=== PATIENT | male | born 1950 | race Caucasian/White ===

== ENCOUNTER 2025-02-26 18:18 | Inpatient (IN) | payer MEDICARE, SELFPAY ==
[2025-02-26 18:24] VITALS: BP 155/102; PULSE 91; RESP 18; TEMP 37; O2SAT 98; BMI 22.3
[2025-02-26 18:26] VITALS: BP 147/97; PULSE 91; RESP 14; TEMP 37; O2SAT 95
--- NOTE | 2025-02-26 18:43 | EKG12_ITS ---
Test Reason : ALT LOC Blood Pressure : */* mmHG Vent. Rate : 87 BPM Atrial Rate : 87 BPM P-R Int : 152 ms QRS Dur : 72 ms QT Int : 364 ms P-R-T Axes : 65 2 49 degrees QTcB Int : 438 ms Normal sinus rhythm Normal ECG Confirmed by Mitchel Mendieta ([id number]), film and video editor DINORAH WHITE ([id number]) on 02/27/2025 9:25:01 AM Referred By: Fausto Davidson Confirmed By: Mitchel Mendieta
--- NOTE | 2025-02-26 18:43 | CT_ITS ---
PROCEDURE: BRAIN/HEAD WITHOUT CONTRAST 02/26/2025 REASON FOR EXAM: ALTERED MENTAL STATUS TECHNIQUE: Head CT without intravenous contrast. Coronal and Sagittal reconstruction series were provided. One or more dose reduction techniques were used (e.g., Automated exposure control, adjustment of the mA and/or kV according to patient size, use of iterative reconstruction technique. COMPARISON: None FINDINGS: Encephalomalacia right frontoparietal lobe, likely from prior right MCA distribution infarct. Calcification noted within the encephalomalacia lytic focus. Additional areas of cortical laminar necrosis. No acute intracranial hemorrhage, mass, mass effect, midline shift or pathologic extra-axial fluid collection. Mild parenchymal atrophy with commensurate increase in CSF containing spaces. Ex vacuo dilatation posterior horn right lateral ventricle, from adjacent encephalomalacia. Patchy white matter hypodensities, patient demographics favor chronic microvascular ischemic changes. Complete opacification left maxillary sinus with areas of mildly high attenuation, likely secondary to inspissated secretions or fungal colonization. The calvarium is grossly intact. CT/Brain/Head without Contrast IMPRESSION: No acute intracranial abnormality. 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 Reading Location: [facility]
--- NOTE | 2025-02-26 18:44 | EX.ED.DYSGE1 ---
HPI History of Present Illness Chief Complaint: Alt LOC Informant: patient, spouse/S.O. and EMS Narrative Narrative: 74-year-old male brought by EMS due to a fall without injury just prior to arrival, but the is more concerned that he has been confused for the past 6 days. Patient agrees he has been somewhat confused. He states he felt a little short of breath earlier and told the this, she states he has had no other complaints for the past 6 days except for being more tired and weak. 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 Other than that he has no other major medical issues. He is not usually confused. Because of his left hemiparesis he usually uses a wheelchair to get around and can usually transfer on his own but not this past week until today, but that resulted in a minor fall without injury. Patient denies having any pain right now, he denies being dyspneic right now either. The states that he has been seemingly hallucinating recently, talking to people that are not there. Patient states something about getting up on a tractor yesterday, the states he certainly did not do that. She states that today he knows who she is, but for the last couple days she has been Moises. [facility] Medical History (Updated 02/26/25 @ 21:[address] Damien Leung MD) Hemorrhagic stroke Home Medications ?Medication ?Instructions ?Recorded ?Last Taken ?Type amlodipine 5 mg tablet 5 mg PO BID 02/26/25 Unknown History atorvastatin 10 mg tablet 10 mg PO QHS 02/26/25 Unknown History baclofen 10 mg tablet 10 mg PO TID 02/26/25 Unknown History donepezil 5 mg tablet 10 mg PO QHS 02/26/25 Unknown History ergocalciferol (vitamin D2) 1,250 50,000 unit PO DAILY 02/26/25 Unknown History mcg (50,000 unit) capsule (Vitamin D2) lacosamide 100 mg tablet 100 mg PO BID 02/26/25 Unknown History metoprolol tartrate 25 mg tablet 25 mg PO BID 02/26/25 Unknown History mirtazapine 15 mg tablet (Remeron) 15 mg PO QHS 02/26/25 Unknown History Allergy/AdvReac Type Severity Reaction Status Date / Time azithromycin Allergy NEEDS Verified 02/26/25 18:24 FOLLOW-UP Surgical History History of hip replacement Social History Smoking Status: Former smoker ROS ROS ED Review of Systems ROS Unobtainable: other Details: Limited due to confusion Constitutional Constitutional ED: Denies chills or fever(s) Eyes Eyes: Denies change in vision or diplopia ENT ENT ED: Denies sore throat Cardiovascular Cardiovascular: Denies chest pain or palpitations Respiratory/Chest Respiratory/Chest: Reports as per HPI and dyspnea; Denies cough Gastrointestinal Gastrointestinal: Denies abdominal pain, diarrhea, nausea or vomiting Genitourinary Genitourinary ED: Denies hematuria Musculoskeletal Musculoskeletal: Denies back pain or neck pain Integumentary Denies abscess or rash Neurologic Neurologic: Reports as per HPI, confusion, paresthesias and weakness; Denies headache(s) Psychiatric Psychiatric: Denies suicidal thoughts EXAM Physical Exam Const Vital Signs: 02/26/25 18:24 02/26/25 18:26 02/26/25 19:26 Temperature 98.6 F 98.6 F 99.1 F Temperature Source Oral Oral Oral Pulse Rate 91 91 91 Respiratory Rate 18 14 14 Blood Pressure 155/102 H 147/97 H 165/104 H Blood Pressure Mean 119 113 124 Pulse Ox 98 95 97 Oxygen Delivery Method Room Air Room Air Room Air 02/26/25 21:04 Temperature 99.1 F Temperature Source Oral Pulse Rate 89 Respiratory Rate 16 Blood Pressure 149/103 H Blood Pressure Mean 118 Pulse Ox 94 Oxygen Delivery Method Room Air Positive well nourished and well developed General Appearance ED: well developed and NAD HEENT Reports moist mucous membranes normocephalic and atraumatic Eyes PERRL and EOMs intact bilaterally Neck full ROM and supple Chest Wall inspection of chest normal and palpation of chest normal Resp normal respiratory effort and clear to auscultation bilaterally Cardio regular rate, regular rhythm and no murmurs Rate: Negative for tachycardic GI non-tender and non-distended Auscultation: normoactive bowel sounds Palpation: soft Back/Spine no CVA tenderness General Back: other FROM Extremity normal to inspection General Extremety ED: Negative for edema, pulses abnormal or tenderness General Extremity: Negative for edema or pulses abnormal Neuro CN's II-XII intact bilaterally Neuro Narrative: Able to move the left arm and left leg, but with significant proximal weakness. He does have sensation in those limbs but it is less compared with the right which are normal. He is oriented to person only. When asked which day it is, it is Thursday, and he states I think it has been Thursday for several days now. When asked about the month and the year, he states I do not know because that does not apply to me and I do not care. Sensorium / Orientation: awake, alert and orientation impaired Skin no rashes or lesions noted and no wounds MDM MDM MDM Narrative Medical decision making narrative: Patient is confused/encephalopathic. His blood counts and liver enzymes, lactic acid all within normal limits, urinalysis negative, CT of the head interpretation is negative for any acute radiology was in agreement, and 2 view chest x-ray my interpretation shows no pneumonia and radiology in agreement on that as well. He does not have any acute metabolic disturbance. He has 2 sequential troponin measurements that are negative. His EKG is completely normal. His vital signs are normal he is not excessively hypertensive, unclear if this is medication related, he is not using substances or alcohol, I do not think he is withdrawing from anything. However family is concerned because they cannot be there 11/05 and he is very confused, unable to rule out acute ischemic TIA, so I think reasonable to admit. After dysphagia screening we will give him some aspirin. Lab Data Attestation: I reviewed the patient's lab results. Labs: Laboratory Results - last 24 hr 02/26/25 02/26/25 02/26/25 18:33 19:03 19:45 WBC 10.1 RBC 5.71 Hgb 17.0 H Hct 51.1 MCV 89.5 MCH 29.8 MCHC 33.3 RDW Std Deviation 41.7 RDW Coeff of Noris 12.7 Plt Count 334 MPV 10.1 Immature Gran % (Auto) 0.300 Neut % (Auto) 76.0 H Lymph % (Auto) 14.7 L [place] % (Auto) 6.9 Eos % (Auto) 0.9 Baso % (Auto) 1.2 H Absolute Neuts (auto) 7.7 Absolute Lymphs (auto) 1.49 Nucleated RBC % 0 Sodium 144 Potassium 3.7 Chloride 109 H Carbon Dioxide 21.8 Anion Gap 13 BUN 17 Creatinine 0.79 Estim Creat Clear Calc 79.80 Est GFR (MDRD) Non-Af 94 BUN/Creatinine Ratio 21.2 H Glucose 90 Lactic Acid 1.7 Calcium 9.8 Total Bilirubin 0.51 AST 12 ALT 8 Alkaline Phosphatase 77 Troponin T High Sens 9 Troponin T Hi Sens 2 Hr Total Protein 7.8 Albumin 4.3 Globulin 3.4 Albumin/Globulin Ratio 1.3 Urine Color Yellow Urine Clarity Clear Urine pH 5.0 Ur Specific [place] 1.025 Urine Protein 30 H Urine Glucose (UA) Normal Urine Ketones Negative Urine Occult Blood 10 H Urine Nitrite Negative Urine Bilirubin 1 H Urine Urobilinogen 1 H Ur Leukocyte Esterase 25 H Urine RBC 0-5 SEEN Urine WBC 0-5 SEEN Ur Squamous Epith Cells 0 SEEN Urine Bacteria 0 SEEN Urine Mucus 0 SEEN 02/26/25 20:20 WBC RBC Hgb Hct MCV MCH MCHC RDW Std Deviation RDW Coeff of Noris Plt Count MPV Immature Gran % (Auto) Neut % (Auto) Lymph % (Auto) [place] % (Auto) Eos % (Auto) Baso % (Auto) Absolute Neuts (auto) Absolute Lymphs (auto) Nucleated RBC % Sodium Potassium Chloride Carbon Dioxide Anion Gap BUN Creatinine Estim Creat Clear Calc Est GFR (MDRD) Non-Af BUN/Creatinine Ratio Glucose Lactic Acid Calcium Total Bilirubin AST ALT Alkaline Phosphatase Troponin T High Sens Troponin T Hi Sens 2 Hr 7 Total Protein Albumin Globulin Albumin/Globulin Ratio Urine Color Urine Clarity Urine pH Ur Specific [place] Urine Protein Urine Glucose (UA) Urine Ketones Urine Occult Blood Urine Nitrite Urine Bilirubin Urine Urobilinogen Ur Leukocyte Esterase Urine RBC Urine WBC Ur Squamous Epith Cells Urine Bacteria Urine Mucus Radiography Diagnostic Testing: Clinical Impression(s) from Imaging Studies Brain CT 02/26/25 18:43 IMPRESSION: No acute intracranial abnormality. 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 Reading Location: [facility] Chest X-Ray 02/26/25 19:20 IMPRESSION: NO ACUTE FINDINGS. Reading Location: [facility] No CT angiography indicated since symptoms have been present for greater than 24 hours, if MANAGER IMAGE mediated. Rhythm Strip Rhythm Strip: Sinus Rhythm Rate: 87 Ectopy: None EKG Initial EKG: Attestation: I personally reviewed and interpreted this EKG as follows: Interpretation: Sinus Rhythm and No Acute Injury Pattern Comments: Nml axis & intervals; nml EKG Management Discussion w/another healthcare provider: Hospitalist Discharge Plan Triage Chief Complaint: Alt LOC ED Provider: Damien Leung Dx/Rx/DC Orders Clinical Impression: Acute encephalopathy, Generalized weakness Prescriptions: No Action donepezil 5 mg tablet 10 mg PO QHS mirtazapine [Remeron] 15 mg tablet 15 mg PO QHS lacosamide 100 mg tablet 100 mg PO BID atorvastatin 10 mg tablet 10 mg PO QHS ergocalciferol (vitamin D2) [Vitamin D2] 1,250 mcg (50,000 unit) capsule 50,000 unit PO DAILY metoprolol tartrate 25 mg tablet 25 mg PO BID baclofen 10 mg tablet 10 mg PO TID amlodipine 5 mg tablet 5 mg PO BID Primary Care Provider: Care Physician,No Primary Referrals: Care Physician,No Primary [Primary Care Provider] - Print Language: Japanese Disposition Disposition: Acute Care Hospital [facility]
[2025-02-26 18:56] LABS: Absolute Lymphocyte Count 1.49 X10^3/uL (0.83-4.51); Absolute Neutrophil Count 7.7 X10^3/uL (2.0-7.7); Basophil# 0.12 X10^3/uL; Basophil% 1.2 % (0-1); Eosinophil# 0.09 X10^3/uL; Eosinophils% 0.9 % (0-5); Hematocrit 51.1 % (40-54); Lymphocyte # 1.49 X10^3/ul (0.83-4.51); Lymphocyte % 14.7 % (19-41); Mean Corp Hgb Conc 33.3 g/dL (32-36); Mean Corpuscular Hgb 29.8 pg (27.0-32.0); Mean Corpuscular Volume 89.5 fL (80-94); Mean Platelet Vol. 10.1 fl (6.2-12.0); Monocyte% 6.9 % (0-10); NRBC Flagged by Analyzer 0 % (0-5); Neutrophil # 7.68 X10^3/uL (2.7-7.7); Platelet Count 334 K/mm3 (150-450); RBC Distribution Width CV 12.7 % (11.6-14.6); RBC Distribution Width SD 41.7 fl (35.1-43.9); Red Blood Count 5.71 M/mm3 (4.6-6.2); White Blood Count 10.1 K/mm3 (4.4-11.0)
--- NOTE | 2025-02-26 19:01 | PCA ---
NO OLD EKG
[2025-02-26 19:08] LABS: ALB/GLOB Ratio 1.3 RATIO (0.9-2.4); AST(SGOT) 12 U/L (<=37); Alanine Aminotransfer ALT/SGPT 8 U/L (<=46); Albumin, Serum 4.3 g/dL (3.4-4.8); Alkaline Phosphatase 77 U/L (40-129); Anion Gap 13 (5-15); BUN 17 mg/dL (4-19); BUN/Creat Ratio 21.2 RATIO (10-20); Calcium,Total 9.8 mg/dL (7.6-11.0); Carbon Dioxide 21.8 mmol/L (21.0-32.0); Chloride 109 mmol/L (98-108); Creatinine, Serum 0.79 mg/dL (0.70-1.20); EST Glomerular Filtration Rate 94 (>60); Globulin 3.4 g/dL (2.2-4.2); Glucose 90 mg/dL (70-99); Potassium 3.7 mmol/L (3.3-5.1); Protein, Total 7.8 g/dL (5.9-8.4); Sodium Level 144 mmol/L (133-145); Total Bilirubin 0.51 mg/dL (0.00-1.30)
--- NOTE | 2025-02-26 19:20 | RAD_ITS ---
PROCEDURE: CHEST PA AND LATERAL 02/26/2025 REASON FOR EXAM: SOB TECHNIQUE: Frontal and lateral views of the chest. COMPARISON: None FINDINGS: Hardware: None Heart: The heart size is normal. Mediastinum: The mediastinal contour is stable. Lungs: No focal consolidation. No pneumothorax. No pleural effusion. Bones: Degenerative changes are identified within the thoracic spine. RAD/Chest PA and Lateral IMPRESSION: NO ACUTE FINDINGS. Reading Location: [facility]
[2025-02-26 19:26] VITALS: BP 165/104; PULSE 91; RESP 14; TEMP 37.3; O2SAT 97
[2025-02-26 19:28] LABS: Troponin T High Sensitivity 9 ng/L (<=22)
[2025-02-26 19:29] LABS: Lactic Acid 1.7 mmol/L (0.0-2.0)
[2025-02-26 19:56] LABS: Bacteria 0 SEEN /hpf (None Seen); Mucous, Urine 0 SEEN /hpf (<or=2+); Squamous Epithelial Cells - UA 0 SEEN /hpf (0-5)
[2025-02-26 19:59] LABS: Color, Urine Yellow (Yellow); Glucose, Dipstick Normal (Normal); Ketone-Dipstick Negative (Negative); Leukocyte Esterase-Dipstick 25 /ul (Negative); Nitrite-Dipstick Negative (Negative); Occult Blood-Urine 10 /ul (Negative); Protein-Dipstick 30 mg/dl (Negative); Specific Gravity, Urine 1.025 (1.002-1.030); Urine Clarity Clear (Clear); Urine Urobilinogen 1 mg/dl (Normal)
[2025-02-26 20:07] LABS: Red Blood Cells-Urine 0-5 SEEN /hpf (0-5); Urine Bilirubin Dipstick 1 mg/dL (Negative); White Blood Cells 0-5 SEEN /hpf (0-5)
[2025-02-26 20:48] LABS: Troponin T High Sens 2 HR 7 ng/L (<=22)
[2025-02-26 21:04] VITALS: BP 149/103; PULSE 89; RESP 16; TEMP 37.3; O2SAT 94
--- NOTE | 2025-02-26 21:27 | PCM.HP.STD ---
[facility] - General General Date of Admission: 02/26/25 Date of Service: 02/26/25 Chief Complaint: AMS and Fall. 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 Mr. Soto is not up as reliable-historian at this time so information was gathered from chart, medical staff and computer. According to the records he has been confused for the past 6 days with mild intermittent shortness of breath, feeling fatigued and generally weak. His states he is usually not confused. He typically uses a wheelchair to mobilize and can usually transfer on his own but he was able to this past week until today when he attempted to get up experienced a minor fall without associated injury, LOC or head trauma. He denies pain and shortness of breath at this time. His states he has been hallucinating recently and talking to people that are not there. She also states he said something about getting up on a tractor yesterday, with his stating he certainly did not do that. Also for the last few days the patient has been calling his Moises but the day he seems to know who she is. There was no reported fever, chills, blurry vision, discharge from eyes, runny nose, sore throat, ear pain, chest pain, palpitations, heart racing, abdominal pain, nausea, vomiting, diarrhea, hematuria, dysuria, back pain, headache or rash. 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 He was then admitted to the PCU under observation status for TIA/CVA workup for his confusion for a stay that is expected to be less than [address] [facility] Medical History Hemorrhagic stroke Home Medications ?Medication ?Instructions ?Recorded ?Last Taken ?Type amlodipine 5 mg tablet 5 mg PO BID 02/26/25 Unknown History atorvastatin 10 mg tablet 10 mg PO QHS 02/26/25 Unknown History baclofen 10 mg tablet 10 mg PO TID 02/26/25 Unknown History donepezil 5 mg tablet 10 mg PO QHS 02/26/25 Unknown History ergocalciferol (vitamin D2) 1,250 50,000 unit PO DAILY 02/26/25 Unknown History mcg (50,000 unit) capsule (Vitamin D2) lacosamide 100 mg tablet 100 mg PO BID 02/26/25 Unknown History metoprolol tartrate 25 mg tablet 25 mg PO BID 02/26/25 Unknown History mirtazapine 15 mg tablet (Remeron) 15 mg PO QHS 02/26/25 Unknown History Allergy/AdvReac Type Severity Reaction Status Date / Time azithromycin Allergy NEEDS Verified 02/26/25 18:24 FOLLOW-UP Surgical History History of hip replacement Social History Smoking Status: Former smoker ROS ROS Narrative Full review of systems was not possible due to patient's confusion. Vital Signs Vital Signs Vital Signs: 02/26/25 18:24 02/26/25 18:26 02/26/25 19:26 Temperature 98.6 F 98.6 F 99.1 F Temperature Source Oral Oral Oral Pulse Rate 91 91 91 Respiratory Rate 18 14 14 Blood Pressure 155/102 H 147/97 H 165/104 H Blood Pressure Mean 119 113 124 Pulse Ox 98 95 97 Oxygen Delivery Method Room Air Room Air Room Air 02/26/25 21:04 Temperature 99.1 F Temperature Source Oral Pulse Rate 89 Respiratory Rate 16 Blood Pressure 149/103 H Blood Pressure Mean 118 Pulse Ox 94 Oxygen Delivery Method Room Air Weight Weight: 151 lb 3.794 oz Body Mass Index (BMI) 22.3 Physical Exam Const alert, no apparent distress and average body habitus General Appearance: cooperative Orientation / Consciousness: confused HEENT normocephalic, head/scalp atraumatic, hearing grossly normal bilaterally and moist oral mucous membranes Eyes PERRL, EOMs intact bilaterally and conjunctivae normal Neck no lymphadenopathy, supple and no JVD Resp normal respiratory effort, no retractions, no use of accessory muscles and clear to auscultation bilaterally Cardio regular rate and regular rhythm GI normal to inspection, nondistended, normoactive bowel sounds, soft to palpation, non-tender and non-distended Extremity normal to inspection, full ROM and no clubbing, cyanosis or edema Skin Skin Narrative: Patient has evidence of rash, abscess, wounds or jaundice. Neuro CN's II-XII intact bilaterally and moves all extremities Neuro Narrative: Patient is confused and has chronic Left-sided weakness that is unchanged from previous. Sensorium / Orientation: awake, alert, oriented to person and oriented to place Speech: speech normal Psych affect normal Results Medical Records Data Attestation: I reviewed the patient's medical records Lab / Micro Data Attestation: I reviewed the patient's lab results. 02/26/25 18:33 02/26/25 18:33 Labs: Laboratory Results - last 24 hr 02/26/25 18:33: WBC 10.1, RBC 5.71, Hgb 17.0 H, Hct 51.1, MCV 89.5, MCH 29.8, MCHC 33.3, RDW Std Deviation 41.7, RDW Coeff of Noris 12.7, Plt Count 334, MPV 10.1, Immature Gran % (Auto) 0.300, Neut % (Auto) 76.0 H, Lymph % (Auto) 14.7 L, [place] % (Auto) 6.9, Eos % (Auto) 0.9, Baso % (Auto) 1.2 H, Absolute Neuts (auto) 7.7, Absolute Lymphs (auto) 1.49, Nucleated RBC % 0, Sodium 144, Potassium 3.7, Chloride 109 H, Carbon Dioxide 21.8, Anion Gap 13, BUN 17, Creatinine 0.79, Estim Creat Clear Calc 79.80, Est GFR (MDRD) Non-Af 94, BUN/Creatinine Ratio 21.2 H, Glucose 90, Calcium 9.8, Total Bilirubin 0.51, AST 12, ALT 8, Alkaline Phosphatase 77, Troponin T High Sens 9, Total Protein 7.8, Albumin 4.3, Globulin 3.4, Albumin/Globulin Ratio 1.3 02/26/25 19:03: Lactic Acid 1.7 02/26/25 19:45: Urine Color Yellow, Urine Clarity Clear, Urine pH 5.0, Ur Specific [place] 1.025, Urine Protein 30 H, Urine Glucose (UA) Normal, Urine Ketones Negative, Urine Occult Blood 10 H, Urine Nitrite Negative, Urine Bilirubin 1 H, Urine Urobilinogen 1 H, Ur Leukocyte Esterase 25 H, Urine RBC 0-5 SEEN, Urine WBC 0-5 SEEN, Ur Squamous Epith Cells 0 SEEN, Urine Bacteria 0 SEEN, Urine Mucus 0 SEEN 02/26/25 20:20: Troponin T Hi Sens 2 Hr 7 Rhythm Strip Rhythm Strip: Sinus Rhythm Rate: 87 Ectopy: None Imaging Radiology Impression Brain CT 02/26/25 18:43 IMPRESSION: No acute intracranial abnormality. 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 Reading Location: [facility] Chest X-Ray 02/26/25 19:20 IMPRESSION: NO ACUTE FINDINGS. Reading Location: [facility] Assessment & Plan Assessment/Plan (1) Confusion: (2) 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nset dementia: (3) Generalized weakness: (4) History of hemorrhagic cerebrovascular accident (CVA) with residual deficit: (5) Seizure disorder as sequela of cerebrovascular accident: (6) Chronic dementia: (7) Generalized weakness: PLAN: Plan 1. Persistent Confusion x ~6 days; with Hallucinations and Generalized Weakness; evaluate for TIA/CVA - Admit to PCU under observation status. Check MRI of brain without contrast to evaluate for CVA. Check echocardiogram to evaluate LVEF. Check carotid Doppler to evaluate for stenosis. Continue aspirin begun in ER as well as statin patient is chronically taking. Check TSH, B12, folate, hemoglobin A1c, lipid profile, UDS and FER to expand neurologic evaluation for other possible causes of confusion. Give acetaminophen as needed for pain or fever. We will minimize new WATER CONSERVATION SPECIALIST-active medications in an effort to allow sensorium to clear. Finally, we will consult [facility] to see this patient on rounds in a.m. for further recommendations without appreciated in advance. 2. History of hemorrhagic Right MCA CVA (~2018) followed by another CVA (2023); residual Left-sided weakness complicating #1 - Noted. 3. History of seizure after CVA; on lacosamide compounding #1 & #2 - Resume lacosamide and check EEG in a.m. to evaluate for possible underlying seizure activity. 4. Chronic dementia; on donepezil adding to the medical complexity of #1 - #3 - Maintain donepezil and consider adding a second agent if above workup is unremarkable and hallucinations and confusion persist in spite of conservative treatment and other underlying etiology failing to be identified in spite of workup outlined above. 5. Essential hypertension; on amlodipine and metoprolol twice daily - Hold scheduled antihypertensives to allow for 'permissive hypertension' until CVA definitively ruled out on MRI. 6. Hyperlipidemia; on atorvastatin - Resume statin and check lipid profile in light of #1. 7. Former tobacco abuse - Noted. 8. Depression; on mirtazapine - Current therapy to be continued as before. 9. History of TIA; with a possible recurrence outlined #1 - Noted. 10. History of muscle spasms; on baclofen 3 times daily - Maintain present regimen. 11. OA; s/p THR - Give acetaminophen as needed as outlined in #1. Who presents to [facility] ER with his family complaining of altered mental status and fall. 12. DVT prophylaxis - SCD's only. Total time: Approximately (but not less than) 70 minutes. Charges/Coding Visit Charges OBSV E&M: 39276 Observ/hosp same date L2
[2025-02-26 21:34] VITALS: BP 151/104; PULSE 81; RESP 13; TEMP 36.6; O2SAT 95
[2025-02-26] MEDS: Aspirin 325 MG Tablet PO (21:39)
--- NOTE | 2025-02-26 22:01 | ECHOCS_ITS ---
Reason For Study Reason For Study: TIA/CVA Procedure This was a 2D Doppler, Color Flow transthoracic echocardiogram. The study was technically difficult. Contrast injection was performed. Patient was unable to hold still for testing and was very confused. Limited views were obtained. Exam performed portable in patient room. Left Ventricle Normal LV size. Left ventricular systolic function is normal. The left ventricular ejection fraction is 65 %. Stage 1 diastolic dysfunction. No regional wall motion abnormalities noted. Right Ventricle Normal RV size. Normal systolic function. Pericardium/Pleural No pericardial effusion. Medication Diluted definity 4ml given slow IV push to enhance endocardial definition. Time Measurements MV dec time: 0.26 sec Doppler Measurements & Calculations MV E max zak: 54.2 cm/sec Lat Peak E' Zak: 6.8 cm/sec Med Peak E' Zak: 7.6 cm/sec MV A max zak: 104.0 cm/sec E/E' lat: 8.0 E/E' med: 7.1 MV E/A: 0.52 MV V2 max: 123.4 cm/sec MV P1/2t max zak: 63.4 cm/sec Ao V2 max: 110.4 cm/sec MV max P.1 mmHg MV P1/2t: 84.9 msec Ao max P.9 mmHg MV V2 mean: 60.5 cm/sec MV mean P.9 mmHg MV dec slope: 218.7 cm/sec2 MV V2 VTI: 21.4 cm MVA(P1/2t): 2.6 cm2 LV V1 max: 84.9 cm/sec LV V1 max P.9 mmHg ECHO/Echo Complete W/ Contrast Interpretation Summary Normal LV size. Left ventricular systolic function is normal. The left ventricular ejection fraction is 65 %. Stage 1 diastolic dysfunction. Contrast injection was performed. Ordering Physician: Fausto Davidson Referring Physician: Fausto Davidson Performed By: Wojciech Trujillo RCS
--- NOTE | 2025-02-26 22:01 | CDU_ITS ---
Reason For Study Reason For Study: Evaluate for stenosis, cofusion Rt. Velocities/BP Lt. Velocities/BP Prox CCA 77.8/13.5 cm/sec. Prox CCA 65.5/11.6 cm/sec. Mid CCA 65.5/11.6 cm/sec. Mid CCA 62.6/13.5 cm/sec. Dist CCA 50.4/8.8 cm/sec. Dist CCA 52.2/12.6 cm/sec. Prox ICA 40/9.7 cm/sec. Prox ICA 39/10.7 cm/sec. Mid ICA 46.6/13.5 cm/sec. Mid ICA 56/15.4 cm/sec. Dist ICA 71.1/19.2 cm/sec. Dist ICA 64.5/20.1 cm/sec. Rt. ICA/CCA = 1.09. Lt. ICA/CCA = 1.03. Prox ECA 83.9/10.2 cm/sec. Prox ECA 103.6/12.4 cm/sec. Rt. Vert. 48.5/11.6 cm/sec. Lt. Vert. 44.7/8.8 cm/sec. Right Extracranial There is heterogeneous, irregular atherosclerotic plaque noted in the right common carotid artery. There is heterogeneous, irregular atherosclerotic plaque noted in the right internal carotid artery. There is heterogeneous, irregular atherosclerotic plaque noted in the right external carotid artery. Antegrade flow is noted in the right vertebral artery. Left Extracranial There is heterogeneous, irregular atherosclerotic plaque noted in the left common carotid artery. There is heterogeneous, irregular atherosclerotic plaque noted in the left internal carotid artery. There is heterogeneous, irregular atherosclerotic plaque noted in the left external carotid artery. Antegrade flow is noted in the left vertebral artery. Procedure Carotid Duplex [id number]. This is a Carotid Duplex examination using B-mode, color flow and specral Doppler. Exam performed in department. VL/Carotid Duplex Ultrasound Interpretation Summary Mild (<50%) stenosis right extracranial internal carotid. Mild (<50%) stenosis left extracranial internal carotid. Patent and antegrade vertebrals bilaterally. Ordering Physician: Fausto Davidson Performed By: Roxanne Vazquez RVT
[2025-02-26 22:29] VITALS: BMI 21.2
[2025-02-26 22:59] VITALS: BP 166/102; PULSE 78; RESP 18; TEMP 36.7; O2SAT 100
[2025-02-26] MEDS: Atorvastatin Calcium 10 MG Tablet PO (23:06)
[2025-02-26] MEDS: 0.9% Normal Saline (1000mL) 1,000 ML 50 ML IV (23:06)
[2025-02-26] MEDS: Lacosamide 100 MG Tablet PO (23:06)
[2025-02-26] MEDS: Donepezil HCl 10 MG Tablet PO (23:06)
[2025-02-26] MEDS: Mirtazapine 15 MG Tablet PO (23:06)
[2025-02-26] MEDS: Baclofen 10 MG Tablet PO (23:06)
[2025-02-26 23:46] LABS: Hemoglobin A1c 5.5 % (<=5.6)
[2025-02-26 23:52] VITALS: BMI 21.2
[2025-02-26 23:57] LABS: Troponin T High Sens 4 HR 10 ng/L (<=22)
[2025-02-27] VITALS (9 sets, daily range): BP systolic 139–168; BP diastolic 98–103; PULSE 69–94; RESP 16–18; TEMP 36.3–37; O2SAT 96–99; BMI 21.2
[2025-02-27 00:05] LABS: Alcohol, Blood (Medical)-Serum < 10.1 mg/dL (<=10.0)
[2025-02-27 00:21] LABS: Vitamin B12 461 pg/mL (180-914)
[2025-02-27 00:37] LABS: Amphetamine Urine NEGATIVE (<1000 ng/mL); Barbiturate Urine NEGATIVE (< 200 ng/mL); Benzodiazepine Urine NEGATIVE (< 200 ng/mL); Buprenorphine Urine NEGATIVE (< 200 ng/mL); Cocaine Urine NEGATIVE (< 300 ng/mL); Fentanyl, Urine NEGATIVE; Methadone Urine NEGATIVE (< 300 ng/mL); Opiates Urine NEGATIVE (< 300 ng/mL); Oxycodone, Urine NEGATIVE (< 100 ng/mL); PCP Urine NEGATIVE (< 25 ng/mL); THC Urine NEGATIVE (< 50 ng/mL)
[2025-02-27] MEDS: Baclofen 10 MG Tablet PO ×3 (05:04→21:40)
[2025-02-27 07:39] LABS: Cholesterol 185 mg/dL (<=200); High Density Lipoprotein 49 mg/dL; Low Density Lipoprotein Calc. 119 mg/dL; Triglycerides 87 mg/dL; Very Low Density Lipoprotein 17 mg/dL (5-40)
--- NOTE | 2025-02-27 08:23 | CON.PCM.NE_ITS ---
Assessment and Plan: Neuro Assessment/Plan ALDO SOTO is a 74 M with a past medical history of prior hemorrhagic stroke, HTN, seizure, dementia, being evaluated by Teleneurology for sudden onset worsening confusion started 10 days ago with waxing waning effect. On exam, there are some profound visual agnosias that would localize to occipital or temporal-occipital regions which is not where pt's parietal RMCA stroke are located. 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 Ddx would have included new stroke or stroke recrudescence except not clear there is anything causing recrudescence and no new stroke on imaging. Based on history and exam, there may be concern that pt was hoarding some pills and potentially had a breakthrough seizure with prolonged post-ictal period or intermittent subclinical seizures. Cannot rule out a new lesion that is difficult to assess. Given acuity of onset and involvement of specific type of agnosia, an extension of baseline dementia would be a diagnosis of exclusion and should not be considered a primary cause at this time. Plan: - routine EEG with mild encephalopathy - will increase Vimpat to 150mg BID in case some symptoms are related to subclinical seizures vs a prolonged postictal phase - continue baclofen monitor constipation with q2 day bowel movements. - consider MRI Brain with contrast to further evaluate for temporal-occipital deficits. I personally attended this patient and spent a total time of 45minutes evaluating this patient including clinical assessment, review of chart, medical history imaging, and determining appropriate treatment and workup. 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 Mr. Soto is not up as reliable-historian at this time so information was gathered from chart, medical staff and computer. According to the records he has been confused for the past 6 days with mild intermittent shortness of breath, feeling fatigued and generally weak. His states he is usually not confused. He typically uses a wheelchair to mobilize and can usually transfer on his own but he was able to this past week until today when he attempted to get up experienced a minor fall without associated injury, LOC or head trauma. He denies pain and shortness of breath at this time. His states he has been hallucinating recently and talking to people that are not there. She also states he said something about getting up on a tractor yesterday, with his stating he certainly did not do that. Also for the last few days the patient has been calling his Moises but the day he seems to know who she is. There was no reported fever, chills, blurry vision, discharge from eyes, runny nose, sore throat, ear pain, chest pain, palpitations, heart racing, abdominal pain, nausea, vomiting, diarrhea, hematuria, dysuria, back pain, headache or rash. 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 He was then admitted to the PCU under observation status for TIA/CVA workup for his confusion for a stay that is expected to be less than 2 midnights. Neurologic History Patient not oriented to place (thinks he is in a garage). He is confused as to his 's name still and was confused who his was normally. Normally can state day of the week and month and holidays but cannot now. 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 He has small ischemic strokes since then that caused some memory problems The symptoms of confusion started 10 days ago, he woke up he was suddnely more confused. Not had a seizure in the last 3 years. No waxing and waning in the symptoms - persistent confusion but not worse. No changes in medication. been on baclofen for 6 years. No issues with constipation, has been hoarding pills but unclear which pills (had a variety of pills hid in his bed over the last week and a half and unclear if this is a symptom or the cause). No constipation. Been on lacosamide 100mg BID, been on it for 6 years now, no changes in medications. Physicial Exam -? General: Laying comfortably in bed; in no acute distress. -? HENT: Normal oropharynx and mucosa. Normal external appearance of ears and nose. Exophthalmos. -? Neck: Supple, no pain or tenderness -? CV:? No peripheral edema. -? Pulmonary:? Normal respiratory effort. -? Ext: No cyanosis, edema, or deformity -? Skin: No rash. Normal palpation of skin.? -? Musculoskeletal: full range of motion; no joint tenderness. Normal digits and nails by inspection. No clubbing. -? NEURO: -? Mental Status: The patient was alert, not oriented to time or place or situation, aware to person. Recognized . 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 Language: speech is clear.? Naming impaired as above - some associative agnosias, paraphasias noted, agnostic alexia (can spell, cannot read) -? Cranial Nerves: PERRL 3mm/brisk. EOMI but with difficulty in tracking, visual hinojosa difficult to test, no facial asymmetry, facial sensation intact, hearing intact, tongue midline, no evidence of atrophy or fibrillations. -? Motor: RUE and RLE strongly antigravity, the LUE without movements, LLE antigravity with drift to bed LUE with high tone and spasticity, LLE with better tone still with spasticity. -? Sensation- Intact to light touch bilaterally -? Coordination: No dysmetria on [id number] on the RUE. -? Gait- deferred [facility] Medical History Hemorrhagic stroke Home Medications ?Medication ?Instructions ?Recorded ?Last Taken ?Type amlodipine 5 mg tablet 5 mg PO BID 02/26/25 Unknown History atorvastatin 10 mg tablet 10 mg PO QHS 02/26/25 Unknow n History baclofen 10 mg tablet 10 mg PO TID 02/26/25 Unknow n History donepezil 5 mg tablet 10 mg PO QHS 02/26/25 Unknow n History ergocalciferol (vitamin D2) 1,250 50,000 unit PO DAILY 02/26/25 Unknown History mcg (50,000 unit) capsule (Vitamin D2) lacosamide 100 mg tablet 100 mg PO BID 02/26/25 Unkno wn History metoprolol tartrate 25 mg tablet 25 mg PO BID 02/26/25 Unknown History mirtazapine 15 mg tablet (Remeron) 15 mg PO QHS Unknown History Allergy/AdvReac Type Severity Reaction Status Date / Time azithromycin Allergy NEEDS Verified 02/26/25 18:24 FOLLOW-UP Surgical History History of hip replacement Social History Smoking Status: Former smoker Vital Signs Vital Signs Vital Signs: 02/26/25 18:24 02/26/25 18:26 02/26/25 19:26 Temperature 98.6 F 98.6 F 99.1 F Temperature Source Oral Oral Oral Pulse Rate 91 91 91 Respiratory Rate 18 14 14 Respiratory Effort Respiratory Depth Respiratory Pattern Blood Pressure 155/102 H 147/97 H 165/104 H Blood Pressure Mean 119 113 124 Pulse Ox 98 95 97 Oxygen Delivery Method Room Air Room Air Room Air 02/26/25 21:04 02/26/25 21:34 02/26/25 22:59 Temperature 99.1 F 98 F 98.1 F Temperature Source Oral Oral Pulse Rate 89 81 78 Respiratory Rate 16 13 18 Respiratory Effort Respiratory Depth Respiratory Pattern Blood Pressure 149/103 H 151/104 H 166/102 H Blood Pressure Mean 118 119 123 Pulse Ox 94 95 100 Oxygen Delivery Method Room Air Room Air 02/27/25 00:13 02/27/25 03:00 02/27/25 04:45 Temperature 97.8 F Temperature Source Temporal Pulse Rate 69 Respiratory Rate 18 Respiratory Effort Normal Non-Labored Respiratory Depth Normal Respiratory Pattern Normal Blood Pressure 139/103 H Blood Pressure Mean 115 Pulse Ox 97 96 Oxygen Delivery Method Room Air Room Air Room Air 02/27/25 05:00 Temperature 97.4 F L Temperature Source Temporal Pulse Rate 80 Respiratory Rate 18 Respiratory Effort Respiratory Depth Respiratory Pattern Blood Pressure 164/98 H Blood Pressure Mean 120 Pulse Ox 97 Oxygen Delivery Method Room Air Weight Weight: 65.1 kg Body Mass Index (BMI) 21.2 EEG Results Procedure Details EEG Procedure Details: ALDO SOTO is a 74 year old M with a past medical history of , who presents for evaluation of Electroencephalogram on DATE at TIME Lab / Micro Data 02/26/25 18:33 02/26/25 18:33 Labs: Laboratory Results - last 24 hr 02/26/25 18:33: WBC 10.1, RBC 5.71, Hgb 17.0 H, Hct 51.1, MCV 89.5, MCH 29.8, MCHC 33.3, RDW Std Deviation 41.7, RDW Coeff of Noris 12.7, Plt Count 334, MPV 10.1, Immature Gran % (Auto) 0.300, Neut % (Auto) 76.0 H, Lymph % (Auto) 14.7 L, [place]field % (Auto) 6.9, Eos % (Auto) 0.9, Baso % (Auto) 1.2 H, Absolute Neuts (auto) 7.7, Absolute Lymphs (auto) 1.49, Nucleated RBC % 0, Sodium 144, Potassium 3.7, Chloride 109 H, Carbon Dioxide 21.8, Anion Gap 13, BUN 17, Creatinine 0.79, Estim Creat Clear Calc 79.80, Est GFR (MDRD) Non-Af 94, BUN/Creatinine Ratio 21.2 H, Glucose 90, Calcium 9.8, Total Bilirubin 0.51, AST 12, ALT 8, Alkaline Phosphatase 77, Troponin T High Sens 9, Total Protein 7.8, Albumin 4.3, Globulin 3.4, Albumin/Globulin Ratio 1.3 02/26/25 19:03: Lactic Acid 1.7 02/26/25 19:45: Urine Color Yellow, Urine Clarity Clear, Urine pH 5.0, Ur Specific [place] 1.025, Urine Protein 30 H, Urine Glucose (UA) Normal, Urine Ketones Negative, Urine Occult Blood 10 H, Urine Nitrite Negative, Urine Bilirubin 1 H, Urine Urobilinogen 1 H, Ur Leukocyte Esterase 25 H, Urine RBC 0-5 SEEN, Urine WBC 0-5 SEEN, Ur Squamous Epith Cells 0 SEEN, Urine Bacteria 0 SEEN, Urine Mucus 0 SEEN, Urine Opiates Screen NEGATIVE, U Buprenorphine Qual NEGATIVE, Ur Oxycodone Screen NEGATIVE, Urine Methadone Screen NEGATIVE, Urine Fentanyl Screen NEGATIVE, Ur Barbiturates Screen NEGATIVE, Ur Phencyclidine Scrn NEGATIVE, Ur Amphetamines Screen NEGATIVE, U Benzodiazepines Scrn NEGATIVE, Urine Cocaine Screen NEGATIVE, U Cannabinoids Screen NEGATIVE 02/26/25 20:20: Troponin T Hi Sens 2 Hr 7 02/26/25 22:53: Hemoglobin A1c 5.5, Troponin T Hi Sens 4Hr 10, Vitamin B12 461, Serum Folate 10.50, TSH 1.070, Ethyl Alcohol < 10.1 02/27/25 05:30: Triglycerides 87, Cholesterol 185, LDL Cholesterol, Calc 119, VLDL Cholesterol 17, HDL Cholesterol 49, Cholesterol/HDL Ratio 3.80 Rhythm Strip Rhythm Strip: Sinus Rhythm Rate: 87 Ectopy: None Imaging Radiology Impression Brain CT 02/26/25 18:43 IMPRESSION: No acute intracranial abnormality. 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 Reading Location: [facility] Chest X-Ray 02/26/25 19:20 IMPRESSION: NO ACUTE FINDINGS. Reading Location: [facility] Active Medications Active Medications Active Medications: Current Medications Generic Name Dose Route Start Last Admin Trade Name Freq PRN Reason Stop Dose Admin Acetaminophen 650 mg 02/26/25 22:22 Acetaminophen 325 Mg Tablet PO Q6H PRN PRN Pain 1-10 or Fever Aspirin 81 mg 02/27/25 08:00 Aspirin 81 Mg Tab.Chew PO BREAKFAST SUMIT Atorvastatin Calcium 10 mg 02/26/25 22:22 02/26/25 23:06 Atorvastatin Calcium 10 Mg Tablet PO 10 mg QHS SUMIT Administration Baclofen 10 mg 02/26/25 22:22 02/27/25 05:04 Baclofen 10 Mg Tablet PO 10 mg TID SUMIT Administration Clarify Med Order 0 each 02/26/25 22:45 Clarify Order NOTE CLARIFY SUMIT Donepezil HCl 10 mg 02/26/25 22:22 02/26/25 23:06 Donepezil Hcl 10 Mg Tablet PO 10 mg QHS SUMIT Administration Ergocalciferol mg 02/27/25 10:00 Ergocalciferol 1.25 Mg (50, 000 Unit) Capsule PO DAILY SUMIT Sodium Chloride 1,000 mls @ 50 mls/hr 02/26/25 22:01 02/27/25 07:02 IV 02/27/25 18:00 50 mls/hr .Q20H SUMIT Infusion Lacosamide 100 mg 02/26/25 22:22 02/26/25 23:06 Lacosamide 100 Mg Tablet PO 100 mg BID SUMIT Administration Mirtazapine 15 mg 02/26/25 22:22 02/26/25 23:06 Mirtazapine 15 Mg Tablet PO 15 mg QHS SUMIT Administration Sodium Chloride 10 - 40 ml 02/26/25 22:32 0.9% Saline Lock 10 Ml Syringe IV UD PRN SALINE FLUSH NIHSS NIHSS Nursing Documentation NIHSS Nursing Documentation: NIHSS: Ischemic Stroke/TIA Start: 02/26/25 22:22 Text: For PCU Patients: NIH and Neuro Check every 4 Status: Active hours, PRN and with change in RN caregiver. Freq: [id number] Protocol: Activity Type Activity Date Activity User E-sign Co-sign Detail Recorded Client Recorded Date Recorded By Document 02/27/25 05:00 [facility] [id number] 02/27/25 05:09 [facility] 02/27/25 05:00 NIH Stroke Scale [NIHSS] A score of 0 is normal or asymptomatic . Total possible score is 42. Inpatient: RN or Physician to activate a stroke alert for onset of new stroke symptoms or with NIHSS increase >/= 3 points. Following change in neurological status, NIHSS will be performed per physician order or more frequently PRN. -1a. Level of Consciousness 0 - Alert; keenly responsive -1b. LOC Questions 2 - Answers NEITHER question correctly -1c. LOC Commands 1 - Performs ONE task correctly -2. Best Gaze 0 - Normal -3. Visual 0 - No visual loss -4. Facial Palsy 0 - Normal symmetrical movements -5a. Left Arm 1 - Drift; arm drifts downward but doesn?t hit the bed -5b. Right Arm 0 - No drift; arm holds 90 ( or 45) degrees for full 10 seconds -6a. Left Leg 0 - No drift; leg holds 30- degree position for full 5 seconds -6b. Right Leg 0 - No drift; leg holds 30- degree position for full 5 seconds -7. Limb Ataxia 1 - Present in 1 limb -8. Sensory 0 - Normal; no sensory loss -9. Best Language 1 - Mild-to- moderate aphasia; -10. Dysarthria 0 - Normal -11. Extinction and Inattention 0 - No abnormality -Total 6 Query Text:A score of 0 is normal or asymptomatic. Total possible score is 42 . ED: Notify Physician for NIHSS increase by > / = 3 points. Inpatient: RN or Physician to activate a stroke alert for NIHSS increase of > / = 3 points. Coma Scale [Assess] -Eye Opening Spontaneous -Motor Obeys Commands -Verbal Confused [Total] -Coma Scale Total 14
--- NOTE | 2025-02-27 09:00 | MRI_ITS ---
EXAM: BRAIN WITHOUT CONTRAST CLINICAL HISTORY: PERSISTENT CONFUSION X 6 DAYS WITH GENERALIZED WEA COMPARISON: February 26, [address] TECHNIQUE: Multiplanar, multisequence MR images of the brain were obtained without gadolinium contrast material. Motion is noted. FINDINGS: There is encephalomalacia in the right posterior parietal, posterior temporal, and occipital regions with chronic ischemic change, with abnormal GRE signal at the margins. There is restricted diffusion at the anterior and posterior aspect of the superior margin of the infarcted region on the right. There is restricted diffusion in the left parafalcine central and precentral cortex, axial image 24/26, with abnormal GRE signal in the periphery of the left occipital lobe, image 16-22. There is extensive abnormal T2 and FLAIR signal throughout the deep white matter, confluent in the periventricular regions. No cerebellar tonsillar ectopia. No sellar/suprasellar signal abnormalities. The ocular globes and intraorbital soft tissues are symmetrically unremarkable. Left maxillary sinus disease is present. There is fluid signal in a portion of the left mastoid air cells. MRI/Brain without Contrast IMPRESSION: There is encephalomalacia in the right posterior parietal, posterior temporal, and occipital regions with chronic ischemic change, with abnormal GRE signal at the margins. There is restricted diffusion at the anterior and posterior aspect of the superior margin of the infarcted region on the right. There is restricted diffu marielos in the left parafalcine central and precentral cortex, axial image 24/26, with abnormal GRE signal in the periphery of the left occipital lobe, image 16-22. A component of recent blood products is not excluded, however is not demonstrated on the recent CT. Continued follow-up is recommended. There is extensive abnormal T2 and FLAIR signal throughout the deep white matte r, confluent in the periventricular regions. Left maxillary sinus disease is present. There is fluid signal in a portion of the left mastoid air cells. Reading Location: [facility]
[2025-02-27] MEDS: Aspirin 81 MG TAB.CHEW PO (10:37)
[2025-02-27] MEDS: Lacosamide 100 MG Tablet PO ×2 (10:41→21:40)
--- NOTE | 2025-02-27 13:06 | CASEMGMT ---
Addendum entered by Kamryn Hayes 02/27/25 17:53: SW called [facility] to follow up; reported that they will review referral as soon as possible. SW remains available to follow. STERLING Mccormick Original Note: Social Work- SW received notice from hospitalist that pt is unable to continue to care for pt at home and is looking for referral to [facility] for skilled stay, potentially long-term. SW completed referral to [facility] via [facility]. will reportedly be in to visit pt later; SW to provide a list at that time if needed, as initially list was declined due to knowing FOC. SW remains available to follow. STERLING Mccormick
--- NOTE | 2025-02-27 16:14 | CASEMGMT ---
Met with pt to complete JANG form. Pt is currently confused but pt's is at bedside. JANG form explained to pt's at this time who voiced understanding and signed form. Original form placed in pt?s chart and copy provided to the pt. Evan Hernandez RN CM
[2025-02-27] MEDS: Lacosamide 100 MG Tablet 200 MG PO (16:28)
--- NOTE | 2025-02-27 18:24 | PN.HOSP_ITS ---
Reason for Visit Reason for Visit: Diagnoses Unspecified dementia, unspecified severity, without behavioral disturbance, psychotic disturbance, mood disturbance, and anxiety (02/26/25) Unspecified dementia, unspecified severity, with psychotic disturbance (02/26/25) Epilepsy, unspecified, not intractable, without status epilepticus (02/26/25) Unspecified sequelae of cerebral infarction (02/26/25) Other sequelae of cerebral infarction (02/26/25) Disorientation, unspecified (02/26/25) Weakness (02/26/25) Subjective Subjective Patient was seen and examined today, he remains confused but alert, he does not appear agitated. I communicated with teleneurology today via text, they wanted me to increase his seizure medication (Vimpat) to 150 mg twice a day starting tomorrow. MRI did not show evidence of an acute stroke. I talked to the by phone today, the last time patient had a seizure was approximately 5 years ago after his first stroke. Patient's states that she is unable to care for the patient due to his dementia. We are currently looking for an extended care facility for at least temporary placement of the patient. Objective Data Objective Data Vital Signs: Vital Signs Temp Pulse Resp BP Pulse Ox O2 Del Method 98.6 F 92 16 164/99 H 99 Room Air 02/27/25 12:45 02/27/25 12:45 02/27/25 12:45 02/27/25 12:45 02/27/25 12:45 02/27/25 14:25 Oxygen Delivery Method Room Air Weight: 65.1 kg Body Mass Index (BMI) 21.2 Intake & Output: Intake and Output for Last 24 Hours 02/25/25 02/26/25 02/27/25 23:59 23:59 23:59 Intake Total 391.67 / 391.67 Balance 391.67 / 391.67 Lab / Micro Data 02/26/25 18:33 02/26/25 18:33 Labs: Laboratory Results - last 24 hr 02/26/25 18:33: WBC 10.1, RBC 5.71, Hgb 17.0 H, Hct 51.1, MCV 89.5, MCH 29.8, MCHC 33.3, RDW Std Deviation 41.7, RDW Coeff of Noris 12.7, Plt Count 334, MPV 10.1, Immature Gran % (Auto) 0.300, Neut % (Auto) 76.0 H, Lymph % (Auto) 14.7 L, [place] % (Auto) 6.9, Eos % (Auto) 0.9, Baso % (Auto) 1.2 H, Absolute Neuts (auto) 7.7, Absolute Lymphs (auto) 1.49, Nucleated RBC % 0, Sodium 144, Potassium 3.7, Chloride 109 H, Carbon Dioxide 21.8, Anion Gap 13, BUN 17, Creatinine 0.79, Estim Creat Clear Calc 79.80, Est GFR (MDRD) Non-Af 94, BUN/Creatinine Ratio 21.2 H, Glucose 90, Calcium 9.8, Total Bilirubin 0.51, AST 12, ALT 8, Alkaline Phosphatase 77, Troponin T High Sens 9, Total Protein 7.8, Albumin 4.3, Globulin 3.4, Albumin/Globulin Ratio 1.3 02/26/25 19:03: Lactic Acid 1.7 02/26/25 19:45: Urine Color Yellow, Urine Clarity Clear, Urine pH 5.0, Ur Specific [place] 1.025, Urine Protein 30 H, Urine Glucose (UA) Normal, Urine Ketones Negative, Urine Occult Blood 10 H, Urine Nitrite Negative, Urine Bilirubin 1 H, Urine Urobilinogen 1 H, Ur Leukocyte Esterase 25 H, Urine RBC 0-5 SEEN, Urine WBC 0-5 SEEN, Ur Squamous Epith Cells 0 SEEN, Urine Bacteria 0 SEEN, Urine Mucus 0 SEEN, Urine Opiates Screen NEGATIVE, U Buprenorphine Qual NEGATIVE, Ur Oxycodone Screen NEGATIVE, Urine Methadone Screen NEGATIVE, Urine Fentanyl Screen NEGATIVE, Ur Barbiturates Screen NEGATIVE, Ur Phencyclidine Scrn NEGATIVE, Ur Amphetamines Screen NEGATIVE, U Benzodiazepines Scrn NEGATIVE, Urine Cocaine Screen NEGATIVE, U Cannabinoids Screen NEGATIVE 02/26/25 20:20: Troponin T Hi Sens 2 Hr 7 02/26/25 22:53: Hemoglobin A1c 5.5, Troponin T Hi Sens 4Hr 10, Vitamin B12 461, Serum Folate 10.50, TSH 1.070, Ethyl Alcohol < 10.1 02/27/25 05:30: Triglycerides 87, Cholesterol 185, LDL Cholesterol, Calc 119, VLDL Cholesterol 17, HDL Cholesterol 49, Cholesterol/HDL Ratio 3.80 Radiography Diagnostic Testing: Radiology Impression Brain CT 02/26/25 18:43 IMPRESSION: No acute intracranial abnormality. 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 [facility] Chest X-Ray 02/26/25 19:20 IMPRESSION: NO ACUTE FINDINGS. Reading [facility] Echocardiogram 02/26/25 22:01 Interpretation Summary Normal LV size. Left ventricular systolic function is normal. The left ventricular ejection fraction is 65 %. Stage 1 diastolic dysfunction. Contrast injection was performed. Ordering Physician: Fausto Davidson Referring Physician: Fausto Davidson Performed By: Wojciech Trujillo RCS Brain MRI 02/27/25 09:00 IMPRESSION: There is encephalomalacia in the right posterior parietal, posterior temporal, and occipital regions with chronic ischemic change, with abnormal GRE signal at the margins. There is restricted diffusion at the anterior and posterior aspect of the superior margin of the infarcted region on the right. There is restricted diffusion in the left parafalcine central and precentral cortex, axial image 24/26, with abnormal GRE signal in the periphery of the left occipital lobe, image 16-22. A component of recent blood products is not excluded, however is not demonstrated on the recent CT. Continued follow-up is recommended. There is extensive abnormal T2 and FLAIR signal throughout the deep white matter, confluent in the periventricular regions. Left maxillary sinus disease is present. There is fluid signal in a portion of the left mastoid air cells. [facility] Rhythm Strip Rhythm Strip: Sinus Rhythm Rate: 87 Ectopy: None Physical Exam Const alert and no apparent distress Constitutional Narrative: Patient is confused, he does not appear agitated or depressed, patient is oriented as to person only General Appearance: cooperative, well kempt and well developed Orientation / Consciousness: awake HEENT normocephalic, head/scalp atraumatic and moist oral mucous membranes Eyes PERRL, EOMs intact bilaterally and conjunctivae normal Neck supple, no JVD, thyroid normal and no carotid bruits General: trachea midline Resp normal respiratory effort, no retractions, no use of accessory muscles and clear to auscultation bilaterally Auscultation: Negative for rales, rhonchi or wheezes Cardio regular rate, regular rhythm, S1 normal heart sound, S2 normal heart sound, no murmurs, no rub and no gallops GI normal to inspection, nondistended, normoactive bowel sounds, soft to palpation, non-tender and non-distended Extremity Extremity Narrative: Patient has left hemiparesis Skin no rashes or lesions noted General Skin Exam: no breakdown Neuro CN's II-XII intact bilaterally Neuro Narrative: Patient has left hemiparesis Sensorium / Orientation: awake and alert Speech: speech normal Psych Psych Narrative: Patient is confused, he does not appear agitated or depressed Assessment & Plan Assessment/Plan (1) Generalized weakness: PLAN: Plan 1. Acute on chronic debility secondary to cerebrovascular disease with left hemiparesis on a backdrop of chronic dementia-PT and OT will continue work with the patient, he will placement in an extended care facility for inpatient rehab services #2 cerebrovascular disease with left hemiplegia-continue home medications, complicates care, management, recovery, and prognosis #3 dementia-probably secondary to cerebrovascular disease-it is likely this is worsened over the last several weeks, complicates care, management, recovery, and prognosis, teleneurology is participating in his care #4 seizure disorder-patient has had a seizure disorder for approximately 5 years, he will continue on Vimpat at an increased dose starting tomorrow #5 essential hypertension-patient will remain on his present medications, blood pressure will be monitored Total clinical time spent by myself addressing the patient's medical issues, reviewing all of his data, and collaborating with patient's care team: 35 minutes Charges/Coding Visit Charges Inpatient E&M: 98486 Subs Hosp L2 NIHSS NIHSS Nursing Documentation NIHSS Nursing Documentation: NIHSS: Ischemic Stroke/TIA Start: 02/26/25 22:22 Text: For PCU Patients: NIH and Neuro Check every 4 Status: Complete hours, PRN and with change in RN caregiver. Freq: [id number] Protocol: Activity Type Activity Date Activity User E-sign Co-sign Detail Recorded Client Recorded Date Recorded By Document 02/27/25 12:48 GABRIELA [id number] 02/27/25 12:54 GABRIELA 02/27/25 12:48 NIH Stroke Scale [NIHSS] A score of 0 is normal or asymptomatic . Total possible score is 42. Inpatient: RN or Physician to activate a stroke alert for onset of new stroke symptoms or with NIHSS increase >/= 3 points. Following change in neurological status, NIHSS will be performed per physician order or more frequently PRN. -1a. Level of Consciousness 0 - Alert; keenly responsive -1b. LOC Questions 2 - Answers NEITHER question correctly -1c. LOC Commands 1 - Performs ONE task correctly -2. Best Gaze 0 - Normal -3. Visual 0 - No visual loss -4. Facial Palsy 0 - Normal symmetrical movements -5a. Left Arm 1 - Drift; arm drifts downward but doesn?t hit the bed -5b. Right Arm 0 - No drift; arm holds 90 ( or 45) degrees for full 10 seconds -6a. Left Leg 0 - No drift; leg holds 30- degree position for full 5 seconds -6b. Right Leg 0 - No drift; leg holds 30- degree position for full 5 seconds -7. Limb Ataxia 1 - Present in 1 limb -8. Sensory 1 - Mild-to- moderate sensory loss; -9. Best Language 1 - Mild-to- moderate aphasia; -10. Dysarthria 0 - Normal -11. Extinction and Inattention 0 - No abnormality -Total 7 Query Text:A score of 0 is normal or asymptomatic. Total possible score is 42 . ED: Notify Physician for NIHSS increase by > / = 3 points. Inpatient: RN or Physician to activate a stroke alert for NIHSS increase of > / = 3 points. Coma Scale [Assess] -Eye Opening Spontaneous -Motor Obeys Commands -Verbal Confused [Total] -Coma Scale Total 14
[2025-02-27] MEDS: Donepezil HCl 10 MG Tablet PO (21:40)
[2025-02-27] MEDS: Mirtazapine 15 MG Tablet PO (21:40)
[2025-02-27] MEDS: Atorvastatin Calcium 10 MG Tablet PO (21:40)
[2025-02-27] MEDS: Metoprolol Tartrate 25 MG Tablet PO (21:52)
[2025-02-27] MEDS: amLODIPine 5 MG Tablet PO (21:52)
[2025-02-28] VITALS (7 sets, daily range): BP systolic 124–136; BP diastolic 78–90; PULSE 70–80; RESP 14–18; TEMP 36.4–36.9; O2SAT 94–100; BMI 21.2
[2025-02-28] MEDS: Ondansetron 4 MG/2 ML Vial IV (05:32)
[2025-02-28] MEDS: 0.9% Saline Lock 10 ML Syringe IV (05:33)
[2025-02-28] MEDS: Baclofen 10 MG Tablet PO ×3 (05:33→22:22)
--- NOTE | 2025-02-28 09:26 | CASEMGMT ---
Discharge Planning [facility] reports that they did not receive [employer] referral that was sent yesterday. Referral resent. SW updated. Harini Rosario DC Planning Asst.
[2025-02-28] MEDS: amLODIPine 5 MG Tablet PO ×2 (09:40→22:22)
[2025-02-28] MEDS: Metoprolol Tartrate 25 MG Tablet PO ×2 (09:40→22:22)
[2025-02-28] MEDS: Aspirin 81 MG TAB.CHEW PO (09:40)
[2025-02-28] MEDS: Lacosamide 100 MG Tablet PO (10:21)
--- NOTE | 2025-02-28 10:48 | CASEMGMT ---
[facility] has accepted and will submit for precert. SW updated. Harini Rosario DC Planning Asst.
--- NOTE | 2025-02-28 11:16 | NEURO.PNOTE ---
Assessment and Plan: Neuro Assessment/Plan ALDO THOMSON is a 74 M with a past medical history of prior hemorrhagic stroke, HTN, seizure, dementia, being evaluated by Teleneurology for sudden onset worsening confusion started 10 days ago with waxing waning effect. On exam, there are some profound visual agnosias that would localize to occipital or temporal-occipital regions which is not where pt's parietal RMCA stroke are located. 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 Ddx would have included new stroke or stroke recrudescence except not clear there is anything causing recrudescence and no new stroke on imaging. Based on history and exam, there may be concern that pt was hoarding some pills and potentially had a breakthrough seizure with prolonged post-ictal period or intermittent subclinical seizures. Cannot rule out a new lesion that is difficult to assess. Given acuity of onset and involvement of specific type of agnosia, an extension of baseline dementia would be a diagnosis of exclusion and should not be considered a primary cause at this time. Patient today appears a little worse, less talkative than prior Plan: - routine EEG with mild encephalopathy - will increase Vimpat to 150mg BID - continue baclofen monitor constipation with q2 day bowel movements. - repeat EEG and UA, if normal consider MRI Brain with contrast I personally attended this patient and spent a total time of 30minutes evaluating this patient including clinical assessment, review of chart, medical history imaging, and determining appropriate treatment and workup. Subject: Neurology Subjective Patient did not sleep well last night, off and on. Appears to be less talkative than yesterday. Believes this is a restaurant and answered fewer questions than yesterday about images - had increased aphasia it seemed. EEG Results Procedure Details EEG Procedure Details: ALDO THOMSON is a 74 year old M with a past medical history of , who presents for evaluation of Electroencephalogram on DATE at TIME Objective Data Objective Data Vital Signs: Vital Signs Temp Pulse Resp BP Pulse Ox O2 Del Method 98.3 F 80 14 129/78 H 96 Room Air 02/28/25 09:37 02/28/25 09:40 02/28/25 09:37 02/28/25 09:40 02/28/25 09:37 02/28/25 09:37 Oxygen Delivery Method Room Air Weight: 65.1 kg Body Mass Index (BMI) 21.2 Intake & Output: Intake and Output for Last 24 Hours 02/26/25 02/27/25 02/28/25 23:59 23:59 23:59 Intake Total 1060.00 / 1060.00 Balance 1060.00 / 1060.00 Lab / Micro Data 02/26/25 18:33 02/26/25 18:33 Radiography Diagnostic Testing: Radiology Impression Carotid Duplex 02/26/25 22:01 Interpretation Summary Mild (<50%) stenosis right extracranial internal carotid. Mild (<50%) stenosis left extracranial internal carotid. Patent and antegrade vertebrals bilaterally. Ordering Physician: Fausto Davidson Performed By: Roxanne Vazquez RVT Echocardiogram 02/26/25 22:01 Interpretation Summary Normal LV size. Left ventricular systolic function is normal. The left ventricular ejection fraction is 65 %. Stage 1 diastolic dysfunction. Contrast injection was performed. Ordering Physician: Fausto Davidson Referring Physician: Fausto Davidson Performed By: Wojciech Trujillo RCS Rhythm Strip Rhythm Strip: Sinus Rhythm Rate: 87 Ectopy: None NIHSS NIHSS Nursing Documentation NIHSS Nursing Documentation: NIHSS: Ischemic Stroke/TIA Start: 02/26/25 22:22 Text: For PCU Patients: NIH and Neuro Check every 4 Status: Complete hours, PRN and with change in RN caregiver. Freq: [id number] Protocol: Activity Type Activity Date Activity User E-sign Co-sign Detail Recorded Client Recorded Date Recorded By Document 02/27/25 12:48 GABRIELA [id number] 02/27/25 12:54 GABRIELA 02/27/25 12:48 NIH Stroke Scale [NIHSS] A score of 0 is normal or asymptomatic . Total possible score is 42. Inpatient: RN or Physician to activate a stroke alert for onset of new stroke symptoms or with NIHSS increase >/= 3 points. Following change in neurological status, NIHSS will be performed per physician order or more frequently PRN. -1a. Level of Consciousness 0 - Alert; keenly responsive -1b. LOC Questions 2 - Answers NEITHER question correctly -1c. LOC Commands 1 - Performs ONE task correctly -2. Best Gaze 0 - Normal -3. Visual 0 - No visual loss -4. Facial Palsy 0 - Normal symmetrical movements -5a. Left Arm 1 - Drift; arm drifts downward but doesn?t hit the bed -5b. Right Arm 0 - No drift; arm holds 90 ( or 45) degrees for full 10 seconds -6a. Left Leg 0 - No drift; leg holds 30- degree position for full 5 seconds -6b. Right Leg 0 - No drift; leg holds 30- degree position for full 5 seconds -7. Limb Ataxia 1 - Present in 1 limb -8. Sensory 1 - Mild-to- moderate sensory loss; -9. Best Language 1 - Mild-to- moderate aphasia; -10. Dysarthria 0 - Normal -11. Extinction and Inattention 0 - No abnormality -Total 7 Query Text:A score of 0 is normal or asymptomatic. Total possible score is 42 . ED: Notify Physician for NIHSS increase by > / = 3 points. Inpatient: RN or Physician to activate a stroke alert for NIHSS increase of > / = 3 points. Coma Scale [Assess] -Eye Opening Spontaneous -Motor Obeys Commands -Verbal Confused [Total] -Coma Scale Total 14
--- NOTE | 2025-02-28 11:53 | CASEMGMT ---
ROB called patient's Saeed and let her know [facility] has accepted patient. ROB explained patient will stay at [facility] until his insurance approves him. Someone will let her know when we do have an answer. Plan: [facility] pending insurance approval. Alida FREIRE
--- NOTE | 2025-02-28 17:32 | PN.HOSP_ITS ---
Reason for Visit Reason for Visit: Diagnoses Unspecified dementia, unspecified severity, without behavioral disturbance, psychotic disturbance, mood disturbance, and anxiety (02/26/25) Unspecified dementia, unspecified severity, with psychotic disturbance (02/26/25) Epilepsy, unspecified, not intractable, without status epilepticus (02/26/25) Unspecified sequelae of cerebral infarction (02/26/25) Other sequelae of cerebral infarction (02/26/25) Disorientation, unspecified (02/26/25) Weakness (02/26/25) Subjective Subjective Patient was seen and examined today, he remains confused. I communicated by text with teleneurology today and they requested a repeat EEG and a UA on the patient, unfortunately EEG was not able to be performed due to technical difficulties, this will be done when we are able to perform it. Objective Data Objective Data Vital Signs: Vital Signs Temp Pulse Resp BP Pulse Ox O2 Del Method 98.5 F 70 16 135/83 H 100 Room Air 02/28/25 15:23 02/28/25 15:23 02/28/25 15:23 02/28/25 15:23 02/28/25 15:23 02/28/25 15:23 Oxygen Delivery Method Room Air Weight: 65.1 kg Body Mass Index (BMI) 21.2 Intake & Output: Intake and Output for Last 24 Hours 02/26/25 02/27/25 02/28/25 23:59 23:59 23:59 Intake Total 1060.00 / 1060.00 Balance 1060.00 / 1060.00 Lab / Micro Data 02/26/25 18:33 02/26/25 18:33 Radiography Diagnostic Testing: Radiology Impression Carotid Duplex 02/26/25 22:01 Interpretation Summary Mild (<50%) stenosis right extracranial internal carotid. Mild (<50%) stenosis left extracranial internal carotid. Patent and antegrade vertebrals bilaterally. Ordering Physician: Fausto Davidson Performed By: Willinger, Roxanne, RVT Echocardiogram 02/26/25 22:01 Interpretation Summary Normal LV size. Left ventricular systolic function is normal. The left ventricular ejection fraction is 65 %. Stage 1 diastolic dysfunction. Contrast injection was performed. Ordering Physician: Fausto Davidson Referring Physician: Fausto Davidson Performed By: Wojciech Trujillo RCS Rhythm Strip Rhythm Strip: Sinus Rhythm Rate: 87 Ectopy: None Physical Exam Narrative alert and no apparent distress Constitutional Narrative: Patient is confused, he does not appear agitated or depressed, patient is oriented as to person only General Appearance: cooperative, well kempt and well developed Orientation / Consciousness: awake HEENT normocephalic, head/scalp atraumatic and moist oral mucous membranes Eyes PERRL, EOMs intact bilaterally and conjunctivae normal Neck supple, no JVD, thyroid normal and no carotid bruits General: trachea midline Resp normal respiratory effort, no retractions, no use of accessory muscles and clear to auscultation bilaterally Auscultation: Negative for rales, rhonchi or wheezes Cardio regular rate, regular rhythm, S1 normal heart sound, S2 normal heart sound, no murmurs, no rub and no gallops GI normal to inspection, nondistended, normoactive bowel sounds, soft to palpation, non-tender and non-distended Extremity Extremity Narrative: Patient has left hemiparesis Skin no rashes or lesions noted General Skin Exam: no breakdown Neuro CN's II-XII intact bilaterally Neuro Narrative: Patient has left hemiparesis Sensorium / Orientation: awake and alert Speech: speech normal Psych Psych Narrative: Patient is confused, he does not appear agitated or depressed Assessment & Plan Assessment/Plan (1) Chronic dementia: (2) Generalized weakness: PLAN: Plan 1. Acute on chronic debility secondary to cerebrovascular disease with left hemiparesis on a backdrop of chronic dementia-PT and OT will continue work with the patient, he will placement in an extended care facility for inpatient rehab services, patient will be transferred to [facility] 3-he does not require cardiac telemetry. #2 cerebrovascular disease with left hemiplegia-continue home medications, complicates care, management, recovery, and prognosis #3 dementia-probably secondary to cerebrovascular disease-it is likely this is worsened over the last several weeks, complicates care, management, recovery, and prognosis, teleneurology is participating in his care #4 seizure disorder-patient has had a seizure disorder for approximately 5 years, he will continue on Vimpat-his dose was increased to 150 mg twice daily per recommendation of teleneurology #5 essential hypertension-patient will remain on his present medications, blood pressure will be monitored Total clinical time spent by myself addressing the patient's medical issues, reviewing all of his data, and collaborating with patient's care team: 35 minutes Charges/Coding Visit Charges Inpatient E&M: 12618 Subs Hosp L2 NIHSS NIHSS Nursing Documentation NIHSS Nursing Documentation: NIHSS: Ischemic Stroke/TIA Start: 02/26/25 22:22 Text: For PCU Patients: NIH and Neuro Check every 4 Status: Complete hours, PRN and with change in RN caregiver. Freq: [id number] Protocol: Activity Type Activity Date Activity User E-sign Co-sign Detail Recorded Client Recorded Date Recorded By Document 02/27/25 12:48 GABRIELA [id number] 02/27/25 12:54 GABRIELA 02/27/25 12:48 NIH Stroke Scale [NIHSS] A score of 0 is normal or asymptomatic . Total possible score is 42. Inpatient: RN or Physician to activate a stroke alert for onset of new stroke symptoms or with NIHSS increase >/= 3 points. Following change in neurological status, NIHSS will be performed per physician order or more frequently PRN. -1a. Level of Consciousness 0 - Alert; keenly responsive -1b. LOC Questions 2 - Answers NEITHER question correctly -1c. LOC Commands 1 - Performs ONE task correctly -2. Best Gaze 0 - Normal -3. Visual 0 - No visual loss -4. Facial Palsy 0 - Normal symmetrical movements -5a. Left Arm 1 - Drift; arm drifts downward but doesn?t hit the bed -5b. Right Arm 0 - No drift; arm holds 90 ( or 45) degrees for full 10 seconds -6a. Left Leg 0 - No drift; leg holds 30- degree position for full 5 seconds -6b. Right Leg 0 - No drift; leg holds 30- degree position for full 5 seconds -7. Limb Ataxia 1 - Present in 1 limb -8. Sensory 1 - Mild-to- moderate sensory loss; -9. Best Language 1 - Mild-to- moderate aphasia; -10. Dysarthria 0 - Normal -11. Extinction and Inattention 0 - No abnormality -Total 7 Query Text:A score of 0 is normal or asymptomatic. Total possible score is 42 . ED: Notify Physician for NIHSS increase by > / = 3 points. Inpatient: RN or Physician to activate a stroke alert for NIHSS increase of > / = 3 points. Coma Scale [Assess] -Eye Opening Spontaneous -Motor Obeys Commands -Verbal Confused [Total] -Coma Scale Total 14
[2025-02-28] MEDS: Lacosamide 50 MG Tablet 150 MG PO (22:22)
[2025-02-28] MEDS: Mirtazapine 15 MG Tablet PO (22:22)
[2025-02-28] MEDS: Atorvastatin Calcium 10 MG Tablet PO (22:22)
[2025-02-28] MEDS: Donepezil HCl 10 MG Tablet PO (22:22)
[2025-03-01] VITALS (7 sets, daily range): BP systolic 96–163; BP diastolic 47–94; PULSE 61–72; RESP 16–18; TEMP 36.3–37.2; O2SAT 92–97; BMI 21.2
[2025-03-01] MEDS: Acetaminophen 325 MG Tablet 650 MG PO (03:04)
[2025-03-01] MEDS: Baclofen 10 MG Tablet PO ×3 (06:43→22:51)
--- NOTE | 2025-03-01 08:23 | CASEMGMT ---
Discharge Planning Updates sent to [facility]. Harini Rosario DC Planning Asst.
[2025-03-01] MEDS: Aspirin 81 MG TAB.CHEW PO (09:26)
[2025-03-01] MEDS: Lacosamide 50 MG Tablet 150 MG PO ×2 (09:27→22:58)
--- NOTE | 2025-03-01 13:11 | NEURO.PNOTE ---
Assessment and Plan: Neuro Assessment/Plan 74 M with a history of hemorrhagic Right MCA stroke (~2018) followed by another stroke (2023); residual Left-sided weakness, history of seizure; on Vimpat, chronic dementia; on donepezil, depression; on mirtazapine, history of TIA, history of muscle spasms; on baclofen 3 times daily who presented with a fall and altered mental status. Per family the change in mental status is acute - His states he is usually not this confused. He typically uses a wheelchair to mobilize and can usually transfer on his own. However, patient also has chronic dementia and his MRI showed significant atrophy and white matter changes with old RMCA stroke. Infectious workup negative. Initial EEG showed mild diffuse encephalopathy His mentation has been worsening throughout his stay in the hospital and he has been agitated and combative He was up all night last night, and this morning he is sleeping during the day when I saw him Repeat EEG showed continuous slowing with severe diffuse encephalopathy - We will continue to monitor for now. - Recommend Delirium/Dementia Precautions: - Minimize use of benzos, opiates, anticholinergics, as these may worsen mental status - Would use caution with narcotic pain medications - Would still recommend adequately controlling pain, as uncontrolled pain is also a risk factor for delirium - Reinforce sleep hygiene; encourage patient to stay awake during the day to encourage normal sleep cycle. - Keep curtains/blinds open during the day to allow natural light and closed at night. - Would recommend reorienting/redirecting patient as much as possible, - Aim for consistent staffing, familiar objects, avoiding bright lights and loud noises, etc - PT/OT - Will discuss with family the acuity of these changes, and depending on that, will consider LP to evaluate if that aligns with goals of care. I personally attended this patient and spent a total time of 30 minutes evaluating this patient including clinical assessment, review of chart, medical history imaging, and determining appropriate treatment and workup. Subject: Neurology Subjective ALDO THOMSON is a 74 year old M, who we are seeing in consultation today for advice on the management of and related patient care. EEG Results Procedure Details EEG Procedure Details: Inpatient routine EEG report performed at [facility] Study start time: 1053 am on 03/01/25 End Time: 1114 am on 03/01/25 History: Rule out seizures Indication: Rule out seizures Technical Description: This is a 18-channel digital EEG recording with time-locked video and single-channel electrocardiogram. Electrodes are placed according to the 10 to 20 International System. The patient was monitored continuously by EEG technicians and EEG recording was reviewed intermittently with annotations to the EEG record. Portions of this record are reviewed using bandpass filters of 1 to 70 Hz and sensitivity of 7mV/mm. EEG DESCRIPTION Background: This recording was obtained during sleep like state. There was generalized continuous slowing of delta activity intermixed with some theta frequencies. Activation Procedures: Photic stimulation was performed. No abnormal or epileptic activity was triggered by this procedure. Sporadic Epileptiform Discharges: none Focal slow activity: none Rhythmic or Periodic activity: none Seizures: none Patient Events: none EEG DIAGNOSIS: Encephalopathy CLINICAL INTERPRETATION This is awake and drowsy EEG is consistent with severe diffuse encephalopathy. No epileptiform discharges or lateralizing signs were seen. Objective Data Objective Data Vital Signs: Vital Signs Temp Pulse Resp BP Pulse Ox O2 Del Method 97.3 F L 68 16 145/86 H 95 Room Air 03/01/25 11:55 03/01/25 11:55 03/01/25 11:55 03/01/25 11:55 03/01/25 11:55 03/01/25 11:55 Oxygen Delivery Method Room Air Weight: 65.1 kg Body Mass Index (BMI) 21.2 Intake & Output: Intake and Output for Last 24 Hours 02/27/25 02/28/25 03/01/25 23:59 23:59 23:59 Intake Total 1060.00 / 1060.00 200 / 200 Balance 1060.00 / 1060.00 200 / 200 Lab / Micro Data 02/26/25 18:33 02/26/25 18:33 Rhythm Strip Rhythm Strip: Sinus Rhythm Rate: 87 Ectopy: None Physical Exam Narrative Patient sleeping in bed NIHSS NIHSS Nursing Documentation NIHSS Nursing Documentation: NIHSS: Ischemic Stroke/TIA Start: 02/26/25 22:22 Text: For PCU Patients: NIH and Neuro Check every 4 Status: Complete hours, PRN and with change in RN caregiver. Freq: [id number] Protocol: Activity Type Activity Date Activity User E-sign Co-sign Detail Recorded Client Recorded Date Recorded By Document 02/27/25 12:48 GABRIELA [id number] 02/27/25 12:54 GABRIELA 02/27/25 12:48 NIH Stroke Scale [NIHSS] A score of 0 is normal or asymptomatic . Total possible score is 42. Inpatient: RN or Physician to activate a stroke alert for onset of new stroke symptoms or with NIHSS increase >/= 3 points. Following change in neurological status, NIHSS will be performed per physician order or more frequently PRN. -1a. Level of Consciousness 0 - Alert; keenly responsive -1b. LOC Questions 2 - Answers NEITHER question correctly -1c. LOC Commands 1 - Performs ONE task correctly -2. Best Gaze 0 - Normal -3. Visual 0 - No visual loss -4. Facial Palsy 0 - Normal symmetrical movements -5a. Left Arm 1 - Drift; arm drifts downward but doesn?t hit the bed -5b. Right Arm 0 - No drift; arm holds 90 ( or 45) degrees for full 10 seconds -6a. Left Leg 0 - No drift; leg holds 30- degree position for full 5 seconds -6b. Right Leg 0 - No drift; leg holds 30- degree position for full 5 seconds -7. Limb Ataxia 1 - Present in 1 limb -8. Sensory 1 - Mild-to- moderate sensory loss; -9. Best Language 1 - Mild-to- moderate aphasia; -10. Dysarthria 0 - Normal -11. Extinction and Inattention 0 - No abnormality -Total 7 Query Text:A score of 0 is normal or asymptomatic. Total possible score is 42 . ED: Notify Physician for NIHSS increase by > / = 3 points. Inpatient: RN or Physician to activate a stroke alert for NIHSS increase of > / = 3 points. Coma Scale [Assess] -Eye Opening Spontaneous -Motor Obeys Commands -Verbal Confused [Total] -Coma Scale Total 14
[2025-03-01] MEDS: Metoprolol Tartrate 25 MG Tablet PO ×2 (13:59→22:51)
--- NOTE | 2025-03-01 19:01 | PCM.PN.HOSP ---
Reason for Visit Reason for Visit: Diagnoses Unspecified dementia, unspecified severity, without behavioral disturbance, psychotic disturbance, mood disturbance, and anxiety (02/26/25) Unspecified dementia, unspecified severity, with psychotic disturbance (02/26/25) Epilepsy, unspecified, not intractable, without status epilepticus (02/26/25) Unspecified sequelae of cerebral infarction (02/26/25) Other sequelae of cerebral infarction (02/26/25) Disorientation, unspecified (02/26/25) Weakness (02/26/25) Subjective Subjective Patient was seen and examined, he is a little lethargic, he did eat dinner according to nursing. This morning he was not cooperative with his breakfast and did not eat. EEG was repeated today and it showed worsening encephalopathy. Patient does not appear to be toxic/infected. Neurology has elected to continue to observe the patient at this time. I did not obtain a repeat urinalysis I did not feel this was necessary. Objective Data Objective Data Vital Signs: Vital Signs Temp Pulse Resp BP Pulse Ox O2 Del Method 97.6 F L 65 16 147/73 H 97 Room Air 03/01/25 14:08 03/01/25 14:08 03/01/25 14:08 03/01/25 14:08 03/01/25 14:08 03/01/25 14:08 Oxygen Delivery Method Room Air Weight: 65.1 kg Body Mass Index (BMI) 21.2 Intake & Output: Intake and Output for Last 24 Hours 02/27/25 02/28/25 03/01/25 23:59 23:59 23:59 Intake Total 1060.00 / 1060.00 550 / 550 Balance 1060.00 / 1060.00 550 / 550 Lab / Micro Data 02/26/25 18:33 02/26/25 18:33 Rhythm Strip Rhythm Strip: Sinus Rhythm Rate: 87 Ectopy: None Physical Exam Narrative alert and no apparent distress Constitutional Narrative: Patient is confused, he does not appear agitated or depressed, patient is oriented as to person only General Appearance: cooperative, well kempt and well developed Orientation / Consciousness: awake HEENT normocephalic, head/scalp atraumatic and moist oral mucous membranes Eyes PERRL, EOMs intact bilaterally and conjunctivae normal Neck supple, no JVD, thyroid normal and no carotid bruits General: trachea midline Resp normal respiratory effort, no retractions, no use of accessory muscles and clear to auscultation bilaterally Auscultation: Negative for rales, rhonchi or wheezes Cardio regular rate, regular rhythm, S1 normal heart sound, S2 normal heart sound, no murmurs, no rub and no gallops GI normal to inspection, nondistended, normoactive bowel sounds, soft to palpation, non-tender and non-distended Extremity Extremity Narrative: Patient has left hemiparesis Skin no rashes or lesions noted General Skin Exam: no breakdown Neuro CN's II-XII intact bilaterally Neuro Narrative: Patient has left hemiparesis Sensorium / Orientation: awake and alert Speech: speech normal Psych Psych Narrative: Patient is confused, he does not appear agitated or depressed Assessment & Plan Assessment/Plan (1) Generalized weakness: (2) Chronic dementia: PLAN: Plan 1. Acute on chronic debility secondary to cerebrovascular disease with left hemiparesis on a backdrop of chronic dementia-PT and OT will continue work with the patient, he will placement in an extended care facility for inpatient rehab services #2 cerebrovascular disease with left hemiplegia-continue home medications, complicates care, management, recovery, and prognosis #3 dementia-probably secondary to cerebrovascular disease-it is likely this is worsened over the last several weeks, complicates care, management, recovery, and prognosis, teleneurology is participating in his care #4 seizure disorder-patient has had a seizure disorder for approximately 5 years, he will continue on Vimpat #5 essential hypertension-patient will remain on his present medications, blood pressure will be monitored Total clinical time spent by myself addressing the patient's medical issues, reviewing all of his data, and collaborating with patient's care team: 35 minutes Charges/Coding Visit Charges Inpatient E&M: 41163 Subs Hosp L2 NIHSS NIHSS Nursing Documentation NIHSS Nursing Documentation: NIHSS: Ischemic Stroke/TIA Start: 02/26/25 22:22 Text: For PCU Patients: NIH and Neuro Check every 4 Status: Complete hours, PRN and with change in RN caregiver. Freq: [id number] Protocol: Activity Type Activity Date Activity User E-sign Co-sign Detail Recorded Client Recorded Date Recorded By Document 02/27/25 12:48 GABRIELA [id number] 02/27/25 12:54 GABRIELA 02/27/25 12:48 NIH Stroke Scale [NIHSS] A score of 0 is normal or asymptomatic . Total possible score is 42. Inpatient: RN or Physician to activate a stroke alert for onset of new stroke symptoms or with NIHSS increase >/= 3 points. Following change in neurological status, NIHSS will be performed per physician order or more frequently PRN. -1a. Level of Consciousness 0 - Alert; keenly responsive -1b. LOC Questions 2 - Answers NEITHER question correctly -1c. LOC Commands 1 - Performs ONE task correctly -2. Best Gaze 0 - Normal -3. Visual 0 - No visual loss -4. Facial Palsy 0 - Normal symmetrical movements -5a. Left Arm 1 - Drift; arm drifts downward but doesn?t hit the bed -5b. Right Arm 0 - No drift; arm holds 90 ( or 45) degrees for full 10 seconds -6a. Left Leg 0 - No drift; leg holds 30- degree position for full 5 seconds -6b. Right Leg 0 - No drift; leg holds 30- degree position for full 5 seconds -7. Limb Ataxia 1 - Present in 1 limb -8. Sensory 1 - Mild-to- moderate sensory loss; -9. Best Language 1 - Mild-to- moderate aphasia; -10. Dysarthria 0 - Normal -11. Extinction and Inattention 0 - No abnormality -Total 7 Query Text:A score of 0 is normal or asymptomatic. Total possible score is 42 . ED: Notify Physician for NIHSS increase by > / = 3 points. Inpatient: RN or Physician to activate a stroke alert for NIHSS increase of > / = 3 points. Coma Scale [Assess] -Eye Opening Spontaneous -Motor Obeys Commands -Verbal Confused [Total] -Coma Scale Total 14
[2025-03-01] MEDS: Atorvastatin Calcium 10 MG Tablet PO (22:51)
[2025-03-01] MEDS: Donepezil HCl 10 MG Tablet PO (22:51)
[2025-03-01] MEDS: Mirtazapine 15 MG Tablet PO (22:52)
[2025-03-01] MEDS: amLODIPine 5 MG Tablet PO (22:52)
[2025-03-02] VITALS (7 sets, daily range): BP systolic 123–154; BP diastolic 76–96; PULSE 60–94; RESP 14–18; TEMP 36.2–36.9; O2SAT 94–99
[2025-03-02] MEDS: Baclofen 10 MG Tablet PO ×3 (06:08→23:00)
[2025-03-02] MEDS: Aspirin 81 MG TAB.CHEW PO (08:18)
[2025-03-02] MEDS: amLODIPine 5 MG Tablet PO ×2 (08:18→23:01)
[2025-03-02] MEDS: Metoprolol Tartrate 25 MG Tablet PO ×2 (08:18→23:01)
[2025-03-02] MEDS: Lacosamide 50 MG Tablet 150 MG PO ×2 (08:22→23:34)
--- NOTE | 2025-03-02 15:46 | CASEMGMT ---
Discharge Planning Per Bettie @ [facility], precert remains pending. She states that we can send pt over tomorrow 03/03 even if precert has not been obtained. SW updated. Harini Rosario DC Planning Asst.
--- NOTE | 2025-03-02 18:25 | PCM.PN.HOSP ---
Reason for Visit Reason for Visit: Diagnoses Unspecified dementia, unspecified severity, without behavioral disturbance, psychotic disturbance, mood disturbance, and anxiety (03/02/25) Unspecified dementia, unspecified severity, with psychotic disturbance (03/02/25) Epilepsy, unspecified, not intractable, without status epilepticus (03/02/25) Unspecified sequelae of cerebral infarction (03/02/25) Other sequelae of cerebral infarction (03/02/25) Disorientation, unspecified (03/02/25) Weakness (03/02/25) Subjective Subjective Patient was seen and examined today, he is sporadically eating, sometimes he refuses breakfast but then eats later on. We are currently awaiting approval for the patient to go to an extended care facility Objective Data Objective Data Vital Signs: Vital Signs Temp Pulse Resp BP Pulse Ox O2 Del Method 97.6 F L 65 16 123/94 H 94 Room Air 03/02/25 15:20 03/02/25 15:20 03/02/25 15:20 03/02/25 15:20 03/02/25 15:20 03/02/25 15:20 Oxygen Delivery Method Room Air Weight: 65.1 kg Body Mass Index (BMI) 21.2 Intake & Output: Intake and Output for Last 24 Hours 02/28/25 03/01/25 03/02/25 23:59 23:59 23:59 Intake Total 550 / 550 200 / 200 Balance 550 / 550 200 / 200 Lab / Micro Data 02/26/25 18:33 02/26/25 18:33 Rhythm Strip Rhythm Strip: Sinus Rhythm Rate: 87 Ectopy: None Physical Exam Narrative alert and no apparent distress Constitutional Narrative: Patient is confused, he does not appear agitated or depressed, patient is oriented as to person only General Appearance: cooperative, well kempt and well developed Orientation / Consciousness: awake HEENT normocephalic, head/scalp atraumatic and moist oral mucous membranes Eyes PERRL, EOMs intact bilaterally and conjunctivae normal Neck supple, no JVD, thyroid normal and no carotid bruits General: trachea midline Resp normal respiratory effort, no retractions, no use of accessory muscles and clear to auscultation bilaterally Auscultation: Negative for rales, rhonchi or wheezes Cardio regular rate, regular rhythm, S1 normal heart sound, S2 normal heart sound, no murmurs, no rub and no gallops GI normal to inspection, nondistended, normoactive bowel sounds, soft to palpation, non-tender and non-distended Extremity Extremity Narrative: Patient has left hemiparesis Skin no rashes or lesions noted General Skin Exam: no breakdown Neuro CN's II-XII intact bilaterally Neuro Narrative: Patient has left hemiparesis Sensorium / Orientation: awake and alert Speech: speech normal Psych Psych Narrative: Patient is confused, he does not appear agitated or depressed Assessment & Plan Assessment/Plan (1) Generalized weakness: (2) Chronic dementia: PLAN: Plan 1. Acute on chronic debility secondary to cerebrovascular disease with left hemiparesis on a backdrop of chronic dementia-PT and OT will continue work with the patient, he will placement in an extended care facility for inpatient rehab services #2 cerebrovascular disease with left hemiplegia-continue home medications, complicates care, management, recovery, and prognosis #3 dementia-probably secondary to cerebrovascular disease-it is likely this is worsened over the last several weeks, complicates care, management, recovery, and prognosis, teleneurology is participating in his care #4 seizure disorder-patient has had a seizure disorder for approximately 5 years, he will continue on Vimpat #5 essential hypertension-patient will remain on his present medications, blood pressure will be monitored Total clinical time spent by myself addressing the patient's medical issues, reviewing all of his data, and collaborating with patient's care team: 25 minutes Charges/Coding Visit Charges Inpatient E&M: 49312 Subs Hosp L1 NIHSS NIHSS Nursing Documentation NIHSS Nursing Documentation: NIHSS: Ischemic Stroke/TIA Start: 02/26/25 22:22 Text: For PCU Patients: NIH and Neuro Check every 4 Status: Complete hours, PRN and with change in RN caregiver. Freq: [id number] Protocol: Activity Type Activity Date Activity User E-sign Co-sign Detail Recorded Client Recorded Date Recorded By Document 02/27/25 12:48 GABRIELA [id number] 02/27/25 12:54 GABRIELA 02/27/25 12:48 NIH Stroke Scale [NIHSS] A score of 0 is normal or asymptomatic . Total possible score is 42. Inpatient: RN or Physician to activate a stroke alert for onset of new stroke symptoms or with NIHSS increase >/= 3 points. Following change in neurological status, NIHSS will be performed per physician order or more frequently PRN. -1a. Level of Consciousness 0 - Alert; keenly responsive -1b. LOC Questions 2 - Answers NEITHER question correctly -1c. LOC Commands 1 - Performs ONE task correctly -2. Best Gaze 0 - Normal -3. Visual 0 - No visual loss -4. Facial Palsy 0 - Normal symmetrical movements -5a. Left Arm 1 - Drift; arm drifts downward but doesn?t hit the bed -5b. Right Arm 0 - No drift; arm holds 90 ( or 45) degrees for full 10 seconds -6a. Left Leg 0 - No drift; leg holds 30- degree position for full 5 seconds -6b. Right Leg 0 - No drift; leg holds 30- degree position for full 5 seconds -7. Limb Ataxia 1 - Present in 1 limb -8. Sensory 1 - Mild-to- moderate sensory loss; -9. Best Language 1 - Mild-to- moderate aphasia; -10. Dysarthria 0 - Normal -11. Extinction and Inattention 0 - No abnormality -Total 7 Query Text:A score of 0 is normal or asymptomatic. Total possible score is 42 . ED: Notify Physician for NIHSS increase by > / = 3 points. Inpatient: RN or Physician to activate a stroke alert for NIHSS increase of > / = 3 points. Coma Scale [Assess] -Eye Opening Spontaneous -Motor Obeys Commands -Verbal Confused [Total] -Coma Scale Total 14
[2025-03-02] MEDS: Donepezil HCl 10 MG Tablet PO (23:00)
[2025-03-02] MEDS: Atorvastatin Calcium 10 MG Tablet PO (23:00)
[2025-03-02] MEDS: Mirtazapine 15 MG Tablet PO (23:01)
[2025-03-03 04:46] VITALS: BMI 21.2
[2025-03-03 05:27] VITALS: BP 149/73; PULSE 73; RESP 16; TEMP 36.6; O2SAT 99
[2025-03-03] MEDS: Baclofen 10 MG Tablet PO ×2 (05:37→15:01)
[2025-03-03 09:50] VITALS: BP 158/98; PULSE 63; RESP 16; TEMP 36.6; O2SAT 98
[2025-03-03 09:54] VITALS: PULSE 63
[2025-03-03] MEDS: Aspirin 81 MG TAB.CHEW PO (09:54)
[2025-03-03] MEDS: Metoprolol Tartrate 25 MG Tablet PO (09:54)
[2025-03-03] MEDS: amLODIPine 5 MG Tablet PO (09:54)
[2025-03-03] MEDS: Lacosamide 50 MG Tablet 150 MG PO (09:57)
--- NOTE | 2025-03-03 12:10 | CASEMGMT ---
Social Work Precert denied by insurance to cover SNF stay. ROB spoke with physician and peer to peer will not be completed due to pt cognition and lack of ability to follow direction of therapist. ROB placed call to pt Saeed and explained that insurance will not cover cost of SNF. Saeed does not feel she can care for pt at home. SW discussed private pay and Medicaid options for SNF coverage. Pt does not qualify for Medicaid at this time. ROB spoke with Bettie, contestant coordinator at [facility] and explained above. Bettie called pt and discussed private pay and called this SW back stating that payment has been worked out and pt can admit today. Physician notified. Plan: [facility], intermediate level of care [place]
[2025-03-03 14:30] VITALS: BP 135/88; PULSE 68; RESP 16; TEMP 36.1; O2SAT 97
--- NOTE | 2025-03-03 14:34 | TREXTCAR_ITS ---
Diet Diet Order/Speech Therapy: 02/27/25 05:18 Diet: Cardiac - Heart Healthy Type of Dietary Supplement:: Ensure Plus High Protein Diet Comments: 240mL Ensure w/breakfast and lunch Routine Orders/Code Status Code Status: DNRCC-A (No intubation) DC O2, CPAP, BIPAP needs Home O2 Discharge instructions: No Wound(s) forehead: Wound Type: Abrasion scalp: Wound Type: Abrasion right lower leg: Wound Type: Abrasion Therapies Weight Bearing: Full weight bearing (With assistance only) Physical Therapy: Eval and Treat Occupational Therapy: Eval and Treat Problem/Diagnosis (1) Generalized weakness: Status: Acute Code(s): R53.1 - Weakness (2) Chronic dementia: Status: Chronic Code(s): F03.90 - Unspecified dementia, unspecified severity, without behavioral distu rbance, psychotic disturbance, mood disturbance, and anxiety Plan 1. Acute on chronic debility secondary to cerebrovascular disease with left hemiparesis on a backdrop of chronic dementia-PT and OT will continue work with the patient, he will placement in an extended care facility for inpatient rehab services #2 cerebrovascular disease with left hemiplegia-continue home medications, complicates care, management, recovery, and prognosis #3 dementia-probably secondary to cerebrovascular disease-it is likely this is worsened over the last several weeks, complicates care, management, recovery, and prognosis, teleneurology is participating in his care #4 seizure disorder-patient has had a seizure disorder for approximately 5 years, he will continue on Vimpat #5 essential hypertension-patient will remain on his present medications, blood pressure will be monitored Total clinical time spent by myself addressing the patient's medical issues, reviewing all of his data, and collaborating with patient's care team: 25 minutes Allergies/Procedures Done in Hospital Allergies azithromycin Allergy (Verified 02/26/25 18:24) NEEDS FOLLOW-UP Procedures: None Type of Care/Length of Stay Estimated LOS: Convalescent Care Less Than 30 days Type of Care Needed: Intermediate Rehab Potential: Fair Prognosis: Fair Additional Orders/Day of Discharge H&P will serve as current which was dated: 02/26/25 Day of Discharge: 03/03/25 Dietary and Speech Recommendations Dietitian Recommendations/Changes: Adjust to liberal regular diet due to variable PO intake. Will order 240ml EPHP with breakfast and lunch. Will monitor weight trends. Discharge Plan Admission Admit Date/Time: 03/02/25 15:02 Primary Reason for Your Visit: Generalized debility Attending Provider: Donny Taylor Primary Care Provider: Care Physician,No Primary Consulting Providers: Rosaura Cooper; Kendra Motley; Gunjan Espinosa; Mike Benavidez; Adria Urena; Niko Reyna; JEANNETTE FRANCIS; Bianca Duenas; Katrin Vogel; Apolinar Reynolds; Mary Poe; Fausto Davidson; Lee Alcantara; Barbie Rea; Shahana Schulte; Martin Dior; Sandra Pond; Lisandro Byrnes; Sebastian De Souza; Brayden Luna; Fina Dumont; Lisa Haley; Luis A Banuelos; Candido Pierce; Mitchell Culp; Skylar Capellan; Brandie Small Discharge Orders/Prescriptions Prescriptions: New acetaminophen 325 mg Tablet 650 mg PO Q6H PRN PRN (Reason: Pain 1-10 Or Fever) Qty: 0 0RF atorvastatin 10 mg Tablet 20 mg PO QHS Qty: 0 0RF aspirin 81 mg Tablet,Chewable 81 mg PO BREAKFAST Qty: 0 0RF memantine [Namenda] 5 mg tablet 5 mg PO BID Qty: 1 0RF Rx Instructions: 5 mg twice daily x 2 weeks, then increase to 10 mg twice daily thereafter Continued donepezil 5 mg tablet 10 mg PO QHS mirtazapine [Remeron] 15 mg tablet 15 mg PO QHS lacosamide 100 mg tablet 100 mg PO BID ergocalciferol (vitamin D2) [Vitamin D2] 1,250 mcg (50,000 unit) capsule 50,000 unit PO DAILY metoprolol tartrate 25 mg tablet 25 mg PO BID baclofen 10 mg tablet 10 mg PO TID amlodipine 5 mg tablet 5 mg PO BID Discontinued atorvastatin 10 mg tablet 10 mg PO QHS Referrals / Follow Up: Care Physician,No Primary [Primary Care Provider] - Disposition Disposition (needs filled in before D/C Order can be placed): NonSkilled NH/Intermed Care
--- NOTE | 2025-03-03 15:02 | DS.PCM_ITS ---
Providers Date of Admission: 03/02/25 Date of Discharge: 03/03/25 Primary Care Physician: Deepali Primary Care Phys Consultations 02/26/25 22:22 Consult: Tele-Neurology Routine Consulting Provider: [facility] Reason for Consult: Acute Ischemic Stroke/TIA EMERGENT Consult: No MD Notified: Yes Date Notified: 02/26/25 Time Notified: 22:47 Method of Notification: Answering Service Method of Consult:: Telemedicine Nursing Unit Staff Notify [facility] of Tele-Neurology Consult: Yes Reason For Visit: PERSISTENT CONFUSION X 6 DAYS; EVAL FOR TIA VS CVA Diagnosis Discharge Diagnosis (1) Generalized weakness: Status: Acute Code(s): R53.1 - Weakness (2) Chronic dementia: Status: Chronic Code(s): F03.90 - Unspecified dementia, unspecified severity, without behavioral disturbance, psychotic disturbance, mood disturbance, and anxiety Plan 1. Acute on chronic debility secondary to cerebrovascular disease with left hemiparesis on a backdrop of chronic dementia-PT and OT will continue work with the patient, he will placement in an extended care facility for inpatient rehab services #2 cerebrovascular disease with left hemiplegia-continue home medications, complicates care, management, recovery, and prognosis #3 dementia-probably secondary to cerebrovascular disease-it is likely this is worsened over the last several weeks, complicates care, management, recovery, and prognosis, teleneurology is participating in his care #4 seizure disorder-patient has had a seizure disorder for approximately 5 years, he will continue on Vimpat #5 essential hypertension-patient will remain on his present medications, blood pressure will be monitored #6 diffuse encephalopathy Total clinical time spent by myself addressing the patient's medical issues, reviewing all of his data, and collaborating with patient's care team: 25 minutes Medications at Discharge Home Medications amlodipine 5 mg tablet 5 mg PO BID 02/26/25 baclofen 10 mg tablet 10 mg PO TID 02/26/25 donepezil 5 mg tablet 10 mg PO QHS 02/26/25 ergocalciferol (vitamin D2) 1,250 mcg (50,000 unit) capsule (Vitamin D2) 50,000 unit PO DAILY 02/26/25 lacosamide 100 mg tablet 100 mg PO BID 02/26/25 metoprolol tartrate 25 mg tablet 25 mg PO BID 02/26/25 mirtazapine 15 mg tablet (Remeron) 15 mg PO QHS 02/26/25 acetaminophen 325 mg tablet 650 mg (2 x 325 mg) PO Q6H PRN PRN Pain 1-10 Or Fever #0 tabs 03/03/25 aspirin 81 mg chewable tablet 81 mg PO BREAKFAST #0 tabs 03/03/25 atorvastatin 10 mg tablet 20 mg (2 x 10 mg) PO QHS #0 tabs 03/03/25 memantine 5 mg tablet (Namenda) 5 mg PO BID #1 TAB 03/03/25 Hospital Course Operations None Procedures None Summary of Care Provided Minutes Spent on Discharge: 32 Hospital Course: This 74-year-old white male was seen in the emergency room at [facility] due to a change in mental status over the last several days at his home. Patient was not able to participate in his ADLs, he has a history of dementia and lives with his . His felt that she could not take care of him any longer and brought him to the ER for evaluation and possible nursing and placement. CBC was unremarkable, chemistry profile was unremarkable, UA showed a 25 urine leukocyte esterase but no organisms were seen and there were 0-5 RBCs and WBCs seen. Brain CT showed chronic microvascular ischemia due to a prior right MCA distribution infarct with involutional changes. Chest x-ray showed no acute findings, patient appeared confused. Patient was admitted to [place] [address] and seen in consultation by teleneurology, his seizure medication was increased and he underwent an EEG which showed diffuse encephalopathy but no seizure activity. Patient did not appear septic or infected during this hospital stay, he underwent an MRI of the brain which showed encephalomalacia in the right posterior parietal, posterior temporal, and occipital region with chronic ischemic change. Teleneurology ordered a repeat EEG which showed again encephalopathy. Patient was seen by PT and OT, a request was made to his insurance company for placement in an extended care facility-this was denied-the exact reason was unclear but could have been that the patient was not on rehab level. Patient's family agreed to placement with private payment. On 03/03/2025 patient was seen and examined: Constitutional Narrative: Patient is confused, he does not appear agitated or depressed, patient is oriented as to person only General Appearance: cooperative, well kempt and well developed Orientation / Consciousness: awake HEENT normocephalic, head/scalp atraumatic and moist oral mucous membranes Eyes PERRL, EOMs intact bilaterally and conjunctivae normal Neck supple, no JVD, thyroid normal and no carotid bruits General: trachea midline Resp normal respiratory effort, no retractions, no use of accessory muscles and clear to auscultation bilaterally Auscultation: Negative for rales, rhonchi or wheezes Cardio regular rate, regular rhythm, S1 normal heart sound, S2 normal heart sound, no murmurs, no rub and no gallops GI normal to inspection, nondistended, normoactive bowel sounds, soft to palpation, non-tender and non-distended Extremity Extremity Narrative: Patient has left hemiparesis Skin no rashes or lesions noted General Skin Exam: no breakdown Neuro CN's II-XII intact bilaterally Neuro Narrative: Patient has left hemiparesis Sensorium / Orientation: awake and alert Speech: speech normal Psych Psych Narrative: Patient is confused, he does not appear agitated or depressed Patient was transferred to the extended care facility for intermediate care on 03/03/2025 Weight / BMI Weight Weight: 65.1 kg Body Mass Index (BMI) 21.2 ABG / Lab / Microbiology Data 02/26/25 18:33 02/26/25 18:33 D/C Instructions DC O2, CPAP, BIPAP Needs Home O2 Discharge instructions: No Meaningful Use Info Meaningful Use Meaningful Use Diagnoses (Choose all that apply): None applicable Ischemic Stroke Statin Dosing Therapy Reference: STATIN DOSE THERAPY REFERENCE: * Patients > 75 years receive moderate or high dose statin therapy. * Patients 75 years or YOUNGER should receive HIGH intensity statin dose unless contraindicated. You will be required to document reason for non-treatment if statin daily dose does not meet guidelines. HIGH DOSE STATIN THERAPY DAILY Atorvastatin > than or = to 40 mg Rosuvastatin > than or = to 20 mg Amlodipine + Atorvastatin > than or = to 2.5/40 mg Ezetimibe + Simvastatin 10/80 mg Simvastatin 80mg Discharge Plan Admission Admit Date/Time: 03/02/25 15:02 Primary Reason for Your Visit: Generalized debility Attending Provider: Donny Taylor Primary Care Provider: Care Physician,No Primary Consulting Providers: Rosaura Cooper; Kendra Motley; Gunjan Espinosa; Mike Benavidez; Adria Urena; Niko Reyna; JEANNETTE FRANCIS; Bianca Duenas; Katrin Vogel; Apolinar Reynolds; Mary Poe; Fausto Davidson; Lee Alcantara; Barbie Rea; Shahana Schulte; Martin Dior; Sandra Pond; Lisandro Byrnes; Sebastian De Souza; Brayden Luna; Fina Dumont; Sudhaelen Maher; Luis A Banuelos; Candido Pierce; Mitchell Culp; Skylar Capellan; Brandie Small Discharge Orders/Prescriptions Prescriptions: New acetaminophen 325 mg Tablet 650 mg PO Q6H PRN PRN (Reason: Pain 1-10 Or Fever) Qty: 0 0RF atorvastatin 10 mg Tablet 20 mg PO QHS Qty: 0 0RF aspirin 81 mg Tablet,Chewable 81 mg PO BREAKFAST Qty: 0 0RF memantine [Namenda] 5 mg tablet 5 mg PO BID Qty: 1 0RF Rx Instructions: 5 mg twice daily x 2 weeks, then increase to 10 mg twice daily thereafter Continued donepezil 5 mg tablet 10 mg PO QHS mirtazapine [Remeron] 15 mg tablet 15 mg PO QHS lacosamide 100 mg tablet 100 mg PO BID ergocalciferol (vitamin D2) [Vitamin D2] 1,250 mcg (50,000 unit) capsule 50,000 unit PO DAILY metoprolol tartrate 25 mg tablet 25 mg PO BID baclofen 10 mg tablet 10 mg PO TID rajeevodipine 5 mg tablet 5 mg PO BID Discontinued atorvastatin 10 mg tablet 10 mg PO QHS Referrals / Follow Up: Care Physician,No Primary [Primary Care Provider] - Disposition Disposition (needs filled in before D/C Order can be placed): NonSkilled NH/Intermed Care Charges/Coding Visit Charges Inpatient E&M: 36489 Disch Hosp >30min
--- NOTE | 2025-03-03 15:35 | CASEMGMT ---
Social Work Pt is ready for discharge today to the [facility]. 7000 exemption form completed in [employer]. Discharge orders sent to [facility] via [facility]. Transportation arranged with [facility] for 4:30 strip picker via [facility]. Phone call to pt and informed of dc time. Pt agreeable. [facility] and bedside RN notified of dc time. Disposition: CC, intermediate level of care. STERLING Mojica
--- NOTE | 2025-03-03 15:49 | PHA.DC.MR.R ---
Pharmacy [place] Med Reconciliation Pharmacy Service has performed discharge medication reconciliation for this patient. The patient's discharge medication list was reviewed for discrepancies and discrepancies were resolved. Medications at Discharge Home Medications amlodipine 5 mg tablet 5 mg PO BID 02/26/25 baclofen 10 mg tablet 10 mg PO TID 02/26/25 donepezil 5 mg tablet 10 mg PO QHS 02/26/25 ergocalciferol (vitamin D2) 1,250 mcg (50,000 unit) capsule (Vitamin D2) 50,000 unit PO DAILY 02/26/25 lacosamide 100 mg tablet 100 mg PO BID 02/26/25 metoprolol tartrate 25 mg tablet 25 mg PO BID 02/26/25 mirtazapine 15 mg tablet (Remeron) 15 mg PO QHS 02/26/25 acetaminophen 325 mg tablet 650 mg (2 x 325 mg) PO Q6H PRN PRN Pain 1-10 Or Fever #0 tabs 03/03/25 aspirin 81 mg chewable tablet 81 mg PO BREAKFAST #0 tabs 03/03/25 atorvastatin 10 mg tablet 20 mg (2 x 10 mg) PO QHS #0 tabs 03/03/25 memantine 5 mg tablet (Namenda) 5 mg PO BID #1 TAB 03/03/25
== END 2025-03-03 17:18 | disposition intermediate care facility (04) | DRG 948 ==
LOC: ED 21:45 → PCU 22:18 → MS3 03-01 15:17 → PCU 03-09 10:31
PROVIDERS: Admitting Provider Internal Medicine; Emergency Provider Emergency Medicine; Referring Provider Internal Medicine; Visit Provider Internal Medicine
DX: R53.81 Other malaise (principal); F02.82 Dementia in other diseases classified elsewhere, unspecified severity, with psychotic disturbance; I69.354 Hemiplegia and hemiparesis following cerebral infarction affecting left non-dominant side; R44.2 Other hallucinations; G40.909 Epilepsy, unspecified, not intractable, without status epilepticus; I10 Essential (primary) hypertension; G93.89 Other specified disorders of brain; G31.9 Degenerative disease of nervous system, unspecified; E78.5 Hyperlipidemia, unspecified; I69.398 Other sequelae of cerebral infarction; M16.9 Osteoarthritis of hip, unspecified; S00.81XA Abrasion of other part of head, initial encounter; S00.01XA Abrasion of scalp, initial encounter; S80.811A Abrasion, right lower leg, initial encounter; W19.XXXA Unspecified fall, initial encounter; F42.3 Hoarding disorder; Z87.891 Personal history of nicotine dependence; R29.707 NIHSS score 7; Z75.1 Person awaiting admission to adequate facility elsewhere; R29.714 NIHSS score 14; Z96.649 Presence of unspecified artificial hip joint; Z99.3 Dependence on wheelchair
CPT/HCPCS: 36415; 70450; 70551; 71046; 80053; 80061; 80307; 81001; 82077; 82607; 82746; 83036; 83605; 84443; 84484; 85025; 92610; 93005; 93306; 93880; 94762; 95819; 97110; 97162; 97166; 97530; 97535; 99285; Q9957; A4216; C8929; J2405

== ENCOUNTER 2025-03-19 08:18 | Emergency (ER) | payer MEDICARE, SELFPAY ==
[2025-03-19 08:20] VITALS: BP 111/48; PULSE 51; RESP 14; TEMP 36.5; O2SAT 98; BMI 21.7
--- NOTE | 2025-03-19 08:21 | CT_ITS ---
PROCEDURE: BRAIN/HEAD WITHOUT CONTRAST 03/19/2025 REASON FOR EXAM: MENTAL STATUS CHANGE TECHNIQUE: Head CT without intravenous contrast. Coronal and Sagittal reconstruction series were provided. One or more dose reduction techniques were used (e.g., Automated exposure control, adjustment of the mA and/or kV according to patient size, use of iterative reconstruction technique. RADIATION DOSE SUMMARY: CTDlvol: 44.99 mGy DLP: 812.98 mGycm COMPARISON: 02/26/2025 CT. 02/27/2025 MRI. FINDINGS: Right frontoparietal encephalomalacia with some internal macro calcifications which are similar to the prior CT. Resultant ex vacuo dilatation of the posterior horn of the right lateral ventricle and minimal 2 mm of rightward midline shift at the level of the septum pellucidum due to volume loss, unchanged. No evidence of acute hemorrhage or new infarction. No extra-axial blood or fluid collections. Periventricular white matter hypodensity likely representing chronic microvascular ischemia. Moderate global parenchymal atrophy. Total opacification of the left maxillary sinus. The mastoid air cells are clear. The calvarial vault and skull base are intact. CT/Brain/Head without Contrast IMPRESSION: No acute intracranial abnormality. Right frontoparietal encephalomalacia. Parenchymal atrophy and chronic microvascular ischemia. Reading Location: [id number]
--- NOTE | 2025-03-19 08:21 | EKG12_ITS ---
Test Reason : ALT LOC Blood Pressure : */* mmHG Vent. Rate : 55 BPM Atrial Rate : 55 BPM P-R Int : 190 ms QRS Dur : 68 ms QT Int : 448 ms P-R-T Axes : 55 65 73 degrees QTcB Int : 428 ms Sinus bradycardia Nonspecific T wave changes Borderline Confirmed by Mitchel Mendieta ([id number]), film and video editor DINORAH WHITE ([id number]) on 03/20/2025 10:59:35 AM Referred By: Confirmed By: Mitchel Mendieta
--- NOTE | 2025-03-19 08:22 | EDS_ITS ---
HPI History of Present Illness Chief Complaint: Alt LOC Detail of Chief Complaint: Mental status change Informant: EMS Narrative Narrative: Patient brought to the emergency department via EMS from [facility]. Patient with history of dementia. Apparently had a new nurse this morning who is seeing him for the first time. He had an episode of unresponsiveness for about 5 minutes while sitting in his wheelchair. No seizure activity noted. Patient has not had any falls or head injuries. Patient himself has history of dementia but denies any chest pain or headache. He denies abdominal pain. He describes a mild nausea. Patient with history of prior stroke. Patient with prior seizure history. Patient is comfort care. [facility] Medical History Hemorrhagic stroke Home Medications ?Medication ?Instructions ?Recorded ?Last Taken ?Type amlodipine 5 mg tablet 5 mg PO BID 02/26/25 Unknown History baclofen 10 mg tablet 10 mg PO BID 02/26/25 Unknow n History ergocalciferol (vitamin D2) 1,250 50,000 unit PO DAILY 02/26/25 Unknown History mcg (50,000 unit) capsule (Vitamin D2) lacosamide 100 mg tablet 100 mg PO BID 02/26/25 Unkno wn History metoprolol tartrate 25 mg tablet 25 mg PO BID 02/26/25 Unknown History mirtazapine 15 mg tablet (Remeron) 15 mg PO QHS Unknown History aspirin 81 mg chewable tablet 81 mg PO BREAKFAST #0 ta bs 03/03/25 Unknown Rx acetaminophen 325 mg tablet 650 mg PO Q6H PRN Pain 1-1 0 Or 03/19/25 Unknown History Fever atorvastatin 20 mg tablet 20 mg PO QHS 03/19/25 Unknow n History cephalexin 500 mg capsule 500 mg PO 3XD #21 CAPSULES 0 03/19/25 Unknown Rx cimetidine 300 mg tablet 300 mg PO BID 03/19/25 Unkno wn History donepezil 10 mg tablet 10 mg PO QHS 03/19/25 Unknow n History memantine 10 mg tablet (Namenda) 10 mg PO BID 03/19/25 Unknown History paroxetine HCl 20 mg tablet 20 mg PO DAILY 03/19/25 Un known History Allergy/AdvReac Type Severity Reaction Status Date / Time azithromycin Allergy NEEDS Verified 03/19/25 08:20 FOLLOW-UP Surgical History History of hip replacement ROS ROS ED Review of Systems ROS Unobtainable: other Constitutional Constitutional ED: Reports lethargy; Denies chills, fever(s), sweats or weight loss Eyes Eyes: Denies blurry vision, change in vision or diplopia ENT ENT ED: Denies rhinorrhea or sore throat Cardiovascular Cardiovascular: Denies chest pain, orthopnea or racing heartbeat Respiratory/Chest Respiratory/Chest: Denies cough, dyspnea, dyspnea on exertion, orthopnea or sputum Gastrointestinal Gastrointestinal: Reports nausea; Denies abdominal pain, diarrhea or vomiting Genitourinary Genitourinary ED: Denies dysuria, hematuria or urinary frequency Musculoskeletal Musculoskeletal: Denies arthralgias, back pain, myalgias or neck pain Integumentary Denies abscess, Abrasions or rash Neurologic Neurologic: Reports other Details: Mental status change ; Denies headache(s) or weakness Psychiatric Psychiatric: Denies anxiety, depression or suicidal thoughts Endocrine Endocrinology: Denies polydipsia, polyphagia or polyuria Hematologic/Lymphatic Hematologic/Lymphatic: Denies easy bleeding, easy bruising or lymphadenopathy Allergic/Immunologic Allergic/Immunologic ED: Denies mouth swelling, tongue swelling or urticaria EXAM Physical Exam Const Vital Signs: 03/19/25 08:20 03/19/25 10:19 Temperature 97.7 F L Temperature Source Oral Pulse Rate 51 L 54 L Respiratory Rate 14 18 Blood Pressure 111/48 L 134/78 H Blood Pressure Mean 69 96 Pulse Ox 98 98 Oxygen Delivery Method Room Air Room Air Positive well nourished and well developed General Appearance ED: well developed and NAD HEENT Reports TM's clear and moist mucous membranes normocephalic and atraumatic; Negative for trauma or tenderness Tympanic Membrane ED: Yes TM's clear Eyes PERRL and EOMs intact bilaterally General Eye ED: Negative for pale conjunctiva or scleral icterus Neck no lymphadenopathy, supple and no JVD General: Negative for tenderness Chest Wall inspection of chest normal and palpation of chest normal Chest: Negative for tenderness Resp normal respiratory effort and clear to auscultation bilaterally Effort and Inspection: Negative for respiratory distress or pain with movement Auscultation: Negative for rhonchi, wheezes or diminished lung sounds Cardio regular rate, regular rhythm, S1 normal heart sound, S2 normal heart sound and no murmurs Peripheral Pulses: pulses 2+ throughout GI normal to inspection, nondistended, normoactive bowel sounds, soft to palpation, non-tender, non-distended and no masses Back/Spine no CVA tenderness and no thoracic nor lumbar tenderness Extremity normal to inspection General Extremety ED: Negative for edema General Extremity: Negative for edema Neuro CN's II-XII intact bilaterally, no sensory deficits noted and gait normal Neuro Narrative: Alert the person only. 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 Following commands appropriately. Answering questions. Sensorium / Orientation: awake, alert, oriented to person, oriented to place and oriented to time Motor Exam: strength 5/5 throughout and strength abnormal Psych mental status grossly normal Skin no rashes or lesions noted and no wounds MDM MDM MDM Narrative Medical decision making narrative: Patient with an episode of unresponsiveness at [facility] x 5 minutes. Patient does not recall the event. He has history of dementia. In the differential would be seizure although nursing staff did not note any seizure- like activity. After about 5 minutes he was his normal self. No recent illness. came in and does give history that patient has done this type of activity for at least a year. He used to see a neurologist and has seizure history. He said prior stroke. Currently on lacosamide for his seizures. IV line established. EKG obtained on arrival showed sinus rhythm with rate of 55 bpm with no acute ST segment changes. Patient had a CT scan of the brain without contrast that showed chronic involutional changes and right frontal parietal encephalomalacia. This would be consistent with prior stroke. Urinalysis obtained was positive for UTI with positive nitrites as well as 500 cassette esterase and 25-50 WBCs and +1 bacteria. Urine culture sent. Patient started on Rocephin 1 g IV. Discussed results with patient and his . While in the room patient had a spell where he just stared off in the space but when I touched his foot he was once again very appropriate and answering questions. It is unclear if he is having Slight Activity. Suspect This Seizure Threshold Could Be Lowered Due To UTI. Will Start on Rocephin 1 G IV and Will Treat with Antibiotics for Home. Will Refer to Neurology for Follow-Up. Lab Data Attestation: I reviewed the patient's lab results. Labs: Laboratory Results - last 24 hr 03/19/25 03/19/25 08:57 09:37 WBC 10.1 RBC 5.27 Hgb 15.9 Hct 48.5 MCV 92.0 MCH 30.2 MCHC 32.8 RDW Std Deviation 43.3 RDW Coeff of Noris 12.9 Plt Count 334 MPV 10.3 Immature Gran % (Auto) 0.500 Neut % (Auto) 73.2 H Lymph % (Auto) 17.1 L Schley % (Auto) 6.1 Eos % (Auto) 1.6 Baso % (Auto) 1.5 H Absolute Neuts (auto) 7.4 Absolute Lymphs (auto) 1.72 Nucleated RBC % 0 Sodium 139 Potassium 4.6 Chloride 107 Carbon Dioxide 19.7 L Anion Gap 13 BUN 15 Creatinine 1.08 Estim Creat Clear Calc 57.44 Est GFR (MDRD) Non-Af 72 BUN/Creatinine Ratio 13.5 Glucose 109 H Calcium 9.6 Troponin T High Sens 9 Urine Color Yellow Urine Clarity Cloudy Urine pH 6.5 Ur Specific [place] 1.015 Urine Protein TNP Urine Glucose (UA) Normal Urine Ketones Negative Urine Occult Blood 25 H Urine Nitrite Positive H Urine Bilirubin Negative Urine Urobilinogen Normal Ur Leukocyte Esterase 500 H Urine RBC 0 SEEN Urine WBC 25-50 SEEN Ur Squamous Epith Cells 0 SEEN Urine Bacteria 1+ Urine Mucus 0 SEEN U Random Total Protein 23.7 H Radiography Diagnostic Testing: Clinical Impression(s) from Imaging Studies Brain CT 03/19/25 08:21 IMPRESSION: No acute intracranial abnormality. Right frontoparietal encephalomalacia. Parenchymal atrophy and chronic microvascular ischemia. Reading Location: [place] [id number] EKG Initial EKG: Attestation: I personally reviewed and interpreted this EKG as follows: Comments: Sinus rhythm with rate of 55 bpm with no acute ST segment changes Discharge Plan Triage Chief Complaint: Alt LOC ED Provider: Javan Phan Dx/Rx/DC Orders Clinical Impression: Acute UTI, Absence seizure Instructions: ED Seizure, Recurrent (Adult), ED Bladder Infection, Male (Adult) Prescriptions: New cephalexin 500 mg capsule 500 mg PO 3XD Qty: 21 0RF No Action mirtazapine [Remeron] 15 mg tablet 15 mg PO QHS lacosamide 100 mg tablet 100 mg PO BID ergocalciferol (vitamin D2) [Vitamin D2] 1,250 mcg (50,000 unit) capsule 50,000 unit PO DAILY metoprolol tartrate 25 mg tablet 25 mg PO BID baclofen 10 mg tablet 10 mg PO BID amlodipine 5 mg tablet 5 mg PO BID aspirin 81 mg Tablet,Chewable 81 mg PO BREAKFAST Qty: 0 0RF atorvastatin 20 mg tablet 20 mg PO QHS donepezil 10 mg tablet 10 mg PO QHS cimetidine 300 mg tablet 300 mg PO BID paroxetine HCl 20 mg tablet 20 mg PO DAILY acetaminophen 325 mg Tablet 650 mg PO Q6H PRN (Reason: Pain 1-10 Or Fever) memantine [Namenda] 10 mg tablet 10 mg PO BID Primary Care Provider: Care Physician,No Primary Referrals: Magdaleno Askew MD [Non-Staff -Ordering Privileges] - 3-5 Days Care Physician,No Primary [Primary Care Provider] - Activity Restrictions/Additional Instructions: Follow-up with primary care physician in 3 to 5 days. Print Language: Nauruan Disposition Disposition: Home, Self Care
[2025-03-19 09:10] LABS: Absolute Lymphocyte Count 1.72 X10^3/uL (0.83-4.51); Absolute Neutrophil Count 7.4 X10^3/uL (2.0-7.7); Basophil# 0.15 X10^3/uL; Basophil% 1.5 % (0-1); Eosinophil# 0.16 X10^3/uL; Eosinophils% 1.6 % (0-5); Hematocrit 48.5 % (40-54); Hemoglobin 15.9 g/dL (13.0-16.5); Lymphocyte # 1.72 X10^3/ul (0.83-4.51); Lymphocyte % 17.1 % (19-41); Mean Corp Hgb Conc 32.8 g/dL (32-36); Mean Corpuscular Hgb 30.2 pg (27.0-32.0); Mean Platelet Vol. 10.3 fl (6.2-12.0); Monocyte# 0.61 X10^3/uL; Monocyte% 6.1 % (0-10); NRBC Flagged by Analyzer 0 % (0-5); Neutrophil # 7.37 X10^3/uL (2.7-7.7); Neutrophil % 73.2 % (47-70); Platelet Count 334 K/mm3 (150-450); RBC Distribution Width CV 12.9 % (11.6-14.6); RBC Distribution Width SD 43.3 fl (35.1-43.9); Red Blood Count 5.27 M/mm3 (4.6-6.2); White Blood Count 10.1 K/mm3 (4.4-11.0)
[2025-03-19] MEDS: 0.9% Normal Saline (1000mL) 1,000 ML 150 ML IV (09:15)
[2025-03-19 09:44] LABS: Mucous, Urine 0 SEEN /hpf (<or=2+); Red Blood Cells-Urine 0 SEEN /hpf (0-5); Squamous Epithelial Cells - UA 0 SEEN /hpf (0-5)
[2025-03-19 09:47] LABS: Color, Urine Yellow (Yellow); Glucose, Dipstick Normal (Normal); Ketone-Dipstick Negative (Negative); Leukocyte Esterase-Dipstick 500 /ul (Negative); Nitrite-Dipstick Positive (Negative); Occult Blood-Urine 25 /ul (Negative); Specific Gravity, Urine 1.015 (1.002-1.030); Urine Bilirubin Dipstick Negative (Negative); Urine Clarity Cloudy (Clear); Urine Urobilinogen Normal (Normal); Urine pH 6.5 (5.0 - 8.0)
[2025-03-19 09:58] LABS: Troponin T High Sensitivity 9 ng/L (<=22)
[2025-03-19 10:08] LABS: Bacteria 1+ /hpf (None Seen); White Blood Cells 25-50 SEEN /hpf (0-5)
[2025-03-19 10:19] VITALS: BP 134/78; PULSE 54; RESP 18; O2SAT 98
[2025-03-19 10:21] LABS: Anion Gap 13 (5-15); BUN 15 mg/dL (4-19); BUN/Creat Ratio 13.5 RATIO (10-20); Calcium,Total 9.6 mg/dL (7.6-11.0); Carbon Dioxide 19.7 mmol/L (21.0-32.0); Chloride 107 mmol/L (98-108); Creatinine, Serum 1.08 mg/dL (0.70-1.20); EST Glomerular Filtration Rate 72 (>60); Estimated Creatinine Clearance 57.44 ml/min (50-250); Glucose 109 mg/dL (70-99); Potassium 4.6 mmol/L (3.3-5.1); Sodium Level 139 mmol/L (133-145)
[2025-03-19 10:33] LABS: Protein, Urine (Random) 23.7 mg/dL (0.0-12.0)
[2025-03-19] MEDS: Ceftriaxone 1 GM/50 ML BAG IV (10:55)
[2025-03-19 12:00] VITALS: BP 115/73; PULSE 61; RESP 14; O2SAT 97
[2025-03-19 12:05] VITALS: BP 100/73; PULSE 62; RESP 16; TEMP 36.4; O2SAT 97
--- NOTE | 2025-03-19 13:26 | ED.RN ---
report called to [facility] made aware of dx
[2025-03-19 15:31] VITALS: BP 112/70; PULSE 55; RESP 18; O2SAT 99
== END 2025-03-19 15:58 | disposition skilled nursing facility (03) ==
PROVIDERS: Emergency Provider Emergency Medicine; Visit Provider Emergency Medicine
DX: N39.0 Urinary tract infection, site not specified (principal); F03.90 Unspecified dementia, unspecified severity, without behavioral disturbance, psychotic disturbance, mood disturbance, and anxiety; G40.A09 Absence epileptic syndrome, not intractable, without status epilepticus; Z79.82 Long term (current) use of aspirin; Z79.899 Other long term (current) drug therapy
CPT/HCPCS: 70450; 80048; 81001; 84156; 84484; 85025; 87086; 87088; 87186; 93005; 99285; A4216

== ENCOUNTER → 2025-04-10 | Outpatient (REF) | payer MEDICARE, SELFPAY ==
--- OUTSIDE RECORDS SUMMARY | 2025-04-10 03:36 | XMS RPT_ITS | CCD ---
Author Organization [facility] Care Team Providers Care Timber Faller Name Role Phone Madhu SHELL, Dr. Quezada Emergency Provider Care Physician, No Primary Primary Care Provider Unavailable de Pan DO, Dr. Lambert Admit Provider Unavail able de Pan DO, Dr. Lambert Attending Provider Unav ailable de Pan DO, Dr. Lambert Referring Provider Unav ailable Dr. Damien Leung MD Emergency Provider Care Physician, No Primary Primary Care Provider Unavailable de Pan DO, Dr. Lambert Admit Provider Unavail able de Pan DO, Dr. Lambert Attending Provider Unav ailable de Pan DO, Dr. Lambert Referring Provider Unav ailable de Pan DO, Dr. Lambert Other Provider Unavail able Allison SHELL, Dr. Kaplan Other Provider Dr. Kendra Motley MD Other Provider Gunjan Espinosa MD Other Provider Pramod MS, Mike Other Provider Romel SHELL, Dr. Covington Other Provider [phone] Niko Reyna MD Other Provider JEANNETTE HARP MD Other Provider Bianca Duenas MD Other Provider [phone] Katrin Vogel MD Other Provider Apolinar Reynolds MD Other Provider Deepika SHELL, Mary Other Provider Lee Alcantara MD Other Provider Unavailable Barbie Rea MD Other Provider Unavailable Dr. Shahana Schulte DO Other Provider Barby SHELL, Dr. Salazar Other Provider Dejah SHELL, Dr. Flores Other Provider Fitz SHELL, Dr. Mcmahon Other Provider Ap SHELL, Dr. Cortes Other Provider Cheryl SHELL, Dr. Owen Other Provider Tim SHELL, Dr. Harden Other Provider Sudha SHELL, Dr. Lisa Maher Other Provider Vin SHELL, Dr. Gunn Other Provider Stan SHELL, Dr. Rey Other Provider Suni SHELL, Dr. Medrano Other Provider Timi SHELL, Dr. Cheng Other Provider Unavailable Staci SHELL, Yousecornelio Other Provider Unavailable Idris SHELL, Dr. Ruiz Attending Provider Dr. French Peters MD Attending Provider Dr. Donny Taylor DO Attending Provider Brandon SCHAEFFER, Dr. Hines Other Provider Dr. Fausto Davidson DO Referring Provider Unav ailable Dr. Javan Phan DO Emergency Provider [phone] Fausto Davidson Admitting Unavailable Fausto Davidson Referring Unavailable Donny Taylor Attending Unavailable Allyli, Amimesfin Consulting Unavailable Care Physician, No Primary Primary Care Unava ilable Zha, Kendra Consulting Unavailable Gunjan Espinosa Consulting Unavailable Mike Benavidez Consulting Unavailable Adria Urena Consulting Unavailable Niko Reyna Consulting Unavailable JEANNETTE HARP Consulting Unavailable Bianca Duenas Consulting Unavailable Katrin Vogel Consulting Unavailable Apolinar Reynolds Consulting Unavailable Mary Poe Consulting Unavailable Fausto Davidson Consulting Unavailable Lee Alcantara Consulting Unavailable Floriuanuja, Barbie Consulting Unavailable Shahana Schulte Consulting Unavailable Martin Dior Consulting Unavailable Dejah, Sandra Consulting Unavailable Fitz, Lisandro Consulting Unavailable Sebastian De Souza Consulting Unavailable Brayden Luna Consulting Unavailable Tim, Fina Consulting Unavailable Sudha, Rigobertod Gunnar Consulting UnavailLuis A Crane Consulting Unavailable Pierce, Rami Consulting Unavailable Mitchell Culp Consulting Unavailable Skylar Capellan Consulting Unavailable Brandie Small Consulting Unavailable Donny Taylor Consulting Unavailable Fausto Davidson Admitting Unavailable Fausto Davidson Referring Unavailable Care Physician, No Primary Primary Care Unava ilable Donny Taylor Attending Unavailable Adeli, Amir Consulting Unavailable Tolu, Kendra Consulting Unavailable Gunjan Espinosa Consulting Unavailable Mike Benavidez Consulting Unavailable Adria Urena Consulting Unavailable Niko Reyna Consulting Unavailable JEANNETTE HARP Consulting Unavailable Bianca Duenas Consulting Unavailable Katrin Vogel Consulting Unavailable Apolinar Reynolds Consulting Unavailable Mary Poe Consulting Unavailable Lee Alcantara Consulting Unavailable Barbie Rea Consulting Unavailable Shahana Schulte Consulting Unavailable Martin Dior Consulting Unavailable Dejah, Sandra Consulting Unavailable Fitz Lisandro Consulting Unavailable Sebastian De Souza Consulting Unavailable Brayden Luna Consulting Unavailable Fina Dumont Consulting Unavailable Sudha, Lisa Maher Consulting UnavailLuis A Crane Consulting Unavailable Stan, Inderjiti Consulting Unavailable Mitchell Culp Consulting Unavailable Skylar Capellan Consulting Unavailable Brandie Small Consulting Unavailable Fausto Davidson Consulting Unavailable Donny Taylor Consulting Unavailable Care Physician, No Primary Primary Care Unava ilable Joseph Steinberg Attending Unavailable Fausto Davidson Referring Unavailable Care Physician, No Primary Primary Care Unava ilable French Peters Attending Unavailable Fausto Davidson Attending Unavailable Care Physician, No Primary Primary Care Unava ilable Javan Phan Attending Unavailable Fausto Davidson Referring Unavailable Care Physician, No Primary Primary Care Unava ilable Donny Taylor Attending Unavailable Fausto Davidson Admitting Unavailable Adeli, Amir Consulting Unavailable Zha, Kendra Consulting Unavailable Espinosa, Gunjan Consulting Unavailable Mike Benavidez Consulting Unavailable Adria Urena Consulting Unavailable Niko Reyna Consulting Unavailable JEANNETTE HARP Consulting Unavailable Bianca Duenas Consulting Unavailable Katrin Vogel Consulting Unavailable Apolinar Reynolds Consulting Unavailable Mary Poe Consulting Unavailable Fausto Davidson Consulting Unavailable Lee Alcantara Consulting Unavailable Barbie Rea Consulting Unavailable Shahana Schulte Consulting Unavailable Martin Dior Consulting Unavailable Sandra Pond Consulting Unavailable Lisandro Byrnes Consulting Unavailable Sebastian De Souza Consulting Unavailable Brayden Luna Consulting Unavailable Fina Dumont Consulting Unavailable Lisa Haley Consulting UnavailLuis A Crane Consulting Unavailable Candido Pierce Consulting Unavailable Mitchell Culp Consulting Unavailable Skylar Capellan Consulting Unavailable Brandie Small Consulting Unavailable Allergies Allergy Classification Reported Allergen(s) Allergy Type Date of Onset Reaction(s) Facility (3 sources) Azithromycin Drug Allergy 5 NEEDS FOLLOW-UP [facility] (1 source) Azithromycin Drug Allergy 5 [facility] Repository Medications Current Medications Medication Drug Class(es) Dates Sig (Normalized) Sig (Original) acetaminophen 325 mg oral tablet (3 sources) Start: 03-03-2025 End: 03-19-2025 take 1-10 tablets by mouth every six hours as needed for pain Acetaminophen 325 mg Tablet Active 650 mg PO EVERY 6 HOURS as needed for Pain 1-10 Or Fever March 19, 2025 12:00am amLODIPine 5 mg oral tablet (3 sources) Dihydropyridine Calcium Channel Thomas Start: 02-26-2025 take 1 tablet by mouth twice daily Amlodipine 5 mg tablet Active 5 mg PO TWICE A DAY February 26, 2025 12:00am aspirin 81 mg chewable tablet (2 sources) Platelet Aggregation Inhibitor, Nonsteroidal Anti-inflammatory Drug Start: 03-03-2025 take 1 tablet by mouth at breakfast Aspirin 81 mg Tablet,Chewable Active 81 mg PO WITH BREAKFAST 0 March 03, 2025 12:00am atorvastatin 20 mg oral tablet (6 sources) HMG-CoA Reductase Inhibitor Start: 03-19-2025 take 1 tablet by mouth at bedtime Atorvastatin 20 mg tablet Active 20 mg PO AT BEDTIME March 19, 2025 12:00am Start: 03-03-2025 End: 03-19-2025 take 2 tablets by mouth at bedtime Atorvastatin 10 mg Tablet Discontinued 20 mg PO AT BEDTIME 0 March 03, 2025 12:00am March 19, 2025 8:28am Start: 02-26-2025 End: 03-03-2025 take 1 tablet by mouth at bedtime Atorvastatin 10 mg tablet Discontinued 10 mg PO AT BEDTIME February 26, 2025 12:00am March 03, 2025 2:37pm baclofen 10 mg oral tablet (3 sources) gamma-Aminobutyric Acid-ergic Agonist Start: 02-26-2025 take 1 tablet by mouth twice daily Baclofen 10 mg tablet Active 10 mg PO TWICE A DAY February 26, 2025 12:00am Start: 02-26-2025 take 1 tablet by dilshad th three times daily Baclofen 10 mg tablet Active 10 mg PO THREE TIMES A DAY February 26, 2025 12:00am cephalexin 500 mg oral capsule (1 source) Cephalosporin Antibacterial Start: 03-19-2025 take 1 capsule by mouth three times daily Cephalexin 500 mg capsule Active 500 mg PO 3 times daily March 19, 2025 12:00am cimetidine 300 mg oral tablet (1 source) Histamine-2 Receptor Antagonist Start: 03-19-2025 take 1 tablet by mouth twice daily Cimetidine 300 mg tablet Active 300 mg PO TWICE A DAY March 19, 2025 12:00am donepezil hydrochloride 10 mg oral tablet (4 sources) Start: 03-19-2025 take 1 tablet by mouth at bedtime Donepezil 10 mg tablet Active 10 mg PO AT BEDTIME March 19, 2025 12:00am Start: 02-26-2025 End: 03-19-2025 take 2 tablets by mouth at bedtime Donepezil 5 mg tablet Discontinued 10 mg PO AT BEDTIME February 26, 2025 12:00am March 19, 2025 8:29am ergocalciferol 1.25 mg oral capsule (3 sources) Provitamin D2 Compound Start: 02-26-2025 Ergocalciferol (Vitamin D2) (Vitamin D2) 1,250 mcg (50,000 unit) capsule Active 87221 U PO DAILY February 26, 2025 12:00am lacosamide 100 mg oral tablet (3 sources) Anti-epileptic Agent Start: 02-26-2025 take 1 tablet by mouth twice daily Lacosamide 100 mg tablet Active 100 mg PO TWICE A DAY February 26, 2025 12:00am memantine hydrochloride 10 mg oral tablet (4 sources) W-nahzsm-D-aspar bassett Receptor Antagonist Start: 03-19-2025 End: 03-19-2025 take 1 tablet by mouth twice daily Memantine (Namenda) 10 mg tablet Active 10 mg PO TWICE A DAY March 19, 2025 12:00am Start: 03-03-2025 End: 03-19-2025 take 1 tablet by mouth twice daily, then take 2 tablets by mouth twice daily Memantine (Namenda) 5 mg tablet Discontinued 5 mg PO TWICE A DAY March 03, 2025 12:00am March 19, 2025 8:29am 5 mg twice daily x 2 weeks, then increase to 10 mg twice daily thereafter metoprolol tartrate 25 mg oral tablet (3 sources) beta-Adrenergic Thomas Start: 02-26-2025 take 1 tablet by mouth twice daily Metoprolol Tartrate 25 mg tablet Active 25 mg PO TWICE A DAY February 26, 2025 12:00am mirtazapine 15 mg oral tablet (3 sources) Start: 02-26-2025 take 1 tablet by mouth at bedtime Mirtazapine (Remeron) 15 mg tablet Active 15 mg PO AT BEDTIME February 26, 2025 12:00am PARoxetine hydrochloride 20 mg oral tablet (1 source) Serotonin Reuptake Inhibitor Start: 03-19-2025 take 1 tablet by mouth once daily Paroxetine Hcl 20 mg tablet Active 20 mg PO DAILY March 19, 2025 12:00am Problems Problem Classification Problem Date Documented Date Episodic/Chronic Delirium, dementia, and amnestic and other cognitive disorders (11 sources) Dementia; Translations: [Unspecified dementia without behavioral disturbance] Onset: 03-04-2025 02-26-2025 Chronic Epilepsy; convulsions (2 sources) Absence seizure; 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, not intractable, without status epilepticus] Onset: 03-04-2025 03-19-2025 Chronic Late effects of cerebrovascular disease (14 sources) History of hemorrhagic cerebrovascular accident with residual deficit; Translations: [Unspecified sequelae of cerebral infarction] Onset: 03-04-2025 02-26-2025 Chronic Malaise and fatigue (9 sources) Asthenia; Translations: [Weakness] Onset: 03-04-2025 02-26-2025 Episodic Other nervous system disorders (3 sources) Disorder of brain; Translations: [Encephalopathy, unspecified] 02-26-2025 Chronic Residual codes; unclassified (6 sources) Confusional state; Translations: [Disorientation, unspecified] 02-26-2025 Episodic Residual codes; unclassified (1 source) Altered mental status, unspecified; Translations: [Altered mental status, unspecified] Onset: 03-23-2025 Episodic Residual codes; unclassified (2 sources) Disorientation, unspecified; Translations: [Disorientation, unspecified] Onset: 03-04-2025 Episodic Unclassified (1 source) Unspecified dementia, unspecified severity, with psychotic disturbance; Translations: [Unspecified dementia, unspecified severity, with psychotic disturbance] Onset: 03-04-2025 Urinary tract infections (1 source) Acute urinary tract infection; Translations: [Urinary tract infection, site not specified] 03-19-2025 Episodic Results Test Name Value Interpretation Reference Range Facility Urine Cultureon 03-21-2025 [facility] Presumptive E. coli [place] Count >100,000 Presumptive E. coli: REACTION Ampicillin Islt CARLA <=2 Ampicillin+Sulbac Islt CARLA <=2 S Cefepime Islt CARLA <=0.12 S cefTRIAXone Islt CARLA <=0.25 S Ciprofloxacin Islt CARLA <=0.06 S B-Lactamase Extended Susc Islt NEG Gentamicin Islt CARLA <=1 S levoFLOXacin Islt CARLA <=0.12 S Meropenem Islt CARLA <=0.25 S Nitrofurantoin Islt CARLA <=16 S Pip+Tazo Islt CARLA <=4 S TMP SMX Islt CARLA <=20 S Normal [facility] Comment on above: Performed By: #### L [id number] #### [facility] Laboratory [address] [place], [address] 12 Lead EKGon 03-19-2025 12 Lead EKG [facility] Cardiovascular Services [address] [place] [address] 12 Lead EKG 03/19/25 0834 MR#: [id number] Acct: [id number] Name: BERTOALDO Cornelio Rep #: [id number] : 1950 74 From: Mitchel Mendieta MD Attending Dr: Status: DEP ER Ordering Dr: Javan Phan DO Date: 03/19/25 Location: ED Sex: M C Admitted: Test Reason : ALT LOC Blood Pressure : */* mmHG Vent. Rate : 55 BPM Atrial Rate : 55 BPM P-R Int : 190 ms QRS Dur : 68 ms QT Int : 448 ms P-R-T Axes : 55 65 73 degrees QTcB Int : 428 ms Sinus bradycardia Nonspecific T wave changes Borderline Confirmed by Mitchel Mendieta ([id number]), dictionary editor DINORAH WHITE ([id number]) on 03/20/2025 10:59:35 AM Referred By: Confirmed By: Mitchel Mendieta 03/20/25 1059 Date Mitchel Mendieta MD CC: Dr. Javan Phan DO; No Primary Care Physician Signed Normal [facility] Absolute lymphocyte countOrd ered By: Javan Phan on 03-19-2025 Lymphocytes Auto (Unsp spec) [#/Vol] 1.72 10*3/uL 0.83-4.51 [facility] Absolute neutrophil countOrd ered By: Javan Phan on 03-19-2025 Neutrophils (Bld) [#/Vol] 7.4 10*3/uL 2.0-7.7 [facility] Anion gap in Serum or Plasma Ordered By: Javan Phan on 03-19-2025 Anion gap [Moles/Vol] 13 mmol/L 5-15 [facility] Automated lymphocyte count a s percentage of total leukocytesOrdered By: Javan Phan on 03-19-2025 Lymphocytes/100 WBC Auto (Unsp spec) 17.1 % Low 19-41 [facility] BUN/creatinine ratioOrdered By: Javan Phan on 03-19-2025 Urea nitrogen/Creatinine [Mass ratio] 13.5 mg/mg - [facility] Basic Metabolic Profile (BMP )on 03-19-2025 BUN/CRE 13.5 RATIO Normal - [facility] Comment on above: Performed By: #### L [id number] #### [facility] Laboratory [facility] [place], [address] Calcium [Mass/Vol] 9.6 mg/dL Normal 7.6-11.0 [facility] Comment on above: Performed By: #### L [id number] #### [facility] [address] [place], [address] Chloride [Moles/Vol] 107 mmol/L Normal 98-108 [facility] Comment on above: Performed By: #### L [id number] #### [facility] [address] [place], [address] CO2 [Moles/Vol] 19.7 mmol/L Low 21.0-32.0 [facility] Comment on above: Performed By: #### L [id number] #### [facility] [address] [place], [address] Creatinine [Mass/Vol] 1.08 mg/dL Normal 0.70-1.20 [facility] Comment on above: Performed By: #### L [id number] #### [facility] [address] [place], [address] ECRCL 57.44 ml/min Normal 50-250 [facility] Comment on above: Performed By: #### L [id number] #### [facility] [address] [place], [address] GAP 13 Normal 5-15 [facility] Comment on above: Performed By: #### L [id number] #### [facility] [address] [place], [address] GFR/1.73 sq M.predicted among non-blacks MDRD (S/P/Bld) [Vol rate/Area] 72 mL/min/{1.73_m2} Normal >60 [facility] Comment on above: Result Comment: mL/m in/1.73m2 CKD-EPI Creatinine Equation (2020) Performed By: #### L [id number] #### [facility] [address] [place], [address] Glucose [Mass/Vol] 109 mg/dL High 70-99 [facility] Comment on above: Performed By: #### L [id number] #### [facility] [address] [place], [address] Potassium [Moles/Vol] 4.6 mmol/L Normal 3.3-5.1 [facility] Comment on above: Result Comment: Hemo lysis present, Results??could be affected. ?? Performed By: #### L [id number] #### [facility] [address] [place], [address] Sodium [Moles/Vol] 139 mmol/L Normal 133-145 [facility] Comment on above: Performed By: #### L [id number] #### [facility] [address] [place], [address] Urea nitrogen [Mass/Vol] 15 mg/dL Normal 4-19 [facility] Comment on above: Performed By: #### L [id number] #### [facility] [address] [place], [address] Basophil percentageOrdered B y: Remus Ungcésar on 03-19-2025 Basophils/100 WBC (Bld) 1.5 % High 0-1 [facility] Bilirubin Test strip Ql (U)O rdered By: Remus Ungur on 03-19-2025 Bilirubin Ql (U) Negative Negative [facility] Brain/Head without Contrasto n 03-19-2025 Brain/Head without Contrast [facility] Imaging Services [address] [place] [address] Brain/Head without Contrast MR#: [id number] Acct: [id number] Name: ALDO SOTO Rep #: [id number] : 1950 M 74 From: Brayden Reyes MD PCP: Care Physician,No Primary Status: REG ER Study: Brain/Head without Contrast Date of Exam: 11/12 Exam# [id number] Ordering Dr: Javan Phan DO PROCEDURE: BRAIN/HEAD WITHOUT CONTRAST 03/19/2025 REASON FOR EXAM: MENTAL STATUS CHANGE TECHNIQUE: Head CT without intravenous contrast. Coronal and Sagittal reconstruction series were provided. One or more dose reduction techniques were used (e.g., Automated exposure control, adjustment of the mA and/or kV according to patient size, use of iterative reconstruction technique. RADIATION DOSE SUMMARY: CTDlvol: 44.99 mGy DLP: 812.98 mGycm COMPARISON: 02/26/2025 CT. 02/27/2025 MRI. FINDINGS: Right frontoparietal encephalomalacia with some internal macro calcifications which are similar to the prior CT. Resultant ex vacuo dilatation of the posterior horn of the right lateral ventricle and minimal 2 mm of rightward midline shift at the level of the septum pellucidum due to volume loss, unchanged. No evidence of acute hemorrhage or new infarction. No extra-axial blood or fluid collections. Periventricular white matter hypodensity likely representing chronic microvascular ischemia. Moderate global parenchymal atrophy. Total opacification of the left maxillary sinus. The mastoid air cells are clear. The calvarial vault and skull base are intact. CT/Brain/Head without Contrast IMPRESSION: No acute intracranial abnormality. Right frontoparietal encephalomalacia. Parenchymal atrophy and chronic microvascular ischemia. Reading Location: [place] [address] CC: Dr. Javan Phan DO; No Primary Care Physician [facility] [employer] [facility] Manager: Signed Normal [facility] CBC W/Diff, Automatedon Absolute Lymph 1.72 X10 3/uL Normal 0.83-4.51 [facility] Comment on above: Performed By: #### L [id number] #### [facility] Laboratory [address] [place], [place], [address] Absolute Neut 7.4 X10 3/uL Normal 2.0-7.7 [facility] Comment on above: Performed By: #### L [id number] #### [facility] [address] [place], [address] Basophils/100 WBC (Bld) 1.5 % High 0-1 [facility] Comment on above: Performed By: #### L [id number] #### [facility] [address] [place], [address] Eosinophils/100 WBC (Bld) 1.6 % Normal 0-5 [facility] Comment on above: Performed By: #### L [id number] #### [facility] [address] [place], [address] Erythrocyte distribution width (RBC) [Ratio] 12.9 % Normal 11.6-14.6 [facility] Comment on above: Performed By: #### L [id number] #### [facility] Laboratory [address] [place], [address] Hematocrit (Bld) [Volume fraction] 48.5 % Normal 40-54 [facility] Comment on above: Performed By: #### L [id number] #### [facility] [address] [place], [address] Hemoglobin (Bld) [Mass/Vol] 15.9 g/dL Normal 13.0-16.5 [facility] Comment on above: Performed By: #### L [id number] #### [facility] [address] [place], [address] IG% 0.500 Normal 0.0-0.9 [facility] Comment on above: Result Comment: IG% - Immature Granulocytes (promyelocytes, myelocytes and metamyelocytes) > 1% indicates that a LEFT SHIFT is Present. Performed By: #### L [id number] #### [facility] [address] [place], [address] Lymphocytes/100 WBC (Bld) 17.1 % Low 19-41 [facility] Comment on above: Performed By: #### L [id number] #### [facility] Laboratory [address] [place], [address] MCH (RBC) [Entitic mass] 30.2 pg Normal 27.0-32.0 [facility] Comment on above: Performed By: #### L [id number] #### [facility] [address] [place], [address] MCHC (RBC) [Mass/Vol] 32.8 g/dL Normal 32-36 [facility] Comment on above: Performed By: #### L [id number] #### [facility] [address] [place], [address] MCV (RBC) [Entitic vol] 92.0 fL Normal 80-94 [facility] Comment on above: Performed By: #### L [id number] #### [facility] [address] [place], [address] Monocytes/100 WBC (Bld) 6.1 % Normal 0-10 [facility] Comment on above: Performed By: #### L [id number] #### [facility] Laboratory [address] [place], [address] Neutrophils/100 WBC (Bld) 73.2 % High 47-70 [facility] Comment on above: Performed By: #### L [id number] #### [facility] [address] [place], [address] Nucleated RBC (Bld) [#/Vol] 0 10*3/uL Normal 0-5 [facility] Comment on above: Performed By: #### L [id number] #### [facility] [address] [place], [address] Platelet mean volume (Bld) [Entitic vol] 10.3 fL Normal 6.2-12.0 [facility] Comment on above: Performed By: #### L [id number] #### [facility] [address] [place], [address] Platelets (Bld) [#/Vol] 334 10*3/uL Normal 150-450 [facility] Comment on above: Performed By: #### L [id number] #### [facility] [address] [place], [address] RBC (Bld) [#/Vol] 5.27 10*6/uL Normal 4.6-6.2 [facility] Comment on above: Performed By: #### L [id number] #### [facility] [address] [place], [address] RDW SD 43.3 fl Normal 35.1-43.9 [facility] Comment on above: Performed By: #### L [id number] #### [facility] Laboratory [address] [place], [address] WBC (Bld) [#/Vol] 10.1 10*3/uL Normal 4.4-11.0 [facility] Comment on above: Performed By: #### L [id number] #### [facility] Laboratory [address] [place], [address] Carbon dioxide, total [Moles /volume] in Central venous bloodOrdered By: Javan Phan on 03-19-2025 CO2 [Moles/Vol] 19.7 mmol/L Low 21.0-32.0 [facility] Chloride assayOrdered By: Marguerite Phan on 03-19-2025 Chloride [Moles/Vol] 107 mmol/L 98-108 [facility] Emergency Department Summary on 03-19-2025 Emergency Department Summary [facility] Medical Records Department [address] [place] [address] Emergency Department Summary 03/19/25 MR#: [id number] Acct: [id number] Name: ALDO SOTO Rep #: [id number] : 1950 74 From: Javan Phan DO PCP: Care Physician,No Primary Status:DEP ER Location: ED HPI History of Present Illness Chief Complaint: Alt LOC Detail of Chief Complaint: Mental status change Informant: EMS Narrative Narrative: [facility] Patient with history of dementia. Apparently had a new nurse this morning who is seeing him for the first time. He had an episode of unresponsiveness for about 5 minutes while sitting in his wheelchair. No seizure activity noted. Patient has not had any falls or head injuries. Patient himself has history of dementia but denies any chest pain or headache. He denies abdominal pain. He describes a mild nausea. Patient with history of prior stroke. Patient with prior seizure history. Patient is comfort care. [facility] Medical History Hemorrhagic stroke Home Medications ???Medication ???Instructions ???Recorded ???Last Taken ???Type amlodipine 5 mg tablet 5 mg PO BID 02/26/25 Unknown Histo ry baclofen 10 mg tablet 10 mg PO BID 02/26/25 Unknown Hist ory ergocalciferol (vitamin D2) 1,250 50,000 unit PO DAILY 02/26/25 Unk nown History mcg (50,000 unit) capsule (Vitamin D2) lacosamide 100 mg tablet 100 mg PO BID 02/26/25 Unknown His tory metoprolol tartrate 25 mg tablet 25 mg PO BID 02/26/25 Unknown Hist ory mirtazapine 15 mg tablet (Remeron) 15 mg PO QHS 02/26/25 Unknown Hi story aspirin 81 mg chewable tablet 81 mg PO BREAKFAST #0 tabs 5 Unknown Rx acetaminophen 325 mg tablet 650 mg PO Q6H PRN Pain 1-10 Or 11/12 Unknown History Fever atorvastatin 20 mg tablet 20 mg PO QHS 03/19/25 Unknown Hist ory cephalexin 500 mg capsule 500 mg PO 3XD #21 CAPSULES 5 Unknown Rx cimetidine 300 mg tablet 300 mg PO BID 03/19/25 Unknown His tory donepezil 10 mg tablet 10 mg PO QHS 03/19/25 Unknown Hist ory memantine 10 mg tablet (Namenda) 10 mg PO BID 03/19/25 Unknown Hist ory paroxetine HCl 20 mg tablet 20 mg PO DAILY 03/19/25 Unknown Hi story Allergy/AdvReac Type Severity Reaction Status Date / Time azithromycin Allergy NEEDS Verified 03/19/25 08:20 FOLLOW-UP Surgical History History of hip replacement ROS ROS ED Review of Systems ROS Unobtainable: other Constitutional Constitutional ED: Reports lethargy; Denies chills, fever(s), sweats or weight loss Eyes Eyes: Denies blurry vision, change in vision or diplopia ENT ENT ED: Denies rhinorrhea or sore throat Cardiovascular Cardiovascular: Denies chest pain, orthopnea or racing heartbeat Respiratory/Chest Respiratory/Chest: Denies cough, dyspnea, dyspnea on exertion, orthopnea or sputum Gastrointestinal Gastrointestinal: Reports nausea; Denies abdominal pain, diarrhea or vomiting Genitourinary Genitourinary ED: Denies dysuria, hematuria or urinary frequency Musculoskeletal Musculoskeletal: Denies arthralgias, back pain, myalgias or neck pain Integumentary Denies abscess, Abrasions or rash Neurologic Neurologic: Reports other Details: Mental status change ; Denies headache(s) or weakness Psychiatric Psychiatric: Denies anxiety, depression or suicidal thoughts Endocrine Endocrinology: Denies polydipsia, polyphagia or polyuria Hematologic/Lymphati c Hematologic/Lymphati c: Denies easy bleeding, easy bruising or lymphadenopathy Allergic/Immunologic Allergic/Immunologic ED: Denies mouth swelling, tongue swelling or urticaria EXAM Physical Exam Const Vital Signs: 03/19/25 08:20 03/19/25 10:19 Temperature 97.7 F L Temperature Source Oral Pulse Rate 51 L 54 L Respiratory Rate 14 18 Blood Pressure 111/48 L 134/78 H Blood Pressure Mean 69 96 Pulse Ox 98 98 Oxygen Delivery Method Room Air Room Air Positive well nourished and well developed General Appearance ED: well developed and NAD HEENT Reports TM's clear and moist mucous membranes normocephalic and atraumatic; Negative for trauma or tenderness Tympanic Membrane ED: Yes TM's clear Eyes PERRL and EOMs intact bilaterally General Eye ED: Negative for pale conjunctiva or scleral icterus Neck no lymphadenopathy, supple and no JVD General: Negative for tenderness Chest Wall inspection of chest normal and palpation of chest normal Chest: Negative for tenderness Resp normal respiratory effort and clear to auscultation bilaterally Effort and Inspection: Negative for respiratory distress or pain with movement Auscultation: (more content not included)... Normal [facility] Eosinophil percentageOrdered By: Javan Phan on 03-19-2025 Eosinophils/100 WBC (Bld) 1.6 % 0-5 [facility] Erythrocyte distribution wid th ratioOrdered By: Javan Phan on 03-19-2025 Erythrocyte distribution width (RBC) [Ratio] 12.9 % 11.6-14.6 [facility] Erythrocyte distribution wid th standard deviationOrdered By: Javan Phan on 03-19-2025 Erythrocyte distribution width (RBC) [Ratio] 43.3 fl 35.1-43.9 [facility] Glomerular filtration rate ( GFR) estimation/1.73 sq m using serum, plasma, or whole bOrdered By: [facility] Phan on 03-19-2025 GFR/1.73 sq M.predicted among non-blacks MDRD (S/P/Bld) [Vol rate/Area] 72 mL/min/{1.73_m2} >60 [facility] Comment on above: mL/min/1.73m2 CKD-EP I Creatinine Equation (2020) Hematocrit Auto (Bld) [Volum e fraction]Ordered By: Javan Phan on 03-19-2025 Hematocrit (Bld) [Volume fraction] 48.5 % 40-54 [facility] Hemoglobin measurementOrdere d By: Javan Phan on 03-19-2025 Hemoglobin (Bld) [Mass/Vol] 15.9 g/dL 13.0-16.5 [facility] Immature granulocytes/100 WB C Auto (Bld)Ordered By: Jvaan Phan on 03-19-2025 Immature granulocytes/100 WBC (Bld) 0.500 % 0.0-0.9 [facility] Comment on above: IG% - Immature Granu locytes (promyelocytes, myelocytes and metamyelocytes) > 1% indicates that a LEFT SHIFT is Present. Ketones Test strip Ql (U)Ord ered By: Javan Phan on 03-19-2025 Ketones Ql (U) Negative Negative [facility] L499.0042on 03-19-2025 Trop T High Sen Normal <=22 [facility] Comment on above: Result Comment: PER ER NURSE TO CANCEL Performed By: #### L 499.0042 #### [facility] Laboratory [address] [place], [address] L499.0043on 03-19-2025 Trop T High Sen Normal <=22 [facility] Comment on above: Result Comment: PER ER NURSE TO CANCEL TESTS Performed By: #### L 499.0043 #### [facility] [address] [place], [address] L501.4021on 03-19-2025 Trop T High Sen 9 ng/L Normal <=22 [facility] Comment on above: Performed By: #### L 501.4021 #### [facility] [address] [place], [address] MCV (mean corpuscular volume ) determinationOrdered By: Javan Phan on 03-19-2025 MCV (RBC) [Entitic vol] 92.0 fL 80-94 [facility] Mean corpuscular hemoglobin (MCH) determinationOrdered By: Javan Phan on 03-19-2025 MCH (RBC) [Entitic mass] 30.2 pg 27.0-32.0 [facility] Mean corpuscular hemoglobin concentration (MCHC) determinationOrdered By: Javan Phan on 03-19-2025 MCHC (RBC) [Mass/Vol] 32.8 g/dL 32-36 [facility] Mean platelet volume determi nationOrdered By: Javan Phan on 03-19-2025 Platelet mean volume (Bld) [Entitic vol] 10.3 fL 6.2-12.0 [facility] Microscopic analysis of urin e for red blood cells (RBC)Ordered By: Javan Phan on 03-19-2025 Microscopic analysis of urine for red blood cells (RBC) 0 SEEN /hpf 0-5 [facility] Monocyte percentageOrdered B y: Javan Phan on 03-19-2025 Monocytes/100 WBC (Bld) 6.1 % 0-10 [facility] Mucus LM Ql (Urine sed)Order ed By: Javan Phan on 03-19-2025 Mucus Ql (Urine sed) 0 SEEN /hpf [facility] Neutrophil percentageOrdered By: Javan Phan on 03-19-2025 Neutrophils/100 WBC (Bld) 73.2 % High 47-70 [facility] Nitrite Test strip Ql (U)Ord ered By: Javan Phan on 03-19-2025 Nitrite Ql (U) Positive High Negative [facility] Nucleated red blood cell per centageOrdered By: Javan Phan on 03-19-2025 Nucleated RBC/100 WBC (Bld) [Ratio] 0 % 0-5 [facility] Platelet countOrdered By: Marguerite Phan on 03-19-2025 Platelets (Bld) [#/Vol] 334 10*3/uL 150-450 [facility] Potassium measurement (mass/ volume)Ordered By: Javan Phan on 03-19-2025 Potassium (Unsp spec) [Mass/Vol] 4.6 mmol/L 3.3-5.1 [facility] Comment on above: Hemolysis present, R esults could be affected. Protein Test strip Ql (U)Ord ered By: Javan Phan on 03-19-2025 Protein Ql (U) TNP [facility] Comment on above: Test not performed Protein, Urine (Random)on Protein (U) [Mass/Vol] 23.7 mg/dL High 0.0-12.0 [facility] Comment on above: Performed By: #### L 501.4021 #### [facility] [address] [place], [place] [address], [address] RBC Auto (Bld) [#/Vol]Ordere d By: Javan Phan on 03-19-2025 RBC (Bld) [#/Vol] 5.27 10*6/uL 4.6-6.2 [facility] Serum creatinine measurement (mass/volume)Ordered By: Javan Phan on 03-19-2025 Creatinine [Mass/Vol] 1.08 mg/dL 0.70-1.20 [facility] Serum glucose measurement (m ass/volume)Ordered By: Javan Phan on 03-19-2025 Glucose [Mass/Vol] 109 mg/dL High 70-99 [facility] Serum or plasma calcium dinesh urement (mass/volume)Ordered By: Javan Phan on 03-19-2025 Calcium [Mass/Vol] 9.6 mg/dL 7.6-11.0 [facility] Serum or plasma urea nitroge n measurement (mass/volume)Ordered By: Javan Phan on 03-19-2025 Urea nitrogen [Mass/Vol] 15 mg/dL 4-19 [facility] Sodium levelOrdered By: Kareen Phan on 03-19-2025 Sodium [Moles/Vol] 139 mmol/L 133-145 [facility] Squamous epithelial cells de tection in urine sediment by light microscopyOrdered By: Javan Phan on 03-19-2025 Epithelial cells.squamous LM Ql (Urine sed) 0 SEEN /hpf 0-5 [facility] Troponin T.cardiac [Mass/vol ume] in Serum or Plasma by High sensitivity methodOrdered By: Javan Phan on 03-19-2025 Troponin T.cardiac High sensitivity method [Mass/Vol] 9 ng/L <22 [facility] Urinalysis, Completeon 03-19 BACTERIA 1+ /hpf Normal None Seen [facility] Comment on above: Order Comment: ALAN CTOR TO SPECIFY Performed By: #### L 500.4050, L100.0100, L503.6005 #### [facility] [address] [place], [address] WBC 25-50 SEEN Normal 0-5 [facility] Comment on above: Order Comment: ALAN CTOR TO SPECIFY Performed By: #### L 500.4050, L100.0100, L503.6005 #### [facility] [address] [place], [address] EPI,SQUAMOUS 0 SEEN Normal 0-5 [facility] Comment on above: Order Comment: ALAN CTOR TO SPECIFY Performed By: #### L 500.4050, L100.0100, L503.6005 #### [facility] [address] [place], [address] Mucus Ql (Urine sed) 0 SEEN Normal [facility] Comment on above: Order Comment: ALAN CTOR TO SPECIFY Performed By: #### L 500.4050, L100.0100, L503.6005 #### [facility] [address] [place], [address] RBC 0 SEEN Normal 0-5 [facility] Comment on above: Order Comment: COLLE CTOR TO SPECIFY Performed By: #### L 500.4050, L100.0100, L503.6005 #### [facility] [address] [place], [address] Urine clarityOrdered By: Jessica Phan on 03-19-2025 Clarity (U) Cloudy Clear [facility] Urine color determinationOrd ered By: Javan Phan on 03-19-2025 Color (U) Yellow Yellow [facility] Urine glucose detectionOrder ed By: Javan Phan on 03-19-2025 Glucose Ql (U) Normal mg/dl Normal [facility] Urine leukocyte esterase det ection by dipstickOrdered By: Javan Phan on 03-19-2025 Leukocyte esterase Test strip Ql (U) 500 /ul High Negative [facility] Urine pHOrdered By: Javan coles on 03-19-2025 pH (U) 6.5 [pH] 5.0 - 8.0 [facility] Urine protein measurement (m ass/volume)Ordered By: Javan Phan on 03-19-2025 Protein (U) [Mass/Vol] 23.7 mg/dL High 0.0-12.0 [facility] Urine sediment bacteria coun t by microscopy (number/high power field)Ordered By: Javan Phan on 03-19-2025 Bacteria LM.HPF (Urine sed) [#/Area] 1 /[HPF] None Seen [facility] Urine specific gravity measu rementOrdered By: Javan Phan on 03-19-2025 Specific gravity (U) [Rel density] 1.015 1.002-1.030 [facility] Urine urobilinogen measureme ntOrdered By: Javan Phan on 03-19-2025 Urobilinogen Ql (U) Normal mg/dl Normal [facility] White blood cell (WBC) count Ordered By: Javan Phan on 03-19-2025 WBC (Bld) [#/Vol] 10.1 10*3/uL 4.4-11.0 [facility] White blood cell countOrdere d By: Javan Phan on 03-19-2025 White blood cell count 25-50 SEEN /hpf 0-5 [facility] Duplex ultrasound of carotid artery reportOrdered By: French Peters on 02-28-2025 Study report [facility] Cardi[facility] Services [address] [place] [address] Carotid Duplex Ultrasound 02/27/25 1431 MR#: [id number] Acct: [id number] Name: ALDO SOTO Rep #:[id number] : 1950 74 From: French Ernandez Attending Dr: Dr. Donny Taylor, Status: ADM RAQUEL Ordering Dr: Fausto Davidson DO Date: 02/26/25 Location: [facility] Sex: M C Admitted: 02/26/25 Reason For Study Reason For Study: Evaluate for stenosis, cofusion Rt. Velocities/BP Lt. Velocities/BP Prox CCA 77.8/13.5 cm/sec. Prox CCA 65.5/11.6 cm/sec. Mid CCA 65.5/11.6 cm/sec. Mid CCA 62.6/13.5 cm/sec. Dist CCA 50.4/8.8 cm/sec. Dist CCA 52.2/12.6 cm/sec. Prox ICA 40/9.7 cm/sec. Prox ICA 39/10.7 cm/sec. Mid ICA 46.6/13.5 cm/sec. Mid ICA 56/15.4 cm/sec. Dist ICA 71.1/19.2 cm/sec. Dist ICA 64.5/20.1 cm/sec. Rt. ICA/CCA = 1.09. Lt. ICA/CCA = 1.03. Prox ECA 83.9/10.2 cm/sec. Prox ECA 103.6/12.4 cm/sec. Rt. Vert. 48.5/11.6 cm/sec. Lt. Vert. 44.7/8.8 cm/sec. Right Extracranial There is heterogeneous, irregular atherosclerotic plaque noted in the right common carotid artery. There is heterogeneous, irregular atherosclerotic plaque noted in the right internal carotid artery. There is heterogeneous, irregular atherosclerotic plaque noted in the right external carotid artery. Antegrade flow is noted in the right vertebral artery. Left Extracranial There is heterogeneous, irregular atherosclerotic plaque noted in the left common carotid artery. There is heterogeneous, irregular atherosclerotic plaque noted in the left internal carotid artery. There is heterogeneous, irregular atherosclerotic plaque noted in the left external carotid artery. Antegrade flow is noted in the left vertebral artery. Procedure Carotid Duplex 56807. This is a Carotid Duplex examination using B-mode, color flow and specral Doppler. Exam performed in department. VL/Carotid Duplex Ultrasound Interpretation Summary Mild (<50%) stenosis right extracranial internal carotid. Mild (<50%) stenosis left extracranial internal carotid. Patent and antegrade vertebrals bilaterally. Ordering Physician: Fausto Davidson Performed By: Roxanne Vazquez RVT 02/28/25726 Date _ French Peters MD CC: Dr. Fausto Davidson, DO; Dr. Donny Taylor, DO; No Primary Care Physician ~ Date Dictated: 02/27/25 1431 Date Transcribed: 02/28/25726 [employer] Manager: Signed [facility] Work Phone: Alcohol, Blood (Medical)-Ser umon 02-27-2025 SERUM ETOH < 10.1 Normal <=10.0 [facility] Comment on above: Result Comment: This test is for medical purposes only. The legal definition of intoxication varies according to local law. Performed By: #### L 500.4050, L100.0100, L503.6005 #### [facility] Laboratory [address] [place], [place], [address] Brain without Contraston Brain without Contrast [facility] Imaging Services [address] [place] [address] Brain without Contrast MR#: [id number] Acct: [id number] Name: ALDO SOTO Rep #: [id number] : 1950 M 74 From: Lalo Sánchez MD PCP: Care Physician,No Primary Status: ADM RAQUEL Study: Brain without Contrast Date of Exam: 02/27/25 Exam# [id number] Ordering Dr: Fausto Davidson DO EXAM: BRAIN WITHOUT CONTRAST CLINICAL HISTORY: PERSISTENT CONFUSION X 6 DAYS WITH GENERALIZED WEA COMPARISON: February 26, [address] TECHNIQUE: Multiplanar, multisequence MR images of the brain were obtained without gadolinium contrast material. Motion is noted. FINDINGS: There is encephalomalacia in the right posterior parietal, posterior temporal, and occipital regions with chronic ischemic change, with abnormal GRE signal at the margins. There is restricted diffusion at the anterior and posterior aspect of the superior margin of the infarcted region on the right. There is restricted diffusion in the left parafalcine central and precentral cortex, axial image 24/26, with abnormal GRE signal in the periphery of the left occipital lobe, image 16-22. There is extensive abnormal T2 and FLAIR signal throughout the deep white matter, confluent in the periventricular regions. No cerebellar tonsillar ectopia. No sellar/suprasellar signal abnormalities. The ocular globes and intraorbital soft tissues are symmetrically unremarkable. Left maxillary sinus disease is present. There is fluid signal in a portion of the left mastoid air cells. MRI/Brain without Contrast IMPRESSION: There is encephalomalacia in the right posterior parietal, posterior temporal, and occipital regions with chronic ischemic change, with abnormal GRE signal at the margins. There is restricted diffusion at the anterior and posterior aspect of the superior margin of the infarcted region on the right. There is restricted diffusion in the left parafalcine central and precentral cortex, axial image 24/26, with abnormal GRE signal in the periphery of the left occipital lobe, image 16-22. A component of recent blood products is not excluded, however is not demonstrated on the recent CT. Continued follow-up is recommended. There is extensive abnormal T2 and FLAIR signal throughout the deep white matter, confluent in the periventricular regions. Left maxillary sinus disease is present. There is fluid signal in a portion of the left mastoid air cells. Reading Location: [facility] CC: Dr. Fausto Davidson, DO; No Primary Care Physician [employer] Manager: Signed Normal [facility] Calculated very low density lipoprotein (VLDL) cholesterol measurementOrdered By: Fausto Perla on 02-27-2025 Calculated very low density lipoprotein (VLDL) cholesterol measurement 17 mg/dL 5-40 [facility] Echocardiogram study reportO rdered By: Joseph Steinberg on 02-27-2025 Study report [facility] [address] [place] [address] Echo Complete W/ Contrast 02/27/25 1057 MR#: [id number] Acct: [id number] Name: ALDO SOTO Rep #:[id number] : 1950 74 From: Joseph Ernandez Attending Dr: Dr. Donny Taylor DO Status: ADM RAQUEL Ordering Dr: Fausto Davidson DO Date: 02/26/25 Location: U Sex: M C Admitted: 02/26/25 Reason For Study Reason For Study: TIA/CVA Procedure This was a 2D Doppler, Color Flow transthoracic echocardiogram. The study was technically difficult. Contrast injection was performed. Patient was unable to hold still for testing and was very confused. Limited views were obtained. Exam performed portable in patient room. Left Ventricle Normal LV size. Left ventricular systolic function is normal. The left ventricular ejection fraction is 65 %. Stage 1 diastolic dysfunction. No regional wall motion abnormalities noted. Right Ventricle Normal RV size. Normal systolic function. Pericardium/Pleural No pericardial effusion. Medication Diluted definity 4ml given slow IV push to enhance endocardial definition. Time Measurements MV dec time: 0.26 sec Doppler Measurements & Calculations MV E max dewayne: 54.2 cm/sec Lat Peak E' Dewayne: 6.8 cm/sec Med Peak E' Dewayne: 7.6 cm/sec MV A max dewayne: 104.0 cm/sec E/E' lat: 8.0 E/E' med: 7.1 MV E/A: 0.52 MV V2 max: 123.4 cm/sec MV P1/2t max dewayne: 63.4 cm/sec Ao V2 max: 110.4 cm/sec MV max P.1 mmHg MV P1/2t: 84.9 msec Ao max P.9 mmHg MV V2 mean: 60.5 cm/sec MV mean P.9 mmHg MV dec slope: 218.7 cm/sec2 MV V2 VTI: 21.4 cm MVA(P1/2t): 2.6 cm2 LV V1 max: 84.9 cm/sec LV V1 max P.9 mmHg ECHO/Echo Complete W/ Contrast Interpretation Summary Normal LV size. Left ventricular systolic function is normal. The left ventricular ejection fraction is 65 %. Stage 1 diastolic dysfunction. Contrast injection was performed. Ordering Physician: Fausto Davidson Referring Physician: Fausto Davidson Performed By: Wojciech Trujillo RCS 02/27/251746 Date _ Joseph Steinberg MD CC: Dr. Fausto Davidson, DO; Dr. Donny Taylor, DO; No Primary Care Physician ~ Date Dictated: 02/27/251056 Date Transcribed: 02/27/251746 [employer] Manager: Signed [facility] Work Phone: Electrocardiogram reportOrde red By: Mitchel Mendieta on 02-27-2025 EKG study [facility] Cardiovascular Services [address] [place] [address] 12 Lead EKG 02/26/25 190 MR#: [id number] Acct: [id number] Name: ALDO SOTO Rep #:[id number] : 1950 74 From: Mitchel mancuso MD Attending Dr: Dr. Donny Taylor DO Status: ADM RAQUEL Ordering Dr: Damien Leung MD Date: 02/26/25 Location: [facility] Sex: M C Admitted: 02/26/25 Test Reason : ALT LOC Blood Pressure : */* mmHG Vent. Rate : 87 BPM Atrial Rate : 87 BPM P-R Int : 152 ms QRS Dur : 72 ms QT Int : 364 ms P-R-T Axes : 65 2 49 degrees QTcB Int : 438 ms Normal sinus rhythm Normal ECG Confirmed by Mitchel Mendieta ([id number]), dictionary editor DINORAH WHITE ([id number]) on 59:25:01 AM Referred By: Fausto Davidson Confirmed By: Mitchel Mendieta 02/27/25 0925 Date _ Mitchel Mendieta MD CC: Dr. Damien Leung MD; Dr. Fausto Davidson, DO; Dr. Donny Taylor, DO; No Primary Care Physician ~ Signed [facility] Other Folates,Serum (Folic Acid)on 02-27-2025 FOLATES,SERUM 10.50 ng/mL Normal 4.60-34.80 [facility] Comment on above: Performed By: #### L 506.0200 #### [facility] Laboratory [address] [place], [place], [address] LDL calc ser/plasOrdered By: Fausto Perla on 02-27-2025 Cholesterol in LDL [Mass/Vol] 119 mg/dL [facility] Comment on above: Ydsqtdoqbk=193-980 m g/dL & Higher Vyyy=714 mg/dL or greater Lipid Profileon 02-27-2025 CHOL:HDL 3.80 Normal [facility] Comment on above: Performed By: #### L 500.4100 #### [facility] [address] [place], [place], [address] Cholesterol [Mass/Vol] 185 mg/dL Normal <=200 [facility] Comment on above: Result Comment: Chol esterol level, Desirable <200 mg/dL Borderline high cholesterol 200-239 mg/dL High cholesterol >=240 mg/dL Recommendations of the NCEP Adult Treatment Panel for the following risk-cutoff thresholds for the [place] population. Performed By: #### L 500.4100 #### [facility] [address] [place], [place], [address] Cholesterol in HDL [Mass/Vol] 49 mg/dL Normal [facility] Comment on above: Result Comment: Deanna onal Cholesterol Education Program (NCEP) guidelines: <40 mg/dL: Low HDL-cholesterol (major risk factor for CHD) >= 60 mg/dL: High HDL-cholesterol (negative risk factor for CHD) HDL-cholesterol is affected by a number of factors, e.g. smoking, exercise, hormones, sex and age. Performed By: #### L 500.4100 #### [facility] [address] [place], [address] Cholesterol in LDL [Mass/Vol] 119 mg/dL Normal [facility] Comment on above: Result Comment: Bord pxkezq=363-884 mg/dL Higher Ambg=221 mg/dL or greater Performed By: #### L 500.4100 #### [facility] [address] [place], [address] Cholesterol in VLDL [Mass/Vol] 17 mg/dL Normal 5-40 [facility] Comment on above: Performed By: #### L 500.4100 #### [facility] [address] [place], [address] Triglyceride [Mass/Vol] 87 mg/dL Normal [facility] Comment on above: Result Comment: The drugs N-Acetylcysteine and Metamizole may falsely depress this assay. Normal range: <150 mg/dL Borderline High: 150-199 mg/dL High: 200-499 mg/dL Very High: >500 mg/dL Performed By: #### L 500.4100 #### [facility] [address] [place], [address] MR/CON.PCM.NEon 02-27-2025 MR/CON.PCM.NE [facility] Medical Records Department [address] [place] [address] Consultation - Neurology 02/27/25 0823 MR#: [id number] Acct: [id number] Name: ALDO SOTO Rep #: [id number] : 1950 74 From: Kendra Motley MD PCP: Care Physician,No Primary Status:ADM RAQUEL Location: [place] [address] Assessment and Plan: Neuro Assessment/Plan ALDO SOTO is a 74 M with a past medical history of prior hemorrhagic stroke, HTN, seizure, dementia, being evaluated by Teleneurology for sudden onset worsening confusion started 10 days ago with waxing waning effect. On exam, there are some profound visual agnosias that would localize to occipital or temporal-occipital regions which is not where pt's parietal RMCA stroke are located. 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 Ddx would have included new stroke or stroke recrudescence except not clear there is anything causing recrudescence and no new stroke on imaging. Based on history and exam, there may be concern that pt was hoarding some pills and potentially had a breakthrough seizure with prolonged post-ictal period or intermittent subclinical seizures. Cannot rule out a new lesion that is difficult to assess. Given acuity of onset and involvement of specific type of agnosia, an extension of baseline dementia would be a diagnosis of exclusion and should not be considered a primary cause at this time. Plan: - routine EEG with mild encephalopathy - will increase Vimpat to 150mg BID in case some symptoms are related to subclinical seizures vs a prolonged postictal phase - continue baclofen monitor constipation with q2 day bowel movements. - consider MRI Brain with contrast to further evaluate for temporal-occipital deficits. I personally attended this patient and spent a total time of 45minutes evaluating this patient including clinical assessment, review of chart, medical history imaging, and determining appropriate treatment and workup. 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 Mr. Soto is not up as reliable-historian at this time so information was gathered from chart, medical staff and computer. According to the records he has been confused for the past 6 days with mild intermittent shortness of breath, feeling fatigued and generally weak. His states he is usually not confused. He typically uses a wheelchair to mobilize and can usually transfer on his own but he was able to this past week until today when he attempted to get up experienced a minor fall without associated injury, LOC or head trauma. He denies pain and shortness of breath at this time. His states he has been hallucinating recently and talking to people that are not there. She also states he said something about getting up on a tractor yesterday, with his stating he certainly did not do that. Also for the last few days the patient has been calling his Moises but the day he seems to know who she is. There was no reported fever, chills, blurry vision, discharge from eyes, runny nose, sore throat, ear pain, chest pain, palpitations, heart racing, abdominal pain, nausea, vomiting, diarrhea, hematuria, dysuria, back pain, headache or rash. 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 He was then admitted to the PCU under observation status for TIA/CVA workup for his confusion for a stay that is expected to be less than 2 midnights. Neurologic History Patient not oriented to place (thinks he is in a garage). He is confused as to his 's name still and was confused who his was normally. Normally can state day of the week and month and holidays but cannot now. 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 He has small ischemic strokes since then that caused some memory problems The symptoms of confusion started 10 days ago, he woke up he was suddnely more confused. Not had a (more content not included)... Normal [facility] Magnetic resonance imaging r eportOrdered By: Lalo Sánchez on 02-27-2025 Study report [facility] Imaging Services [address] [place] [address] Brain without Contrast MR#: [id number] Acct: [id number] Name: ALDO SOTO Rep #: [id number] : 1950 M 74 From: Yeny Sánchez MD PCP: Care Physician,No Primary Status: ADM RAQUEL Study:Brain without Contrast Date of Exam: 02/27/25 Exam# [id number] Ordering Dr: Fausto Salinas DO EXAM: BRAIN WITHOUT CONTRAST CLINICAL HISTORY: PERSISTENT CONFUSION X 6 DAYS WITH GENERALIZED WEA COMPARISON: February 26, [address] TECHNIQUE: Multiplanar, multisequence MR images of the brain were obtained without gadolinium contrast material. Motion is noted. FINDINGS: There is encephalomalacia in the right posterior parietal, posterior temporal, and occipital regions with chronic ischemic change, with abnormal GRE signal at the margins. There is restricted diffusion at the anterior and posterior aspect of the superior margin of the infarcted region on the right. There is restricted diffusion in the left parafalcine central and precentral cortex, axial image 24/26, with abnormal GRE signal in the periphery of the left occipital lobe, image 16-22. There is extensive abnormal T2 and FLAIR signal throughout the deep white matter, confluent in the periventricular regions. No cerebellar tonsillar ectopia. No sellar/suprasellar signal abnormalities. The ocular globes and intraorbital soft tissues are symmetrically unremarkable. Left maxillary sinus disease is present. There is fluid signal in a portion of the left mastoid air cells. MRI/Brain without Contrast IMPRESSION: There is encephalomalacia in the right posterior parietal, posterior temporal, and occipital regions with chronic ischemic change, with abnormal GRE signal at the margins. There is restricted diffusion at the anterior and posterior aspect of the superior margin of the infarcted region on the right. There is restricted diffusion in the left parafalcine central and precentral cortex, axial image 24/26, with abnormal GRE signal in the periphery of the left occipital lobe, image 16-22. A component of recent blood products is not excluded, however is not demonstrated on the recent CT. Continued follow-up is recommended. There is extensive abnormal T2 and FLAIR signal throughout the deep white matter, confluent in the periventricular regions. Left maxillary sinus disease is present. There is fluid signal in a portion of the left mastoid air cells. Reading Location: [facility] CC: Dr. Fausto Davidson DO; No Primary Care Physician ~ [facility] [employer] [facility] Manager: Signed [facility] Screening total cholesterol/ high density lipoprotein (HDL) cholesterol ratioOrdered By: Fausto Perla on 02-27-2025 Cholesterol.total/Choles terol in HDL [Mass ratio] 3.80 {ratio} [facility] Serum or plasma cholesterol in HDL measurement (mass/volume)Ordered By: Fausto Perla on 02-27-2025 Cholesterol in HDL [Mass/Vol] 49 mg/dL >40 [facility] Comment on above: National Cholesterol Education Program (NCEP) guidelines:<40 mg/dL: Low HDL-cholesterol (major risk factor for CHD)>= 60 mg/dL: High HDL-cholesterol (negative risk factor for CHD)HDL-cholesterol is affected by a number of factors, e.g. smoking, exercise, hormones, sex and age. Serum or plasma cholesterol measurement (mass/volume)Ordered By: Fausto Perla on 02-27-2025 Cholesterol [Mass/Vol] 185 mg/dL <201 [facility] Comment on above: Cholesterol level, D esirable <200 mg/dLBorderline high cholesterol 200-239 mg/dLHigh cholesterol >=240 mg/dLRecommendations of the NCEP Adult Treatment Panel for the following risk-cutoff thresholds for the [place] population. Thyroid Stim Hormone (TSH)on 02-27-2025 TSH 1.070 uIU/mL Normal 0.300-4.200 [facility] Comment on above: Performed By: #### L 500.4050, L100.0100, L503.6005 #### [facility] [address] [place], [address] Triglycerides measurementOrd ered By: Fausto Perla on 02-27-2025 Triglyceride [Mass/Vol] 87 mg/dL <199 [facility] Comment on above: The drugs N-Acetylcy steine and Metamizole may falsely depress this assay. Normal range: <150 mg/dLBorderline High: 150-199 mg/dLHigh: 200-499 mg/dLVery High: >500 mg/dL Urine Drug Screen (VISTA)on 02-27-2025 AMPHETAMINES Negative Normal <1000 ng/mL [facility] Comment on above: Order Comment: UNK Performed By: #### L 500.4050, L100.0100, L503.6005 #### [facility] [address] [place], [address] BARBITIURATES Negative Normal < 200 ng/mL [facility] Comment on above: Order Comment: UNK Performed By: #### L 500.4050, L100.0100, L503.6005 #### [facility] [address] [place], [address] BENZODIAZIPINE Negative Normal < 200 ng/mL [facility] Comment on above: Order Comment: UNK Performed By: #### L 500.4050, L100.0100, L503.6005 #### [facility] [address] [place], [address] BUP Ur Drug Scr Negative Normal < 200 ng/mL [facility] Comment on above: Order Comment: UNK Performed By: #### L 500.4050, L100.0100, L503.6005 #### [facility] [address] [place], [address] COCAINE Negative Normal < 300 ng/mL [facility] Comment on above: Order Comment: UNK Performed By: #### L 500.4050, L100.0100, L503.6005 #### [facility] [address] [place], [address] Fentanyl Negative Normal [facility] Comment on above: Order Comment: UNK Performed By: #### L 500.4050, L100.0100, L503.6005 #### [facility] [address] [place], [address] METHADONE Negative Normal < 300 ng/mL [facility] Comment on above: Order Comment: UNK Performed By: #### L 500.4050, L100.0100, L503.6005 #### [facility] [address] [place], [address] OPIATES Negative Normal < 300 ng/mL [facility] Comment on above: Order Comment: UNK Performed By: #### L 500.4050, L100.0100, L503.6005 #### [facility] [address] [place], [address] OXYCODONE Negative Normal < 100 ng/mL [facility] Comment on above: Order Comment: UNK Performed By: #### L 500.4050, L100.0100, L503.6005 #### [facility] [address] [place], [address] PCP Negative Normal < 25 ng/mL [facility] Comment on above: Order Comment: UNK Performed By: #### L 500.4050, L100.0100, L503.6005 #### [facility] [address] [place], [address] THC Negative Normal < 50 ng/mL [facility] Comment on above: Order Comment: UNK Performed By: #### L 500.4050, L100.0100, L503.6005 #### [facility] [address] [place], [address] Vitamin B12on 02-27-2025 Cobalamin (Vitamin B12) [Mass/Vol] 461 pg/mL Normal 180-914 [facility] Comment on above: Performed By: #### L 500.4050, L100.0100, L503.6005 #### [facility] [address] [place], [address] 12 Lead EKGon 02-26-2025 12 Lead EKG [facility] Cardiovascular Services [address] [place] [address] 12 Lead EKG 02/26/25 1905 MR#: [id number] Acct: [id number] Name: ALDO SOTO Rep #: [id number] : 1950 74 From: Mitchel Mendieta MD Attending Dr: Dr. Donny Taylor, DO Status: A DM RAQUEL Ordering Dr: Damien Leung MD Date: 02/26/25 Location: [facility] Sex: M C Admitted: 02/26/25 Test Reason : ALT LOC Blood Pressure : */* mmHG Vent. Rate : 87 BPM Atrial Rate : 87 BPM P-R Int : 152 ms QRS Dur : 72 ms QT Int : 364 ms P-R-T Axes : 65 2 49 degrees QTcB Int : 438 ms Normal sinus rhythm Normal ECG Confirmed by Mitchel Mendieta ([id number]), dictionary editor DINORAH WHITE ([id number]) on 02/27/2025 9:25:01 AM Referred By: Fausto Davidson Confirmed By: Mitchel Mendieta 02/27/25924 Date Mitchel Mendieta MD CC: Dr. Damien Leung MD; Dr. Fausto Davidson DO; Dr. Donny Taylor DO; No Primary Care Physician Signed Normal [facility] Absolute lymphocyte countOrd ered By: Damien Leung on 02-26-2025 Lymphocytes Auto (Unsp spec) [#/Vol] 1.49 10*3/uL 0.83-4.51 [facility] Absolute neutrophil countOrd ered By: Damien Leung on 02-26-2025 Neutrophils (Bld) [#/Vol] 7.7 10*3/uL 2.0-7.7 [facility] Amphetamine detection with 1 000 ng/mL as cutoffOrdered By: Fausto Perla on 02-26-2025 Amphetamines Screen method >1000 ng/mL Ql (U) Negative < 200 ng/mL [facility] Anion gap in Serum or Plasma Ordered By: Damien Leung on 02-26-2025 Anion gap [Moles/Vol] 13 mmol/L 03-02 [facility] Automated lymphocyte count a s percentage of total leukocytesOrdered By: Damien Leung on 02-26-2025 Lymphocytes/100 WBC Auto (Unsp spec) 14.7 % Low [facility] BUN/creatinine ratioOrdered By: Damien Leung on 02-26-2025 Urea nitrogen/Creatinine [Mass ratio] 21.2 mg/mg High - [facility] Basophil percentageOrdered B y: Damien Leung on 02-26-2025 Basophils/100 WBC (Bld) 1.2 % High 0-1 [facility] Bilirubin Test strip Ql (U)O rdered By: Damien Leung on 02-26-2025 Bilirubin Ql (U) 1 mg/dL High Negative [facility] Comment on above: COLOR OF URINE MAY A FFECT DIPSTICK RESULTS. Bilirubin, totalOrdered By: Damien Leung on 02-26-2025 Bilirubin [Mass/Vol] 0.51 mg/dL 0.00-1.30 [facility] Brain/Head without Contrasto n 02-26-2025 Brain/Head without Contrast [facility] Imaging Services [address] [place] [address] Brain/Head without Contrast MR#: [id number] Acct: [id number] Name: ALDO SOTO Rep #: [id number] : 1950 M 74 From: Lonnie bloom MD PCP: Care Physician,No Primary Status: REG ER Study: Brain/Head without Contrast Date of Exam: 02/16 11/12 Exam# [id number] Ordering Dr: Damien Leung MD PROCEDURE: BRAIN/HEAD WITHOUT CONTRAST 02/26/2025 REASON FOR EXAM: ALTERED MENTAL STATUS TECHNIQUE: Head CT without intravenous contrast. Coronal and Sagittal reconstruction series were provided. One or more dose reduction techniques were used (e.g., Automated exposure control, adjustment of the mA and/or kV according to patient size, use of iterative reconstruction technique. COMPARISON: None FINDINGS: Encephalomalacia right frontoparietal lobe, likely from prior right MCA distribution infarct. Calcification noted within the encephalomalacia lytic focus. Additional areas of cortical laminar necrosis. No acute intracranial hemorrhage, mass, mass effect, midline shift or pathologic extra-axial fluid collection. Mild parenchymal atrophy with commensurate increase in CSF containing spaces. Ex vacuo dilatation posterior horn right lateral ventricle, from adjacent encephalomalacia. Patchy white matter hypodensities, patient demographics favor chronic microvascular ischemic changes. Complete opacification left maxillary sinus with areas of mildly high attenuation, likely secondary to inspissated secretions or fungal colonization. The calvarium is grossly intact. CT/Brain/Head without Contrast IMPRESSION: No acute intracranial abnormality. 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 Reading Location: [facility] CC: Dr. Damien Leung MD; No Primary Care Physician [employer] Manager: Signed Normal [facility] CBC W/Diff, Automatedon 02-16 Absolute Lymph 1.49 X10 3/uL Normal 0.83-4.51 [facility] Comment on above: Performed By: #### L 500.4050, L100.0100, L503.6005 #### [facility] [address] [place], [address] Absolute Neut 7.7 X10 3/uL Normal 2.0-7.7 [facility] Comment on above: Performed By: #### L 500.4050, L100.0100, L503.6005 #### [facility] [address] [place], [address] Basophils/100 WBC (Bld) 1.2 % High 0-1 [facility] Comment on above: Performed By: #### L 500.4050, L100.0100, L503.6005 #### [facility] [address] [place], [address] Eosinophils/100 WBC (Bld) 0.9 % Normal 0-5 [facility] Comment on above: Performed By: #### L 500.4050, L100.0100, L503.6005 #### [facility] [address] [place], [address] Erythrocyte distribution width (RBC) [Ratio] 12.7 % Normal 11.6-14.6 [facility] Comment on above: Performed By: #### L 500.4050, L100.0100, L503.6005 #### [facility] [address] [place], [address] Hematocrit (Bld) [Volume fraction] 51.1 % Normal 40-54 [facility] Comment on above: Performed By: #### L 500.4050, L100.0100, L503.6005 #### [facility] [address] [place], [address] Hemoglobin (Bld) [Mass/Vol] 17.0 g/dL High 13.0-16.5 [facility] Comment on above: Performed By: #### L 500.4050, L100.0100, L503.6005 #### [facility] [address] [place], [address] IG% 0.300 Normal 0.0-0.9 [facility] Comment on above: Result Comment: IG% - Immature Granulocytes (promyelocytes, myelocytes and metamyelocytes) > 1% indicates that a LEFT SHIFT is Present. Performed By: #### L 500.4050, L100.0100, L503.6005 #### [facility] [address] [place], [address] Lymphocytes/100 WBC (Bld) 14.7 % Low 19-41 [facility] Comment on above: Performed By: #### L 500.4050, L100.0100, L503.6005 #### [facility] [address] [place], [address] MCH (RBC) [Entitic mass] 29.8 pg Normal 27.0-32.0 [facility] Comment on above: Performed By: #### L 500.4050, L100.0100, L503.6005 #### [facility] [address] [place], [address] MCHC (RBC) [Mass/Vol] 33.3 g/dL Normal 32-36 [facility] Comment on above: Performed By: #### L 500.4050, L100.0100, L503.6005 #### [facility] [address] [place], [address] MCV (RBC) [Entitic vol] 89.5 fL Normal 80-94 [facility] Comment on above: Performed By: #### L 500.4050, L100.0100, L503.6005 #### [facility] [address] [place], [address] Monocytes/100 WBC (Bld) 6.9 % Normal 0-10 [facility] Comment on above: Performed By: #### L 500.4050, L100.0100, L503.6005 #### [facility] [address] [place], [address] Neutrophils/100 WBC (Bld) 76.0 % High 47-70 [facility] Comment on above: Performed By: #### L 500.4050, L100.0100, L503.6005 #### [facility] [address] [place], [address] Nucleated RBC (Bld) [#/Vol] 0 10*3/uL Normal 0-5 [facility] Comment on above: Performed By: #### L 500.4050, L100.0100, L503.6005 #### [facility] [address] [place], [address] Platelet mean volume (Bld) [Entitic vol] 10.1 fL Normal 6.2-12.0 [facility] Comment on above: Performed By: #### L 500.4050, L100.0100, L503.6005 #### [facility] [address] [place], [address] Platelets (Bld) [#/Vol] 334 10*3/uL Normal 150-450 [facility] Comment on above: Performed By: #### L 500.4050, L100.0100, L503.6005 #### [facility] [address] [place], [address] RBC (Bld) [#/Vol] 5.71 10*6/uL Normal 4.6-6.2 [facility] Comment on above: Performed By: #### L 500.4050, L100.0100, L503.6005 #### [facility] [address] [place], [address] RDW SD 41.7 fl Normal 35.1-43.9 [facility] Comment on above: Performed By: #### L 500.4050, L100.0100, L503.6005 #### [facility] [address] [place], [address] WBC (Bld) [#/Vol] 10.1 10*3/uL Normal 4.4-11.0 [facility] Comment on above: Performed By: #### L 500.4050, L100.0100, L503.6005 #### [facility] [address] [place], [address] Carbon dioxide, total [Moles /volume] in Central venous bloodOrdered By: Damien Leung on 02-26-2025 CO2 [Moles/Vol] 21.8 mmol/L 21.0-32.0 [facility] Carotid Duplex Ultrasoundon 02-26-2025 Carotid Duplex Ultrasound [facility] Cardiovascular Services [address] [place] [address] Carotid Duplex Ultrasound 02/27/25 1431 MR#: [id number] Acct: [id number] Name: ALDO SOTO Rep #: [id number] : 1950 74 From: French Peters MD Attending Dr: Dr. Donny Taylor, Status: A DM RAQUEL Ordering Dr: Fausto Davidson DO Date: 02/26/25 Location: [facility] Sex: M C Admitted: 02/26/25 Reason For Study Reason For Study: Evaluate for stenosis, cofusion Rt. Velocities/BP Lt. Velocities/BP Prox CCA 77.8/13.5 cm/sec. Prox CCA 65.5/11.6 cm/sec. Mid CCA 65.5/11.6 cm/sec. Mid CCA 62.6/13.5 cm/sec. Dist CCA 50.4/8.8 cm/sec. Dist CCA 52.2/12.6 cm/sec. Prox ICA 40/9.7 cm/sec. Prox ICA 39/10.7 cm/sec. Mid ICA 46.6/13.5 cm/sec. Mid ICA 56/15.4 cm/sec. Dist ICA 71.1/19.2 cm/sec. Dist ICA 64.5/20.1 cm/sec. Rt. ICA/CCA = 1.09. Lt. ICA/CCA = 1.03. Prox ECA 83.9/10.2 cm/sec. Prox ECA 103.6/12.4 cm/sec. Rt. Vert. 48.5/11.6 cm/sec. Lt. Vert. 44.7/8.8 cm/sec. Right Extracranial There is heterogeneous, irregular atherosclerotic plaque noted in the right common carotid artery. There is heterogeneous, irregular atherosclerotic plaque noted in the right internal carotid artery. There is heterogeneous, irregular atherosclerotic plaque noted in the right external carotid artery. Antegrade flow is noted in the right vertebral artery. Left Extracranial There is heterogeneous, irregular atherosclerotic plaque noted in the left common carotid artery. There is heterogeneous, irregular atherosclerotic plaque noted in the left internal carotid artery. There is heterogeneous, irregular atherosclerotic plaque noted in the left external carotid artery. Antegrade flow is noted in the left vertebral artery. Procedure Carotid Duplex 12854. This is a Carotid Duplex examination using B-mode, color flow and specral Doppler. Exam performed in department. VL/Carotid Duplex Ultrasound Interpretation Summary Mild (<50%) stenosis right extracranial internal carotid. Mild (<50%) stenosis left extracranial internal carotid. Patent and antegrade vertebrals bilaterally. Ordering Physician: Fautso Davidson Performed By: Roxanne Vazquez RVT 02/28/25726 Date French Peters MD CC: Dr. Fausto Davidson, DO; Dr. Donny Taylor, DO; No Primary Care Physician Date Dictated: 02/27/25 1431 Date Transcribed: 02/28/25726 [employer] Manager: Signed Normal [facility] Chest PA and Lateralon 02-26 Chest PA and Lateral [facility] Imaging Services [address] [place] [address] Chest PA and Lateral MR#: [id number] Acct: [id number] Name: ALDO STOO Rep #: [id number] : 1950 M 74 From: Lonnie bloom MD PCP: Care Physician,No Primary Status: [facility] ER Study: Chest PA and Lateral Date of Exam: 02/26/25 Exam# [id number] Ordering Dr: Damien Leung MD PROCEDURE: CHEST PA AND LATERAL 02/26/2025 REASON FOR EXAM: SOB TECHNIQUE: Frontal and lateral views of the chest. COMPARISON: None FINDINGS: Hardware: None Heart: The heart size is normal. Mediastinum: The mediastinal contour is stable. Lungs: No focal consolidation. No pneumothorax. No pleural effusion. Bones: Degenerative changes are identified within the thoracic spine. RAD/Chest PA and Lateral IMPRESSION: NO ACUTE FINDINGS. [facility] CC: Dr. Damien Leung MD; No Primary Care Physician [employer] Manager: Signed Normal [facility] Chloride assayOrdered By: Sally Leung on 02-26-2025 Chloride [Moles/Vol] 109 mmol/L High 98-108 [facility] Comprehensive Metabolic Prof ilon 02-26-2025 Albumin [Mass/Vol] 4.3 g/dL Normal 3.4-4.8 [facility] Comment on above: Performed By: #### L 500.4050, L100.0100, L503.6005 #### [facility] Laboratory [address] [place], [address] Albumin/Globulin [Mass ratio] 1.3 {ratio} Normal 0.9-2.4 [facility] Comment on above: Performed By: #### L 500.4050, L100.0100, L503.6005 #### [facility] [address] [place], [address] ALK PHOS 77 U/L Normal 40-129 [facility] Comment on above: Performed By: #### L 500.4050, L100.0100, L503.6005 #### [facility] [address] [place], [address] ALT [Catalytic activity/Vol] 8 U/L Normal <=46 [facility] Comment on above: Performed By: #### L 500.4050, L100.0100, L503.6005 #### [facility] [address] [place], [address] AST [Catalytic activity/Vol] 12 U/L Normal <=37 [facility] Comment on above: Performed By: #### L 500.4050, L100.0100, L503.6005 #### [facility] [address] [place], [address] Bilirubin [Mass/Vol] 0.51 mg/dL Normal 0.00-1.30 [facility] Comment on above: Performed By: #### L 500.4050, L100.0100, L503.6005 #### [facility] [address] [place], [address] BUN/CRE 21.2 RATIO High 10-20 [facility] Comment on above: Performed By: #### L 500.4050, L100.0100, L503.6005 #### [facility] [address] [place], [address] Calcium [Mass/Vol] 9.8 mg/dL Normal 7.6-11.0 [facility] Comment on above: Performed By: #### L 500.4050, L100.0100, L503.6005 #### [facility] [address] [place], [address] Chloride [Moles/Vol] 109 mmol/L High 98-108 [facility] Comment on above: Performed By: #### L 500.4050, L100.0100, L503.6005 #### [facility] [address] [place], [address] CO2 [Moles/Vol] 21.8 mmol/L Normal 21.0-32.0 [facility] Comment on above: Performed By: #### L 500.4050, L100.0100, L503.6005 #### [facility] [address] [place], [address] Creatinine [Mass/Vol] 0.79 mg/dL Normal 0.70-1.20 [facility] Comment on above: Performed By: #### L 500.4050, L100.0100, L503.6005 #### [facility] [address] [place], [address] ECRCL 79.80 ml/min Normal 50-250 [facility] Comment on above: Performed By: #### L 500.4050, L100.0100, L503.6005 #### [facility] [address] [place], [address] GAP 13 Normal 5-15 [facility] Comment on above: Performed By: #### L 500.4050, L100.0100, L503.6005 #### [facility] [address] [place], [address] GFR/1.73 sq M.predicted among non-blacks MDRD (S/P/Bld) [Vol rate/Area] 94 mL/min/{1.73_m2} Normal >60 [facility] Comment on above: Result Comment: mL/m in/1.73m2 CKD-EPI Creatinine Equation (2020) Performed By: #### L 500.4050, L100.0100, L503.6005 #### [facility] [address] [place], [address] Globulin (S) [Mass/Vol] 3.4 g/dL Normal 2.2-4.2 [facility] Comment on above: Performed By: #### L 500.4050, L100.0100, L503.6005 #### [facility] [address] [place], [address] Glucose [Mass/Vol] 90 mg/dL Normal 70-99 [facility] Comment on above: Performed By: #### L 500.4050, L100.0100, L503.6005 #### [facility] [address] [place], [address] Potassium [Moles/Vol] 3.7 mmol/L Normal 3.3-5.1 [facility] Comment on above: Performed By: #### L 500.4050, L100.0100, L503.6005 #### [facility] [address] [place], [address] Sodium [Moles/Vol] 144 mmol/L Normal 133-145 [facility] Comment on above: Performed By: #### L 500.4050, L100.0100, L503.6005 #### [facility] [address] [place], [address] T PROT 7.8 g/dL Normal 5.9-8.4 [facility] Comment on above: Performed By: #### L 500.4050, L100.0100, L503.6005 #### [facility] [address] [place], [address] Urea nitrogen [Mass/Vol] 17 mg/dL Normal 4-19 [facility] Comment on above: Performed By: #### L 500.4050, L100.0100, L503.6005 #### [facility] [address] [place], [address] Echo Complete W/ Contraston 02-26-2025 Echo Complete W/ Contrast [facility] Cardi[facility] Services [address] [place] [address] Echo Complete W/ Contrast 02/27/25 1057 MR#: [id number] Acct: [id number] Name: ALDO SOTO Rep #: [id number] : 1950 74 From: Joseph Steinberg MD Attending Dr: Dr. Donny Taylor, Status: A DM RAQUEL Ordering Dr: Fausto Davidson DO Date: 02/26/25 Location: [facility] Sex: M C Admitted: 02/26/25 Reason For Study Reason For Study: TIA/CVA Procedure This was a 2D Doppler, Color Flow transthoracic echocardiogram. The study was technically difficult. Contrast injection was performed. Patient was unable to hold still for testing and was very confused. Limited views were obtained. Exam performed portable in patient room. Left Ventricle Normal LV size. Left ventricular systolic function is normal. The left ventricular ejection fraction is 65 %. Stage 1 diastolic dysfunction. No regional wall motion abnormalities noted. Right Ventricle Normal RV size. Normal systolic function. Pericardium/Pleural No pericardial effusion. Medication Diluted definity 4ml given slow IV push to enhance endocardial definition. Time Measurements MV dec time: 0.26 sec Doppler Measurements Calculations MV E max deawyne: 54.2 cm/sec Lat Peak E' Dewayne: 6.8 cm/sec Med Peak E' Dewayne: 7.6 cm/sec MV A max dewayne: 104.0 cm/sec E/E' lat: 8.0 E/E' med: 7.1 MV E/A: 0.52 MV V2 max: 123.4 cm/sec MV P1/2t max dewayne: 63.4 cm/sec Ao V2 max: 110.4 cm/sec MV max P.1 mmHg MV P1/2t: 84.9 msec Ao max P.9 mmHg MV V2 mean: 60.5 cm/sec MV mean P.9 mmHg MV dec slope: 218.7 cm/sec2 MV V2 VTI: 21.4 cm MVA(P1/2t): 2.6 cm2 LV V1 max: 84.9 cm/sec LV V1 max P.9 mmHg ECHO/Echo Complete W/ Contrast Interpretation Summary Normal LV size. Left ventricular systolic function is normal. The left ventricular ejection fraction is 65 %. Stage 1 diastolic dysfunction. Contrast injection was performed. Ordering Physician: Fausto Davidson Referring Physician: Fausto Davidson Performed By: Wojciech Trujillo RCS 02/27/25 1747 Date Joseph Steinberg MD CC: Dr. Fausto Davidson, DO; Dr. Donny Taylor, DO; No Primary Care Physician Date Dictated: 02/27/25 105 Date Transcribed: 02/27/251746 [employer] Manager: Signed Normal [facility] Emergency Department Summary on 02-26-2025 Emergency Department Summary [facility] Medical Records Department [address] [place] [address] Emergency Department Summary 02/26/25 MR#: [id number] Acct: [id number] Name: ALDO SOTO Rep #: [id number] : 1950 74 From: Damien Leung MD PCP: Care Physician,No Primary Status:REG ER Location: ED HPI History of Present Illness Chief Complaint: Alt LOC Informant: patient, spouse/S.O. and EMS Narrative Narrative: 74-year-old male brought by EMS due to a fall without injury just prior to arrival, but the is more concerned that he has been confused for the past 6 days. Patient agrees he has been somewhat confused. He states he felt a little short of breath earlier and told the this, she states he has had no other complaints for the past 6 days except for being more tired and weak. 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 Other than that he has no other major medical issues. He is not usually confused. Because of his left hemiparesis he usually uses a wheelchair to get around and can usually transfer on his own but not this past week until today, but that resulted in a minor fall without injury. Patient denies having any pain right now, he denies being dyspneic right now either. The states that he has been seemingly hallucinating recently, talking to people that are not there. Patient states something about getting up on a tractor yesterday, the states he certainly did not do that. She states that today he knows who she is, but for the last couple days she has been Moises. [facility] Medical History (Updated 02/26/25 @ 21:[address] Damien Leung MD) Hemorrhagic stroke Home Medications ???Medication ???Instructions ???Recorded ???Last Taken ???Type amlodipine 5 mg tablet 5 mg PO BID 02/26/25 Unknown Histo ry atorvastatin 10 mg tablet 10 mg PO QHS 02/26/25 Unknown Hist ory baclofen 10 mg tablet 10 mg PO TID 02/26/25 Unknown Hist ory donepezil 5 mg tablet 10 mg PO QHS 02/26/25 Unknown Hist ory ergocalciferol (vitamin D2) 1,250 50,000 unit PO DAILY 02/26/25 Unk nown History mcg (50,000 unit) capsule (Vitamin D2) lacosamide 100 mg tablet 100 mg PO BID 02/26/25 Unknown His tory metoprolol tartrate 25 mg tablet 25 mg PO BID 02/26/25 Unknown Hist ory mirtazapine 15 mg tablet (Remeron) 15 mg PO QHS 02/26/25 Unknown Hi story Allergy/AdvReac Type Severity Reaction Status Date / Time azithromycin Allergy NEEDS Verified 02/26/25 18:24 FOLLOW-UP Surgical History History of hip replacement Social History Smoking Status: Former smoker ROS ROS ED Review of Systems ROS Unobtainable: other Details: Limited due to confusion Constitutional Constitutional ED: Denies chills or fever(s) Eyes Eyes: Denies change in vision or diplopia ENT ENT ED: Denies sore throat Cardiovascular Cardiovascular: Denies chest pain or palpitations Respiratory/Chest Respiratory/Chest: Reports as per HPI and dyspnea; Denies cough Gastrointestinal Gastrointestinal: Denies abdominal pain, diarrhea, nausea or vomiting Genitourinary Genitourinary ED: Denies hematuria Musculoskeletal Musculoskeletal: Denies back pain or neck pain Integumentary Denies abscess or rash Neurologic Neurologic: Reports as per HPI, confusion, paresthesias and weakness; Denies headache(s) Psychiatric Psychiatric: Denies suicidal thoughts EXAM Physical Exam Const Vital Signs: 02/26/25 18:24 02/26/25 18:26 02/26/25 19:26 Temperature 98.6 F 98.6 F 99.1 F Temperature Source Oral Oral Oral Pulse Rate 91 91 91 Respiratory Rate 18 14 14 Blood Pressure 155/102 H 147/97 H 165/104 H Blood Pressure Mean 119 113 124 Pulse Ox 98 95 97 Oxygen Delivery Method Room Air Room Air Room Air 02/26/25 21:04 Temperature 99.1 F Temperature Source Oral Pulse Rate 89 Respiratory Rate 16 Blood Pressure 149/103 H Blood Pressure Mean 118 Pulse Ox 94 Oxygen Delivery Method Room Air Positive well nourished and well developed General Appearance ED: well developed and NAD HEENT Reports moist mucous membranes normocephalic and atraumatic Eyes PERRL and EOMs intact bilaterally Neck full ROM and supple Chest Wall inspection of chest normal and palpation of chest normal Resp normal respiratory effort and clear to auscultation bilaterally Cardio regular rate, regular rhythm and no murmurs Rate: Negative for tachycardic GI non-tender and non-distended Auscultation: normoactive bowel sounds Palpation: soft Back/Spine no CVA tenderness General Back: other FROM Extremity normal to inspection General Extremety ED: Negative for edema, pu (more content not included)... Normal [facility] Eosinophil percentageOrdered By: Damien Leung on 02-26-2025 Eosinophils/100 WBC (Bld) 0.9 % 0-5 [facility] Erythrocyte distribution wid th ratioOrdered By: Damien Leung on 02-26-2025 Erythrocyte distribution width (RBC) [Ratio] 12.7 % 11.6-14.6 [facility] Erythrocyte distribution wid th standard deviationOrdered By: Damien Leung on 02-26-2025 Erythrocyte distribution width (RBC) [Ratio] 41.7 fl 35.1-43.9 [facility] Folate [Moles/volume] in Ser um or PlasmaOrdered By: Fausto Perla on 02-26-2025 Folate [Moles/Vol] 10.50 ng/mL 4.60-34.80 [facility] Glomerular filtration rate ( GFR) estimation/1.73 sq m using serum, plasma, or whole bOrdered By: Damien Leung on 02-26-2025 GFR/1.73 sq M.predicted among non-blacks MDRD (S/P/Bld) [Vol rate/Area] 94 mL/min/{1.73_m2} >60 [facility] Comment on above: mL/min/1.73m2 CKD-EP I Creatinine Equation (2020) H AND P [facility] 02-26-2025 H&P Exam - Hospitalist [facility] Medical Records Department [address] [place] [address] H P Exam - Hospitalist 02/26/252126 MR#: [id number] Acct: [id number] Name: ALDO SOTO Rep #: [id number] : 1950 74 From: Fausto Davidson DO PCP: Care Physician,No Primary Status:ADM RAQUEL Location: [place] [address] HPI - General General Date of Admission: 02/26/25 Date of Service: 02/26/25 Chief Complaint: AMS and Fall. 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 Mr. Soto is not up as reliable-historian at this time so information was gathered from chart, medical staff and computer. According to the records he has been confused for the past 6 days with mild intermittent shortness of breath, feeling fatigued and generally weak. His states he is usually not confused. He typically uses a wheelchair to mobilize and can usually transfer on his own but he was able to this past week until today when he attempted to get up experienced a minor fall without associated injury, LOC or head trauma. He denies pain and shortness of breath at this time. His states he has been hallucinating recently and talking to people that are not there. She also states he said something about getting up on a tractor yesterday, with his stating he certainly did not do that. Also for the last few days the patient has been calling his Moises but the day he seems to know who she is. There was no reported fever, chills, blurry vision, discharge from eyes, runny nose, sore throat, ear pain, chest pain, palpitations, heart racing, abdominal pain, nausea, vomiting, diarrhea, hematuria, dysuria, back pain, headache or rash. 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 He was then admitted to the PCU under observation status for TIA/CVA workup for his confusion for a stay that is expected to be less than 2 midnights. [facility] Medical History Hemorrhagic stroke Home Medications ???Medication ???Instructions ???Recorded ???Last Taken ???Type amlodipine 5 mg tablet 5 mg PO BID 02/26/25 Unknown Histo ry atorvastatin 10 mg tablet 10 mg PO QHS 02/26/25 Unknown Hist ory baclofen 10 mg tablet 10 mg PO TID 02/26/25 Unknown Hist ory donepezil 5 mg tablet 10 mg PO QHS 02/26/25 Unknown Hist ory ergocalciferol (vitamin D2) 1,250 50,000 unit PO DAILY 02/26/25 Unk nown History mcg (50,000 unit) capsule (Vitamin D2) lacosamide 100 mg tablet 100 mg PO BID 02/26/25 Unknown His tory metoprolol tartrate 25 mg tablet 25 mg PO BID 02/26/25 Unknown Hist ory mirtazapine 15 mg tablet (Remeron) 15 mg PO QHS 02/26/25 Unknown Hi story Allergy/AdvReac Type Severity Reaction Status Date / Time azithromycin Allergy NEEDS Verified 02/26/25 18:24 FOLLOW-UP Surgical History History of hip replacement Social History Smoking Status: Former smoker ROS ROS Narrative Full review of systems was not possible due to patient's confusion. Vital Signs Vital Signs Vital Signs: 02/26/25 18:24 02/26/25 18:26 02/26/25 19:26 Temperature 98.6 F 98.6 F 99.1 F Temperature Source Oral Oral Oral Pulse Rate 91 91 91 Respiratory Rate 18 14 14 Blood Pressure 155/102 H 147/97 H 165/104 H Blood Pressure Mean 119 113 124 Pulse Ox 98 95 97 Oxygen Delivery Method Room Air Room Air Room Air 02/26/25 21:04 Temperature 99.1 F Temperature Source Oral Pulse Rate 89 Respiratory Rate 16 Blood Pressure 149/103 H Blood Pressure Mean 118 Pulse Ox 94 Oxygen Delivery Method Room Air Weight Weight: 151 lb 3.794 oz Body Mass Index (BMI) 22.3 Physical Exam Const alert, no apparent distress and average body habitus General Appearance: cooperative Orientation / Consciousness: confused HEENT normocephalic, head/scalp atraumatic, hearing grossly normal bilaterally and danis (more content not included)... Normal [facility] Hematocrit Auto (Bld) [Volum e fraction]Ordered By: Damien Leung on 02-26-2025 Hematocrit (Bld) [Volume fraction] 51.1 % 40-54 [facility] Hemoglobin A1con 02-26-2025 HbA1c (Bld) [Mass fraction] 5.5 % Normal <=5.6 [facility] Comment on above: Result Comment: Norm al < 5.7 % Prediabetic 5.7 - 6.4 % Diabetic >or= 6.5 % Please note range changes. Performed By: #### L 500.4050, L100.0100, L503.6005 #### [facility] [address] [place], [address] Hemoglobin A1c percentageOrd ered By: Fausto Perla on 02-26-2025 HbA1c (Bld) [Mass fraction] 5.5 % <5.7 [facility] Comment on above: Normal < 5.7 % Predi abetic 5.7 - 6.4 % Diabetic >or= 6.5 % Please note range changes. Hemoglobin measurementOrdere d By: Damien Leung on 02-26-2025 Hemoglobin (Bld) [Mass/Vol] 17.0 g/dL High 13.0-16.5 [facility] Immature granulocytes/100 WB C Auto (Bld)Ordered By: Damien Leung on 02-26-2025 Immature granulocytes/100 WBC (Bld) 0.300 % 0.0-0.9 [facility] Comment on above: IG% - Immature Granu locytes (promyelocytes, myelocytes and metamyelocytes) > 1% indicates that a LEFT SHIFT is Present. Ketones Test strip Ql (U)Ord ered By: Damien Leung on 02-26-2025 Ketones Ql (U) Negative Negative [facility] L499.0042on 02-26-2025 Trop T High Sen 7 ng/L Normal <=22 [facility] Comment on above: Performed By: #### L 501.4021 #### [facility] [address] [place], [address] L499.0043on 02-26-2025 Trop T High Sen 10 ng/L Normal <=22 [facility] Comment on above: Performed By: #### L 499.0043 #### [facility] [address] [place], [address] L501.4021on 02-26-2025 Trop T High Sen 9 ng/L Normal <=22 [facility] Comment on above: Performed By: #### L 501.4021 #### [facility] [address] [place], [place], [id number] Laboratory - Chemistry and C hemistry - challengeOrdered By: Damien Leung on 02-26-2025 AST [Catalytic activity/Vol] 12 U/L <38 [facility] Lactic Acidon 02-26-2025 Lactate [Moles/Vol] 1.7 mmol/L Normal 0.0-2.0 [facility] Comment on above: Order Comment: Y Performed By: #### L 500.4050, L100.0100, L503.6005 #### [facility] [address] [place], [place], [id number] Lactic acid measurementOrder ed By: Damien Leung on 02-26-2025 Lactate [Moles/Vol] 1.7 mmol/L 0.0-2.0 [facility] MCV (mean corpuscular volume ) determinationOrdered By: Damien Leung on 02-26-2025 MCV (RBC) [Entitic vol] 89.5 fL 80-94 [facility] Mean corpuscular hemoglobin (MCH) determinationOrdered By: Damien Leung on 02-26-2025 MCH (RBC) [Entitic mass] 29.8 pg 27.0-32.0 [facility] Mean corpuscular hemoglobin concentration (MCHC) determinationOrdered By: Damien Leung on 02-26-2025 MCHC (RBC) [Mass/Vol] 33.3 g/dL 32-36 [facility] Mean platelet volume determi nationOrdered By: Damien Leung on 02-26-2025 Platelet mean volume (Bld) [Entitic vol] 10.1 fL 6.2-12.0 [facility] Microscopic analysis of urin e for red blood cells (RBC)Ordered By: Damien Leung on 02-26-2025 Microscopic analysis of urine for red blood cells (RBC) 0-5 SEEN /hpf 0-5 [facility] Monocyte percentageOrdered B y: Damien Leung on 02-26-2025 Monocytes/100 WBC (Bld) 6.9 % 0-10 [facility] Mucus LM Ql (Urine sed)Order ed By: Damien Leung on 02-26-2025 Mucus Ql (Urine sed) 0 SEEN /hpf [facility] Neutrophil percentageOrdered By: Damien Leung on 02-26-2025 Neutrophils/100 WBC (Bld) 76.0 % High 47-70 [facility] Nitrite Test strip Ql (U)Ord ered By: Damien Leung on 02-26-2025 Nitrite Ql (U) Negative Negative [facility] No Panel InformationOrdered By: Fausto Perla on 02-26-2025 Urine Buprenorphine Qualitative Negative < 200 ng/mL [facility] Urine Oxycodone Screen Negative < 100 ng/mL [facility] Nucleated red blood cell per centageOrdered By: Damien Leung on 02-26-2025 Nucleated RBC/100 WBC (Bld) [Ratio] 0 % 0-5 [facility] Platelet countOrdered By: Sally Leung on 02-26-2025 Platelets (Bld) [#/Vol] 334 10*3/uL 150-450 [facility] Potassium measurement (mass/ volume)Ordered By: Damien Leung on 02-26-2025 Potassium (Unsp spec) [Mass/Vol] 3.7 mmol/L 3.3-5.1 [facility] Protein Test strip Ql (U)Ord ered By: Damien Leung on 02-26-2025 Protein Ql (U) 30 mg/dl High Negative [facility] Quantitative urine opiates m easurementOrdered By: Fausto Perla on 02-26-2025 Opiates Ql (U) Negative < 300 ng/mL [facility] RBC Auto (Bld) [#/Vol]Ordere d By: Damien Leung on 02-26-2025 RBC (Bld) [#/Vol] 5.71 10*6/uL 4.6-6.2 [facility] Screening urine fentanyl milan surementOrdered By: Fausto Perla on 02-26-2025 fentaNYL Screen Ql (U) Negative [facility] Serum creatinine measurement (mass/volume)Ordered By: Damien Leung on 02-26-2025 Creatinine [Mass/Vol] 0.79 mg/dL 0.70-1.20 [facility] Serum globulin measurementOr dered By: Damien Leung on 02-26-2025 Globulin (S) [Mass/Vol] 3.4 g/dL 2.2-4.2 [facility] Serum glucose measurement (m ass/volume)Ordered By: Damien Leung on 02-26-2025 Glucose [Mass/Vol] 90 mg/dL 70-99 [facility] Serum or plasma alanine jones otransferase (ALT) measurementOrdered By: Damien Leung on 02-26-2025 ALT [Catalytic activity/Vol] 8 U/L <47 [facility] Serum or plasma albumin dinesh urement (mass/volume)Ordered By: Damien Leung on 02-26-2025 Albumin [Mass/Vol] 4.3 g/dL 3.4-4.8 [facility] Serum or plasma albumin/glob ulin mass ratioOrdered By: Damien Leung on 02-26-2025 Albumin/Globulin [Mass ratio] 1.3 {ratio} 0.9-2.4 [facility] Serum or plasma alkaline ludwig sphatase measurementOrdered By: Damien Leung on 02-26-2025 ALP [Catalytic activity/Vol] 77 U/L 40-129 [facility] Serum or plasma calcium dinesh urement (mass/volume)Ordered By: Damien Leung on 02-26-2025 Calcium [Mass/Vol] 9.8 mg/dL 7.6-11.0 [facility] Serum or plasma ethanol dinesh urement (mass/volume)Ordered By: Fausto Perla on 02-26-2025 Ethanol [Mass/Vol] mg/dL <10.1 [facility] Comment on above: This test is for med ical purposes only. The legal definition of intoxication varies according to local law. Serum or plasma urea nitroge n measurement (mass/volume)Ordered By: Damien Leung on 02-26-2025 Urea nitrogen [Mass/Vol] 17 mg/dL 4-19 [facility] Sodium levelOrdered By: Koffi Leung on 02-26-2025 Sodium [Moles/Vol] 144 mmol/L 133-145 [facility] Squamous epithelial cells de tection in urine sediment by light microscopyOrdered By: Damien Leung on 02-26-2025 Epithelial cells.squamous LM Ql (Urine sed) 0 SEEN /hpf 0-5 [facility] TSH DL <= 0.005 mIU/L QnOrde red By: Fausto Perla on 02-26-2025 TSH Qn 1.070 uIU/mL 0.300-4.200 [facility] Total proteinOrdered By: Mayda Leung on 02-26-2025 Protein [Mass/Vol] 7.8 g/dL 5.9-8.4 [facility] Troponin T.cardiac [Mass/vol ume] in Serum or Plasma by High sensitivity methodOrdered By: Damien Leung on 02-26-2025 Troponin T.cardiac High sensitivity method [Mass/Vol] 10 ng/L <22 [facility] Troponin T.cardiac High sensitivity method [Mass/Vol] 7 ng/L <22 [facility] Troponin T.cardiac High sensitivity method [Mass/Vol] 9 ng/L <22 [facility] Urinalysis, Completeon 02-26 RBC 0-5 SEEN Normal 0-5 [facility] Comment on above: Order Comment: JESSICA TER SPECIMEN Performed By: #### L [id number] #### [facility] [address] [place], [address] WBC 0-5 SEEN Normal 0-5 [facility] Comment on above: Order Comment: JESSICA TER SPECIMEN Performed By: #### L [id number] #### [facility] [address] [place], [address] BACTERIA 0 SEEN Normal None Seen [facility] Comment on above: Order Comment: JESSICA TER SPECIMEN Performed By: #### L [id number] #### [facility] [address] [place], [address] EPI,SQUAMOUS 0 SEEN Normal 0-5 [facility] Comment on above: Order Comment: JESSICA TER SPECIMEN Performed By: #### L [id number] #### [facility] [address] [place], [address] Mucus Ql (Urine sed) 0 SEEN Normal [facility] Comment on above: Order Comment: JESSICA TER SPECIMEN Performed By: #### L [id number] #### [facility] [address] [place], [address] Urine benzodiazepine levelOr dered By: Fausto Perla on 02-26-2025 Benzodiazepines Ql (U) Negative < 200 ng/mL [facility] Urine clarityOrdered By: Mayda Leung on 02-26-2025 Clarity (U) Clear Clear [facility] Urine cocaine levelOrdered B y: Fausto Perla on 02-26-2025 Cocaine Ql (U) Negative < 300 ng/mL [facility] Urine color determinationOrd ered By: Damien Leung on 02-26-2025 Color (U) Yellow Yellow [facility] Urine tswtp-1-sjuyiwdwztovam abinol (THC) measurementOrdered By: Fausto Perla on 02-26-2025 Cannabinoids Screen Ql (U) Negative < 50 ng/mL [facility] Urine glucose detectionOrder ed By: Damien Leung on 02-26-2025 Glucose Ql (U) Normal mg/dl Normal [facility] Urine leukocyte esterase det ection by dipstickOrdered By: Damien Leung on 02-26-2025 Leukocyte esterase Test strip Ql (U) 25 /ul High Negative [facility] Urine pHOrdered By: Damien Leung on 02-26-2025 pH (U) 5.0 [pH] 5.0 - 8.0 [facility] Urine phencyclidine (PCP) de tectionOrdered By: Fausto Perla on 02-26-2025 Phencyclidine Ql (U) Negative < 25 ng/mL [facility] Urine sediment bacteria coun t by microscopy (number/high power field)Ordered By: Damien Leung on 02-26-2025 Bacteria LM.HPF (Urine sed) [#/Area] 0 /[HPF] None Seen [facility] Urine specific gravity measu rementOrdered By: Damien Leung on 02-26-2025 Specific gravity (U) [Rel density] 1.025 1.002-1.030 [facility] Urine urobilinogen measureme ntOrdered By: Damien Leung on 02-26-2025 Urobilinogen Ql (U) 1 mg/dl High Normal [facility] Vitamin B12 ser/plasOrdered By: Fausto Perla on 02-26-2025 Cobalamin (Vitamin B12) [Mass/Vol] 461 pg/mL 180-914 [facility] White blood cell (WBC) count Ordered By: Damien Leung on 02-26-2025 WBC (Bld) [#/Vol] 10.1 10*3/uL 4.4-11.0 [facility] White blood cell countOrdere d By: Damien Leung on 02-26-2025 White blood cell count 0-5 SEEN /hpf 0-5 [facility] Vital Signs Date Time Vital Sign Value Performing Clinician Osito mccarthy 03-19-2025 15:31-0400 Diastolic blood pressure 70 mm[Hg] Dr. Damien Leung MD Work Phone: [facility] 03-19-2025 15:31-0400 Heart rate 55 /min Dr. Damien Leung MD Work Phone: 4(311)968-623651 [place] [address] 03-19-2025 15:31-0400 Respiratory rate 18 /min Dr. Damien Leung MD Work Phone: 0(817)498-651751 [place] [address] 03-19-2025 15:31-0400 SaO2% (BldA) [Mass fraction] 99 % Dr. Damien Leung MD Work Phone: 9(987)970-192851 [place] [address] 03-19-2025 15:31-0400 Systolic blood pressure 112 mm[Hg] Dr. Damien Leung MD Work Phone: 7(534)652-195151 [place] [address] 03-19-2025 12:05-0400 Body temperature 97.5 [degF] Dr. Damien Leung MD Work Phone: 4(222)437-586551 [place] [address] 03-19-2025 08:20-0400 Body height 175.[address] Damien Leung MD Work Phone: 9(603)544-558751 [place] [address] 03-19-2025 08:20-0400 Body mass index (BMI) [Ratio] 21.7 kg/m2 Dr. Damien Leung MD Work Phone: 6(248)028-806651 [place] [address] 03-19-2025 08:20-0400 Body weight 66.[address] Damien Leung MD Work Phone: 1(601)714-202651 [place] [address] 03-03-2025 14:30-0400 Body temperature 97 [degF] Dr. Damien Leung MD Work Phone: 2(535)199-461351 [place] [address] 03-03-2025 14:30-0400 Diastolic blood pressure 88 mm[Hg] Dr. Damien Leung MD Work Phone: 9(202)043-220451 [place] [address] 03-03-2025 14:30-0400 Heart rate 68 /min Dr. Damien Leung MD Work Phone: 7(687)369-692551 [place] [address] 03-03-2025 14:30-0400 Respiratory rate 16 /min Dr. Damien Leung MD Work Phone: 4(901)794-908751 [place] [address] 03-03-2025 14:30-0400 SaO2% (BldA) [Mass fraction] 97 % Dr. Damien Leung MD Work Phone: 2(505)067-237051 [place] [address] 03-03-2025 14:30-0400 Systolic blood pressure 135 mm[Hg] Dr. Damien Leung MD Work Phone: 7(454)271-230551 [place] [address] 03-03-2025 04:46-0400 Body mass index (BMI) [Ratio] 21.2 kg/m2 Dr. Damien Leung MD Work Phone: 6(411)122-586551 [place] [address] 03-02-2025 14:12-0400 Body height 175.[address] Damien Leung MD Work Phone: 8(325)534-339064 [place] [address] 03-02-2025 14:12-0400 Body weight 65.[address] Damien Leung MD Work Phone: 3(727)447-892164 [place] [address] 02-26-2025 21:34-0400 Body temperature 98 [degF] Dr. Damien Leung MD Work Phone: 8(406)921-784364 [place] [address] 02-26-2025 21:34-0400 Diastolic blood pressure 104 mm[Hg] Dr. Damien Leung MD Work Phone: 6(843)172-603564 [place] [address] 02-26-2025 21:34-0400 Heart rate 81 /min Dr. Damien Leung MD Work Phone: 3(825)547-197051 [place] [address] 02-26-2025 21:34-0400 Respiratory rate 13 /min Dr. Damien Leung MD Work Phone: 9(479)256-578464 [place] [address] 02-26-2025 21:34-0400 SaO2% (BldA) [Mass fraction] 95 % Dr. Damien Leung MD Work Phone: 1(830)417-979551 [place] [address] 02-26-2025 21:34-0400 Systolic blood pressure 151 mm[Hg] Dr. Damien Leung MD Work Phone: 7(981)165-617551 [place] [address] 02-26-2025 18:24-0400 Body height 175.[address] Damien Leung MD Work Phone: 0(276)743-821651 [place] [address] 02-26-2025 18:24-0400 Body mass index (BMI) [Ratio] 22.3 kg/m2 Dr. Damien Leung MD Work Phone: [facility] 02-26-2025 18:24-0400 Body weight 68.[address] Damien Leung MD Work Phone: [facility] Encounters Encounter Date Encounter Type Care Provider Facility Start: 03-19-2025 End: 03-19-2025 Emergency department patient visit Dr. Damien Leung MD Work Phone: -Emergency Department Work Phone: Start: 03-03-2025 Non-patient / Non-visit Dr. Donny Ponce [facility] Work Phone: Start: 03-02-2025 Non-patient / Non-visit Dr. Donny Ponce [facility] Work Phone: Start: 03-02-2025 ambulatory Fausto Asencio ty:[facility] Start: 03-02-2025 End: 03-03-2025 Evaluation and management of inpatient Dr. Donny Taylor [facility] 3 Work Phone: Start: 02-28-2025 Non-patient / Non-visit Dr. Donny Ponce [facility] Work Phone: Start: 02-27-2025 Non-patient / Non-visit Dr. Donny Ponce [facility] Work Phone: Start: 02-27-2025 ambulatory Fausto Asencio [facility] Start: 02-27-2025 Non-patient / Non-visit Dr. French calero MD -[facility] Start: 02-27-2025 ambulatory No Primary Car e Physician Facility:[facility] Start: 02-27-2025 Non-patient / Non-visit Dr. Tyson SHELL -[facility] Start: 02-26-2025 ambulatory Fausto Asencio [facility] Start: 02-26-2025 Non-patient / Non-visit Dr. Kashif Davidson [facility] Work Phone: Start: 02-26-2025 Evaluation and management of inpatient Dr. Fausto Davidson DO -Progressive Care Unit Work Phone: Start: 02-26-[address] Koffi Leung MD Work Phone: [facility] Work Phone: Procedures Date Procedure Procedure Detail Performing Clinician Start: 03-19-2025 Urnls dip stick/tabl et reagent auto microscopy Dr. Damien Leung MD Work Phone: Start: 03-19-[address] Damien Leung MD Work Phone: Start: 03-19-2025 CT of head without contrast Dr. Damien Leung MD Work Phone: Start: 02-27-2025 MRI of brain without contrast Dr. Damien Leung MD Work Phone: Start: 02-26-2025 Methadone measuremen t, urine Dr. Damien Leung MD Work Phone: Start: 02-26-2025 Urnls dip stick/tabl et reagent auto microscopy Dr. Damien Leung MD Work Phone: Start: 02-26-2025 X-ray of chest, PA a nd lateral views Dr. Damien Leung MD Work Phone: Start: 02-26-2025 CT of head without contrast Dr. Damien Leung MD Work Phone: Start: 02-26-[address] Damien Leung MD Work Phone: Plan of Treatment Date Care Activity Detail Author Start: 03-19-2025 [facility] Start: 03-19-2025 Bacteria identified in Urine by Culture Urine Culture [facility] Start: 03-19-2025 [facility] Start: 03-19-2025 [facility] Start: 03-03-2025 Patient discharge [facility] Start: 03-02-2025 Admission procedure [facility] Start: 02-28-2025 Care planning and problem solving actions [facility] Start: 02-28-2025 [facility] Start: 02-26-2025 Application of intermittent pneumatic compression device [facility] Start: 02-26-2025 Following clinical pathway protocol [facility] Start: 02-26-2025 Aspiration precautions [facility] Start: 02-26-2025 Cardiac monitoring [facility] Start: 02-26-2025 Catheterization of vein [facility] Start: 02-26-2025 Consultation [facility] Start: 02-26-2025 Elevation of head of bed [facility] Start: 02-26-2025 Exercises [facility] Start: 02-26-2025 Notification of physician [facility] Start: 02-26-2025 Patient referral to dietitian [facility] Start: 02-26-2025 Referral to occupational therapist [facility] Start: 02-26-2025 Referral to service [facility] Start: 02-26-2025 Speech therapy assessment [facility] Start: 02-26-2025 Telemedicine consultation with patient [facility] Start: 02-26-2025 End: 02-26-2025 [facility] Start: 02-26-2025 Vital signs measurements [facility] Start: 02-26-2025 MRI of brain without contrast Brain without Contrast [facility] Start: 02-26-2025 Admission procedure [facility] Start: 02-26-2025 Hospital admission, emergency, from emergency room, medical nature [facility] Start: 02-26-2025 [facility] Folate [Moles/volume ] in Serum or Plasma [facility] Patient Education ED Seizure, Re current (Adult) ED Bladder Infection, Male (Adult) [facility] Work Phone: Patient referral [facility] Work Phone: Troponin T.cardiac [Mass/volume] in Serum or Plasma by High sensitivity method [facility] Urine culture [facility] Payers Date Payer Category Payer Private Health Insurance [id number] 2025 Self-pay Unknown [id number] 2.16.8 [id number] Unknown [id number] 2.16.8 [id number] Unknown [id number] 2.16.8 [id number] Unknown [id number] 2.16.8 [id number] Unknown [id number] 2.16.8 [id number] Unknown [id number] 2.16.8 [id number] Unknown [id number] 2.16.8 [id number] Unknown [id number] 2.16.8 [id number] Unknown [id number] 2.16.8 [id number] Unknown [id number] 2.16.8 [id number] Social History Date Type Detail Facility Start: 02-26-2025 End: 03-19-2025 Tobacco smoking status NHIS Ex-smoker (finding) [facility] Start: 1950 Sex Assigned At Male [facility] Start: 03-01-2025 Tobacco smoking stat us [facility] Unknown if ever smoked [facility] Goals Date Patient Goal Desired Activity /State Functional Status Date Assessment Result Facility 03-03-2025 Functional status Patient Activity Bedres t [facility] Work Phone: 03-03-2025 Functional status Activity Ability Bedres t [facility] Work Phone: Mental Status Date Assessment Result Facility 03-19-2025 Cognitive function Appropriate [facility] Work Phone: 03-03-2025 Cognitive function Touch/Shaking [facility] Work Phone: 02-26-2025 Cognitive function Voice/Name [facility] Work Phone: Clinical Notes 02-26-2025 to 03-19-2025 Note Date & Type Note Facility 03-19-2025 Radiology Diagnostic study note [facility] Imaging Services [address] [place], [place] [address] Brain/Head without Contrast MR#: [id number] Acct: [id number] Name: ALDO SOTO Rep #: [id number] : 1950 M 74 From: Benjamin Reyes MD PCP: Care Physician,No Primary Status: REG ER Study:Brain/Head without Contrast Date of Exa m: 03/19/25 Exam# [id number] Ordering Dr: Marguerite Phan DO PROCEDURE: BRAIN/HEAD WITHOUT CONTRAST 03/19/2025 REASON FOR EXAM: MENTAL STATUS CHANGE TECHNIQUE: Head CT without intravenous contrast. Coronal and Sagittal reconstruction serieswere provided. One or more dose reduction techniques were used (e.g., Automated exposure control, adjustment of the mA and/or kV according to patient size, use of iterative reconstruction technique. RADIATION DOSE SUMMARY: CTDlvol: 44.99 mGy DLP: 812.98 mGycm COMPARISON: 02/26/2025 CT. 02/27/2025 MRI. FINDINGS: Right frontoparietal encephalomalacia with some internal macro calcifications which are similar to the prior CT. Resultant ex vacuo dilatation of the posterior horn of the right lateral ventricle and minimal 2 mm of rightward midline shift at the level of the septum pellucidum due to volume loss, unchanged. No evidence of acute hemorrhage or new infarction. No extra-axial blood or fluid collections. Periventricular white matter hypodensity likely representing chronic microvascular ischemia. Moderate global parenchymal atrophy. Total opacification of the left maxillary sinus. The mastoid air cells are clear. The calvarial vault and skull base are intact. CT/Brain/Head without Contrast IMPRESSION: No acute intracranial abnormality. Right frontoparietal encephalomalacia. Parenchymal atrophy and chronic microvascular ischemia. Reading Location: [id number] CC: Dr. Javan Phan DO; No Primary Care Physician ~ [facility] [employer] [facility] Manager: Signed [facility] 03-19-2025 Hospital Discharge instructions Additional Instructions Follow-up with primary care physician in 3 to 5 days. [facility] Work Phone: 03-03-2025 Consult note [facility] 03-03-2025 Discharge summary Note Date/Time March 03, 2025 3:01pm [facility] Medical Records Department [address] [place] [address] Transfer to [facility] Care MR#: [id number] Acct: [id number] Name: ADLO SOTO Rep #:[id number] : 1950 74 From: Donny Taylor DO PCP: Care Physician,No Primary Status :ADM IN Certification of patient admission REQUIRED AT TIME OF ADMISSION. I CERTIFY THAT POST-HOSPITAL ECF SERVICES ARE REQUIRED TO BE GIVEN ON AN IN-PATIENT BASIS BECAUSE OF THE ABOVE NAMED PATIENT'S NEED FOR CARE HOME CARE ON A CONTINUING BASIS FOR THE CONDITION(S) FOR WHICH HE/SHE WAS RECEIVING IN-PATIENT HOSPITAL SERVICES PRIOR TO HIS/HER TRANSFER TO THE F. 03/03/25 1501<Electronically signed by Donny Taylor DO> Diet Diet Order/Speech Therapy: 02/27/25 05:18 Diet: Cardiac - Heart Healthy Type of Dietary Supplement:: Ensure Plus High Protein Diet Comments: 240mL Ensure w/breakfast and lunch Routine Orders/Code Status Code Status: DNRCC-A (No intubation) DC O2, CPAP, BIPAP needs Home O2 Discharge instructions: No Wound(s) forehead: Wound Type: Abrasion scalp: Wound Type: Abrasion right lower leg: Wound Type: Abrasion Therapies Weight Bearing: Full weight bearing (With assistance only) Physical Therapy: Eval and Treat Occupational Therapy: Eval and Treat Problem/Diagnosis (1) Generalized weakness: Status: Acute Code(s): R53.1 - Weakness (2) Chronic dementia: Status: Chronic Code(s): F03.90 - Unspecified dementia, unspecified severity, without behavioral disturbance, psychotic disturbance, mood disturbance, and anxiety Plan 1. Acute on chronic debility secondary to cerebrovascular disease with left hemiparesis on a backdrop of chronic dementia-PT and OT will continue work with the patient, he will placement in an extended care facility for inpatient rehab services #2 cerebrovascular disease with left hemiplegia-continue home medications, complicates care, management, recovery, and prognosis #3 dementia-probably secondary to cerebrovascular disease-it is likely this is worsened over the last several weeks, complicates care, management, recovery, and prognosis, teleneurology is participating in his care #4 seizure disorder-patient has had a seizure disorder for approximately 5 years, he will continue on Vimpat #5 essential hypertension-patient will remain on his present medications, blood pressure will be monitored Total clinical time spent by myself addressing the patient's medical issues, reviewing all of his data, and collaborating with patient's care team: 25 minutes Allergies/Procedures Done in Hospital Allergies azithromycin Allergy (Verified 02/26/25 18:24) NEEDS FOLLOW-UP Procedures: None Type of Care/Length of Stay Estimated LOS: Convalescent Care Less Than 30 days Type of Care Needed: Intermediate Rehab Potential: Fair Prognosis: Fair Additional Orders/Day of Discharge H&P will serve as current which was dated: 02/26/25 Day of Discharge: 03/03/25 Dietary and Speech Recommendations Dietitian Recommendations/Changes: Adjust to liberal regular diet due to variable PO intake. Will order 240ml EPHP with breakfast and lunch. Will monitor weight trends. Discharge Plan Admission Admit Date/Time: 03/02/25 15:02 Primary Reason for Your Visit: Generalized debility Attending Provider: Donny Taylor Primary Care Provider: Care Physician,No Primary Consulting Providers: Rosaura Cooper; Kendra Motley; Gunjan Espinosa; Mike Benavidez; Adria rUena; Niko Reyna; JEANNETTE HARP; Bianca Duenas; Katrin Vogel; Apolinar Reynolds; Mary Poe; Fausto Davidson; Lee Alcantara; Barbie Rea; Shahana Schulte; Martin Dior; Sandra Pond; Lisandro Byrnes; Sebastian De Souza; Brayden Luna; Fina Dumont; Lisa Haley; Luis A Banuelos; Candido Pierce; Mitchell Culp; Skylar Capellan; Brandie Small Discharge Orders/Prescriptions Prescriptions: New acetaminophen 325 mg Tablet 650 mg PO Q6H PRN PRN (Reason: Pain 1-10 Or Fever) Qty: 0 0RF atorvastatin 10 mg Tablet 20 mg PO QHS Qty: 0 0RF aspirin 81 mg Tablet,Chewable 81 mg PO BREAKFAST Qty: 0 0RF memantine [Namenda] 5 mg tablet 5 mg PO BID Qty: 1 0RF Rx Instructions: 5 mg twice daily x 2 weeks, then increase to 10 mg twice daily thereafter Continued donepezil 5 mg tablet 10 mg PO QHS mirtazapine [Remeron] 15 mg tablet 15 mg PO QHS lacosamide 100 mg tablet 100 mg PO BID ergocalciferol (vitamin D2) [Vitamin D2] 1,250 mcg (50,000 unit) capsule 50,000 unit PO DAILY metoprolol tartrate 25 mg tablet 25 mg PO BID baclofen 10 mg tablet 10 mg PO TID amlodipine 5 mg tablet 5 mg PO BID Discontinued atorvastatin 10 mg tablet 10 mg PO QHS Referrals / Follow Up: Care Physician,No Primary [Primary Care Provider] - Disposition Disposition (needs filled in before D/C Order can be placed): NonSkilled MA/Intermed Care 03/03/25 1501 <Electronically signed by Donny Taylor DO> Cosigner Signature (if applicable): CC: Shahana Schulte; Katrin Vogel; Luis A Banuelos; Kendra Motley MD; Barbie Rea MD; Lee Alcantara MD; Gunjan Espinosa MD; Dr. Amandeep Harp MD; Dr. Rosaura Cooper MD; Dr. Fausto Davidson DO; Dr. Martin Dior MD; Dr. Sandra Pond MD; Dr. Sebastian De Souza MD; Dr. Lisandro Byrnes MD; Dr. Adria Urena MD; Dr. Brayden Luna DO; Dr. Lisa Haley MD; Dr. Fina Dumont MD; Dr. Candido Pierce MD; Dr. Mitchell Culp MD; Dr. Skylar Capellan MD; Niko Reyna MD; Mike Benavidez MD; Bianca Duenas DO; Apolinar Reynolds MD; No Primary Care Physician; Mary Poe DO; Brandie Small MD ~ [facility] Work Phone: [phone]) 188-571905-16-[address] [facility] Medical Records Department [address] [place] [address] Discharge Summary 03/03/25 1502 MR#: [id number] Acct: [id number] Name: ALDO SOTO Rep #: [id number] : 1950 74 From: Donny Taylor DO PCP: Care Physician,No Primary Status:DIS IN Location: [place] [id number] Providers Date of Admission: 03/02/25 Date of Discharge: 03/03/25 Primary Care Physician: No Primary Care Phys Consultations 02/26/25 22:22 Consult: Tele-Neurology Routine Consulting Provider: [facility] Reason for Consult: Acute Ischemic Stroke/TIA EMERGENT Consult: No MD Notified: Yes Date Notified: 02/26/25 Time Notified: 22:47 Method of Notification: Answering Service Method of Consult:: Telemedicine Nursing Unit Staff Notify [facility] of Tele-Neurology Consult: Yes Reason For Visit: PERSISTENT CONFUSION X 6 DAYS; EVAL FOR TIA VS CVA Diagnosis Discharge Diagnosis (1) Generalized weakness: Status: Acute Code(s): R53.1 - Weakness (2) Chronic dementia: Status: Chronic Code(s): F03.90 - Unspecified dementia, unspecified severity, without behavioral disturbance, psychotic disturbance, mood disturbance, and anxiety Plan 1. Acute on chronic debility secondary to cerebrovascular disease with left hemiparesis on a backdrop of chronic dementia-PT and OT will continue work with the patient, he will placement in an extended care facility for inpatient rehab services #2 cerebrovascular disease with left hemiplegia-continue home medications, complicates care, management, recovery, and prognosis #3 dementia-probably secondary to cerebrovascular disease-it is likely this is worsened over the last several weeks, complicates care, management, recovery, and prognosis, teleneurology is participating in his care #4 seizure disorder-patient has had a seizure disorder for approximately 5 years, he will continue on Vimpat #5 essential hypertension-patient will remain on his present medications, blood pressure will be monitored #6 diffuse encephalopathy Total clinical time spent by myself addressing the patient's medical issues, reviewing all of his data, and collaborating with patient's care team: 25 minutes Medications at Discharge Home Medications amlodipine 5 mg tablet 5 mg PO BID 02/26/25 baclofen 10 mg tablet 10 mg PO TID 02/26/25 donepezil 5 mg tablet 10 mg PO QHS 02/26/25 ergocalciferol (vitamin D2) 1,250 mcg (50,000 unit) capsule (Vitamin D2) 50,000 unit PO DAILY 02/26/25 lacosamide 100 mg tablet 100 mg PO BID 02/26/25 metoprolol tartrate 25 mg tablet 25 mg PO BID 02/26/25 mirtazapine 15 mg tablet (Remeron) 15 mg PO QHS 02/26/25 acetaminophen 325 mg tablet 650 mg (2 x 325 mg) PO Q6H PRN PRN Pain 1-10 Or Fever #0 tabs 03/03/25 aspirin 81 mg chewable tablet 81 mg PO BREAKFAST #0 tabs 03/03/25 atorvastatin 10 mg tablet 20 mg (2 x 10 mg) PO QHS #0 tabs 03/03/25 memantine 5 mg tablet (Namenda) 5 mg PO BID #1 TAB 03/03/25 Hospital Course Operations None Procedures None Summary of Care Provided Minutes Spent on Discharge: 32 Hospital Course: This 74-year-old white male was seen in the emergency room at [facility] due to a change in mental status over the last several days at his home. Patient was not able to participate in his ADLs, he has a history of dementia and lives with his . His felt that she could not take care of him any longer and brought him to the ER for evaluation and possible nursing and placement. CBC was unremarkable, chemistry profile was unremarkable, UA showed a 25 urine leukocyte esterase but no organisms were seen and there were 0-5 RBCs and WBCs seen. Brain CT showed chronic microvascular ischemia due to a prior right MCA distribution infarct with involutional changes. Chest x-ray showed no acute findings, patient appeared confused. Patient was admitted to [place] [address] and seen in consultation by teleneurology, his seizure medication was increased and he underwent an EEG which showed diffuse encephalopathy but no seizure activity. Patient did not appear septic or infected during this hospital stay, he underwent an MRI of the brain which showed encephalomalacia in the right posterior parietal, posterior temporal, and occipital region with chronic ischemic change. Teleneurology ordered a repeat EEG which showed again encephalopathy. Patient was seen by PT and OT, a request was made to his insurance company for placement in an extended care facility- this was denied-the exact reason was unclear but could have been that the patient was not on rehab level. Patient's family agreed to placement with private payment. On 03/03/2025 patient was seen and examined: Constitutional Narrative: Patient is confused, he does not appear agitated or depressed, patient is oriented as to person only General Appearance: cooperative, well kempt and w (more content not included)... [facility]05-16-2025 Discharge summary [facility] Medical Records Department [address] [place] [address] Transfer to [facility] MR#: [id number] Acct: [id number] Name: ALDO SOTO Rep #:[id number] : 1950 74 From: Donny Taylor DO PCP: Care Physician,No Primary Status :ADM IN Certification of patient admission REQUIRED AT TIME OF ADMISSION. I CERTIFY THAT POST-HOSPITAL ECF SERVICES ARE REQUIRED TO BE GIVEN ON AN IN-PATIENT BASIS BECAUSE OF THE ABOVE NAMED PATIENT'S NEED FOR CARE HOME CARE ON A CONTINUING BASIS FOR THE CONDITION(S) FOR WHICH HE/SHE WAS RECEIVING IN-PATIENT HOSPITAL SERVICES PRIOR TO HIS/HER TRANSFER TO THE [facility]. 03/03/25 1501 Diet Diet Order/Speech Therapy: 02/27/25 05:18 Diet: Cardiac - Heart Healthy Type of Dietary Supplement:: Ensure Plus High Protein Diet Comments: 240mL Ensure w/breakfast and lunch Routine Orders/Code Status Code Status: DNRCC-A (No intubation) DC O2, CPAP, BIPAP needs Home O2 Discharge instructions: No Wound(s) forehead: Wound Type: Abrasion scalp: Wound Type: Abrasion right lower leg: Wound Type: Abrasion Therapies Weight Bearing: Full weight bearing (With assistance only) Physical Therapy: Eval and Treat Occupational Therapy: Eval and Treat Problem/Diagnosis (1) Generalized weakness: Status: Acute Code(s): R53.1 - Weakness (2) Chronic dementia: Status: Chronic Code(s): F03.90 - Unspecified dementia, unspecified severity, without behavioral disturbance, psychotic disturbance, mood disturbance, and anxiety Plan 1. Acute on chronic debility secondary to cerebrovascular disease with left hemiparesis on a backdrop of chronic dementia-PT and OT will continue work with the patient, he will placement in an extended care facility for inpatient rehab services #2 cerebrovascular disease with left hemiplegia-continue home medications, complicates care, management, recovery, and prognosis #3 dementia-probably secondary to cerebrovascular disease-it is likely this is worsened over the last several weeks, complicates care, management, recovery, and prognosis, teleneurology is participating in his care #4 seizure disorder-patient has had a seizure disorder for approximately 5 years, he will continue on Vimpat #5 essential hypertension-patient will remain on his present medications, blood pressure will be monitored Total clinical time spent by myself addressing the patient's medical issues, reviewing all of his data, and collaborating with patient's care team: 25 minutes Allergies/Procedures Done in Hospital Allergies azithromycin Allergy (Verified 02/26/25 18:24) NEEDS FOLLOW-UP Procedures: None Type of Care/Length of Stay Estimated LOS: Convalescent Care Less Than 30 days Type of Care Needed: Intermediate Rehab Potential: Fair Prognosis: Fair Additional Orders/Day of Discharge H&P will serve as current which was dated: 02/26/25 Day of Discharge: 03/03/25 Dietary and Speech Recommendations Dietitian Recommendations/Changes: Adjust to liberal regular diet due to variable PO intake. Will order 240ml EPHP with breakfast and lunch. Will monitor weight trends. Discharge Plan Admission Admit Date/Time: 03/02/25 15:02 Primary Reason for Your Visit: Generalized debility Attending Provider: Donny Taylor Primary Care Provider: Care Physician,No Primary Consulting Providers: Rosaura Cooper; Kendra Motley; Gunjan Espinosa; Mike Benavidez; Adria Urena; Niko Reyna; JEANNETTE HARP; Bianca Duenas; Katrin Vogel; Apolinar Reynolds; Mary Poe; Fausto Davidson; Lee Alcantara; Barbie Rea; Shahana Schulte; Martin Dior; Sandra Pond; Lisandro Byrnes; Sebastian De Souza; Brayden Luna; Fina Dumont; Lisa Haley; Luis A Banuelos; Candido Pierce; Mitchell Culp; Skylar Capellan; Brandie Small Discharge Orders/Prescriptions Prescriptions: New acetaminophen 325 mg Tablet 650 mg PO Q6H PRN PRN (Reason: Pain 1-10 Or Fever) Qty: 0 0RF atorvastatin 10 mg Tablet 20 mg PO QHS Qty: 0 0RF aspirin 81 mg Tablet,Chewable 81 mg PO BREAKFAST Qty: 0 0RF memantine [Namenda] 5 mg tablet 5 mg PO BID Qty: 1 0RF Rx Instructions: 5 mg twice daily x 2 weeks, then increase to 10 mg twice daily thereafter Continued donepezil 5 mg tablet 10 mg PO QHS mirtazapine [Remeron] 15 mg tablet 15 mg PO QHS lacosamide 100 mg tablet 100 mg PO BID ergocalciferol (vitamin D2) [Vitamin D2] 1,250 mcg (50,000 unit) capsule 50,000 unit PO DAILY metoprolol tartrate 25 mg tablet 25 mg PO BID baclofen 10 mg tablet 10 mg PO TID amlodipine 5 mg tablet 5 mg PO BID Discontinued atorvastatin 10 mg tablet 10 mg PO QHS Referrals / Follow Up: Care Physician,No Primary [Primary Care Provider] - Disposition Disposition (needs filled in before D/C Order can be placed): NonSkilled MA/Intermed Care 03/03/25 1501 Cosigner Signature (if applicable): CC: Shahana Schulte; Katrin Vogel; Luis A Banuelos; Kendra Motley MD; Barbie Rea MD; Lee Alcantara MD; Gunjan Espinosa MD; Dr. Amandeep Harp MD; Dr. Rosaura Cooper MD; Dr. Fausto Davidson DO; Dr. Martin Dior MD; Dr. Sandra Pond MD; Dr. Sebastian De Souza MD; Dr. Lisandro Byrnes MD; Dr. Adria Urena MD; Dr. Brayden Luna DO; Dr. Lisa Haley MD; Dr. Fina Dumont MD; Dr. Candido Pierce MD;Dr. Mitchell Culp MD; Dr. Skylar Capellan MD; Niko Reyna MD; Mkie Benavidez MD; Bianca Duenas DO; Apolinar Reynolds MD; No Primary Care Physician; Mary Poe DO; Brandie Small MD ~ [facility]05-15-2025 Progress note Author Donny Taylor [facility] Note Date/Time March 02, 2025 6:27p m [facility] Medical Records Department [address] [place] [address] Progress Note - Hospitalist 03/02/25 1825 MR#: [id number] Acct: [id number] Name: ALDO SOTO Rep #:[id number] : 1950 74 From: Donny Taylor DO PCP: Care Physician,No Primary Status :ADM IN Location: [place] [address]1 Reason for Visit Reason for Visit: Diagnoses Unspecified dementia, unspecified severity, without behavioral disturbance, psychotic disturbance, mood disturbance, and anxiety (03/02/25) Unspecified dementia, unspecified severity, with psychotic disturbance (03/02/25) Epilepsy, unspecified, not intractable, without status epilepticus (03/02/25) Unspecified sequelae of cerebral infarction (03/02/25) Other sequelae of cerebral infarction (03/02/25) Disorientation, unspecified (03/02/25) Weakness (03/02/25) Subjective Subjective Patient was seen and examined today, he is sporadically eating, sometimes he refuses breakfast but then eats later on. We are currently awaiting approval for the patient to go to an extended care facility Objective Data Objective Data Vital Signs: Vital Signs Temp Pulse Resp BP Pulse Ox O2 Del Method 97.6 F L 65 16 123/94 H 94 Room Air 03/02/25 15:20 03/02/25 15:20 03/02/25 15:20 03/02/25 15:20 03/02/25 15:20 03/02/25 15:20 Oxygen Delivery Method Room Air Weight: 65.1 kg Body Mass Index (BMI) 21.2 Intake & Output: Intake and Output for Last 24 Hours 02/28/25 03/01/25 03/02/25 23:59 23:59 23:59 Intake Total 550 / 550 200 / 200 Balance 550 / 550 200 / 200 Lab / Micro Data 02/26/25 18:33 02/26/25 18:33 Rhythm Strip Rhythm Strip: Sinus Rhythm Rate: 87 Ectopy: None Physical Exam Narrative alert and no apparent distress Constitutional Narrative: Patient is confused, he does not appear agitated or depressed, patient is oriented as to person only General Appearance: cooperative, well kempt and well developed Orientation / Consciousness: awake HEENT normocephalic, head/scalp atraumatic and moist oral mucous membranes Eyes PERRL, EOMs intact bilaterally and conjunctivae normal Neck supple, no JVD, thyroid normal and no carotid bruits General: trachea midline Resp normal respiratory effort, no retractions, no use of accessory muscles and clearto auscultation bilaterally Auscultation: Negative for rales, rhonchi or wheezes Cardio regular rate, regular rhythm, S1 normal heart sound, S2 normal heart sound, no murmurs, no rub and no gallops GI normal to inspection, nondistended, normoactive bowel sounds, soft to palpation,non-tender and non-distended Extremity Extremity Narrative: Patient has left hemiparesis Skin no rashes or lesions noted General Skin Exam: no breakdown Neuro CN's II-XII intact bilaterally Neuro Narrative: Patient has left hemiparesis Sensorium / Orientation: awake and alert Speech: speech normal Psych Psych Narrative: Patient is confused, he does not appear agitated or depressed Assessment & Plan Assessment/Plan (1) Generalized weakness: (2) Chronic dementia: PLAN: Plan 1. Acute on chronic debility secondary to cerebrovascular disease with left hemiparesis on a backdrop of chronic dementia-PT and OT will continue work with the patient, he will placement in an extended care facility for inpatient rehab services #2 cerebrovascular disease with left hemiplegia-continue home medications, complicates care, management, recovery, and prognosis #3 dementia-probably secondary to cerebrovascular disease-it is likely this is worsened over the last several weeks, complicates care, management, recovery, and prognosis, teleneurology is participating in his care #4 seizure disorder-patient has had a seizure disorder for approximately 5 years, he will continue on Vimpat #5 essential hypertension-patient will remain on his present medications, blood pressure will be monitored Total clinical time spent by myself addressing the patient's medical issues, reviewing all of his data, and collaborating with patient's care team: 25 minutes Charges/Coding Visit Charges Inpatient E&M: 72205 Subs Hosp L1 NIHSS NIHSS Nursing Documentation NIHSS Nursing Documentation: NIHSS: Ischemic Stroke/TIA Start: 02/26/25 22:22 Text: For PCU Patients: NIH and Neuro Check every 4 Status: Complete hours, PRN and with change in RN caregiver. Freq: [id number] Protocol: Activity Type Activity Date Activity User E-sign Co-sign Detail Recorded Client Recorded Date Recorded By Document 02/27/25 12:48 GABRIELA [id number] 02/27/25 12:54 GABRIELA 02/27/25 12:48 NIH Stroke Scale [NIHSS] A score of 0 is normal or asymptomatic . Total possible score is 42. Inpatient: RN or Physician to activate a stroke alert for onset of new stroke symptoms or with NIHSS increase >/= 3 points. Following change in neurological status, NIHSS will be performed per physician order or more frequently PRN. -1a. Level of Consciousness 0 - Alert; keenly responsive -1b. LOC Questions 2 - Answers NEITHER question correctly -1c. LOC Commands 1 - Performs ONE task correctly -2. Best Gaze 0 - Normal -3. Visual 0 - No visual loss -4. Facial Palsy 0 - Normal symmetrical movements -5a. Left Arm 1 - Drift; arm drifts downward but doesn?t hit the bed -5b. Right Arm 0 - No drift; arm holds 90 ( or 45) degrees for full 10 seconds -6a. Left Leg 0 - No drift; leg holds 30- degree position for full 5 seconds -6b. Right Leg 0 - No drift; leg holds 30- degree position for full 5 seconds -7. Limb Ataxia 1 - Present in 1 limb -8. Sensory 1 - Mild-to- moderate sensory loss; -9. Best Language 1 - Mild-to- moderate aphasia; -10. Dysarthria 0 - Normal -11. Extinction and Inattention 0 - No abnormality -Total 7 Query Text:A score of 0 is normal or asymptomatic. Total possible score is 42 . ED: Notify Physician for NIHSS increase by > / = 3 points. Inpatient: RN or Physician to activate a stroke alert for NIHSS increase of > / = 3 points. Coma Scale [Assess] -Eye Opening Spontaneous -Motor Obeys Commands -Verbal Confused [Total] -Coma Scale Total 14 03/02/25 5334 <Electronically signed by Donny Taylor DO> Cosigner Signature (if applicable): CC: ~ Signed [facility] Work Phone: 1(289) 865-128105-15-2025 Progress note Author Donny [facility] Note Date/Time March 02, 2025 6:25p m [facility] Medical Records Department [address] [place] [address] Progress Note - Hospitalist 03/01/25 1901 MR#: [id number] Acct: [id number] Name: ALDO SOTO Rep #:[id number] : 1950 74 From: Donny Taylor DO PCP: Care Physician,No Primary Status :ADM IN Location: [place] [address]1 Reason for Visit Reason for Visit: Diagnoses Unspecified dementia, unspecified severity, without behavioral disturbance, psychotic disturbance, mood disturbance, and anxiety (02/26/25) Unspecified dementia, unspecified severity, with psychotic disturbance (02/26/25) Epilepsy, unspecified, not intractable, without status epilepticus (02/26/25) Unspecified sequelae of cerebral infarction (02/26/25) Other sequelae of cerebral infarction (02/26/25) Disorientation, unspecified (02/26/25) Weakness (02/26/25) Subjective Subjective Patient was seen and examined, he is a little lethargic, he did eat dinner according to nursing. This morning he was not cooperative with his breakfast and did not eat. EEG was repeated today and it showed worsening encephalopathy. Patient does not appear to be toxic/infected. Neurology has elected to continue to observe the patient at this time. I did not obtain a repeat urinalysis I did not feel this was necessary. Objective Data Objective Data Vital Signs: Vital Signs Temp Pulse Resp BP Pulse Ox O2 Del Method 97.6 F L 65 16 147/73 H 97 Room Air 03/01/25 14:08 03/01/25 14:08 03/01/25 14:08 03/01/25 14:08 03/01/25 14:08 03/01/25 14:08 Oxygen Delivery Method Room Air Weight: 65.1 kg Body Mass Index (BMI) 21.2 Intake & Output: Intake and Output for Last 24 Hours 02/27/25 02/28/25 03/01/25 23:59 23:59 23:59 Intake Total 1060.00 / 1060.00 550 / 550 Balance 1060.00 / 1060.00 550 / 550 Lab / Micro Data 02/26/25 18:33 02/26/25 18:33 Rhythm Strip Rhythm Strip: Sinus Rhythm Rate: 87 Ectopy: None Physical Exam Narrative alert and no apparent distress Constitutional Narrative: Patient is confused, he does not appear agitated or depressed, patient is oriented as to person only General Appearance: cooperative, well kempt and well developed Orientation / Consciousness: awake HEENT normocephalic, head/scalp atraumatic and moist oral mucous membranes Eyes PERRL, EOMs intact bilaterally and conjunctivae normal Neck supple, no JVD, thyroid normal and no carotid bruits General: trachea midline Resp normal respiratory effort, no retractions, no use of accessory muscles and clearto auscultation bilaterally Auscultation: Negative for rales, rhonchi or wheezes Cardio regular rate, regular rhythm, S1 normal heart sound, S2 normal heart sound, no murmurs, no rub and no gallops GI normal to inspection, nondistended, normoactive bowel sounds, soft to palpation,non-tender and non-distended Extremity Extremity Narrative: Patient has left hemiparesis Skin no rashes or lesions noted General Skin Exam: no breakdown Neuro CN's II-XII intact bilaterally Neuro Narrative: Patient has left hemiparesis Sensorium / Orientation: awake and alert Speech: speech normal Psych Psych Narrative: Patient is confused, he does not appear agitated or depressed Assessment & Plan Assessment/Plan (1) Generalized weakness: (2) Chronic dementia: PLAN: Plan 1. Acute on chronic debility secondary to cerebrovascular disease with left hemiparesis on a backdrop of chronic dementia-PT and OT will continue work with the patient, he will placement in an extended care facility for inpatient rehab services #2 cerebrovascular disease with left hemiplegia-continue home medications, complicates care, management, recovery, and prognosis #3 dementia-probably secondary to cerebrovascular disease-it is likely this is worsened over the last several weeks, complicates care, management, recovery, and prognosis, teleneurology is participating in his care #4 seizure disorder-patient has had a seizure disorder for approximately 5 years, he will continue on Vimpat #5 essential hypertension-patient will remain on his present medications, blood pressure will be monitored Total clinical time spent by myself addressing the patient's medical issues, reviewing all of his data, and collaborating with patient's care team: 35 minutes Charges/Coding Visit Charges Inpatient E&M: 56157 Subs Hosp L2 NIHSS NIHSS Nursing Documentation NIHSS Nursing Documentation: NIHSS: Ischemic Stroke/TIA Start: 02/26/25 22:22 Text: For PCU Patients: NIH and Neuro Check every 4 Status: Complete hours, PRN and with change in RN caregiver. Freq: [id number] Protocol: Activity Type Activity Date Activity User E-sign Co-sign Detail Recorded Client Recorded Date Recorded By Document 02/27/25 12:48 GABRIELA [id number] 02/27/25 12:54 GABRIELA 02/27/25 12:48 NIH Stroke Scale [NIHSS] A score of 0 is normal or asymptomatic . Total possible score is 42. Inpatient: RN or Physician to activate a stroke alert for onset of new stroke symptoms or with NIHSS increase >/= 3 points. Following change in neurological status, NIHSS will be performed per physician order or more frequently PRN. -1a. Level of Consciousness 0 - Alert; keenly responsive -1b. LOC Questions 2 - Answers NEITHER question correctly -1c. LOC Commands 1 - Performs ONE task correctly -2. Best Gaze 0 - Normal -3. Visual 0 - No visual loss -4. Facial Palsy 0 - Normal symmetrical movements -5a. Left Arm 1 - Drift; arm drifts downward but doesn?t hit the bed -5b. Right Arm 0 - No drift; arm holds 90 ( or 45) degrees for full 10 seconds -6a. Left Leg 0 - No drift; leg holds 30- degree position for full 5 seconds -6b. Right Leg 0 - No drift; leg holds 30- degree position for full 5 seconds -7. Limb Ataxia 1 - Present in 1 limb -8. Sensory 1 - Mild-to- moderate sensory loss; -9. Best Language 1 - Mild-to- moderate aphasia; -10. Dysarthria 0 - Normal -11. Extinction and Inattention 0 - No abnormality -Total 7 Query Text:A score of 0 is normal or asymptomatic. Total possible score is 42 . ED: Notify Physician for NIHSS increase by > / = 3 points. Inpatient: RN or Physician to activate a stroke alert for NIHSS increase of > / = 3 points. Coma Scale [Assess] -Eye Opening Spontaneous -Motor Obeys Commands -Verbal Confused [Total] -Coma Scale Total 14 03/02/251824 <Electronically signed by Donny Taylor DO> Cosigner Signature (if applicable): CC: ~ Signed [facility] Work Phone: 1(787) 811-843005-15-2025 Progress note [facility] Medical Records Department [address] [place] [address] Progress Note - Hospitalist 03/02/251824 MR#: [id number] Acct: [id number] Name: ALDO SOTO Rep #:[id number] : 1950 74 From: Donny Taylor DO PCP: Care Physician,No Primary Status :ADM IN Location: [place] [address] Reason for Visit Reason for Visit: Diagnoses Unspecified dementia, unspecified severity, without behavioral disturbance, psychotic disturbance, mood disturbance, and anxiety (03/02/25) Unspecified dementia, unspecified severity, with psychotic disturbance (03/02/25) Epilepsy, unspecified, not intractable, without status epilepticus (03/02/25) Unspecified sequelae of cerebral infarction (03/02/25) Other sequelae of cerebral infarction (03/02/25) Disorientation, unspecified (03/02/25) Weakness (03/02/25) Subjective Subjective Patient was seen and examined today, he is sporadically eating, sometimes he refuses breakfast but then eats later on. We are currently awaiting approval for the patient to go to an extended care facility Objective Data Objective Data Vital Signs: Vital Signs Temp Pulse Resp BP Pulse Ox O2 Del Method 97.6 F L 65 16 123/94 H 94 Room Air 03/02/25 15:20 03/02/25 15:20 03/02/25 15:20 03/02/25 15:20 03/02/25 15:20 03/02/25 15:20 Oxygen Delivery Method Room Air Weight: 65.1 kg Body Mass Index (BMI) 21.2 Intake & Output: Intake and Output for Last 24 Hours 02/28/25 03/01/25 03/02/25 23:59 23:59 23:59 Intake Total 550 / 550 200 / 200 Balance 550 / 550 200 / 200 Lab / Micro Data 02/26/25 18:33 02/26/25 18:33 Rhythm Strip Rhythm Strip: Sinus Rhythm Rate: 87 Ectopy: None Physical Exam Narrative alert and no apparent distress Constitutional Narrative: Patient is confused, he does not appear agitated or depressed, patient is oriented as to person only General Appearance: cooperative, well kempt and well developed Orientation / Consciousness: awake HEENT normocephalic, head/scalp atraumatic and moist oral mucous membranes Eyes PERRL, EOMs intact bilaterally and conjunctivae normal Neck supple, no JVD, thyroid normal and no carotid bruits General: trachea midline Resp normal respiratory effort, no retractions, no use of accessory muscles and clearto auscultation bilaterally Auscultation: Negative for rales, rhonchi or wheezes Cardio regular rate, regular rhythm, S1 normal heart sound, S2 normal heart sound, no murmurs, no rub and no gallops GI normal to inspection, nondistended, normoactive bowel sounds, soft to palpation,non-tender and non-distended Extremity Extremity Narrative: Patient has left hemiparesis Skin no rashes or lesions noted General Skin Exam: no breakdown Neuro CN's II-XII intact bilaterally Neuro Narrative: Patient has left hemiparesis Sensorium / Orientation: awake and alert Speech: speech normal Psych Psych Narrative: Patient is confused, he does not appear agitated or depressed Assessment & Plan Assessment/Plan (1) Generalized weakness: (2) Chronic dementia: PLAN: Plan 1. Acute on chronic debility secondary to cerebrovascular disease with left hemiparesis on a backdrop of chronic dementia-PT and OT will continue work with the patient, he will placement in an extended care facility for inpatient rehab services #2 cerebrovascular disease with left hemiplegia-continue home medications, complicates care, management, recovery, and prognosis #3 dementia-probably secondary to cerebrovascular disease-it is likely this is worsened over the last several weeks, complicates care, management, recovery, and prognosis, teleneurology is participating in his care #4 seizure disorder-patient has had a seizure disorder for approximately 5 years, he will continue on Vimpat #5 essential hypertension-patient will remain on his present medications, blood pressure will be monitored Total clinical time spent by myself addressing the patient's medical issues, reviewing all of his data, and collaborating with patient's care team: 25 minutes Charges/Coding Visit Charges Inpatient E&M: 77639 Subs Hosp L1 NIHSS NIHSS Nursing Documentation NIHSS Nursing Documentation: NIHSS: Ischemic Stroke/TIA Start: 02/26/25 22:22 Text: For PCU Patients: NIH and Neuro Check every 4 Status: Complete hours, PRN and with change in RN caregiver. Freq: [id number] Protocol: Activity Type Activity Date Activity User E-sign Co-sign Detail Recorded Client Recorded Date Recorded By Document 02/27/25 12:48 GABRIELA [id number] 02/27/25 12:54 GABRIELA 02/27/25 12:48 NIH Stroke Scale [NIHSS] A score of 0 is normal or asymptomatic . Total possible score is 42. Inpatient: RN or Physician to activate a stroke alert for onset of new stroke symptoms or with NIHSS increase >/= 3 points. Following change in neurological status, NIHSS will be performed per physician order or more frequently PRN. -1a. Level of Consciousness 0 - Alert; keenly responsive -1b. LOC Questions 2 - Answers NEITHER question correctly -1c. LOC Commands 1 - Performs ONE task correctly -2. Best Gaze 0 - Normal -3. Visual 0 - No visual loss -4. Facial Palsy 0 - Normal symmetrical movements -5a. Left Arm 1 - Drift; arm drifts downward but doesn?t hit the bed -5b. Right Arm 0 - No drift; arm holds 90 ( or 45) degrees for full 10 seconds -6a. Left Leg 0 - No drift; leg holds 30- degree position for full 5 seconds -6b. Right Leg 0 - No drift; leg holds 30- degree position for full 5 seconds -7. Limb Ataxia 1 - Present in 1 limb -8. Sensory 1 - Mild-to- moderate sensory loss; -9. Best Language 1 - Mild-to- moderate aphasia; -10. Dysarthria 0 - Normal -11. Extinction and Inattention 0 - No abnormality -Total 7 Query Text:A score of 0 is normal or asymptomatic. Total possible score is 42 . ED: Notify Physician for NIHSS increase by > / = 3 points. Inpatient: RN or Physician to activate a stroke alert for NIHSS increase of > / = 3 points. Coma Scale [Assess] -Eye Opening Spontaneous -Motor Obeys Commands -Verbal Confused [Total] -Coma Scale Total 14 03/02/25 1827 Cosigner Signature (if applicable): CC: ~ Signed [facility]05-15-2025 Progress note [facility] Medical Records Department [address] [place] [address] Progress Note - Hospitalist 03/01/25 190 MR#: [id number] Acct: [id number] Name: ALDO SOTO Rep #:[id number] : 1950 74 From: Donny Taylor DO PCP: Care Physician,No Primary Status :ADM IN Location: [place] [id number] Reason for Visit Reason for Visit: Diagnoses Unspecified dementia, unspecified severity, without behavioral disturbance, psychotic disturbance, mood disturbance, and anxiety (02/26/25) Unspecified dementia, unspecified severity, with psychotic disturbance (02/26/25) Epilepsy, unspecified, not intractable, without status epilepticus (02/26/25) Unspecified sequelae of cerebral infarction (02/26/25) Other sequelae of cerebral infarction (02/26/25) Disorientation, unspecified (02/26/25) Weakness (02/26/25) Subjective Subjective Patient was seen and examined, he is a little lethargic, he did eat dinner according to nursing. This morning he was not cooperative with his breakfast and did not eat. EEG was repeated today and it showed worsening encephalopathy. Patient does not appear to be toxic/infected. Neurology has electedto continue to observe the patient at this time. I did not obtain a repeat urinalysis I did not feel this was necessary. Objective Data Objective Data Vital Signs: Vital Signs Temp Pulse Resp BP Pulse Ox O2 Del Method 97.6 F L 65 16 147/73 H 97 Room Air 03/01/25 14:08 03/01/25 14:08 03/01/25 14:08 03/01/25 14:08 03/01/25 14:08 03/01/25 14:08 Oxygen Delivery Method Room Air Weight: 65.1 kg Body Mass Index (BMI) 21.2 Intake & Output: Intake and Output for Last 24 Hours 02/27/25 02/28/25 03/01/25 23:59 23:59 23:59 Intake Total 1060.00 / 1060.00 550 / 550 Balance 1060.00 / 1060.00 550 / 550 Lab / Micro Data 02/26/25 18:33 02/26/25 18:33 Rhythm Strip Rhythm Strip: Sinus Rhythm Rate: 87 Ectopy: None Physical Exam Narrative alert and no apparent distress Constitutional Narrative: Patient is confused, he does not appear agitated or depressed, patient is oriented as to person only General Appearance: cooperative, well kempt and well developed Orientation / Consciousness: awake HEENT normocephalic, head/scalp atraumatic and moist oral mucous membranes Eyes PERRL, EOMs intact bilaterally and conjunctivae normal Neck supple, no JVD, thyroid normal and no carotid bruits General: trachea midline Resp normal respiratory effort, no retractions, no use of accessory muscles and clearto auscultation bilaterally Auscultation: Negative for rales, rhonchi or wheezes Cardio regular rate, regular rhythm, S1 normal heart sound, S2 normal heart sound, no murmurs, no rub and no gallops GI normal to inspection, nondistended, normoactive bowel sounds, soft to palpation,non-tender and non-distended Extremity Extremity Narrative: Patient has left hemiparesis Skin no rashes or lesions noted General Skin Exam: no breakdown Neuro CN's II-XII intact bilaterally Neuro Narrative: Patient has left hemiparesis Sensorium / Orientation: awake and alert Speech: speech normal Psych Psych Narrative: Patient is confused, he does not appear agitated or depressed Assessment & Plan Assessment/Plan (1) Generalized weakness: (2) Chronic dementia: PLAN: Plan 1. Acute on chronic debility secondary to cerebrovascular disease with left hemiparesis on a backdrop of chronic dementia-PT and OT will continue work with the patient, he will placement in an extended care facility for inpatient rehab services #2 cerebrovascular disease with left hemiplegia-continue home medications, complicates care, management, recovery, and prognosis #3 dementia-probably secondary to cerebrovascular disease-it is likely this is worsened over the last several weeks, complicates care, management, recovery, and prognosis, teleneurology is participating in his care #4 seizure disorder-patient has had a seizure disorder for approximately 5 years, he will continue on Vimpat #5 essential hypertension-patient will remain on his present medications, blood pressure will be monitored Total clinical time spent by myself addressing the patient's medical issues, reviewing all of his data, and collaborating with patient's care team: 35 minutes Charges/Coding Visit Charges Inpatient E&M: 02517 Subs Hosp L2 NIHSS NIHSS Nursing Documentation NIHSS Nursing Documentation: NIHSS: Ischemic Stroke/TIA Start: 02/26/25 22:22 Text: For PCU Patients: NIH and Neuro Check every 4 Status: Complete hours, PRN and with change in RN caregiver. Freq: [id number] Protocol: Activity Type Activity Date Activity User E-sign Co-sign Detail Recorded Client Recorded Date Recorded By Document 02/27/25 12:48 GABRIELA [id number] 02/27/25 12:54 GABRIELA 02/27/25 12:48 NIH Stroke Scale [NIHSS] A score of 0 is normal or asymptomatic . Total possible score is 42. Inpatient: RN or Physician to activate a stroke alert for onset of new stroke symptoms or with NIHSS increase >/= 3 points. Following change in neurological status, NIHSS will be performed per physician order or more frequently PRN. -1a. Level of Consciousness 0 - Alert; keenly responsive -1b. LOC Questions 2 - Answers NEITHER question correctly -1c. LOC Commands 1 - Performs ONE task correctly -2. Best Gaze 0 - Normal -3. Visual 0 - No visual loss -4. Facial Palsy 0 - Normal symmetrical movements -5a. Left Arm 1 - Drift; arm drifts downward but doesn?t hit the bed -5b. Right Arm 0 - No drift; arm holds 90 ( or 45) degrees for full 10 seconds -6a. Left Leg 0 - No drift; leg holds 30- degree position for full 5 seconds -6b. Right Leg 0 - No drift; leg holds 30- degree position for full 5 seconds -7. Limb Ataxia 1 - Present in 1 limb -8. Sensory 1 - Mild-to- moderate sensory loss; -9. Best Language 1 - Mild-to- moderate aphasia; -10. Dysarthria 0 - Normal -11. Extinction and Inattention 0 - No abnormality -Total 7 Query Text:A score of 0 is normal or asymptomatic. Total possible score is 42 . ED: Notify Physician for NIHSS increase by > / = 3 points. Inpatient: RN or Physician to activate a stroke alert for NIHSS increase of > / = 3 points. Coma Scale [Assess] -Eye Opening Spontaneous -Motor Obeys Commands -Verbal Confused [Total] -Coma Scale Total 14 03/02/25 1825 Cosigner Signature (if applicable): CC: ~ Signed [facility]05-15-2025 Evaluation note* Diagnosis Onset Date Resolution Status Admit Date Confusion acute March 02, 2025 3:02pm Generalized weakness acute March 02, 2025 3:02pm 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 nset dementia acute March 02, 2025 3 :02pm History of hemorrhagic cerebrovascular accident (CVA) with residual deficit acute March 02, 2025 3:02pm Seizure disorder as sequela of cerebrovascular accident acute February 3:02pm Chronic dementia chronic February 3:02pm [facility] Work Phone: 1(279) 640-814705-15-2025 Evaluation note* Diagnosis Onset Date Resolution Status Admit Date Seizure disorder as sequela of cerebrovascular accident acute February 3:02pm Chronic dementia chronic February 3:02pm Confusion inactive March 02, 2025 3:02pm Generalized weakness inactive March 02, 2025 3:02pm 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 nset dementia inactive March 02, 2025 3 :02pm History of hemorrhagic cerebrovascular accident (CVA) with residual deficit inactive March 02, 2025 3:02pm [facility] Work Phone: 1(422) 584-356305-14-2025 Progress note Author Candido Pierce [facility] Note Date/Time March 01, 2025 1:43p m [facility] Medical Records Department [address] [place] [address] Progress Note - Neurology 03/01/25 1311 MR#: [id number] Acct: [id number] Name: ALDO SOTO Rep #:[id number] : 1950 74 From: Candido Pierce MD PCP: Care Physician,No Primary Status :ADM [place]QU[place] Location: [place] [id number] Assessment and Plan: Neuro Assessment/Plan 74 M with a history of hemorrhagic Right MCA stroke (~2018) followed by another stroke (2023); residual Left-sided weakness, history of seizure; on Vimpat, chronic dementia; on donepezil, depression; on mirtazapine, history of TIA, history of muscle spasms; on baclofen 3 times daily who presented with a fall and altered mental status. Per family the change in mental status is acute - His states he is usually not this confused. He typically uses a wheelchair to mobilize and can usually transfer on his own. However, patient also has chronic dementia and his MRI showed significant atrophy and white matter changes with old RMCA stroke. Infectious workup negative. Initial EEG showed mild diffuse encephalopathy His mentation has been worsening throughout his stay in the hospital and he has been agitated and combative He was up all night last night, and this morning he is sleeping during the day when I saw him Repeat EEG showed continuous slowing with severe diffuse encephalopathy - We will continue to monitor for now. - Recommend Delirium/Dementia Precautions: - Minimize use of benzos, opiates, anticholinergics, as these may worsen mental status - Would use caution with narcotic pain medications - Would still recommend adequately controlling pain, as uncontrolled pain is also a risk factor for delirium - Reinforce sleep hygiene; encourage patient to stay awake during the day to encourage normal sleep cycle. - Keep curtains/blinds open during the day to allow natural light and closed at night. - Would recommend reorienting/redirecting patient as much as possible, - Aim for consistent staffing, familiar objects, avoiding bright lights andloud noises, etc - PT/OT - Will discuss with family the acuity of these changes, and depending on that, will consider LP to evaluate if that aligns with goals of care. I personally attended this patient and spent a total time of 30 minutes evaluating this patient including clinical assessment, review of chart, medical history imaging, and determining appropriate treatment and workup. Subject: Neurology Subjective ALDO SOTO is a 74 year old M, who we are seeing in consultation today for advice on the management of and related patient care. EEG Results Procedure Details EEG Procedure Details: Inpatient routine EEG report performed at [facility] Study start time: 1053 am on 03/01/25 End Time: 1114 am on 03/01/25 History: Rule out seizures Indication: Rule out seizures Technical Description: This is a 18-channel digital EEG recording with time- locked video and single-channel electrocardiogram. Electrodes are placed according to the 10 to 20 International System. The patient was monitored continuously by EEG technicians and EEG recording was reviewed intermittently with annotations to the EEG record. Portions of this record are reviewed using bandpass filters of 1 to 70 Hz and sensitivity of 7mV/mm. EEG DESCRIPTION Background: This recording was obtained during sleep like state. There was generalized continuous slowing of delta activity intermixed with some theta frequencies. Activation Procedures: Photic stimulation was performed. No abnormal or epileptic activity was triggered by this procedure. Sporadic Epileptiform Discharges: none Focal slow activity: none Rhythmic or Periodic activity: none Seizures: none Patient Events: none EEG DIAGNOSIS: Encephalopathy CLINICAL INTERPRETATION This is awake and drowsy EEG is consistent with severe diffuse encephalopathy. No epileptiform discharges or lateralizing signs were seen. Objective Data Objective Data Vital Signs: Vital Signs Temp Pulse Resp BP Pulse Ox O2 Del Method 97.3 F L 68 16 145/86 H 95 Room Air 03/01/25 11:55 03/01/25 11:55 03/01/25 11:55 03/01/25 11:55 03/01/25 11:55 03/01/25 11:55 Oxygen Delivery Method Room Air Weight: 65.1 kg Body Mass Index (BMI) 21.2 Intake & Output: Intake and Output for Last 24 Hours 02/27/25 02/28/25 03/01/25 23:59 23:59 23:59 Intake Total 1060.00 / 1060.00 200 / 200 Balance 1060.00 / 1060.00 200 / 200 Lab / Micro Data 02/26/25 18:33 02/26/25 18:33 Rhythm Strip Rhythm Strip: Sinus Rhythm Rate: 87 Ectopy: None Physical Exam Narrative Patient sleeping in bed NIHSS NIHSS Nursing Documentation NIHSS Nursing Documentation: NIHSS: Ischemic Stroke/TIA Start: 02/26/25 22:22 Text: For PCU Patients: NIH and Neuro Check every 4 Status: Complete hours, PRN and with change in RN caregiver. Freq: [id number] Protocol: Activity Type Activity Date Activity User E-sign Co-sign Detail Recorded Client Recorded Date Recorded By Document 02/27/25 12:48 GABRIELA [id number] 02/27/25 12:54 GABRIELA 02/27/25 12:48 NIH Stroke Scale [NIHSS] A score of 0 is normal or asymptomatic . Total possible score is 42. Inpatient: RN or Physician to activate a stroke alert for onset of new stroke symptoms or with NIHSS increase >/= 3 points. Following change in neurological status, NIHSS will be performed per physician order or more frequently PRN. -1a. Level of Consciousness 0 - Alert; keenly responsive -1b. LOC Questions 2 - Answers NEITHER question correctly -1c. LOC Commands 1 - Performs ONE task correctly -2. Best Gaze 0 - Normal -3. Visual 0 - No visual loss -4. Facial Palsy 0 - Normal symmetrical movements -5a. Left Arm 1 - Drift; arm drifts downward but doesn?t hit the bed -5b. Right Arm 0 - No drift; arm holds 90 ( or 45) degrees for full 10 seconds -6a. Left Leg 0 - No drift; leg holds 30- degree position for full 5 seconds -6b. Right Leg 0 - No drift; leg holds 30- degree position for full 5 seconds -7. Limb Ataxia 1 - Present in 1 limb -8. Sensory 1 - Mild-to- moderate sensory loss; -9. Best Language 1 - Mild-to- moderate aphasia; -10. Dysarthria 0 - Normal -11. Extinction and Inattention 0 - No abnormality -Total 7 Query Text:A score of 0 is normal or asymptomatic. Total possible score is 42 . ED: Notify Physician for NIHSS increase by > / = 3 points. Inpatient: RN or Physician to activate a stroke alert for NIHSS increase of > / = 3 points. Coma Scale [Assess] -Eye Opening Spontaneous -Motor Obeys Commands -Verbal Confused [Total] -Coma Scale Total 14 03/01/25 1343 <Electronically signed by Candido Pierce MD> Cosigner Signature (if applicable): CC: ~ Signed [facility] Work Phone: 1(204) 755-191205-14-2025 Progress note [facility] Medical Records Department [address] [place] [address] Progress Note - Neurology 03/01/25 1311 MR#: [id number] Acct: [id number] Name: ALDO SOTO Rep #:[id number] : 1950 74 From: Candido Pierce MD PCP: Care Physician,No Primary Status :ADM [place] 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 Per family the change in mental status is acute - His states he is usually not this confused. He typically uses a wheelchair to mobilize and can usually transfer on his own. However, patient also has chronic dementia and his MRI showed significant atrophy and white matter changes with old RMCAstroke. Infectious workup negative. Initial EEG showed mild diffuse encephalopathy His mentation has been worsening throughout his stay in the hospital and he has been agitated and combative He was up all night last night, and this morning he is sleeping during the day when I saw him Repeat EEG showed continuous slowing with severe diffuse encephalopathy - We will continue to monitor for now. - Recommend Delirium/Dementia Precautions: - Minimize use of benzos, opiates, anticholinergics, as these may worsen mental status - Would use caution with narcotic pain medications - Would still recommend adequately controlling pain, as uncontrolled pain is also a risk factor fordelirium - Reinforce sleep hygiene; encourage patient to stay awake during the day to encourage normal sleepcycle. - Keep curtains/blinds open during the day to allow natural light and closed at night. - Would recommend reorienting/redirecting patient as much as possible, - Aim for consistent staffing, familiar objects, avoiding bright lights andloud noises, etc - PT/OT - Will discuss with family the acuity of these changes, and depending on that, will consider LP to evaluate if that aligns with goals of care. I personally attended this patient and spent a total time of 30 minutes evaluating this patient including clinical assessment, review of chart, medical history imaging, and determining appropriate treatment and workup. Subject: Neurology Subjective ALDO SOTO is a 74 year old M, who we are seeing in consultation today for advice on the management of and related patient care. EEG Results Procedure Details EEG Procedure Details: Inpatient routine EEG report performed at [facility] Study start time: 1053 am on 03/01/25 End Time: 1114 am on 03/01/25 History: Rule out seizures Indication: Rule out seizures Technical Description: This is a 18-channel digital EEG recording with time- locked video and single-channel electrocardiogram. Electrodes are placed according to the 10 to 20 International System. The patient was monitored continuously by EEG technicians and EEG recording was reviewed intermittently with annotations to the EEG record. Portions of this record are reviewed using bandpass filters of1 to 70 Hz and sensitivity of 7mV/mm. EEG DESCRIPTION Background: This recording was obtained during sleep like state. There was generalized continuous slowing of delta activity intermixed with some theta frequencies. Activation Procedures: Photic stimulation was performed. No abnormal or epileptic activity was triggered by this procedure. Sporadic Epileptiform Discharges: none Focal slow activity: none Rhythmic or Periodic activity: none Seizures: none Patient Events: none EEG DIAGNOSIS: Encephalopathy CLINICAL INTERPRETATION This is awake and drowsy EEG is consistent with severe diffuse encephalopathy. No epileptiform discharges or lateralizing signs were seen. Objective Data Objective Data Vital Signs: Vital Signs Temp Pulse Resp BP Pulse Ox O2 Del Method 97.3 F L 68 16 145/86 H 95 Room Air 03/01/25 11:55 03/01/25 11:55 03/01/25 11:55 03/01/25 11:55 03/01/25 11:55 03/01/25 11:55 Oxygen Delivery Method Room Air Weight: 65.1 kg Body Mass Index (BMI) 21.2 Intake & Output: Intake and Output for Last 24 Hours 02/27/25 02/28/25 03/01/25 23:59 23:59 23:59 Intake Total 1060.00 / 1060.00 200 / 200 Balance 1060.00 / 1060.00 200 / 200 Lab / Micro Data 02/26/25 18:33 02/26/25 18:33 Rhythm Strip Rhythm Strip: Sinus Rhythm Rate: 87 Ectopy: None Physical Exam Narrative Patient sleeping in bed NIHSS NIHSS Nursing Documentation NIHSS Nursing Documentation: NIHSS: Ischemic Stroke/TIA Start: 02/26/25 22:22 Text: For PCU Patients: NIH and Neuro Check every 4 Status: Complete hours, PRN and with change in RN caregiver. Freq: [id number] Protocol: Activity Type Activity Date Activity User E-sign Co-sign Detail Recorded Client Recorded Date Recorded By Document 02/27/25 12:48 GABRIELA [id number] 02/27/25 12:54 GABRIELA 02/27/25 12:48 NIH Stroke Scale [NIHSS] A score of 0 is normal or asymptomatic . Total possible score is 42. Inpatient: RN or Physician to activate a stroke alert for onset of new stroke symptoms or with NIHSS increase >/= 3 points. Following change in neurological status, NIHSS will be performed per physician order or more frequently PRN. -1a. Level of Consciousness 0 - Alert; keenly responsive -1b. LOC Questions 2 - Answers NEITHER question correctly -1c. LOC Commands 1 - Performs ONE task correctly -2. Best Gaze 0 - Normal -3. Visual 0 - No visual loss -4. Facial Palsy 0 - Normal symmetrical movements -5a. Left Arm 1 - Drift; arm drifts downward but doesn?t hit the bed -5b. Right Arm 0 - No drift; arm holds 90 ( or 45) degrees for full 10 seconds -6a. Left Leg 0 - No drift; leg holds 30- degree position for full 5 seconds -6b. Right Leg 0 - No drift; leg holds 30- degree position for full 5 seconds -7. Limb Ataxia 1 - Present in 1 limb -8. Sensory 1 - Mild-to- moderate sensory loss; -9. Best Language 1 - Mild-to- moderate aphasia; -10. Dysarthria 0 - Normal -11. Extinction and Inattention 0 - No abnormality -Total 7 Query Text:A score of 0 is normal or asymptomatic. Total possible score is 42 . ED: Notify Physician for NIHSS increase by > / = 3 points. Inpatient: RN or Physician to activate a stroke alert for NIHSS increase of > / = 3 points. Coma Scale [Assess] -Eye Opening Spontaneous -Motor Obeys Commands -Verbal Confused [Total] -Coma Scale Total 14 03/01/25 1343 Cosigner Signature (if applicable): CC: ~ Signed [facility]05-13-2025 Progress note Author Donny Taylor [facility] Note Date/Time February 28, 2025 5:35p m [facility] Medical Records Department [address] [place] [address] Progress Note - Hospitalist 02/28/25 1732 MR#: [id number] Acct: [id number] Name: ALDO SOTO Rep #:[id number] : 1950 74 From: Donny Taylor DO PCP: Care Physician,No Primary Status :ADM RAQUEL Location: [place] [address] Reason for Visit Reason for Visit: Diagnoses Unspecified dementia, unspecified severity, without behavioral disturbance, psychotic disturbance, mood disturbance, and anxiety (02/26/25) Unspecified dementia, unspecified severity, with psychotic disturbance (02/26/25) Epilepsy, unspecified, not intractable, without status epilepticus (02/26/25) Unspecified sequelae of cerebral infarction (02/26/25) Other sequelae of cerebral infarction (02/26/25) Disorientation, unspecified (02/26/25) Weakness (02/26/25) Subjective Subjective Patient was seen and examined today, he remains confused. I communicated by text with teleneurology today and they requested a repeat EEG and a UA on the patient, unfortunately EEG was not able to be performed due to technical difficulties, this will be done when we are able to perform it. Objective Data Objective Data Vital Signs: Vital Signs Temp Pulse Resp BP Pulse Ox O2 Del Method 98.5 F 70 16 135/83 H 100 Room Air 02/28/25 15:23 02/28/25 15:23 02/28/25 15:23 02/28/25 15:23 02/28/25 15:23 02/28/25 15:23 Oxygen Delivery Method Room Air Weight: 65.1 kg Body Mass Index (BMI) 21.2 Intake & Output: Intake and Output for Last 24 Hours 02/26/25 02/27/25 02/28/25 23:59 23:59 23:59 Intake Total 1060.00 / 1060.00 Balance 1060.00 / 1060.00 Lab / Micro Data 02/26/25 18:33 02/26/25 18:33 Radiography Diagnostic Testing: Radiology Impression Carotid Duplex 02/26/25 22:01 Interpretation Summary Mild (<50%) stenosis right extracranial internal carotid. Mild (<50%) stenosis left extracranial internal carotid. Patent and antegrade vertebrals bilaterally. Ordering Physician: Fausto Davidson Performed By: Roxanne Vazquez RVT Echocardiogram 02/26/25 22:01 Interpretation Summary Normal LV size. Left ventricular systolic function is normal. The left ventricular ejection fraction is 65 %. Stage 1 diastolic dysfunction. Contrast injection was performed. Ordering Physician: Fausto Davidson Referring Physician: Fausto Davidson Performed By: Wojciech Trujillo [facility] Rhythm Strip Rhythm Strip: Sinus Rhythm Rate: 87 Ectopy: None Physical Exam Narrative alert and no apparent distress Constitutional Narrative: Patient is confused, he does not appear agitated or depressed, patient is oriented as to person only General Appearance: cooperative, well kempt and well developed Orientation / Consciousness: awake HEENT normocephalic, head/scalp atraumatic and moist oral mucous membranes Eyes PERRL, EOMs intact bilaterally and conjunctivae normal Neck supple, no JVD, thyroid normal and no carotid bruits General: trachea midline Resp normal respiratory effort, no retractions, no use of accessory muscles and clearto auscultation bilaterally Auscultation: Negative for rales, rhonchi or wheezes Cardio regular rate, regular rhythm, S1 normal heart sound, S2 normal heart sound, no murmurs, no rub and no gallops GI normal to inspection, nondistended, normoactive bowel sounds, soft to palpation,non-tender and non-distended Extremity Extremity Narrative: Patient has left hemiparesis Skin no rashes or lesions noted General Skin Exam: no breakdown Neuro CN's II-XII intact bilaterally Neuro Narrative: Patient has left hemiparesis Sensorium / Orientation: awake and alert Speech: speech normal Psych Psych Narrative: Patient is confused, he does not appear agitated or depressed Assessment & Plan Assessment/Plan (1) Chronic dementia: (2) Generalized weakness: PLAN: Plan 1. Acute on chronic debility secondary to cerebrovascular disease with left hemiparesis on a backdrop of chronic dementia-PT and OT will continue work with the patient, he will placement in an extended care facility for inpatient rehab services, patient will be transferred to [facility] 3-he does not require cardiac telemetry. #2 cerebrovascular disease with left hemiplegia-continue home medications, complicates care, management, recovery, and prognosis #3 dementia-probably secondary to cerebrovascular disease-it is likely this is worsened over the last several weeks, complicates care, management, recovery, and prognosis, teleneurology is participating in his care #4 seizure disorder-patient has had a seizure disorder for approximately 5 years, he will continue on Vimpat-his dose was increased to 150 mg twice daily per recommendation of teleneurology #5 essential hypertension-patient will remain on his present medications, blood pressure will be monitored Total clinical time spent by myself addressing the patient's medical issues, reviewing all of his data, and collaborating with patient's care team: 35 minutes Charges/Coding Visit Charges Inpatient E&M: 34924 Subs Hosp L2 NIHSS NIHSS Nursing Documentation NIHSS Nursing Documentation: NIHSS: Ischemic Stroke/TIA Start: 02/26/25 22:22 Text: For PCU Patients: NIH and Neuro Check every 4 Status: Complete hours, PRN and with change in RN caregiver. Freq: [id number] Protocol: Activity Type Activity Date Activity User E-sign Co-sign Detail Recorded Client Recorded Date Recorded By Document 02/27/25 12:48 GABRIELA [id number] 02/27/25 12:54 GABRIELA 02/27/25 12:48 NIH Stroke Scale [NIHSS] A score of 0 is normal or asymptomatic . Total possible score is 42. Inpatient: RN or Physician to activate a stroke alert for onset of new stroke symptoms or with NIHSS increase >/= 3 points. Following change in neurological status, NIHSS will be performed per physician order or more frequently PRN. -1a. Level of Consciousness 0 - Alert; keenly responsive -1b. LOC Questions 2 - Answers NEITHER question correctly -1c. LOC Commands 1 - Performs ONE task correctly -2. Best Gaze 0 - Normal -3. Visual 0 - No visual loss -4. Facial Palsy 0 - Normal symmetrical movements -5a. Left Arm 1 - Drift; arm drifts downward but doesn?t hit the bed -5b. Right Arm 0 - No drift; arm holds 90 ( or 45) degrees for full 10 seconds -6a. Left Leg 0 - No drift; leg holds 30- degree position for full 5 seconds -6b. Right Leg 0 - No drift; leg holds 30- degree position for full 5 seconds -7. Limb Ataxia 1 - Present in 1 limb -8. Sensory 1 - Mild-to- moderate sensory loss; -9. Best Language 1 - Mild-to- moderate aphasia; -10. Dysarthria 0 - Normal -11. Extinction and Inattention 0 - No abnormality -Total 7 Query Text:A score of 0 is normal or asymptomatic. Total possible score is 42 . ED: Notify Physician for NIHSS increase by > / = 3 points. Inpatient: RN or Physician to activate a stroke alert for NIHSS increase of > / = 3 points. Coma Scale [Assess] -Eye Opening Spontaneous -Motor Obeys Commands -Verbal Confused [Total] -Coma Scale Total 14 02/28/251734 <Electronically signed by Donny Taylor DO> Cosigner Signature (if applicable): CC: ~ Signed [facility] Work Phone: 1(230) 576-989005-13-2025 Progress note [facility] Medical Records Department [address] [place] [address] Progress Note - Hospitalist 02/28/25 173 MR#: [id number] Acct: [id number] Name: ALDO SOTO Rep #:[id number] : 1950 74 From: Donny Taylor DO PCP: Care Physician,No Primary Status :ADM RAQUEL Location: [place] [address] Reason for Visit Reason for Visit: Diagnoses Unspecified dementia, unspecified severity, without behavioral disturbance, psychotic disturbance, mood disturbance, and anxiety (02/26/25) Unspecified dementia, unspecified severity, with psychotic disturbance (02/26/25) Epilepsy, unspecified, not intractable, without status epilepticus (02/26/25) Unspecified sequelae of cerebral infarction (02/26/25) Other sequelae of cerebral infarction (02/26/25) Disorientation, unspecified (02/26/25) Weakness (02/26/25) Subjective Subjective Patient was seen and examined today, he remains confused. I communicated by text with teleneurologytoday and they requested a repeat EEG and a UA on the patient, unfortunately EEG was not able to beperformed due to technical difficulties, this will be done when we are able to perform it. Objective Data Objective Data Vital Signs: Vital Signs Temp Pulse Resp BP Pulse Ox O2 Del Method 98.5 F 70 16 135/83 H 100 Room Air 02/28/25 15:23 02/28/25 15:23 02/28/25 15:23 02/28/25 15:23 02/28/25 15:23 02/28/25 15:23 Oxygen Delivery Method Room Air Weight: 65.1 kg Body Mass Index (BMI) 21.2 Intake & Output: Intake and Output for Last 24 Hours 02/26/25 02/27/25 02/28/25 23:59 23:59 23:59 Intake Total 1060.00 / 1060.00 Balance 1060.00 / 1060.00 Lab / Micro Data 02/26/25 18:33 02/26/25 18:33 Radiography Diagnostic Testing: Radiology Impression Carotid Duplex 02/26/25 22:01 Interpretation Summary Mild (<50%) stenosis right extracranial internal carotid. Mild (<50%) stenosis left extracranial internal carotid. Patent and antegrade vertebrals bilaterally. Ordering Physician: Fausto Davidson Performed By: Roxanne Vazquez RVT Echocardiogram 02/26/25 22:01 Interpretation Summary Normal LV size. Left ventricular systolic function is normal. The left ventricular ejection fraction is 65 %. Stage 1 diastolic dysfunction. Contrast injection was performed. Ordering Physician: Fausto Davidson Referring Physician: Fausto Davidson Performed By: Wojciech Trujillo RCS Rhythm Strip Rhythm Strip: Sinus Rhythm Rate: 87 Ectopy: None Physical Exam Narrative alert and no apparent distress Constitutional Narrative: Patient is confused, he does not appear agitated or depressed, patient is oriented as to person only General Appearance: cooperative, well kempt and well developed Orientation / Consciousness: awake HEENT normocephalic, head/scalp atraumatic and moist oral mucous membranes Eyes PERRL, EOMs intact bilaterally and conjunctivae normal Neck supple, no JVD, thyroid normal and no carotid bruits General: trachea midline Resp normal respiratory effort, no retractions, no use of accessory muscles and clearto auscultation bilaterally Auscultation: Negative for rales, rhonchi or wheezes Cardio regular rate, regular rhythm, S1 normal heart sound, S2 normal heart sound, no murmurs, no rub and no gallops GI normal to inspection, nondistended, normoactive bowel sounds, soft to palpation,non-tender and non-distended Extremity Extremity Narrative: Patient has left hemiparesis Skin no rashes or lesions noted General Skin Exam: no breakdown Neuro CN's II-XII intact bilaterally Neuro Narrative: Patient has left hemiparesis Sensorium / Orientation: awake and alert Speech: speech normal Psych Psych Narrative: Patient is confused, he does not appear agitated or depressed Assessment & Plan Assessment/Plan (1) Chronic dementia: (2) Generalized weakness: PLAN: Plan 1. Acute on chronic debility secondary to cerebrovascular disease with left hemiparesis on a backdrop of chronic dementia-PT and OT will continue work with the patient, he will placement in an extended care facility for inpatient rehab services, patient will be transferred to [facility] 3-he does not require cardiac telemetry. #2 cerebrovascular disease with left hemiplegia-continue home medications, complicates care, management, recovery, and prognosis #3 dementia-probably secondary to cerebrovascular disease-it is likely this is worsened over the last several weeks, complicates care, management, recovery, and prognosis, teleneurology is participating in his care #4 seizure disorder-patient has had a seizure disorder for approximately 5 years, he will continue on Vimpat-his dose was increased to 150 mg twice daily per recommendation of teleneurology #5 essential hypertension-patient will remain on his present medications, blood pressure will be monitored Total clinical time spent by myself addressing the patient's medical issues, reviewing all of his data, and collaborating with patient's care team: 35 minutes Charges/Coding Visit Charges Inpatient E&M: 05978 Subs Hosp L2 NIHSS NIHSS Nursing Documentation NIHSS Nursing Documentation: NIHSS: Ischemic Stroke/TIA Start: 02/26/25 22:22 Text: For PCU Patients: NIH and Neuro Check every 4 Status: Complete hours, PRN and with change in RN caregiver. Freq: [id number] Protocol: Activity Type Activity Date Activity User E-sign Co-sign Detail Recorded Client Recorded Date Recorded By Document 02/27/25 12:48 GABRIELA [id number] 02/27/25 12:54 GABRIELA 02/27/25 12:48 NIH Stroke Scale [NIHSS] A score of 0 is normal or asymptomatic . Total possible score is 42. Inpatient: RN or Physician to activate a stroke alert for onset of new stroke symptoms or with NIHSS increase >/= 3 points. Following change in neurological status, NIHSS will be performed per physician order or more frequently PRN. -1a. Level of Consciousness 0 - Alert; keenly responsive -1b. LOC Questions 2 - Answers NEITHER question correctly -1c. LOC Commands 1 - Performs ONE task correctly -2. Best Gaze 0 - Normal -3. Visual 0 - No visual loss -4. Facial Palsy 0 - Normal symmetrical movements -5a. Left Arm 1 - Drift; arm drifts downward but doesn?t hit the bed -5b. Right Arm 0 - No drift; arm holds 90 ( or 45) degrees for full 10 seconds -6a. Left Leg 0 - No drift; leg holds 30- degree position for full 5 seconds -6b. Right Leg 0 - No drift; leg holds 30- degree position for full 5 seconds -7. Limb Ataxia 1 - Present in 1 limb -8. Sensory 1 - Mild-to- moderate sensory loss; -9. Best Language 1 - Mild-to- moderate aphasia; -10. Dysarthria 0 - Normal -11. Extinction and Inattention 0 - No abnormality -Total 7 Query Text:A score of 0 is normal or asymptomatic. Total possible score is 42 . ED: Notify Physician for NIHSS increase by > / = 3 points. Inpatient: RN or Physician to activate a stroke alert for NIHSS increase of > / = 3 points. Coma Scale [Assess] -Eye Opening Spontaneous -Motor Obeys Commands -Verbal Confused [Total] -Coma Scale Total 14 02/28/25 6112 Cosigner Signature (if applicable): CC: ~ Signed [facility]05-13-2025 Consult note Author Kendra Motley [facility] Note Date/Time February 28, 2025 12:53 am [facility] Medical Records Department [address] [place] [address] Consultation - Neurology 02/27/25 0823 MR#: [id number] Acct: [id number] Name: ALDO SOTO Rep #:[id number] : 1950 74 From: Kendra Motley MD PCP: Care Physician,No Primary Status :ADM RAQUEL Location: [place] [address] Assessment and Plan: Neuro Assessment/Plan ALDO SOTO is a 74 M with a past medical history of prior hemorrhagic stroke, HTN, seizure, dementia, being evaluated by Teleneurology for sudden onset worsening confusion started 10 days ago with waxing waning effect. On exam, there are some profound visual agnosias that would localize to occipital or temporal-occipital regions which is not where pt's parietal RMCA stroke are located. 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 Ddx would have included new stroke or stroke recrudescence except not clear there is anything causing recrudescence and no new stroke on imaging. Based on history and exam, there may be concern that pt was hoarding some pills and potentially had a breakthrough seizure with prolonged post-ictal period or intermittent subclinical seizures. Cannot rule out a new lesion that is difficult to assess. Given acuity of onset and involvement of specific type of agnosia, an extension of baseline dementia would be a diagnosis of exclusion andshould not be considered a primary cause at this time. Plan: - routine EEG with mild encephalopathy - will increase Vimpat to 150mg BID in case some symptoms are related to subclinical seizures vs a prolonged postictal phase - continue baclofen monitor constipation with q2 day bowel movements. - consider MRI Brain with contrast to further evaluate for temporal-occipital deficits. I personally attended this patient and spent a total time of 45minutes evaluating this patient including clinical assessment, review of chart, medical history imaging, and determining appropriate treatment and workup. 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 Mr. Soto is not up as reliable-historian at this time so information was gathered from chart, medical staff and computer. According to the records he has been confused for the past 6 days with mild intermittent shortness of breath, feeling fatigued and generally weak. His states he is usually not confused. He typically uses a wheelchair to mobilize and can usually transfer on his own but he was able to this past week until today when he attempted to get up experienced a minor fall without associated injury, LOC or head trauma. He denies pain and shortness of breath at this time. His states he has been hallucinating recently and talking to people that are not there. She also states he said something about getting up on a tractor yesterday, with his stating he certainly did not do that. Also for the last few days the patient has been calling his Moises but the day he seems to know who she is. There was no reported fever, chills, blurry vision, discharge from eyes, runny nose, sore throat, ear pain, chest pain, palpitations, heart racing, abdominal pain, nausea, vomiting, diarrhea, hematuria, dysuria, back pain, headache or rash. 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 He was then admitted to the PCU under observation status for TIA/CVA workup for his confusion for a stay that is expected to be less than 2 midnights. Neurologic History Patient not oriented to place (thinks he is in a garage). He is confused as to his 's name still and was confused who his was normally. Normally can state day of the week and month and holidays but cannot now. 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 He has small ischemic strokes since then that caused some memory problems The symptoms of confusion started 10 days ago, he woke up he was suddnely more confused. Not had a seizure in the last 3 years. No waxing and waning in the symptoms - persistent confusion but not worse. No changes in medication. been onbaclofen for 6 years. No issues with constipation, has been hoarding pills but unclear which pills (had a variety of pills hid in his bed over the last week and a half and unclear if this is a symptom or the cause). No constipation. Been on lacosamide 100mg BID, been on it for 6 years now, no changes in medications. Physicial Exam -? General: Laying comfortably in bed; in no acute distress. -? HENT: Normal oropharynx and mucosa. Normal external appearance of ears and nose. Exophthalmos. -? Neck: Supple, no pain or tenderness -? CV:? No peripheral edema. -? Pulmonary:? Normal respiratory effort. -? Ext: No cyanosis, edema, or deformity -? Skin: No rash. Normal palpation of skin.? -? Musculoskeletal: full range of motion; no joint tenderness. Normal digits and nails by inspection. No clubbing. -? NEURO: -? Mental Status: The patient was alert, not oriented to time or place or situation, aware to person. Recognized . 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 Language: speech is clear.? Naming impaired as above - some associative agnosias, paraphasias noted, agnostic alexia (can spell, cannot read) -? Cranial Nerves: PERRL 3mm/brisk. EOMI but with difficulty in tracking, visual hinojosa difficult to test, no facial asymmetry, facial sensationintact, hearing intact, tongue midline, no evidence of atrophy or fibrillations. -? Motor: RUE and RLE strongly antigravity, the LUE without movements, LLE antigravity with drift to bed LUE with high tone and spasticity, LLE with better tone still with spasticity. -? Sensation- Intact to light touch bilaterally -? Coordination: No dysmetria on [id number] on the RUE. -? Gait- deferred [facility] Medical History Hemorrhagic stroke Home Medications ?Medication ?Instructions ?Recorded ?Last Taken ?Type amlodipine 5 mg tablet 5 mg PO BID 02/26/25 Unknown History atorvastatin 10 mg tablet 10 mg PO QHS 02/26/25 Unknow n History baclofen 10 mg tablet 10 mg PO TID 02/26/25 Unknow n History donepezil 5 mg tablet 10 mg PO QHS 02/26/25 Unknow n History ergocalciferol (vitamin D2) 1,250 50,000 unit PO DAILY 02/26/25 Unknown History mcg (50,000 unit) capsule (Vitamin D2) lacosamide 100 mg tablet 100 mg PO BID 02/26/25 Unkno wn History metoprolol tartrate 25 mg tablet 25 mg PO BID 02/26/25 Unknown History mirtazapine 15 mg tablet (Remeron) 15 mg PO QHS Unknown History Allergy/AdvReac Type Severity Reaction Status Date / Time azithromycin Allergy NEEDS Verified 02/26/25 18:24 FOLLOW-UP Surgical History History of hip replacement Social History Smoking Status: Former smoker Vital Signs Vital Signs Vital Signs: 02/26/25 18:24 02/26/25 18:26 02/26/25 19:26 Temperature 98.6 F 98.6 F 99.1 F Temperature Source Oral Oral Oral Pulse Rate 91 91 91 Respiratory Rate 18 14 14 Respiratory Effort Respiratory Depth Respiratory Pattern Blood Pressure 155/102 H 147/97 H 165/104 H Blood Pressure Mean 119 113 124 Pulse Ox 98 95 97 Oxygen Delivery Method Room Air Room Air Room Air 02/26/25 21:04 02/26/25 21:34 02/26/25 22:59 Temperature 99.1 F 98 F 98.1 F Temperature Source Oral Oral Pulse Rate 89 81 78 Respiratory Rate 16 13 18 Respiratory Effort Respiratory Depth Respiratory Pattern Blood Pressure 149/103 H 151/104 H 166/102 H Blood Pressure Mean 118 119 123 Pulse Ox 94 95 100 Oxygen Delivery Method Room Air Room Air 02/27/25 00:13 02/27/25 03:00 02/27/25 04:45 Temperature 97.8 F Temperature Source Temporal Pulse Rate 69 Respiratory Rate 18 Respiratory Effort Normal Non-Labored Respiratory Depth Normal Respiratory Pattern Normal Blood Pressure 139/103 H Blood Pressure Mean 115 Pulse Ox 97 96 Oxygen Delivery Method Room Air Room Air Room Air 02/27/25 05:00 Temperature 97.4 F L Temperature Source Temporal Pulse Rate 80 Respiratory Rate 18 Respiratory Effort Respiratory Depth Respiratory Pattern Blood Pressure 164/98 H Blood Pressure Mean 120 Pulse Ox 97 Oxygen Delivery Method Room Air Weight Weight: 65.1 kg Body Mass Index (BMI) 21.2 EEG Results Procedure Details EEG Procedure Details: ALDO SOTO is a 74 year old M with a past medical history of , who presents for evaluation of Electroencephalogram on DATE at TIME Lab / Micro Data 02/26/25 18:33 02/26/25 18:33 Labs: Laboratory Results - last 24 hr 02/26/25 18:33: WBC 10.1, RBC 5.71, Hgb 17.0 H, Hct 51.1, MCV 89.5, MCH 29.8, MCHC 33.3, RDW Std Deviation 41.7, RDW Coeff of Noris 12.7, Plt Count 334, MPV 10.1, Immature Gran % (Auto) 0.300, Neut % (Auto) 76.0 H, Lymph % (Auto) 14.7 L,[place] % (Auto) 6.9, Eos % (Auto) 0.9, Baso % (Auto) 1.2 H, Absolute Neuts (auto) 7.7, Absolute Lymphs (auto) 1.49, Nucleated RBC % 0, Sodium 144, Potassium 3.7, Chloride 109 H, Carbon Dioxide 21.8, Anion Gap 13, BUN 17, Creatinine 0.79, Estim Creat Clear Calc 79.80, Est GFR (MDRD) Non-Af 94, BUN/Creatinine Ratio 21.2 H, Glucose 90, Calcium 9.8, Total Bilirubin 0.51, AST 12, ALT 8, Alkaline Phosphatase 77, Troponin T High Sens 9, Total Protein 7.8, Albumin 4.3, Globulin3.4, Albumin/Globulin Ratio 1.3 02/26/25 19:03: Lactic Acid 1.7 02/26/25 19:45: Urine Color Yellow, Urine Clarity Clear, Urine pH 5.0, Ur Specific [place] 1.025, Urine Protein 30 H, Urine Glucose (UA) Normal, Urine Ketones Negative, Urine Occult Blood 10 H, Urine Nitrite Negative, Urine Bilirubin 1 H, Urine Urobilinogen 1 H, Ur Leukocyte Esterase 25 H, Urine RBC 0-5SEEN, Urine WBC 0-5 SEEN, Ur Squamous Epith Cells 0 SEEN, Urine Bacteria 0 SEEN,Urine Mucus 0 SEEN, Urine Opiates Screen NEGATIVE, U Buprenorphine Qual NEGATIVE, Ur Oxycodone Screen NEGATIVE, Urine Methadone Screen NEGATIVE, Urine Fentanyl Screen NEGATIVE, Ur Barbiturates Screen NEGATIVE, Ur Phencyclidine ScrnNEGATIVE, Ur Amphetamines Screen NEGATIVE, U Benzodiazepines Scrn NEGATIVE, Urine Cocaine Screen NEGATIVE, U Cannabinoids Screen NEGATIVE 02/26/25 20:20: Troponin T Hi Sens 2 Hr 7 02/26/25 22:53: Hemoglobin A1c 5.5, Troponin T Hi Sens 4Hr 10, Vitamin B12 461, Serum Folate 10.50, TSH 1.070, Ethyl Alcohol < 10.1 02/27/25 05:30: Triglycerides 87, Cholesterol 185, LDL Cholesterol, Calc 119, VLDL Cholesterol 17, HDL Cholesterol 49, Cholesterol/HDL Ratio 3.80 Rhythm Strip Rhythm Strip: Sinus Rhythm Rate: 87 Ectopy: None Imaging Radiology Impression Brain CT 02/26/25 18:43 IMPRESSION: No acute intracranial abnormality. 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 Reading Location: [facility] Chest X-Ray 02/26/25 19:20 IMPRESSION: NO ACUTE FINDINGS. Reading Location: [facility] Active Medications Active Medications Active Medications: Current Medications Generic Name Dose Route Start Last Admin Trade Name Freq PRN Reason Stop Dose Admin Acetaminophen 650 mg 02/26/25 22:22 Acetaminophen 325 Mg Tablet PO Q6H PRN PRN Pain 1-10 or Fever Aspirin 81 mg 02/27/25 08:00 Aspirin 81 Mg Tab.Chew PO BREAKFAST SUMIT Atorvastatin Calcium 10 mg 02/26/25 22:22 02/26/25 23:06 Atorvastatin Calcium 10 Mg Tablet PO 10 mg QHS SUMIT Administration Baclofen 10 mg 02/26/25 22:22 02/27/25 05:04 Baclofen 10 Mg Tablet PO 10 mg TID SUMIT Administration Clarify Med Order 0 each 02/26/25 22:45 Clarify Order NOTE CLARIFY SUMIT Donepezil HCl 10 mg 02/26/25 22:22 02/26/25 23:06 Donepezil Hcl 10 Mg Tablet PO 10 mg QHS SUMIT Administration Ergocalciferol mg 02/27/25 10:00 Ergocalciferol 1.25 Mg (50, 000 Unit) Capsule PO DAILY SUMIT Sodium Chloride 1,000 mls @ 50 mls/hr 02/26/25 22:01 02/27/25 07:02 IV 02/27/25 18:00 50 mls/hr .Q20H SUMIT Infusion Lacosamide 100 mg 02/26/25 22:22 02/26/25 23:06 Lacosamide 100 Mg Tablet PO 100 mg BID SUMIT Administration Mirtazapine 15 mg 02/26/25 22:22 02/26/25 23:06 Mirtazapine 15 Mg Tablet PO 15 mg QHS SUMIT Administration Sodium Chloride 10 - 40 ml 02/26/25 22:32 0.9% Saline Lock 10 Ml Syringe IV UD PRN SALINE FLUSH NIHSS NIHSS Nursing Documentation NIHSS Nursing Documentation: NIHSS: Ischemic Stroke/TIA Start: 02/26/25 22:22 Text: For PCU Patients: NIH and Neuro Check every 4 Status: Active hours, PRN and with change in RN caregiver. Freq: [id number] Protocol: Activity Type Activity Date Activity User E-sign Co-sign Detail Recorded Client Recorded Date Recorded By Document 02/27/25 05:00 MAILE [id number] 02/27/25 05:09 PRISCILLA 02/27/25 05:00 NIH Stroke Scale [NIHSS] A score of 0 is normal or asymptomatic . Total possible score is 42. Inpatient: RN or Physician to activate a stroke alert for onset of new stroke symptoms or with NIHSS increase >/= 3 points. Following change in neurological status, NIHSS will be performed per physician order or more frequently PRN. -1a. Level of Consciousness 0 - Alert; keenly responsive -1b. LOC Questions 2 - Answers NEITHER question correctly -1c. LOC Commands 1 - Performs ONE task correctly -2. Best Gaze 0 - Normal -3. Visual 0 - No visual loss -4. Facial Palsy 0 - Normal symmetrical movements -5a. Left Arm 1 - Drift; arm drifts downward but doesn?t hit the bed -5b. Right Arm 0 - No drift; arm holds 90 ( or 45) degrees for full 10 seconds -6a. Left Leg 0 - No drift; leg holds 30- degree position for full 5 seconds -6b. Right Leg 0 - No drift; leg holds 30- degree position for full 5 seconds -7. Limb Ataxia 1 - Present in 1 limb -8. Sensory 0 - Normal; no sensory loss -9. Best Language 1 - Mild-to- moderate aphasia; -10. Dysarthria 0 - Normal -11. Extinction and Inattention 0 - No abnormality -Total 6 Query Text:A score of 0 is normal or asymptomatic. Total possible score is 42 . ED: Notify Physician for NIHSS increase by > / = 3 points. Inpatient: RN or Physician to activate a stroke alert for NIHSS increase of > / = 3 points. Coma Scale [Assess] -Eye Opening Spontaneous -Motor Obeys Commands -Verbal Confused [Total] -Coma Scale Total 14 02/28/25 0053 <Electronically signed by Kendra Motley MD> Cosigner Signature (if applicable): CC: Dr. Fausto Davidson, DO; No Primary Care Physician~ Signed [facility] Work Phone: [phone] Consult note [facility] Medical Records Department [address] [place] [address] Consultation - Neurology 02/27/25 0823 MR#: [id number] Acct: [id number] Name: ALDO SOTO Rep #:[id number] : 1950 74 From: Kendra Motley MD PCP: Care Physician,No Primary Status :ADM RAQUEL Location: [place] [address] Assessment and Plan: Neuro Assessment/Plan ALDO SOTO is a 74 M with a past medical history of prior hemorrhagic stroke, HTN, seizure, dementia, being evaluated by Teleneurology for sudden onset worsening confusion started 10 days ago with waxing waning effect. On exam, there are some profound visual agnosias that would localize to occipital or temporal-occipital regions which is not where pt's parietal RMCA stroke are located. 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 Ddx would have included new stroke or stroke recrudescence except not clear there is anything causing recrudescence and no new stroke on imaging. Ba sed on history and exam, there may be concern that pt was hoarding some pills and potentially had abreakthrough seizure with prolonged post-ictal period or intermittent subclinical seizures. Cannot rule out a new lesion that is difficult to assess. Given acuity of onset and involvement of specifictype of agnosia, an extension of baseline dementia would be a diagnosis of exclusion andshould not be considered a primary cause at this time. Plan: - routine EEG with mild encephalopathy - will increase Vimpat to 150mg BID in case some symptoms are related to subclinical seizures vs a prolonged postictal phase - continue baclofen monitor constipation with q2 day bowel movements. - consider MRI Brain with contrast to further evaluate for temporal-occipital deficits. I personally attended this patient and spent a total time of 45minutes evaluating this patient including clinical assessment, review of chart, medical history imaging, and determining appropriate treatment and workup. 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 Mr. Soto is not up as reliable-historian at this time so information was gathered from chart, medical staff and computer. According to the records he has been confused for the past 6 days with mild intermittent shortness of breath, feeling fatigued and generally weak. His states he is usually not confused. He typically uses a wheelchair to mobilize and can usually transfer on his own but he was able to this past week until today when he attempted to get up experienced a minor fall without associated injury, LOC or head trauma. He denies pain and shortness of breath at this time. His states he has been hallucinating recently and talking to people that are not there. She also states he said something about getting up on a tractor yesterday, with his stating he certainly did not do that. Also for the last few days the patient has been calling his Moises but the dayhe seems to know who she is. There was no reported fever, chills, blurry vision, discharge from eyes, runny nose, sore throat, ear pain, chest pain, palpitations, heart racing, abdominal pain, nausea, vomiting, diarrhea, hematuria, dysuria, back pain, headache or rash. 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 He was then admitted to the PCU under observation status for TIA/CVA workup for his confusion for a stay that is expected to be less than 2 midnights. Neurologic History Patient not oriented to place (thinks he is in a garage). He is confused as to his 's name still and was confused who his was normally. Normally can state day of the week and month and holidays but cannot now. 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 He has small ischemic strokes since then that caused some memory problems The symptoms of confusion started 10 days ago, he woke up he was suddnely more confused. Not had a seizure in the last 3 years. No waxing and waning in the symptoms - persistent confusion but not worse. No changes in medication. been onbaclofen for 6 years. No issues with constipation, has been hoarding pills but unclear which pills (had a variety of pills hid in his bed over the last week and a half and unclear if this is a symptom or the cause). No constipation. Been on lacosamide 100mg BID, been on it for 6 years now, no changes in medications. Physicial Exam -? General: Laying comfortably in bed; in no acute distress. -? HENT: Normal oropharynx and mucosa. Normal external appearance of ears and nose. Exophthalmos. -? Neck: Supple, no pain or tenderness -? CV:? No peripheral edema. -? Pulmonary:? Normal respiratory effort. -? Ext: No cyanosis, edema, or deformity -? Skin: No rash. Normal palpation of skin.? -? Musculoskeletal: full range of motion; no joint tenderness. Normal digits and nails by inspection. No clubbing. -? NEURO: -? Mental Status: The patient was alert, not oriented to time or place or situation, aware to person. Recognized . 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 Language: speech is clear.? Naming impaired as above - some associative agnosias, paraphasias noted, agnostic alexia (can spell, cannot read) -? Cranial Nerves: PERRL 3mm/brisk. EOMI but with difficulty in tracking, visual hinojosa difficult to test, no facial asymmetry, facial sensationintact, hearing intact, tongue midline, no evidence of atrophy or fibrillations. -? Motor: RUE and RLE strongly antigravity, the LUE without movements, LLE antigravity withdrift to bed LUE with high tone and spasticity, LLE with better tone still with spasticity. -? Sensation- Intact to light touch bilaterally -? Coordination: No dysmetria on [id number] on the RUE. -? Gait- deferred [facility] Medical History Hemorrhagic stroke Home Medications ?Medication ?Instructions ?Recorded ?Last Taken ?Type amlodipine 5 mg tablet 5 mg PO BID 02/26/25 Unknown History atorvastatin 10 mg tablet 10 mg PO QHS 02/26/25 Unknow n History baclofen 10 mg tablet 10 mg PO TID 02/26/25 Unknow n History donepezil 5 mg tablet 10 mg PO QHS 02/26/25 Unknow n History ergocalciferol (vitamin D2) 1,250 50,000 unit PO DAILY 02/26/25 Unknown History mcg (50,000 unit) capsule (Vitamin D2) lacosamide 100 mg tablet 100 mg PO BID 02/26/25 Unkno wn History metoprolol tartrate 25 mg tablet 25 mg PO BID 02/26/25 Unknown History mirtazapine 15 mg tablet (Remeron) 15 mg PO QHS Unknown History Allergy/AdvReac Type Severity Reaction Status Date / Time azithromycin Allergy NEEDS Verified 02/26/25 18:24 FOLLOW-UP Surgical History History of hip replacement Social History Smoking Status: Former smoker Vital Signs Vital Signs Vital Signs: 02/26/25 18:24 02/26/25 18:26 02/26/25 19:26 Temperature 98.6 F 98.6 F 99.1 F Temperature Source Oral Oral Oral Pulse Rate 91 91 91 Respiratory Rate 18 14 14 Respiratory Effort Respiratory Depth Respiratory Pattern Blood Pressure 155/102 H 147/97 H 165/104 H Blood Pressure Mean 119 113 124 Pulse Ox 98 95 97 Oxygen Delivery Method Room Air Room Air Room Air 02/26/25 21:04 02/26/25 21:34 02/26/25 22:59 Temperature 99.1 F 98 F 98.1 F Temperature Source Oral Oral Pulse Rate 89 81 78 Respiratory Rate 16 13 18 Respiratory Effort Respiratory Depth Respiratory Pattern Blood Pressure 149/103 H 151/104 H 166/102 H Blood Pressure Mean 118 119 123 Pulse Ox 94 95 100 Oxygen Delivery Method Room Air Room Air 02/27/25 00:13 02/27/25 03:00 02/27/25 04:45 Temperature 97.8 F Temperature Source Temporal Pulse Rate 69 Respiratory Rate 18 Respiratory Effort Normal Non-Labored Respiratory Depth Normal Respiratory Pattern Normal Blood Pressure 139/103 H Blood Pressure Mean 115 Pulse Ox 97 96 Oxygen Delivery Method Room Air Room Air Room Air 02/27/25 05:00 Temperature 97.4 F L Temperature Source Temporal Pulse Rate 80 Respiratory Rate 18 Respiratory Effort Respiratory Depth Respiratory Pattern Blood Pressure 164/98 H Blood Pressure Mean 120 Pulse Ox 97 Oxygen Delivery Method Room Air Weight Weight: 65.1 kg Body Mass Index (BMI) 21.2 EEG Results Procedure Details EEG Procedure Details: ALDO SOTO is a 74 year old M with a past medical history of , who presents for evaluation of Electroencephalogram on DATE at TIME Lab / Micro Data 02/26/25 18:33 02/26/25 18:33 Labs: Laboratory Results - last 24 hr 02/26/25 18:33: WBC 10.1, RBC 5.71, Hgb 17.0 H, Hct 51.1, MCV 89.5, MCH 29.8, MCHC 33.3, RDW Std Deviation 41.7, RDW Coeff of Noris 12.7, Plt Count 334, MPV 10.1, Immature Gran % (Auto) 0.300, Neut % (Auto) 76.0 H, Lymph % (Auto) 14.7 L,[place] % (Auto) 6.9, Eos % (Auto) 0.9, Baso % (Auto) 1.2 H, Absolute Neuts (auto) 7.7, Absolute Lymphs (auto) 1.49, Nucleated RBC % 0, Sodium 144, Potassium 3.7, Chloride 109 H, Carbon Dioxide 21.8, Anion Gap 13, BUN 17, Creatinine 0.79, Estim Creat Clear Calc 79.80, Est GFR (MDRD) Non-Af 94, BUN/Creatinine Ratio 21.2 H, Glucose 90, Calcium 9.8, Total Bilirubin 0.51, AST 12, ALT 8, Alkaline Phosphatase 77, Troponin T High Sens 9, Total Protein 7.8, Albumin 4.3, Globulin3.4, Albumin/Globulin Ratio 1.3 02/26/25 19:03: Lactic Acid 1.7 02/26/25 19:45: Urine Color Yellow, Urine Clarity Clear, Urine pH 5.0, Ur Specific [place] 1.025, Urine Protein 30 H, Urine Glucose (UA) Normal, Urine Ketones Negative, Urine Occult Blood 10 H, UrineNitrite Negative, Urine Bilirubin 1 H, Urine Urobilinogen 1 H, Ur Leukocyte Esterase 25 H, Urine RBC 0- 5SEEN, Urine WBC 0-5 SEEN, Ur Squamous Epith Cells 0 SEEN, Urine Bacteria 0 SEEN,Urine Mucus 0 SEEN, Urine Opiates Screen NEGATIVE, U Buprenorphine Qual NEGATIVE, Ur Oxycodone Screen NEGATIVE, Urine Methadone Screen NEGATIVE, Urine Fentanyl Screen NEGATIVE, Ur Barbiturates Screen NEGATIVE, Ur Phencyclidine ScrnNEGATIVE, Ur Amphetamines Screen NEGATIVE, U Benzodiazepines Scrn NEGATIVE, Urine Cocaine Screen NEGATIVE, U Cannabinoids Screen NEGATIVE 02/26/25 20:20: Troponin T Hi Sens 2 Hr 7 02/26/25 22:53: Hemoglobin A1c 5.5, Troponin T Hi Sens 4Hr 10, Vitamin B12 461, Serum Folate 10.50,TSH 1.070, Ethyl Alcohol < 10.1 02/27/25 05:30: Triglycerides 87, Cholesterol 185, LDL Cholesterol, Calc 119, VLDL Cholesterol 17, HDL Cholesterol 49, Cholesterol/HDL Ratio 3.80 Rhythm Strip Rhythm Strip: Sinus Rhythm Rate: 87 Ectopy: None Imaging Radiology Impression Brain CT 02/26/25 18:43 IMPRESSION: No acute intracranial abnormality. 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 [facility] X-Ray 02/26/25 19:20 IMPRESSION: NO ACUTE FINDINGS. Reading Location: [facility] Active Medications Active Medications Active Medications: Current Medications Generic Name Dose Route Start Last Admin Trade Name Freq PRN Reason Stop Dose Admin Acetaminophen 650 mg 02/26/25 22:22 Acetaminophen 325 Mg Tablet PO Q6H PRN PRN Pain 1-10 or Fever Aspirin 81 mg 02/27/25 08:00 Aspirin 81 Mg Tab.Chew PO BREAKFAST SUMIT Atorvastatin Calcium 10 mg 02/26/25 22:22 02/26/25 23:06 Atorvastatin Calcium 10 Mg Tablet PO 10 mg QHS SUMIT Administration Baclofen 10 mg 02/26/25 22:22 02/27/25 05:04 Baclofen 10 Mg Tablet PO 10 mg TID SUMIT Administration Clarify Med Order 0 each 02/26/25 22:45 Clarify Order NOTE CLARIFY SUMIT Donepezil HCl 10 mg 02/26/25 22:22 02/26/25 23:06 Donepezil Hcl 10 Mg Tablet PO 10 mg QHS SUMIT Administration Ergocalciferol mg 02/27/25 10:00 Ergocalciferol 1.25 Mg (50, 000 Unit) Capsule PO DAILY SUMIT Sodium Chloride 1,000 mls @ 50 mls/hr 02/26/25 22:01 02/27/25 07:02 IV 02/27/25 18:00 50 mls/hr .Q20H SUMIT Infusion Lacosamide 100 mg 02/26/25 22:22 02/26/25 23:06 Lacosamide 100 Mg Tablet PO 100 mg BID SUMIT Administration Mirtazapine 15 mg 02/26/25 22:22 02/26/25 23:06 Mirtazapine 15 Mg Tablet PO 15 mg QHS SUMIT Administration Sodium Chloride 10 - 40 ml 02/26/25 22:32 0.9% Saline Lock 10 Ml Syringe IV UD PRN SALINE FLUSH NIHSS NIHSS Nursing Documentation NIHSS Nursing Documentation: NIHSS: Ischemic Stroke/TIA Start: 02/26/25 22:22 Text: For PCU Patients: NIH and Neuro Check every 4 Status: Active hours, PRN and with change in RN caregiver. Freq: [id number] Protocol: Activity Type Activity Date Activity User E-sign Co-sign Detail Recorded Client Recorded Date Recorded By Document 02/27/25 05:00 PRISCILLA [id number] 02/27/25 05:09 PRISCILLA 02/27/25 05:00 NIH Stroke Scale [NIHSS] A score of 0 is normal or asymptomatic . Total possible score is 42. Inpatient: RN or Physician to activate a stroke alert for onset of new stroke symptoms or with NIHSS increase >/= 3 points. Following change in neurological status, NIHSS will be performed per physician order or more frequently PRN. -1a. Level of Consciousness 0 - Alert; keenly responsive -1b. LOC Questions 2 - Answers NEITHER question correctly -1c. LOC Commands 1 - Performs ONE task correctly -2. Best Gaze 0 - Normal -3. Visual 0 - No visual loss -4. Facial Palsy 0 - Normal symmetrical movements -5a. Left Arm 1 - Drift; arm drifts downward but doesn?t hit the bed -5b. Right Arm 0 - No drift; arm holds 90 ( or 45) degrees for full 10 seconds -6a. Left Leg 0 - No drift; leg holds 30- degree position for full 5 seconds -6b. Right Leg 0 - No drift; leg holds 30- degree position for full 5 seconds -7. Limb Ataxia 1 - Present in 1 limb -8. Sensory 0 - Normal; no sensory loss -9. Best Language 1 - Mild-to- moderate aphasia; -10. Dysarthria 0 - Normal -11. Extinction and Inattention 0 - No abnormality -Total 6 Query Text:A score of 0 is normal or asymptomatic. Total possible score is 42 . ED: Notify Physician for NIHSS increase by > / = 3 points. Inpatient: RN or Physician to activate a stroke alert for NIHSS increase of > / = 3 points. Coma Scale [Assess] -Eye Opening Spontaneous -Motor Obeys Commands -Verbal Confused [Total] -Coma Scale Total 14 02/28/25 0053 Cosigner Signature (if applicable): CC: Dr. Fausto Davidson, DO; No Primary Care Physician~ Signed [facility]05-12-2025 Progress note Author Donny Taylor [facility] Note Date/Time February 27, 2025 6:31p m [facility] Medical Records Department [address] [place] [address] Progress Note - Hospitalist 02/27/25 1824 MR#: [id number] Acct: [id number] Name: ALDO SOTO Rep #:[id number] : 1950 74 From: Donny Taylor DO PCP: Care Physician,No Primary Status :ADM RAQUEL Location: [place] [address] Reason for Visit Reason for Visit: Diagnoses Unspecified dementia, unspecified severity, without behavioral disturbance, psychotic disturbance, mood disturbance, and anxiety (02/26/25) Unspecified dementia, unspecified severity, with psychotic disturbance (02/26/25) Epilepsy, unspecified, not intractable, without status epilepticus (02/26/25) Unspecified sequelae of cerebral infarction (02/26/25) Other sequelae of cerebral infarction (02/26/25) Disorientation, unspecified (02/26/25) Weakness (02/26/25) Subjective Subjective Patient was seen and examined today, he remains confused but alert, he does not appear agitated. I communicated with teleneurology today via text, they wanted me to increase his seizure medication (Vimpat) to 150 mg twice a day starting tomorrow. MRI did not show evidence of an acute stroke. I talked to the by phone today, the last time patient had a seizure was approximately 5 years ago after his first stroke. Patient's states that she is unable to care for the patient due to his dementia. We are currently looking for an extended care facility for at least temporary placement of the patient. Objective Data Objective Data Vital Signs: Vital Signs Temp Pulse Resp BP Pulse Ox O2 Del Method 98.6 F 92 16 164/99 H 99 Room Air 02/27/25 12:45 02/27/25 12:45 02/27/25 12:45 02/27/25 12:45 02/27/25 12:45 02/27/25 14:25 Oxygen Delivery Method Room Air Weight: 65.1 kg Body Mass Index (BMI) 21.2 Intake & Output: Intake and Output for Last 24 Hours 02/25/25 02/26/25 02/27/25 23:59 23:59 23:59 Intake Total 391.67 / 391.67 Balance 391.67 / 391.67 Lab / Micro Data 02/26/25 18:33 02/26/25 18:33 Labs: Laboratory Results - last 24 hr 02/26/25 18:33: WBC 10.1, RBC 5.71, Hgb 17.0 H, Hct 51.1, MCV 89.5, MCH 29.8, MCHC 33.3, RDW Std Deviation 41.7, RDW Coeff of Noris 12.7, Plt Count 334, MPV 10.1, Immature Gran % (Auto) 0.300, Neut % (Auto) 76.0 H, Lymph % (Auto) 14.7 L,[place] % (Auto) 6.9, Eos % (Auto) 0.9, Baso % (Auto) 1.2 H, Absolute Neuts (auto) 7.7, Absolute Lymphs (auto) 1.49, Nucleated RBC % 0, Sodium 144, Potassium 3.7, Chloride 109 H, Carbon Dioxide 21.8, Anion Gap 13, BUN 17, Creatinine 0.79, Estim Creat Clear Calc 79.80, Est GFR (MDRD) Non-Af 94, BUN/Creatinine Ratio 21.2 H, Glucose 90, Calcium 9.8, Total Bilirubin 0.51, AST 12, ALT 8, Alkaline Phosphatase 77, Troponin T High Sens 9, Total Protein 7.8, Albumin 4.3, Globulin3.4, Albumin/Globulin Ratio 1.3 02/26/25 19:03: Lactic Acid 1.7 02/26/25 19:45: Urine Color Yellow, Urine Clarity Clear, Urine pH 5.0, Ur Specific [place] 1.025, Urine Protein 30 H, Urine Glucose (UA) Normal, Urine Ketones Negative, Urine Occult Blood 10 H, Urine Nitrite Negative, Urine Bilirubin 1 H, Urine Urobilinogen 1 H, Ur Leukocyte Esterase 25 H, Urine RBC 0-5SEEN, Urine WBC 0-5 SEEN, Ur Squamous Epith Cells 0 SEEN, Urine Bacteria 0 SEEN,Urine Mucus 0 SEEN, Urine Opiates Screen NEGATIVE, U Buprenorphine Qual NEGATIVE, Ur Oxycodone Screen NEGATIVE, Urine Methadone Screen NEGATIVE, Urine Fentanyl Screen NEGATIVE, Ur Barbiturates Screen NEGATIVE, Ur Phencyclidine ScrnNEGATIVE, Ur Amphetamines Screen NEGATIVE, U Benzodiazepines Scrn NEGATIVE, Urine Cocaine Screen NEGATIVE, U Cannabinoids Screen NEGATIVE 02/26/25 20:20: Troponin T Hi Sens 2 Hr 7 02/26/25 22:53: Hemoglobin A1c 5.5, Troponin T Hi Sens 4Hr 10, Vitamin B12 461, Serum Folate 10.50, TSH 1.070, Ethyl Alcohol < 10.1 02/27/25 05:30: Triglycerides 87, Cholesterol 185, LDL Cholesterol, Calc 119, VLDL Cholesterol 17, HDL Cholesterol 49, Cholesterol/HDL Ratio 3.80 Radiography Diagnostic Testing: Radiology Impression Brain CT 02/26/25 18:43 IMPRESSION: No acute intracranial abnormality. 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 Reading Location: [facility] Chest X-Ray 02/26/25 19:20 IMPRESSION: NO ACUTE FINDINGS. Reading Location: [facility] Echocardiogram 02/26/25 22:01 Interpretation Summary Normal LV size. Left ventricular systolic function is normal. The left ventricular ejection fraction is 65 %. Stage 1 diastolic dysfunction. Contrast injection was performed. Ordering Physician: Fausto Davidson Referring Physician: Fausto Davidson Performed By: Wojciech Trujillo [facility] Brain MRI 02/27/25 09:00 IMPRESSION: There is encephalomalacia in the right posterior parietal, posterior temporal, and occipital regions with chronic ischemic change, with abnormal GRE signal at the margins. There is restricted diffusion at the anterior and posterior aspect of the superior margin of the infarcted region on the right. There is restricted diffusion in the left parafalcine central and precentral cortex, axial image 24/26, with abnormal GRE signal in the periphery of the left occipital lobe, image 16-22. A component of recent blood products is not excluded, however is not demonstrated on the recent CT. Continued follow-up is recommended. There is extensive abnormal T2 and FLAIR signal throughout the deep white matter, confluent in the periventricular regions. Left maxillary sinus disease is present. There is fluid signal in a portion of the left mastoid air cells. Reading Location: [facility] Rhythm Strip Rhythm Strip: Sinus Rhythm Rate: 87 Ectopy: None Physical Exam Const alert and no apparent distress Constitutional Narrative: Patient is confused, he does not appear agitated or depressed, patient is oriented as to person only General Appearance: cooperative, well kempt and well developed Orientation / Consciousness: awake HEENT normocephalic, head/scalp atraumatic and moist oral mucous membranes Eyes PERRL, EOMs intact bilaterally and conjunctivae normal Neck supple, no JVD, thyroid normal and no carotid bruits General: trachea midline Resp normal respiratory effort, no retractions, no use of accessory muscles and clearto auscultation bilaterally Auscultation: Negative for rales, rhonchi or wheezes Cardio regular rate, regular rhythm, S1 normal heart sound, S2 normal heart sound, no murmurs, no rub and no gallops GI normal to inspection, nondistended, normoactive bowel sounds, soft to palpation,non-tender and non-distended Extremity Extremity Narrative: Patient has left hemiparesis Skin no rashes or lesions noted General Skin Exam: no breakdown Neuro CN's II-XII intact bilaterally Neuro Narrative: Patient has left hemiparesis Sensorium / Orientation: awake and alert Speech: speech normal Psych Psych Narrative: Patient is confused, he does not appear agitated or depressed Assessment & Plan Assessment/Plan (1) Generalized weakness: PLAN: Plan 1. Acute on chronic debility secondary to cerebrovascular disease with left hemiparesis on a backdrop of chronic dementia-PT and OT will continue work with the patient, he will placement in an extended care facility for inpatient rehab services #2 cerebrovascular disease with left hemiplegia-continue home medications, complicates care, management, recovery, and prognosis #3 dementia-probably secondary to cerebrovascular disease-it is likely this is worsened over the last several weeks, complicates care, management, recovery, and prognosis, teleneurology is participating in his care #4 seizure disorder-patient has had a seizure disorder for approximately 5 years, he will continue on Vimpat at an increased dose starting tomorrow #5 essential hypertension-patient will remain on his present medications, blood pressure will be monitored Total clinical time spent by myself addressing the patient's medical issues, reviewing all of his data, and collaborating with patient's care team: 35 minutes Charges/Coding Visit Charges Inpatient E&M: 31633 Subs Hosp L2 NIHSS NIHSS Nursing Documentation NIHSS Nursing Documentation: NIHSS: Ischemic Stroke/TIA Start: 02/26/25 22:22 Text: For PCU Patients: NIH and Neuro Check every 4 Status: Complete hours, PRN and with change in RN caregiver. Freq: [id number] Protocol: Activity Type Activity Date Activity User E-sign Co-sign Detail Recorded Client Recorded Date Recorded By Document 02/27/25 12:48 GABRIELA [id number] 02/27/25 12:54 GABRIELA 02/27/25 12:48 NIH Stroke Scale [NIHSS] A score of 0 is normal or asymptomatic . Total possible score is 42. Inpatient: RN or Physician to activate a stroke alert for onset of new stroke symptoms or with NIHSS increase >/= 3 points. Following change in neurological status, NIHSS will be performed per physician order or more frequently PRN. -1a. Level of Consciousness 0 - Alert; keenly responsive -1b. LOC Questions 2 - Answers NEITHER question correctly -1c. LOC Commands 1 - Performs ONE task correctly -2. Best Gaze 0 - Normal -3. Visual 0 - No visual loss -4. Facial Palsy 0 - Normal symmetrical movements -5a. Left Arm 1 - Drift; arm drifts downward but doesn?t hit the bed -5b. Right Arm 0 - No drift; arm holds 90 ( or 45) degrees for full 10 seconds -6a. Left Leg 0 - No drift; leg holds 30- degree position for full 5 seconds -6b. Right Leg 0 - No drift; leg holds 30- degree position for full 5 seconds -7. Limb Ataxia 1 - Present in 1 limb -8. Sensory 1 - Mild-to- moderate sensory loss; -9. Best Language 1 - Mild-to- moderate aphasia; -10. Dysarthria 0 - Normal -11. Extinction and Inattention 0 - No abnormality -Total 7 Query Text:A score of 0 is normal or asymptomatic. Total possible score is 42 . ED: Notify Physician for NIHSS increase by > / = 3 points. Inpatient: RN or Physician to activate a stroke alert for NIHSS increase of > / = 3 points. Coma Scale [Assess] -Eye Opening Spontaneous -Motor Obeys Commands -Verbal Confused [Total] -Coma Scale Total 14 02/27/25 1831 <Electronically signed by Donny Taylor DO> Cosigner Signature (if applicable): CC: ~ Signed [facility] Work Phone: [phone]) 442-379505-12-2025 Progress note [facility] Medical Records Department [address] [place] [address] Progress Note - Hospitalist 02/27/25 182 MR#: [id number] Acct: [id number] Name: ALDO SOTO Rep #:[id number] : 1950 74 From: Donny Taylor DO PCP: Care Physician,No Primary Status :ADM RAQUEL Location: [place] [address] Reason for Visit Reason for Visit: Diagnoses Unspecified dementia, unspecified severity, without behavioral disturbance, psychotic disturbance, mood disturbance, and anxiety (02/26/25) Unspecified dementia, unspecified severity, with psychotic disturbance (02/26/25) Epilepsy, unspecified, not intractable, without status epilepticus (02/26/25) Unspecified sequelae of cerebral infarction (02/26/25) Other sequelae of cerebral infarction (02/26/25) Disorientation, unspecified (02/26/25) Weakness (02/26/25) Subjective Subjective Patient was seen and examined today, he remains confused but alert, he does not appear agitated. I communicated with teleneurology today via text, they wanted me to increase his seizure medication (Vimpat) to 150 mg twice a day starting tomorrow. MRI did not show evidence of an acute stroke. I talked to the by phone today, the last time patient had a seizure was approximately 5 years ago after his first stroke. Patient's states that she is unable to care for the patient due to his dementia. We are currently looking for an extended care facility for at least temporary placement of the patient. Objective Data Objective Data Vital Signs: Vital Signs Temp Pulse Resp BP Pulse Ox O2 Del Method 98.6 F 92 16 164/99 H 99 Room Air 02/27/25 12:45 02/27/25 12:45 02/27/25 12:45 02/27/25 12:45 02/27/25 12:45 02/27/25 14:25 Oxygen Delivery Method Room Air Weight: 65.1 kg Body Mass Index (BMI) 21.2 Intake & Output: Intake and Output for Last 24 Hours 02/25/25 02/26/25 02/27/25 23:59 23:59 23:59 Intake Total 391.67 / 391.67 Balance 391.67 / 391.67 Lab / Micro Data 02/26/25 18:33 02/26/25 18:33 Labs: Laboratory Results - last 24 hr 02/26/25 18:33: WBC 10.1, RBC 5.71, Hgb 17.0 H, Hct 51.1, MCV 89.5, MCH 29.8, MCHC 33.3, RDW Std Deviation 41.7, RDW Coeff of Noris 12.7, Plt Count 334, MPV 10.1, Immature Gran % (Auto) 0.300, Neut % (Auto) 76.0 H, Lymph % (Auto) 14.7 L,[place] % (Auto) 6.9, Eos % (Auto) 0.9, Baso % (Auto) 1.2 H, Absolute Neuts (auto) 7.7, Absolute Lymphs (auto) 1.49, Nucleated RBC % 0, Sodium 144, Potassium 3.7, Chloride 109 H, Carbon Dioxide 21.8, Anion Gap 13, BUN 17, Creatinine 0.79, Estim Creat Clear Calc 79.80, Est GFR (MDRD) Non-Af 94, BUN/Creatinine Ratio 21.2 H, Glucose 90, Calcium 9.8, Total Bilirubin 0.51, AST 12, ALT 8, Alkaline Phosphatase 77, Troponin T High Sens 9, Total Protein 7.8, Albumin 4.3, Globulin3.4, Albumin/Globulin Ratio 1.3 02/26/25 19:03: Lactic Acid 1.7 02/26/25 19:45: Urine Color Yellow, Urine Clarity Clear, Urine pH 5.0, Ur Specific [place] 1.025, Urine Protein 30 H, Urine Glucose (UA) Normal, Urine Ketones Negative, Urine Occult Blood 10 H, UrineNitrite Negative, Urine Bilirubin 1 H, Urine Urobilinogen 1 H, Ur Leukocyte Esterase 25 H, Urine RBC 0- 5SEEN, Urine WBC 0-5 SEEN, Ur Squamous Epith Cells 0 SEEN, Urine Bacteria 0 SEEN,Urine Mucus 0 SEEN, Urine Opiates Screen NEGATIVE, U Buprenorphine Qual NEGATIVE, Ur Oxycodone Screen NEGATIVE, Urine Methadone Screen NEGATIVE, Urine Fentanyl Screen NEGATIVE, Ur Barbiturates Screen NEGATIVE, Ur Phencyclidine ScrnNEGATIVE, Ur Amphetamines Screen NEGATIVE, U Benzodiazepines Scrn NEGATIVE, Urine Cocaine Screen NEGATIVE, U Cannabinoids Screen NEGATIVE 02/26/25 20:20: Troponin T Hi Sens 2 Hr 7 02/26/25 22:53: Hemoglobin A1c 5.5, Troponin T Hi Sens 4Hr 10, Vitamin B12 461, Serum Folate 10.50,TSH 1.070, Ethyl Alcohol < 10.1 02/27/25 05:30: Triglycerides 87, Cholesterol 185, LDL Cholesterol, Calc 119, VLDL Cholesterol 17, HDL Cholesterol 49, Cholesterol/HDL Ratio 3.80 Radiography Diagnostic Testing: Radiology Impression Brain CT 02/26/25 18:43 IMPRESSION: No acute intracranial abnormality. 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 Reading Location: [facility] Chest X-Ray 02/26/25 19:20 IMPRESSION: NO ACUTE FINDINGS. Reading Location: [facility] Echocardiogram 02/26/25 22:01 Interpretation Summary Normal LV size. Left ventricular systolic function is normal. The left ventricular ejection fraction is 65 %. Stage 1 diastolic dysfunction. Contrast injection was performed. Ordering Physician: Fausto Davidson Referring Physician: Fausto Davidson Performed By: Wojciech Trujillo [facility] Brain MRI 02/27/25 09:00 IMPRESSION: There is encephalomalacia in the right posterior parietal, posterior temporal, and occipital regions with chronic ischemic change, with abnormal GRE signal at the margins. There is restricted diffusion at the anterior and posterior aspect of the superior margin of the infarcted region on the right. There is restricted diffusion in the left parafalcine central and precentral cortex, axial image 24/26, with abnormal GRE signal in the periphery of the left occipital lobe, image 16-22. A component of recent blood products is not excluded, however is not demonstrated on the recent CT. Continued follow-up is recommended. There is extensive abnormal T2 and FLAIR signal throughout the deep white matter, confluent in the periventricular regions. Left maxillary sinus disease is present. There is fluid signal in a portion of the left mastoid air cells. Reading Location: [facility] Rhythm Strip Rhythm Strip: Sinus Rhythm Rate: 87 Ectopy: None Physical Exam Const alert and no apparent distress Constitutional Narrative: Patient is confused, he does not appear agitated or depressed, patient is oriented as to person only General Appearance: cooperative, well kempt and well developed Orientation / Consciousness: awake HEENT normocephalic, head/scalp atraumatic and moist oral mucous membranes Eyes PERRL, EOMs intact bilaterally and conjunctivae normal Neck supple, no JVD, thyroid normal and no carotid bruits General: trachea midline Resp normal respiratory effort, no retractions, no use of accessory muscles and clearto auscultation bilaterally Auscultation: Negative for rales, rhonchi or wheezes Cardio regular rate, regular rhythm, S1 normal heart sound, S2 normal heart sound, no murmurs, no rub and no gallops GI normal to inspection, nondistended, normoactive bowel sounds, soft to palpation,non-tender and non-distended Extremity Extremity Narrative: Patient has left hemiparesis Skin no rashes or lesions noted General Skin Exam: no breakdown Neuro CN's II-XII intact bilaterally Neuro Narrative: Patient has left hemiparesis Sensorium / Orientation: awake and alert Speech: speech normal Psych Psych Narrative: Patient is confused, he does not appear agitated or depressed Assessment & Plan Assessment/Plan (1) Generalized weakness: PLAN: Plan 1. Acute on chronic debility secondary to cerebrovascular disease with left hemiparesis on a backdrop of chronic dementia-PT and OT will continue work with the patient, he will placement in an extended care facility for inpatient rehab services #2 cerebrovascular disease with left hemiplegia-continue home medications, complicates care, management, recovery, and prognosis #3 dementia-probably secondary to cerebrovascular disease-it is likely this is worsened over the last several weeks, complicates care, management, recovery, and prognosis, teleneurology is participating in his care #4 seizure disorder-patient has had a seizure disorder for approximately 5 years, he will continue on Vimpat at an increased dose starting tomorrow #5 essential hypertension-patient will remain on his present medications, blood pressure will be monitored Total clinical time spent by myself addressing the patient's medical issues, reviewing all of his data, and collaborating with patient's care team: 35 minutes Charges/Coding Visit Charges Inpatient E&M: 47171 Subs Hosp L2 NIHSS NIHSS Nursing Documentation NIHSS Nursing Documentation: NIHSS: Ischemic Stroke/TIA Start: 02/26/25 22:22 Text: For PCU Patients: NIH and Neuro Check every 4 Status: Complete hours, PRN and with change in RN caregiver. Freq: [id number] Protocol: Activity Type Activity Date Activity User E-sign Co-sign Detail Recorded Client Recorded Date Recorded By Document 02/27/25 12:48 GABRIELA [id number] 02/27/25 12:54 GABRIELA 02/27/25 12:48 NIH Stroke Scale [NIHSS] A score of 0 is normal or asymptomatic . Total possible score is 42. Inpatient: RN or Physician to activate a stroke alert for onset of new stroke symptoms or with NIHSS increase >/= 3 points. Following change in neurological status, NIHSS will be performed per physician order or more frequently PRN. -1a. Level of Consciousness 0 - Alert; keenly responsive -1b. LOC Questions 2 - Answers NEITHER question correctly -1c. LOC Commands 1 - Performs ONE task correctly -2. Best Gaze 0 - Normal -3. Visual 0 - No visual loss -4. Facial Palsy 0 - Normal symmetrical movements -5a. Left Arm 1 - Drift; arm drifts downward but doesn?t hit the bed -5b. Right Arm 0 - No drift; arm holds 90 ( or 45) degrees for full 10 seconds -6a. Left Leg 0 - No drift; leg holds 30- degree position for full 5 seconds -6b. Right Leg 0 - No drift; leg holds 30- degree position for full 5 seconds -7. Limb Ataxia 1 - Present in 1 limb -8. Sensory 1 - Mild-to- moderate sensory loss; -9. Best Language 1 - Mild-to- moderate aphasia; -10. Dysarthria 0 - Normal -11. Extinction and Inattention 0 - No abnormality -Total 7 Query Text:A score of 0 is normal or asymptomatic. Total possible score is 42 . ED: Notify Physician for NIHSS increase by > / = 3 points. Inpatient: RN or Physician to activate a stroke alert for NIHSS increase of > / = 3 points. Coma Scale [Assess] -Eye Opening Spontaneous -Motor Obeys Commands -Verbal Confused [Total] -Coma Scale Total 14 02/27/25 1831 Cosigner Signature (if applicable): CC: ~ Signed [facility]05-12-2025 History and physical note Author aFusto Perla [facility] Note Date/Time February 27, 2025 6:11a m [facility] Medical Records Department [address] [place] [address] H&P Exam - Hospitalist 02/26/252126 MR#: [id number] Acct: [id number] Name: ALDO SOTO Rep #:[id number] : 1950 74 From: Fausto Webster DO PCP: Care Physician,No Primary Status :ADM RAQUEL Location: [place] [address] HPI - General General Date of Admission: 02/26/25 Date of Service: 02/26/25 Chief Complaint: AMS and Fall. 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 Mr. Soto is not up as reliable-historian at this time so information was gathered from chart, medical staff and computer. According to the records he has been confused for the past 6 days with mild intermittent shortness of breath, feeling fatigued and generally weak. His states he is usually not confused. He typically uses a wheelchair to mobilize and can usually transfer on his own but he was able to this past week until today when he attempted to get up experienced a minor fall without associated injury, LOC or head trauma. He denies pain and shortness of breath at this time. His states he has been hallucinating recently and talking to people that are not there. She also states he said something about getting up on a tractor yesterday, with his stating he certainly did not do that. Also for the last few days the patient has been calling his Moises but the day he seems to know who she is. There was no reported fever, chills, blurry vision, discharge from eyes, runny nose, sore throat, ear pain, chest pain, palpitations, heart racing, abdominal pain, nausea, vomiting, diarrhea, hematuria, dysuria, back pain, headache or rash. 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 He was then admitted to the PCU under observation status for TIA/CVA workup for his confusion for a stay that is expected to be less than 2 midnights. [facility] Medical History Hemorrhagic stroke Home Medications ?Medication ?Instructions ?Recorded ?Last Taken ?Type amlodipine 5 mg tablet 5 mg PO BID 02/26/25 Unknown History atorvastatin 10 mg tablet 10 mg PO QHS 02/26/25 Unknow n History baclofen 10 mg tablet 10 mg PO TID 02/26/25 Unknow n History donepezil 5 mg tablet 10 mg PO QHS 02/26/25 Unknow n History ergocalciferol (vitamin D2) 1,250 50,000 unit PO DAILY 02/26/25 Unknown History mcg (50,000 unit) capsule (Vitamin D2) lacosamide 100 mg tablet 100 mg PO BID 02/26/25 Unkno wn History metoprolol tartrate 25 mg tablet 25 mg PO BID 02/26/25 Unknown History mirtazapine 15 mg tablet (Remeron) 15 mg PO QHS Unknown History Allergy/AdvReac Type Severity Reaction Status Date / Time azithromycin Allergy NEEDS Verified 02/26/25 18:24 FOLLOW-UP Surgical History History of hip replacement Social History Smoking Status: Former smoker ROS ROS Narrative Full review of systems was not possible due to patient's confusion. Vital Signs Vital Signs Vital Signs: 02/26/25 18:24 02/26/25 18:26 02/26/25 19:26 Temperature 98.6 F 98.6 F 99.1 F Temperature Source Oral Oral Oral Pulse Rate 91 91 91 Respiratory Rate 18 14 14 Blood Pressure 155/102 H 147/97 H 165/104 H Blood Pressure Mean 119 113 124 Pulse Ox 98 95 97 Oxygen Delivery Method Room Air Room Air Room Air 02/26/25 21:04 Temperature 99.1 F Temperature Source Oral Pulse Rate 89 Respiratory Rate 16 Blood Pressure 149/103 H Blood Pressure Mean 118 Pulse Ox 94 Oxygen Delivery Method Room Air Weight Weight: 151 lb 3.794 oz Body Mass Index (BMI) 22.3 Physical Exam Const alert, no apparent distress and average body habitus General Appearance: cooperative Orientation / Consciousness: confused HEENT normocephalic, head/scalp atraumatic, hearing grossly normal bilaterally and moist oral mucous membranes Eyes PERRL, EOMs intact bilaterally and conjunctivae normal Neck no lymphadenopathy, supple and no JVD Resp normal respiratory effort, no retractions, no use of accessory muscles and clearto auscultation bilaterally Cardio regular rate and regular rhythm GI normal to inspection, nondistended, normoactive bowel sounds, soft to palpation,non-tender and non-distended Extremity normal to inspection, full ROM and no clubbing, cyanosis or edema Skin Skin Narrative: Patient has evidence of rash, abscess, wounds or jaundice. Neuro CN's II-XII intact bilaterally and moves all extremities Neuro Narrative: Patient is confused and has chronic Left-sided weakness that is unchanged from previous. Sensorium / Orientation: awake, alert, oriented to person and oriented to place Speech: speech normal Psych affect normal Results Medical Records Data Attestation: I reviewed the patient's medical records Lab / Micro Data Attestation: I reviewed the patient's lab results. 02/26/25 18:33 02/26/25 18:33 Labs: Laboratory Results - last 24 hr 02/26/25 18:33: WBC 10.1, RBC 5.71, Hgb 17.0 H, Hct 51.1, MCV 89.5, MCH 29.8, MCHC 33.3, RDW Std Deviation 41.7, RDW Coeff of Noris 12.7, Plt Count 334, MPV 10.1, Immature Gran % (Auto) 0.300, Neut % (Auto) 76.0 H, Lymph % (Auto) 14.7 L,[place] % (Auto) 6.9, Eos % (Auto) 0.9, Baso % (Auto) 1.2 H, Absolute Neuts (auto) 7.7, Absolute Lymphs (auto) 1.49, Nucleated RBC % 0, Sodium 144, Potassium 3.7, Chloride 109 H, Carbon Dioxide 21.8, Anion Gap 13, BUN 17, Creatinine 0.79, Estim Creat Clear Calc 79.80, Est GFR (MDRD) Non-Af 94, BUN/Creatinine Ratio 21.2 H, Glucose 90, Calcium 9.8, Total Bilirubin 0.51, AST 12, ALT 8, Alkaline Phosphatase 77, Troponin T High Sens 9, Total Protein 7.8, Albumin 4.3, Globulin3.4, Albumin/Globulin Ratio 1.3 02/26/25 19:03: Lactic Acid 1.7 02/26/25 19:45: Urine Color Yellow, Urine Clarity Clear, Urine pH 5.0, Ur Specific [place] 1.025, Urine Protein 30 H, Urine Glucose (UA) Normal, Urine Ketones Negative, Urine Occult Blood 10 H, Urine Nitrite Negative, Urine Bilirubin 1 H, Urine Urobilinogen 1 H, Ur Leukocyte Esterase 25 H, Urine RBC 0-5SEEN, Urine WBC 0-5 SEEN, Ur Squamous Epith Cells 0 SEEN, Urine Bacteria 0 SEEN,Urine Mucus 0 SEEN 02/26/25 20:20: Troponin T Hi Sens 2 Hr 7 Rhythm Strip Rhythm Strip: Sinus Rhythm Rate: 87 Ectopy: None Imaging Radiology Impression Brain CT 02/26/25 18:43 IMPRESSION: No acute intracranial abnormality. 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 [facility] Chest X-Ray 02/26/25 19:20 IMPRESSION: NO ACUTE FINDINGS. Reading Location: [facility] Assessment & Plan Assessment/Plan (1) Confusion: (2) 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nset dementia: (3) Generalized weakness: (4) History of hemorrhagic cerebrovascular accident (CVA) with residual deficit: (5) Seizure disorder as sequela of cerebrovascular accident: (6) Chronic dementia: (7) Generalized weakness: PLAN: Plan 1. Persistent Confusion x ~6 days; with Hallucinations and Generalized Weakness; evaluate for TIA/CVA - Admit to PCU under observation status. Check MRI of brain without contrast to evaluate for CVA. Check echocardiogram to evaluate LVEF. Check carotid Doppler to evaluate for stenosis. Continue aspirin begun in ER as well as statin patient is chronically taking. Check TSH,B12, folate, hemoglobin A1c, lipid profile, UDS and FER to expand neurologic evaluation for other possible causes of confusion. Give acetaminophen as neededfor pain or fever. We will minimize new HEADWAITER/HEADWAITRESS-active medications in an effort to allow sensorium to clear. Finally, we will consult [facility] tel[facility] to see this patient on rounds in a.m. for further recommendations without appreciated in advance. 2. History of hemorrhagic Right MCA CVA (~2018) followed by another CVA (2023);residual Left-sided weakness complicating #1 - Noted. 3. History of seizure after CVA; on lacosamide compounding #1 & #2 - Resume lacosamide and check EEG in a.m. to evaluate for possible underlying seizure activity. 4. Chronic dementia; on donepezil adding to the medical complexity of #1 - #3 -Maintain donepezil and consider adding a second agent if above workup is unremarkable and hallucinations and confusion persist in spite of conservative treatment and other underlying etiology failing to be identified in spite of workup outlined above. 5. Essential hypertension; on amlodipine and metoprolol twice daily - Hold scheduled antihypertensives to allow for 'permissive hypertension' until CVA definitively ruled out on MRI. 6. Hyperlipidemia; on atorvastatin - Resume statin and check lipid profile in light of #1. 7. Former tobacco abuse - Noted. 8. Depression; on mirtazapine - Current therapy to be continued as before. 9. History of TIA; with a possible recurrence outlined #1 - Noted. 10. History of muscle spasms; on baclofen 3 times daily - Maintain present regimen. 11. OA; s/p THR - Give acetaminophen as needed as outlined in #1. Who present[facility] ER with his family complaining of altered mental status and fall. 12. DVT prophylaxis - SCD's only. Total time: Approximately (but not less than) 70 minutes. Charges/Coding Visit Charges OBSV E&M: 86930 Observ/hosp same date L2 02/27/25 0611 <Electronically signed by Fausto Davidson DO> Cosigner Signature (if applicable): CC: Dr. Fausto Davidson, ; No Primary Care Physician~ Signed [facility] Work Phone: [phone] 787-989505-12-2025 History and physical note [facility] Medical Records Department [address] [place] [address] H&P Exam - Hospitalist 02/26/252126 MR#: [id number] Acct: [id number] Name: ALDO SOTO Rep #:[id number] : 1950 74 From: Fausto Webster DO PCP: Care Physician,No Primary Status :ADM RAQUEL Location: [place] [address] HPI - General General Date of Admission: 02/26/25 Date of Service: 02/26/25 Chief Complaint: AMS and Fall. HPI Narrative ALDO SOTO, is a 74 M with a past medical history of essential hypertension; on amlodipine andmetoprolol twice daily, hyperlipidemia; on atorvastatin, former tobacco abuse, history of hemorrhagic Right MCA CVA (~2018)followed by another CVA (2024); residual Left-sided weakness, history of seizure; on lacosamide, chronic dementia; on donepezil, depression; on mirtazapine, history of TIA, history of muscle spasms; on baclofen 3 times dailyand OA; s/p THR who presents to [facility] ER with his family complaining of altered mental status and fall. Mr. Soto is not up as reliable-historian at this time so information was gathered from chart, medical staff and computer. According to the records he has been confused for the past 6 days with mild intermittent shortness of breath, feeling fatigued and generally weak. His states he is usually not confused. He typically uses a wheelchair to mobilize and can usually transfer on his own but he was able to this past week until today when he attempted to get up experienced a minor fall without associated injury, LOC or head trauma. He denies pain and shortness of breath at this time. His states he has been hallucinating recently and talking to people that are not there. She also states he said something about getting up on a tractor yesterday, with his stating he certainly did not do that. Also for the last few days the patient has been calling his Moises but the dayhe seems to know who she is. There was no reported fever, chills, blurry vision, discharge from eyes, runny nose, sore throat, ear pain, chest pain, palpitations, heart racing, abdominal pain, nausea, vomiting, diarrhea, hematuria, dysuria, back pain, headache or rash. 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 He was then admitted to the PCU under observation status for TIA/CVA workup for his confusion for a stay that is expected to be less than 2 midnights. [facility] Medical History Hemorrhagic stroke Home Medications ?Medication ?Instructions ?Recorded ?Last Taken ?Type amlodipine 5 mg tablet 5 mg PO BID 02/26/25 Unknown History atorvastatin 10 mg tablet 10 mg PO QHS 02/26/25 Unknow n History baclofen 10 mg tablet 10 mg PO TID 02/26/25 Unknow n History donepezil 5 mg tablet 10 mg PO QHS 02/26/25 Unknow n History ergocalciferol (vitamin D2) 1,250 50,000 unit PO DAILY 02/26/25 Unknown History mcg (50,000 unit) capsule (Vitamin D2) lacosamide 100 mg tablet 100 mg PO BID 02/26/25 Unkno wn History metoprolol tartrate 25 mg tablet 25 mg PO BID 02/26/25 Unknown History mirtazapine 15 mg tablet (Remeron) 15 mg PO QHS Unknown History Allergy/AdvReac Type Severity Reaction Status Date / Time azithromycin Allergy NEEDS Verified 02/26/25 18:24 FOLLOW-UP Surgical History History of hip replacement Social History Smoking Status: Former smoker ROS ROS Narrative Full review of systems was not possible due to patient's confusion. Vital Signs Vital Signs Vital Signs: 02/26/25 18:24 02/26/25 18:26 02/26/25 19:26 Temperature 98.6 F 98.6 F 99.1 F Temperature Source Oral Oral Oral Pulse Rate 91 91 91 Respiratory Rate 18 14 14 Blood Pressure 155/102 H 147/97 H 165/104 H Blood Pressure Mean 119 113 124 Pulse Ox 98 95 97 Oxygen Delivery Method Room Air Room Air Room Air 02/26/25 21:04 Temperature 99.1 F Temperature Source Oral Pulse Rate 89 Respiratory Rate 16 Blood Pressure 149/103 H Blood Pressure Mean 118 Pulse Ox 94 Oxygen Delivery Method Room Air Weight Weight: 151 lb 3.794 oz Body Mass Index (BMI) 22.3 Physical Exam Const alert, no apparent distress and average body habitus General Appearance: cooperative Orientation / Consciousness: confused HEENT normocephalic, head/scalp atraumatic, hearing grossly normal bilaterally and moist oral mucous membranes Eyes PERRL, EOMs intact bilaterally and conjunctivae normal Neck no lymphadenopathy, supple and no JVD Resp normal respiratory effort, no retractions, no use of accessory muscles and clearto auscultation bilaterally Cardio regular rate and regular rhythm GI normal to inspection, nondistended, normoactive bowel sounds, soft to palpation,non-tender and non-distended Extremity normal to inspection, full ROM and no clubbing, cyanosis or edema Skin Skin Narrative: Patient has evidence of rash, abscess, wounds or jaundice. Neuro CN's II-XII intact bilaterally and moves all extremities Neuro Narrative: Patient is confused and has chronic Left-sided weakness that is unchanged from previous. Sensorium / Orientation: awake, alert, oriented to person and oriented to place Speech: speech normal Psych affect normal Results Medical Records Data Attestation: I reviewed the patient's medical records Lab / Micro Data Attestation: I reviewed the patient's lab results. 02/26/25 18:33 02/26/25 18:33 Labs: Laboratory Results - last 24 hr 02/26/25 18:33: WBC 10.1, RBC 5.71, Hgb 17.0 H, Hct 51.1, MCV 89.5, MCH 29.8, MCHC 33.3, RDW Std Deviation 41.7, RDW Coeff of Noris 12.7, Plt Count 334, MPV 10.1, Immature Gran % (Auto) 0.300, Neut % (Auto) 76.0 H, Lymph % (Auto) 14.7 L,[place] % (Auto) 6.9, Eos % (Auto) 0.9, Baso % (Auto) 1.2 H, Absolute Neuts (auto) 7.7, Absolute Lymphs (auto) 1.49, Nucleated RBC % 0, Sodium 144, Potassium 3.7, Chloride 109 H, Carbon Dioxide 21.8, Anion Gap 13, BUN 17, Creatinine 0.79, Estim Creat Clear Calc 79.80, Est GFR (MDRD) Non-Af 94, BUN/Creatinine Ratio 21.2 H, Glucose 90, Calcium 9.8, Total Bilirubin 0.51, AST 12, ALT 8, Alkaline Phosphatase 77, Troponin T High Sens 9, Total Protein 7.8, Albumin 4.3, Globulin3.4, Albumin/Globulin Ratio 1.3 02/26/25 19:03: Lactic Acid 1.7 02/26/25 19:45: Urine Color Yellow, Urine Clarity Clear, Urine pH 5.0, Ur Specific [place] 1.025, Urine Protein 30 H, Urine Glucose (UA) Normal, Urine Ketones Negative, Urine Occult Blood 10 H, UrineNitrite Negative, Urine Bilirubin 1 H, Urine Urobilinogen 1 H, Ur Leukocyte Esterase 25 H, Urine RBC 0- 5SEEN, Urine WBC 0-5 SEEN, Ur Squamous Epith Cells 0 SEEN, Urine Bacteria 0 SEEN,Urine Mucus 0 SEEN 02/26/25 20:20: Troponin T Hi Sens 2 Hr 7 Rhythm Strip Rhythm Strip: Sinus Rhythm Rate: 87 Ectopy: None Imaging Radiology Impression Brain CT 02/26/25 18:43 IMPRESSION: No acute intracranial abnormality. 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 Reading Location: [facility] Chest X-Ray 02/26/25 19:20 IMPRESSION: NO ACUTE FINDINGS. Reading Location: [facility] Assessment & Plan Assessment/Plan (1) Confusion: (2) 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nset dementia: (3) Generalized weakness: (4) History of hemorrhagic cerebrovascular accident (CVA) with residual deficit: (5) Seizure disorder as sequela of cerebrovascular accident: (6) Chronic dementia: (7) Generalized weakness: PLAN: Plan 1. Persistent Confusion x ~6 days; with Hallucinations and Generalized Weakness; evaluate for TIA/CVA - Admit to PCU under observation status. Check MRI of brain without contrast to evaluate for CVA.Check echocardiogram to evaluate LVEF. Check carotid Doppler to evaluate for stenosis. Continue aspirin begun in ER as well as statin patient is chronically taking. Check TSH,B12, folate, hemoglobin A1c, lipid profile, UDS and FER to expand neurologic evaluation for other possible causes of confusion. Give acetaminophen as neededfor pain or fever. We will minimize new HEADWAITER/HEADWAITRESS-active medications in aneffort to allow sensorium to clear. Finally, we will consult [facility] to see this patient on rounds in a.m. for further recommendations without appreciated in advance. 2. History of hemorrhagic Right MCA CVA (~2018) followed by another CVA (2023);residual Left-sided weakness complicating #1 - Noted. 3. History of seizure after CVA; on lacosamide compounding #1 & #2 - Resume lacosamide and check EEG in a.m. to evaluate for possible underlying seizure activity. 4. Chronic dementia; on donepezil adding to the medical complexity of #1 - #3 - Maintain donepezil and consider adding a second agent if above workup is unremarkable and hallucinations and confusion persist in spite of conservative treatment and other underlying etiology failing to be identified in spite of workup outlined above. 5. Essential hypertension; on amlodipine and metoprolol twice daily - Hold scheduled antihypertensives to allow for 'permissive hypertension' until CVA definitively ruled out on MRI. 6. Hyperlipidemia; on atorvastatin - Resume statin and check lipid profile in light of #1. 7. Former tobacco abuse - Noted. 8. Depression; on mirtazapine - Current therapy to be continued as before. 9. History of TIA; with a possible recurrence outlined #1 - Noted. 10. History of muscle spasms; on baclofen 3 times daily - Maintain present regimen. 11. OA; s/p THR - Give acetaminophen as needed as outlined in #1. Who presentsto [facility] ER with his family complaining of altered mental status and fall. 12. DVT prophylaxis - SCD's only. Total time: Approximately (but not less than) 70 minutes. Charges/Coding Visit Charges OBSV E&M: 31755 Observ/hosp same date L2 02/27/25 0611 Cosigner Signature (if applicable): CC: Dr. Fausto Davidson, DO; No Primary Care Physician~ Signed [facility]05-11-2025 Discharge summary Author Damien Leung [facility] Note Date/Time February 26, 2025 9:31p m [facility] Medical Records Department [address] [place] [address] Emergency Department Summary 02/26/25 MR#: [id number] Acct: [id number] Name: ALDO SOTO Rep #:[id number] : 1950 74 From: Damien Leung MD PCP: Care Physician,No Primary Status :REG ER Location: ED HPI History of Present Illness Chief Complaint: Alt LOC Informant: patient, spouse/S.O. and EMS Narrative Narrative: 74-year-old male brought by EMS due to a fall without injury just prior to arrival, but the is more concerned that he has been confused for the past 6days. Patient agrees he has been somewhat confused. He states he felt a littleshort of breath earlier and told the this, she states he has had no other complaints for the past 6 days except for being more tired and weak. 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 Other than that he has no other major medical issues. He is not usually confused. Because of his left hemiparesis he usually uses a wheelchair to get around and can usually transfer on his own but not this past week until today, but that resulted in a minor fallwithout injury. Patient denies having any pain right now, he denies being dyspneic right now either. The states that he has been seemingly hallucinating recently, talking to people that are not there. Patient states something about getting up on a tractor yesterday, the states he certainly did not do that. She states that today he knows who she is, but for the last couple days she has been Moises. [facility] Medical History (Updated 02/26/25 @ 21:[address] Damien Leung MD) Hemorrhagic stroke Home Medications ?Medication ?Instructions ?Recorded ?Last Taken ?Type amlodipine 5 mg tablet 5 mg PO BID 02/26/25 Unknown History atorvastatin 10 mg tablet 10 mg PO QHS 02/26/25 Unknow n History baclofen 10 mg tablet 10 mg PO TID 02/26/25 Unknow n History donepezil 5 mg tablet 10 mg PO QHS 02/26/25 Unknow n History ergocalciferol (vitamin D2) 1,250 50,000 unit PO DAILY 02/26/25 Unknown History mcg (50,000 unit) capsule (Vitamin D2) lacosamide 100 mg tablet 100 mg PO BID 02/26/25 Unkno wn History metoprolol tartrate 25 mg tablet 25 mg PO BID 02/26/25 Unknown History mirtazapine 15 mg tablet (Remeron) 15 mg PO QHS Unknown History Allergy/AdvReac Type Severity Reaction Status Date / Time azithromycin Allergy NEEDS Verified 02/26/25 18:24 FOLLOW-UP Surgical History History of hip replacement Social History Smoking Status: Former smoker ROS ROS ED Review of Systems ROS Unobtainable: other Details: Limited due to confusion Constitutional Constitutional ED: Denies chills or fever(s) Eyes Eyes: Denies change in vision or diplopia ENT ENT ED: Denies sore throat Cardiovascular Cardiovascular: Denies chest pain or palpitations Respiratory/Chest Respiratory/Chest: Reports as per HPI and dyspnea; Denies cough Gastrointestinal Gastrointestinal: Denies abdominal pain, diarrhea, nausea or vomiting Genitourinary Genitourinary ED: Denies hematuria Musculoskeletal Musculoskeletal: Denies back pain or neck pain Integumentary Denies abscess or rash Neurologic Neurologic: Reports as per HPI, confusion, paresthesias and weakness; Denies headache(s) Psychiatric Psychiatric: Denies suicidal thoughts EXAM Physical Exam Const Vital Signs: 02/26/25 18:24 02/26/25 18:26 02/26/25 19:26 Temperature 98.6 F 98.6 F 99.1 F Temperature Source Oral Oral Oral Pulse Rate 91 91 91 Respiratory Rate 18 14 14 Blood Pressure 155/102 H 147/97 H 165/104 H Blood Pressure Mean 119 113 124 Pulse Ox 98 95 97 Oxygen Delivery Method Room Air Room Air Room Air 02/26/25 21:04 Temperature 99.1 F Temperature Source Oral Pulse Rate 89 Respiratory Rate 16 Blood Pressure 149/103 H Blood Pressure Mean 118 Pulse Ox 94 Oxygen Delivery Method Room Air Positive well nourished and well developed General Appearance ED: well developed and NAD HEENT Reports moist mucous membranes normocephalic and atraumatic Eyes PERRL and EOMs intact bilaterally Neck full ROM and supple Chest Wall inspection of chest normal and palpation of chest normal Resp normal respiratory effort and clear to auscultation bilaterally Cardio regular rate, regular rhythm and no murmurs Rate: Negative for tachycardic GI non-tender and non-distended Auscultation: normoactive bowel sounds Palpation: soft Back/Spine no CVA tenderness General Back: other FROM Extremity normal to inspection General Extremety ED: Negative for edema, pulses abnormal or tenderness General Extremity: Negative for edema or pulses abnormal Neuro CN's II-XII intact bilaterally Neuro Narrative: Able to move the left arm and left leg, but with significant proximal weakness. He does have sensation in those limbs but it is less compared with the right which are normal. He is oriented to person only. When asked which day it is, it is Thursday, and he states I think it has been Thursday for several days now. When asked about the month and the year, he states I do not know because that does not apply to me and I do not care. Sensorium / Orientation: awake, alert and orientation impaired Skin no rashes or lesions noted and no wounds MDM MDM MDM Narrative Medical decision making narrative: Patient is confused/encephalopathic. His blood counts and liver enzymes, lacticacid all within normal limits, urinalysis negative, CT of the head interpretation is negative for any acute radiology was in agreement, and 2 view chest x-ray my interpretation shows no pneumonia and radiology in agreement on that as well. He does not have any acute metabolic disturbance. He has 2 sequential troponin measurements that are negative. His EKG is completely normal. His vital signs are normal he is not excessively hypertensive, unclear if this is medication related, he is not using substances or alcohol, I do not think he is withdrawing from anything. However family is concerned because theycannot be there 11/05 and he is very confused, unable to rule out acute ischemic TIA, so I think reasonable to admit. After dysphagia screening we will give himsome aspirin. Lab Data Attestation: I reviewed the patient's lab results. Labs: Laboratory Results - last 24 hr 02/26/25 02/26/25 02/26/25 18:33 19:03 19:45 WBC 10.1 RBC 5.71 Hgb 17.0 H Hct 51.1 MCV 89.5 MCH 29.8 MCHC 33.3 RDW Std Deviation 41.7 RDW Coeff of Noris 12.7 Plt Count 334 MPV 10.1 Immature Gran % (Auto) 0.300 Neut % (Auto) 76.0 H Lymph % (Auto) 14.7 L [place] % (Auto) 6.9 Eos % (Auto) 0.9 Baso % (Auto) 1.2 H Absolute Neuts (auto) 7.7 Absolute Lymphs (auto) 1.49 Nucleated RBC % 0 Sodium 144 Potassium 3.7 Chloride 109 H Carbon Dioxide 21.8 Anion Gap 13 BUN 17 Creatinine 0.79 Estim Creat Clear Calc 79.80 Est GFR (MDRD) Non-Af 94 BUN/Creatinine Ratio 21.2 H Glucose 90 Lactic Acid 1.7 Calcium 9.8 Total Bilirubin 0.51 AST 12 ALT 8 Alkaline Phosphatase 77 Troponin T High Sens 9 Troponin T Hi Sens 2 Hr Total Protein 7.8 Albumin 4.3 Globulin 3.4 Albumin/Globulin Ratio 1.3 Urine Color Yellow Urine Clarity Clear Urine pH 5.0 Ur Specific [place] 1.025 Urine Protein 30 H Urine Glucose (UA) Normal Urine Ketones Negative Urine Occult Blood 10 H Urine Nitrite Negative Urine Bilirubin 1 H Urine Urobilinogen 1 H Ur Leukocyte Esterase 25 H Urine RBC 0-5 SEEN Urine WBC 0-5 SEEN Ur Squamous Epith Cells 0 SEEN Urine Bacteria 0 SEEN Urine Mucus 0 SEEN 02/26/25 20:20 WBC RBC Hgb Hct MCV MCH MCHC RDW Std Deviation RDW Coeff of Noris Plt Count MPV Immature Gran % (Auto) Neut % (Auto) Lymph % (Auto) [place] % (Auto) Eos % (Auto) Baso % (Auto) Absolute Neuts (auto) Absolute Lymphs (auto) Nucleated RBC % Sodium Potassium Chloride Carbon Dioxide Anion Gap BUN Creatinine Estim Creat Clear Calc Est GFR (MDRD) Non-Af BUN/Creatinine Ratio Glucose Lactic Acid Calcium Total Bilirubin AST ALT Alkaline Phosphatase Troponin T High Sens Troponin T Hi Sens 2 Hr 7 Total Protein Albumin Globulin Albumin/Globulin Ratio Urine Color Urine Clarity Urine pH Ur Specific [place] Urine Protein Urine Glucose (UA) Urine Ketones Urine Occult Blood Urine Nitrite Urine Bilirubin Urine Urobilinogen Ur Leukocyte Esterase Urine RBC Urine WBC Ur Squamous Epith Cells Urine Bacteria Urine Mucus Radiography Diagnostic Testing: Clinical Impression(s) from Imaging Studies Brain CT 02/26/25 18:43 IMPRESSION: No acute intracranial abnormality. 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 Reading Location: [facility] Chest X-Ray 02/26/25 19:20 IMPRESSION: NO ACUTE FINDINGS. Reading Location: [facility] No CT angiography indicated since symptoms have been present for greater than 24hours, if HEADWAITER/HEADWAITRESS mediated. Rhythm Strip Rhythm Strip: Sinus Rhythm Rate: 87 Ectopy: None EKG Initial EKG: Attestation: I personally reviewed and interpreted this EKG as follows: Interpretation: Sinus Rhythm and No Acute Injury Pattern Comments: Nml axis & intervals; nml EKG Management Discussion w/another healthcare provider: Hospitalist Discharge Plan Triage Chief Complaint: Alt LOC ED Provider: Damien Leung Dx/Rx/DC Orders Clinical Impression: Acute encephalopathy, Generalized weakness Prescriptions: No Action donepezil 5 mg tablet 10 mg PO QHS mirtazapine [Remeron] 15 mg tablet 15 mg PO QHS lacosamide 100 mg tablet 100 mg PO BID atorvastatin 10 mg tablet 10 mg PO QHS ergocalciferol (vitamin D2) [Vitamin D2] 1,250 mcg (50,000 unit) capsule 50,000 unit PO DAILY metoprolol tartrate 25 mg tablet 25 mg PO BID baclofen 10 mg tablet 10 mg PO TID amlodipine 5 mg tablet 5 mg PO BID Primary Care Provider: Care Physician,No Primary Referrals: Care Physician,No Primary [Primary Care Provider] - Print Language: Azerbaijani Disposition Disposition: Acute Care Hospital [facility] What to do if you have Problems For any increased pain, shortness of breath, bleeding, nausea or vomiting, chestpain, or any unexpected problems, contact your Primary Care Provider. Call [facility] ([phone]) or report to the closest Emergency Room. Call 911 if necessary. 02/26/252130 <Electronically signed by Damien Leung MD> Cosigner Signature (if applicable): CC: No Primary Care Physician ~ Signed [facility] Work Phone: [phone] 842-508105-11-2025 Discharge summary [facility] Medical Records Department [address] [place] [address] Emergency Department Summary 02/26/25 MR#: [id number] Acct: [id number] Name: ALDO SOTO Rep #:[id number] : 1950 74 From: Damien Leung MD PCP: Care Physician,No Primary Status :REG ER Location: ED HPI History of Present Illness Chief Complaint: Alt LOC Informant: patient, spouse/S.O. and EMS Narrative Narrative: 74-year-old male brought by EMS due to a fall without injury just prior to arrival, but the ismore concerned that he has been confused for the past 6days. Patient agrees he has been somewhat confused. He states he felt a littleshort of breath earlier and told the this, she states he has had no other complaints for the past 6 days except for being more tired and weak. 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 Other than that he has no other major medical issues. He is not usually confused. Because of his left hemiparesis he usually uses a wheelchair to get around and can usually transfer on his own but not this past week until today, but that resulted in a minor fallwithout injury. Patient denies having any pain right now, he denies being dyspneic right now either. The states that he has been seemingly hallucinating recently, talking to people that are not there. Patient states something about getting up on a tractor yesterday, the states he certainly did not do that.She states that today he knows who she is, but for the last couple days she has been Moises. [facility] Medical History (Updated 02/26/25 @ 21:[address] Damien Leung MD) Hemorrhagic stroke Home Medications ?Medication ?Instructions ?Recorded ?Last Taken ?Type amlodipine 5 mg tablet 5 mg PO BID 02/26/25 Unknown History atorvastatin 10 mg tablet 10 mg PO QHS 02/26/25 Unknow n History baclofen 10 mg tablet 10 mg PO TID 02/26/25 Unknow n History donepezil 5 mg tablet 10 mg PO QHS 02/26/25 Unknow n History ergocalciferol (vitamin D2) 1,250 50,000 unit PO DAILY 02/26/25 Unknown History mcg (50,000 unit) capsule (Vitamin D2) lacosamide 100 mg tablet 100 mg PO BID 02/26/25 Unkno wn History metoprolol tartrate 25 mg tablet 25 mg PO BID 02/26/25 Unknown History mirtazapine 15 mg tablet (Remeron) 15 mg PO QHS Unknown History Allergy/AdvReac Type Severity Reaction Status Date / Time azithromycin Allergy NEEDS Verified 02/26/25 18:24 FOLLOW-UP Surgical History History of hip replacement Social History Smoking Status: Former smoker ROS ROS ED Review of Systems ROS Unobtainable: other Details: Limited due to confusion Constitutional Constitutional ED: Denies chills or fever(s) Eyes Eyes: Denies change in vision or diplopia ENT ENT ED: Denies sore throat Cardiovascular Cardiovascular: Denies chest pain or palpitations Respiratory/Chest Respiratory/Chest: Reports as per HPI and dyspnea; Denies cough Gastrointestinal Gastrointestinal: Denies abdominal pain, diarrhea, nausea or vomiting Genitourinary Genitourinary ED: Denies hematuria Musculoskeletal Musculoskeletal: Denies back pain or neck pain Integumentary Denies abscess or rash Neurologic Neurologic: Reports as per HPI, confusion, paresthesias and weakness; Denies headache(s) Psychiatric Psychiatric: Denies suicidal thoughts EXAM Physical Exam Const Vital Signs: 02/26/25 18:24 02/26/25 18:26 02/26/25 19:26 Temperature 98.6 F 98.6 F 99.1 F Temperature Source Oral Oral Oral Pulse Rate 91 91 91 Respiratory Rate 18 14 14 Blood Pressure 155/102 H 147/97 H 165/104 H Blood Pressure Mean 119 113 124 Pulse Ox 98 95 97 Oxygen Delivery Method Room Air Room Air Room Air 02/26/25 21:04 Temperature 99.1 F Temperature Source Oral Pulse Rate 89 Respiratory Rate 16 Blood Pressure 149/103 H Blood Pressure Mean 118 Pulse Ox 94 Oxygen Delivery Method Room Air Positive well nourished and well developed General Appearance ED: well developed and NAD HEENT Reports moist mucous membranes normocephalic and atraumatic Eyes PERRL and EOMs intact bilaterally Neck full ROM and supple Chest Wall inspection of chest normal and palpation of chest normal Resp normal respiratory effort and clear to auscultation bilaterally Cardio regular rate, regular rhythm and no murmurs Rate: Negative for tachycardic GI non-tender and non-distended Auscultation: normoactive bowel sounds Palpation: soft Back/Spine no CVA tenderness General Back: other FROM Extremity normal to inspection General Extremety ED: Negative for edema, pulses abnormal or tenderness General Extremity: Negative for edema or pulses abnormal Neuro CN's II-XII intact bilaterally Neuro Narrative: Able to move the left arm and left leg, but with significant proximal weakness. He does have sensation in those limbs but it is less compared with the right which are normal. He is oriented to persononly. When asked which day it is, it is Thursday, and he states I think it has been Thursday for several days now. When asked about the month and the year, he states I do not know because that does not apply to me and I do not care. Sensorium / Orientation: awake, alert and orientation impaired Skin no rashes or lesions noted and no wounds MDM MDM MDM Narrative Medical decision making narrative: Patient is confused/encephalopathic. His blood counts and liver enzymes, lacticacid all within normal limits, urinalysis negative, CT of the head interpretation is negative for any acute radiology was in agreement, and 2 view chest x-ray my interpretation shows no pneumonia and radiology in agreement on that as well. He does not have any acute metabolic disturbance. He has 2 sequential troponin measurements that are negative. His EKG is completely normal. His vital signs are normal he is not excessively hypertensive, unclear if this is medication related, he is not using substances or alcohol, I do not think he is withdrawing from anything. However family is concerned because theycannot be there 11/05 and he is very confused, unable to rule out acute ischemic TIA, so I think reasonable to admit. After dysphagia screening we will give himsome aspirin. Lab Data Attestation: I reviewed the patient's lab results. Labs: Laboratory Results - last 24 hr 02/26/25 02/26/25 02/26/25 18:33 19:03 19:45 WBC 10.1 RBC 5.71 Hgb 17.0 H Hct 51.1 MCV 89.5 MCH 29.8 MCHC 33.3 RDW Std Deviation 41.7 RDW Coeff of Noris 12.7 Plt Count 334 MPV 10.1 Immature Gran % (Auto) 0.300 Neut % (Auto) 76.0 H Lymph % (Auto) 14.7 L [place] % (Auto) 6.9 Eos % (Auto) 0.9 Baso % (Auto) 1.2 H Absolute Neuts (auto) 7.7 Absolute Lymphs (auto) 1.49 Nucleated RBC % 0 Sodium 144 Potassium 3.7 Chloride 109 H Carbon Dioxide 21.8 Anion Gap 13 BUN 17 Creatinine 0.79 Estim Creat Clear Calc 79.80 Est GFR (MDRD) Non-Af 94 BUN/Creatinine Ratio 21.2 H Glucose 90 Lactic Acid 1.7 Calcium 9.8 Total Bilirubin 0.51 AST 12 ALT 8 Alkaline Phosphatase 77 Troponin T High Sens 9 Troponin T Hi Sens 2 Hr Total Protein 7.8 Albumin 4.3 Globulin 3.4 Albumin/Globulin Ratio 1.3 Urine Color Yellow Urine Clarity Clear Urine pH 5.0 Ur Specific [place] 1.025 Urine Protein 30 H Urine Glucose (UA) Normal Urine Ketones Negative Urine Occult Blood 10 H Urine Nitrite Negative Urine Bilirubin 1 H Urine Urobilinogen 1 H Ur Leukocyte Esterase 25 H Urine RBC 0-5 SEEN Urine WBC 0-5 SEEN Ur Squamous Epith Cells 0 SEEN Urine Bacteria 0 SEEN Urine Mucus 0 SEEN 02/26/25 20:20 WBC RBC Hgb Hct MCV MCH MCHC RDW Std Deviation RDW Coeff of Noris Plt Count MPV Immature Gran % (Auto) Neut % (Auto) Lymph % (Auto) [place] % (Auto) Eos % (Auto) Baso % (Auto) Absolute Neuts (auto) Absolute Lymphs (auto) Nucleated RBC % Sodium Potassium Chloride Carbon Dioxide Anion Gap BUN Creatinine Estim Creat Clear Calc Est GFR (MDRD) Non-Af BUN/Creatinine Ratio Glucose Lactic Acid Calcium Total Bilirubin AST ALT Alkaline Phosphatase Troponin T High Sens Troponin T Hi Sens 2 Hr 7 Total Protein Albumin Globulin Albumin/Globulin Ratio Urine Color Urine Clarity Urine pH Ur Specific [place] Urine Protein Urine Glucose (UA) Urine Ketones Urine Occult Blood Urine Nitrite Urine Bilirubin Urine Urobilinogen Ur Leukocyte Esterase Urine RBC Urine WBC Ur Squamous Epith Cells Urine Bacteria Urine Mucus Radiography Diagnostic Testing: Clinical Impression(s) from Imaging Studies Brain CT 02/26/25 18:43 IMPRESSION: No acute intracranial abnormality. 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 Reading Location: [facility] Chest X-Ray 02/26/25 19:20 IMPRESSION: NO ACUTE FINDINGS. Reading Location: [facility] No CT angiography indicated since symptoms have been present for greater than 24hours, if HEADWAITER/HEADWAITRESS mediated. Rhythm Strip Rhythm Strip: Sinus Rhythm Rate: 87 Ectopy: None EKG Initial EKG: Attestation: I personally reviewed and interpreted this EKG as follows: Interpretation: Sinus Rhythm and No Acute Injury Pattern Comments: Nml axis & intervals; nml EKG Management Discussion w/another healthcare provider: Hospitalist Discharge Plan Triage Chief Complaint: Alt LOC ED Provider: Damien Leung Dx/Rx/DC Orders Clinical Impression: Acute encephalopathy, Generalized weakness Prescriptions: No Action donepezil 5 mg tablet 10 mg PO QHS mirtazapine [Remeron] 15 mg tablet 15 mg PO QHS lacosamide 100 mg tablet 100 mg PO BID atorvastatin 10 mg tablet 10 mg PO QHS ergocalciferol (vitamin D2) [Vitamin D2] 1,250 mcg (50,000 unit) capsule 50,000 unit PO DAILY metoprolol tartrate 25 mg tablet 25 mg PO BID baclofen 10 mg tablet 10 mg PO TID amlodipine 5 mg tablet 5 mg PO BID Primary Care Provider: Care Physician,No Primary Referrals: Care Physician,No Primary [Primary Care Provider] - Print Language: Azerbaijani Disposition Disposition: Acute Care Hospital [facility] What to do if you have Problems For any increased pain, shortness of breath, bleeding, nausea or vomiting, chestpain, or any unexpected problems, contact your Primary Care Provider. Call [facility] ([phone]) or report tothe closest Emergency Room. Call 911 if necessary. 02/26/252130 Cosigner Signature (if applicable): CC: No Primary Care Physician ~ Signed [facility]05-11-2025 Radiology Diagnostic study note [facility] Imaging Services [address] [place] [id number] Brain/Head without Contrast MR#: [id number] Acct: [id number] Name: ALDO SOTO Rep #: [id number] : 1950 M 74 From: Ally Sargent MD PCP: Care Physician,No Primary Status: REG ER Study:Brain/Head without Contrast Date of Exa m: 02/26/25 Exam# [id number] Ordering Dr: Evan Leung MD PROCEDURE: BRAIN/HEAD WITHOUT CONTRAST 02/26/2025 REASON FOR EXAM: ALTERED MENTAL STATUS TECHNIQUE: Head CT without intravenous contrast. Coronal and Sagittal reconstruction serieswere provided. One or more dose reduction techniques were used (e.g., Automated exposure control, adjustment of the mA and/or kV according to patient size, use of iterative reconstruction technique. COMPARISON: None FINDINGS: Encephalomalacia right frontoparietal lobe, likely from prior right MCA distribution infarct. Calcification noted within the encephalomalacia lytic focus. Additional areas of cortical laminar necrosis. No acute intracranial hemorrhage, mass, mass effect, midline shift or pathologicextra-axial fluid collection. Mild parenchymal atrophy with commensurate increase in CSF containing spaces. Ex vacuo dilatation posterior horn right lateral ventricle, from adjacent encephalomalacia. Patchy white matter hypodensities, patient demographics favor chronic microvascular ischemic changes. Complete opacification left maxillary sinus with areas of mildly high attenuation, likely secondaryto inspissated secretions or fungal colonization. The calvarium is grossly intact. CT/Brain/Head without Contrast IMPRESSION: No acute intracranial abnormality. 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 Reading Location: [facility] CC: Dr. Damien Leung MD; No Primary Care Physician ~ [employer] Manager: Signed [facility]05-11-2025 Radiology Diagnostic study note [facility] Imaging Services [address] [place] [address] Chest PA and Lateral MR#: [id number] Acct: [id number] Name: ALDO SOTO Rep #: [id number] : 1950 M 74 From: Ally Sargent MD PCP: Care Physician,No Primary Status: REG ER Study:Chest PA and Lateral Date of Exam: 02/26/25 Exam# [id number] Ordering Dr: Evan Leung MD PROCEDURE: CHEST PA AND LATERAL 02/26/2025 REASON FOR EXAM: SOB TECHNIQUE: Frontal and lateral views of the chest. COMPARISON: None FINDINGS: Hardware: None Heart: The heart size is normal. Mediastinum: The mediastinal contour is stable. Lungs: No focal consolidation. No pneumothorax. No pleural effusion. Bones: Degenerative changes are identified within the thoracic spine. RAD/Chest PA and Lateral IMPRESSION: NO ACUTE FINDINGS. Reading Location: [facility] CC: Dr. Damien Leung MD; No Primary Care Physician ~ [employer] Manager: Signed [facility]05-11-2025 Discharge summary Author Damien Leung [facility] Note Date/Time February 26, 2025 9:31p m [facility] Medical Records Department [address] [place] [address] Emergency Department Summary 02/26/25 MR#: [id number] Acct: [id number] Name: ALDO SOTO Rep #:[id number] : 1950 74 From: Damien Leung MD PCP: Care Physician,No Primary Status :REG ER Location: ED HPI History of Present Illness Chief Complaint: Alt LOC Informant: patient, spouse/S.O. and EMS Narrative Narrative: 74-year-old male brought by EMS due to a fall without injury just prior to arrival, but the is more concerned that he has been confused for the past 6days. Patient agrees he has been somewhat confused. He states he felt a littleshort of breath earlier and told the this, she states he has had no other complaints for the past 6 days except for being more tired and weak. 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 Other than that he has no other major medical issues. He is not usually confused. Because of his left hemiparesis he usually uses a wheelchair to get around and can usually transfer on his own but not this past week until today, but that resulted in a minor fallwithout injury. Patient denies having any pain right now, he denies being dyspneic right now either. The states that he has been seemingly hallucinating recently, talking to people that are not there. Patient states something about getting up on a tractor yesterday, the states he certainly did not do that. She states that today he knows who she is, but for the last couple days she has been Moises. [facility] Medical History (Updated 02/26/25 @ 21:[address] Damien Leung MD) Hemorrhagic stroke Home Medications ?Medication ?Instructions ?Recorded ?Last Taken ?Type amlodipine 5 mg tablet 5 mg PO BID 02/26/25 Unknown History atorvastatin 10 mg tablet 10 mg PO QHS 02/26/25 Unknow n History baclofen 10 mg tablet 10 mg PO TID 02/26/25 Unknow n History donepezil 5 mg tablet 10 mg PO QHS 02/26/25 Unknow n History ergocalciferol (vitamin D2) 1,250 50,000 unit PO DAILY 02/26/25 Unknown History mcg (50,000 unit) capsule (Vitamin D2) lacosamide 100 mg tablet 100 mg PO BID 02/26/25 Unkno wn History metoprolol tartrate 25 mg tablet 25 mg PO BID 02/26/25 Unknown History mirtazapine 15 mg tablet (Remeron) 15 mg PO QHS Unknown History Allergy/AdvReac Type Severity Reaction Status Date / Time azithromycin Allergy NEEDS Verified 02/26/25 18:24 FOLLOW-UP Surgical History History of hip replacement Social History Smoking Status: Former smoker ROS ROS ED Review of Systems ROS Unobtainable: other Details: Limited due to confusion Constitutional Constitutional ED: Denies chills or fever(s) Eyes Eyes: Denies change in vision or diplopia ENT ENT ED: Denies sore throat Cardiovascular Cardiovascular: Denies chest pain or palpitations Respiratory/Chest Respiratory/Chest: Reports as per HPI and dyspnea; Denies cough Gastrointestinal Gastrointestinal: Denies abdominal pain, diarrhea, nausea or vomiting Genitourinary Genitourinary ED: Denies hematuria Musculoskeletal Musculoskeletal: Denies back pain or neck pain Integumentary Denies abscess or rash Neurologic Neurologic: Reports as per HPI, confusion, paresthesias and weakness; Denies headache(s) Psychiatric Psychiatric: Denies suicidal thoughts EXAM Physical Exam Const Vital Signs: 02/26/25 18:24 02/26/25 18:26 02/26/25 19:26 Temperature 98.6 F 98.6 F 99.1 F Temperature Source Oral Oral Oral Pulse Rate 91 91 91 Respiratory Rate 18 14 14 Blood Pressure 155/102 H 147/97 H 165/104 H Blood Pressure Mean 119 113 124 Pulse Ox 98 95 97 Oxygen Delivery Method Room Air Room Air Room Air 02/26/25 21:04 Temperature 99.1 F Temperature Source Oral Pulse Rate 89 Respiratory Rate 16 Blood Pressure 149/103 H Blood Pressure Mean 118 Pulse Ox 94 Oxygen Delivery Method Room Air Positive well nourished and well developed General Appearance ED: well developed and NAD HEENT Reports moist mucous membranes normocephalic and atraumatic Eyes PERRL and EOMs intact bilaterally Neck full ROM and supple Chest Wall inspection of chest normal and palpation of chest normal Resp normal respiratory effort and clear to auscultation bilaterally Cardio regular rate, regular rhythm and no murmurs Rate: Negative for tachycardic GI non-tender and non-distended Auscultation: normoactive bowel sounds Palpation: soft Back/Spine no CVA tenderness General Back: other FROM Extremity normal to inspection General Extremety ED: Negative for edema, pulses abnormal or tenderness General Extremity: Negative for edema or pulses abnormal Neuro CN's II-XII intact bilaterally Neuro Narrative: Able to move the left arm and left leg, but with significant proximal weakness. He does have sensation in those limbs but it is less compared with the right which are normal. He is oriented to person only. When asked which day it is, it is Thursday, and he states I think it has been Thursday for several days now. When asked about the month and the year, he states I do not know because that does not apply to me and I do not care. Sensorium / Orientation: awake, alert and orientation impaired Skin no rashes or lesions noted and no wounds MDM MDM MDM Narrative Medical decision making narrative: Patient is confused/encephalopathic. His blood counts and liver enzymes, lacticacid all within normal limits, urinalysis negative, CT of the head interpretation is negative for any acute radiology was in agreement, and 2 view chest x-ray my interpretation shows no pneumonia and radiology in agreement on that as well. He does not have any acute metabolic disturbance. He has 2 sequential troponin measurements that are negative. His EKG is completely normal. His vital signs are normal he is not excessively hypertensive, unclear if this is medication related, he is not using substances or alcohol, I do not think he is withdrawing from anything. However family is concerned because theycannot be there 11/05 and he is very confused, unable to rule out acute ischemic TIA, so I think reasonable to admit. After dysphagia screening we will give himsome aspirin. Lab Data Attestation: I reviewed the patient's lab results. Labs: Laboratory Results - last 24 hr 02/26/25 02/26/25 02/26/25 18:33 19:03 19:45 WBC 10.1 RBC 5.71 Hgb 17.0 H Hct 51.1 MCV 89.5 MCH 29.8 MCHC 33.3 RDW Std Deviation 41.7 RDW Coeff of Noris 12.7 Plt Count 334 MPV 10.1 Immature Gran % (Auto) 0.300 Neut % (Auto) 76.0 H Lymph % (Auto) 14.7 L [place] % (Auto) 6.9 Eos % (Auto) 0.9 Baso % (Auto) 1.2 H Absolute Neuts (auto) 7.7 Absolute Lymphs (auto) 1.49 Nucleated RBC % 0 Sodium 144 Potassium 3.7 Chloride 109 H Carbon Dioxide 21.8 Anion Gap 13 BUN 17 Creatinine 0.79 Estim Creat Clear Calc 79.80 Est GFR (MDRD) Non-Af 94 BUN/Creatinine Ratio 21.2 H Glucose 90 Lactic Acid 1.7 Calcium 9.8 Total Bilirubin 0.51 AST 12 ALT 8 Alkaline Phosphatase 77 Troponin T High Sens 9 Troponin T Hi Sens 2 Hr Total Protein 7.8 Albumin 4.3 Globulin 3.4 Albumin/Globulin Ratio 1.3 Urine Color Yellow Urine Clarity Clear Urine pH 5.0 Ur Specific [place] 1.025 Urine Protein 30 H Urine Glucose (UA) Normal Urine Ketones Negative Urine Occult Blood 10 H Urine Nitrite Negative Urine Bilirubin 1 H Urine Urobilinogen 1 H Ur Leukocyte Esterase 25 H Urine RBC 0-5 SEEN Urine WBC 0-5 SEEN Ur Squamous Epith Cells 0 SEEN Urine Bacteria 0 SEEN Urine Mucus 0 SEEN 02/26/25 20:20 WBC RBC Hgb Hct MCV MCH MCHC RDW Std Deviation RDW Coeff of Noris Plt Count MPV Immature Gran % (Auto) Neut % (Auto) Lymph % (Auto) [place] % (Auto) Eos % (Auto) Baso % (Auto) Absolute Neuts (auto) Absolute Lymphs (auto) Nucleated RBC % Sodium Potassium Chloride Carbon Dioxide Anion Gap BUN Creatinine Estim Creat Clear Calc Est GFR (MDRD) Non-Af BUN/Creatinine Ratio Glucose Lactic Acid Calcium Total Bilirubin AST ALT Alkaline Phosphatase Troponin T High Sens Troponin T Hi Sens 2 Hr 7 Total Protein Albumin Globulin Albumin/Globulin Ratio Urine Color Urine Clarity Urine pH Ur Specific [place] Urine Protein Urine Glucose (UA) Urine Ketones Urine Occult Blood Urine Nitrite Urine Bilirubin Urine Urobilinogen Ur Leukocyte Esterase Urine RBC Urine WBC Ur Squamous Epith Cells Urine Bacteria Urine Mucus Radiography Diagnostic Testing: Clinical Impression(s) from Imaging Studies Brain CT 02/26/25 18:43 IMPRESSION: No acute intracranial abnormality. 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 Reading Location: [facility] Chest X-Ray 02/26/25 19:20 IMPRESSION: NO ACUTE FINDINGS. [facility] angiography indicated since symptoms have been present for greater than 24hours, if HEADWAITER/HEADWAITRESS mediated. Rhythm Strip Rhythm Strip: Sinus Rhythm Rate: 87 Ectopy: None EKG Initial EKG: Attestation: I personally reviewed and interpreted this EKG as follows: Interpretation: Sinus Rhythm and No Acute Injury Pattern Comments: Nml axis & intervals; nml EKG Management Discussion w/another healthcare provider: Hospitalist Discharge Plan Triage Chief Complaint: Alt LOC ED Provider: Damien Leung Dx/Rx/DC Orders Clinical Impression: Acute encephalopathy, Generalized weakness Prescriptions: No Action donepezil 5 mg tablet 10 mg PO QHS mirtazapine [Remeron] 15 mg tablet 15 mg PO QHS lacosamide 100 mg tablet 100 mg PO BID atorvastatin 10 mg tablet 10 mg PO QHS ergocalciferol (vitamin D2) [Vitamin D2] 1,250 mcg (50,000 unit) capsule 50,000 unit PO DAILY metoprolol tartrate 25 mg tablet 25 mg PO BID baclofen 10 mg tablet 10 mg PO TID amlodipine 5 mg tablet 5 mg PO BID Primary Care Provider: Care Physician,No Primary Referrals: Care Physician,No Primary [Primary Care Provider] - Print Language: Azerbaijani Disposition Disposition: Acute Care Hospital [facility] What to do if you have Problems For any increased pain, shortness of breath, bleeding, nausea or vomiting, chestpain, or any unexpected problems, contact your Primary Care Provider. Call [facility] ([phone]) or report to the closest Emergency Room. Call 911 if necessary. 02/26/252130 <Electronically signed by Damien Leung MD> Cosigner Signature (if applicable): CC: No Primary Care Physician ~ Signed [facility] Work Phone: Consult note Author Titi Gambino [facility] Note Date/Time March 03, 2025 5:18p m [facility] Medical Records Department [address] [place] [address] Counseling Note - Pharmacy 03/03/25 1469 MR#: [id number] Acct: [id number] Name: ALDO SOTO Rep #:[id number] : [id number] 74 From: Titi Gambino PCP: Care Physician,No Primary Status :ADM IN Y Location: [id number] [place] Med Reconciliation Pharmacy Service has performed discharge medication reconciliation for this patient. The patient's discharge medication list was reviewed for discrepancies and discrepancies were resolved. Medications at Discharge Home Medications amlodipine 5 mg tablet 5 mg PO BID 02/26/25 baclofen 10 mg tablet 10 mg PO TID 02/26/25 donepezil 5 mg tablet 10 mg PO QHS 02/26/25 ergocalciferol (vitamin D2) 1,250 mcg (50,000 unit) capsule (Vitamin D2) 50,000 unit PO DAILY 02/26/25 lacosamide 100 mg tablet 100 mg PO BID 02/26/25 metoprolol tartrate 25 mg tablet 25 mg PO BID 02/26/25 mirtazapine 15 mg tablet (Remeron) 15 mg PO QHS 02/26/25 acetaminophen 325 mg tablet 650 mg (2 x 325 mg) PO Q6H PRN PRN Pain 1-10 Or Fever #0 tabs 03/03/25 aspirin 81 mg chewable tablet 81 mg PO BREAKFAST #0 tabs 03/03/25 atorvastatin 10 mg tablet 20 mg (2 x 10 mg) PO QHS #0 tabs 03/03/25 memantine 5 mg tablet (Namenda) 5 mg PO BID #1 TAB 03/03/25 03/03/25 [id number] <Electronically signed by Titi toure> Date _ Titi Gambino Cosigner Signature (if applicable): Date CC: ~ Signed [facility] Work Phone: Evaluation note* Diagnosis Onset Date Resolution Status Admit Date Confusion acute February 26, 2025 9:51pm Generalized weakness acute February 26, 2025 9:51pm History of hemorrhagic cerebrovascular accident (CVA) with residual deficit acute February 26, 2025 9:51pm Seizure disorder as sequela of cerebrovascular accident acute February 9:51pm Chronic dementia chronic February 9:51pm [facility] Work Phone: Reason for referral (narrative)No reason for [facility]: Chief Complaint and Reason for Visit Chief Complaint Admit Date ENCEPHALOPATHY February 26, 2025 9:51p m Reason for Visit Admit Date Confusion February 26, 2025 9:51p m Generalized weakness February 26, 2025 9:51 pm History of hemorrhagic cereb rovascular accident (CVA) with residual deficit February 26, 2025 9:51pm Seizure disorder as sequela of cerebrova scular accident February 26, 2025 9:51pm Chronic dementia February 26, 2025 9:51p m Chief Complaint Admit Date PERSISTENT CONFUSION X 6 DAYS; EVAL FOR TIA VS CVA February 26, 2025 9:55pm PERSISTENT CONFUSION X 6 DAYS; EVAL FOR TIA VS CVA February 27, 2025 6:24pm PERSISTENT CONFUSION X 6 DAYS; EVAL FOR TIA VS CVA February 28, 2025 5:32pm PERSISTENT CONFUSION X 6 DAYS; EVAL FOR TIA VS CVA March 02, 2025 3:02pm PERSISTENT CONFUSION X 6 DAYS; EVAL FOR TIA VS CVA March 02, 2025 6:25pm PERSISTENT CONFUSION X 6 DAYS; EVAL FOR TIA VS CVA March 03, 2025 2:34pm Reason for Visit Admit Date Confusion March 02, 2025 3:02p m Generalized weakness March 02, 2025 3:02 pm 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nset dementi a March 02, 2025 3:02pm History of hemorrhagic cereb rovascular accident (CVA) with residual deficit March 02, 2025 3:02pm Seizure disorder as sequela of cerebrova scular accident March 02, 2025 3:02pm Chronic dementia March 02, 2025 3:02p m Chief Complaint Admit Date PERSISTENT CONFUSION X 6 DAYS; EVAL FOR TIA VS CVA February 26, 2025 9:55pm PERSISTENT CONFUSION X 6 DAYS; EVAL FOR TIA VS CVA February 27, 2025 6:24pm PERSISTENT CONFUSION X 6 DAYS; EVAL FOR TIA VS CVA February 28, 2025 5:32pm PERSISTENT CONFUSION X 6 DAYS; EVAL FOR TIA VS CVA March 02, 2025 3:02pm PERSISTENT CONFUSION X 6 DAYS; EVAL FOR TIA VS CVA March 02, 2025 6:25pm PERSISTENT CONFUSION X 6 DAYS; EVAL FOR TIA VS CVA March 03, 2025 2:34pm altered mental March 19, 2025 8:18a m Reason for Visit Admit Date Seizure disorder as sequela of cerebrova scular accident March 02, 2025 3:02pm Chronic dementia March 02, 2025 3:02p m Confusion March 02, 2025 3:02p m Generalized weakness March 02, 2025 3:02 pm 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nset dementi a March 02, 2025 3:02pm History of hemorrhagic cereb rovascular accident (CVA) with residual deficit March 02, 2025 3:02pm Advance Directives No Advanced Directives Records Found Advance Directive Response Recorded Date/ Time Do you have a Healthcare Power of [employer] Operator? No February 26, 2025 6:57pm Advance Directive Response Recorded Date/ Time Do you have a Healthcare Power of [employer] Crusher Operator? No February 26, 2025 10:29pm Advance Directive Response Recorded Date/ Time Do you have a Healthcare Power of [employer] Crusher Operator? No February 26, 2025 10:29pm Do you have a Healthcare Power of [employer] Crusher Operator? No March 19, 2025 8:21am Summary Purpose Family History No Family History Records Found Additional Source Comments Care Teams (unrecognized sec tion and content) Team Status: Active Member Role Status Dates No Primary Care Physician Primary Care Provider Active Team Status: Active Member Role Status Dates Dr. Damien Leung MD Emergency Provider Active Start: February 26, 2025 No Primary Care Physician Primary Care Provider Active Start: February 26, 2025 Dr. Fuasto Davidson DO Admit Provider Active Start: February 26, 2025 Dr. Fausto Davidson DO Attending Provider Active Start: February 26, 2025 Dr. Fausto Davidson DO Referring Provider Active Start: February 26, 2025 Team Status: Active Member Role Status Dates Dr. Damien Leung MD Emergency Provider Active Start: February 26, 2025 No Primary Care Physician Primary Care Provider Active Start: February 26, 2025 Dr. Fausto Davidson , Admit Provider Active Start: February 26, 2025 Dr. Fausto Davidson DO Attending Provider Active Start: February 26, 2025 Dr. Fausto Dvaidson DO Referring Provider Active Start: February 26, 2025 Dr. Fausto Davidson DO Other Provider Active Start: February 26, 2025 Dr. Rosaura Cooper MD Other Provider Active Start: February 26, 2025 Dr. Kendra Motley MD Other Provider Active Start: February 26, 2025 Gunjan Espinosa MD Other Provider Active Start : February 26, 2025 Mike Benavidez MS Other Provider Active Start: ay 2024 Dr. Adria Urena MD Other Provider Active Sta rt: February 26, 2025 Niko Reyna MD Other Provider Active Start: February 26, 2025 JEANNETTE HARP MD Other Provider Active Start: ay 2024 Bianca Duenas MD Other Provider Active Start : February 26, 2025 Dr. Katrin Vogel MD Other Provider Active Start : February 26, 2025 Apolinar Reynolds MD Other Provider Active Start: February 26, 2025 Mary Poe MD Other Provider Active Start: February 26, 2025 Lee Alcantara MD Other Provider Active Start: Dc y 2024 Barbie Rea MD Other Provider Active Start : February 26, 2025 Dr. Shahana Schulte DO Other Provider Active St art: February 26, 2025 Dr. Martin Dior MD Other Provider Active Sta rt: February 26, 2025 Dr. Sandra Pond MD Other Provider Active Start : February 26, 2025 Dr. Lisandro Byrnes MD Other Provider Active Start: February 26, 2025 Dr. Sebastian De Souza MD Other Provider Active Start : February 26, 2025 Dr. Brayden Luna MD Other Provider Active St art: February 26, 2025 Dr. Fina Dumont MD Other Provider Active Sta rt: February 26, 2025 Dr. Lisa Haley MD Other Provider Active Start: February 26, 2025 Dr. Luis A Banuelos MD Other Provider Active St art: February 26, 2025 Dr. Candido Pierce MD Other Provider Active Star t: February 26, 2025 Dr. Mitchell Culp MD Other Provider Active St art: February 26, 2025 Dr. Skylar Capellan MD Other Provider Active Start: February 26, 2025 Brandie Small MD Other Provider Active Start: February 26, 2025 Team Status: Active Member Role Status Dates No Primary Care Physician Primary Care Provider Active Start: February 27, 2025 Dr. Joseph Steinberg MD Attending Provider Active S tart: February 27, 2025 Team Status: Active Member Role Status Dates No Primary Care Physician Primary Care Provider Active Start: February 27, 2025 Dr. French Peters MD Attending Provider Active S tart: February 27, 2025 Team Status: Active Member Role Status Dates Dr. Damien Leung MD Emergency Provider Active Start: February 27, 2025 No Primary Care Physician Primary Care Provider Active Start: February 27, 2025 Dr. Fausto Davidson DO Admit Provider Active Start: February 27, 2025 Dr. Fausto Davidson DO Referring Provider Active Start: February 27, 2025 Dr. Fausto Davidson DO Other Provider Active Start: February 27, 2025 Dr. Rosaura Cooper MD Other Provider Active Start: February 27, 2025 Dr. Kendra Motley MD Other Provider Active Start: February 27, 2025 Gunjan Espinosa MD Other Provider Active Start : February 27, 2025 Mike Benavidez MS Other Provider Active Start: M ay 2024 Dr. Adria Urena MD Other Provider Active Sta rt: February 27, 2025 Niko Reyna MD Other Provider Active Start: February 27, 2025 JEANNETTE HARP MD Other Provider Active Start: M ay 2024 Bianca Duenas MD Other Provider Active Start : February 27, 2025 Dr. Katrin Vogel MD Other Provider Active Start : February 27, 2025 Apolinar Reynolds MD Other Provider Active Start: February 27, 2025 Mary Poe MD Other Provider Active Start: February 27, 2025 Lee Alcantara MD Other Provider Active Start: Ma y 2024 Barbie Rea MD Other Provider Active Start : February 27, 2025 Dr. Shahana Schulte , Other Provider Active St art: February 27, 2025 Dr. Martin Dior MD Other Provider Active Sta rt: February 27, 2025 Dr. Sandra Pond MD Other Provider Active Start : February 27, 2025 Dr. Lisandro Byrnes MD Other Provider Active Start: February 27, 2025 Dr. Sebastian De Souza MD Other Provider Active Start : February 27, 2025 Dr. Brayden Luna MD Other Provider Active St art: February 27, 2025 Dr. Fina Dumont MD Other Provider Active Sta rt: February 27, 2025 Dr. Lisa Haley MD Other Provider Active Start: February 27, 2025 Dr. Luis A Banuelos MD Other Provider Active St art: February 27, 2025 Dr. Candido Pierce MD Other Provider Active Star t: February 27, 2025 Dr. Mitchell Culp MD Other Provider Active St art: February 27, 2025 Dr. Skylar Capellan MD Other Provider Active Start: February 27, 2025 Brandie Small MD Other Provider Active Start: February 27, 2025 Dr. Donny Taylor DO Attending Provider Active Start: February 27, 2025 Dr. Donny Taylor DO Other Provider Active S tart: February 27, 2025 Team Status: Active Member Role Status Dates Dr. Damien Leung MD Emergency Provider Active Start: February 28, 2025 No Primary Care Physician Primary Care Provider Active Start: February 28, 2025 Dr. Fausto Davidson DO Admit Provider Active Start: February 28, 2025 Dr. Fausto Davidson DO Referring Provider Active Start: February 28, 2025 Dr. Fausto Davidson DO Other Provider Active Start: February 28, 2025 Dr. Rosaura Cooper MD Other Provider Active Start: February 28, 2025 Dr. Kendra Motley MD Other Provider Active Start: February 28, 2025 Gunjan Espinosa MD Other Provider Active Start : February 28, 2025 Mike Benavidez MS Other Provider Active Start: M horacio 2024 Dr. Adria Urena MD Other Provider Active Sta rt: February 28, 2025 Niko Reyna MD Other Provider Active Start: February 28, 2025 JEANNETTE HARP MD Other Provider Active Start: M ay 2024 Bianca Duenas MD Other Provider Active Start : February 28, 2025 Dr. Katrin Vogel MD Other Provider Active Start : February 28, 2025 Apolinar Reynolds MD Other Provider Active Start: February 28, 2025 Mary Poe MD Other Provider Active Start: February 28, 2025 Lee Alcantara MD Other Provider Active Start: Ma y 2024 Barbie Rea MD Other Provider Active Start : February 28, 2025 Dr. Shahana Schulte , Other Provider Active St art: February 28, 2025 Dr. Martin Dior MD Other Provider Active Sta rt: February 28, 2025 Dr. Sandra Pond MD Other Provider Active Start : February 28, 2025 Dr. Lisandro Byrnes MD Other Provider Active Start: February 28, 2025 Dr. Sebastian De Souza MD Other Provider Active Start : February 28, 2025 Dr. Brayden Luna MD Other Provider Active St art: February 28, 2025 Dr. Fina Dumont MD Other Provider Active Sta rt: February 28, 2025 Dr. Lisa Haley MD Other Provider Active Start: February 28, 2025 Dr. Luis A Banuelos MD Other Provider Active St art: February 28, 2025 Dr. Candido Pierce MD Other Provider Active Star t: February 28, 2025 Dr. Mitchell Culp MD Other Provider Active St art: February 28, 2025 Dr. Skylar Capellan MD Other Provider Active Start: February 28, 2025 Brandie Small MD Other Provider Active Start: February 28, 2025 Dr. Donny Taylor , Attending Provider Active Start: February 28, 2025 Dr. Donny Taylor DO Other Provider Active S tart: February 28, 2025 Team Status: Inactive Member Role Status Dates Dr. Damien Leung MD Emergency Provider Active Start: March 02, 2025 End: March 03, 2025 No Primary Care Physician Primary Care Provider Active Start: March 02, 2025 End: March 03, 2025 Dr. Fausto Davidson , DO Admit Provider Active Start: March 02, 2025 End: March 03, 2025 Dr. Fausto Davidson DO Referring Provider Active Start: March 02, 2025 End: March 03, 2025 Dr. Fausto Davdison DO Other Provider Active Start: March 02, 2025 End: March 03, 2025 Dr. Rosaura Cooper MD Other Provider Active Start: March 02, 2025 End: March 03, 2025 Dr. Kendra Motley MD Other Provider Active Start: March 02, 2025 End: March 03, 2025 Gunjan Espinosa MD Other Provider Active Start : March 02, 2025 End: March 03, 2025 Mike Benavidez MS Other Provider Active Start: M ay 2024 End: March 03, 2025 Dr. Adria Urena MD Other Provider Active Sta rt: March 02, 2025 End: March 03, 2025 Niko Reyna MD Other Provider Active Start: March 02, 2025 End: March 03, 2025 JEANNETTE HARP MD Other Provider Active Start: M ay 2024 End: March 03, 2025 Bianca Duenas MD Other Provider Active Start : March 02, 2025 End: March 03, 2025 Dr. Katrin Vogel MD Other Provider Active Start : March 02, 2025 End: March 03, 2025 Apolinar Reynolds MD Other Provider Active Start: March 02, 2025 End: March 03, 2025 Mary Poe MD Other Provider Active Start: March 02, 2025 End: March 03, 2025 Dr. Donny Taylor DO Attending Provider Active Start: March 02, 2025 End: March 03, 2025 Lee Alcantara MD Other Provider Active Start: Ma y 2024 End: March 03, 2025 Barbie Rea MD Other Provider Active Start : March 02, 2025 End: March 03, 2025 Dr. Shahana Schulte DO Other Provider Active St art: March 02, 2025 End: March 03, 2025 Dr. Martin Dior MD Other Provider Active Sta rt: March 02, 2025 End: March 03, 2025 Dr. Sandra Pond MD Other Provider Active Start : March 02, 2025 End: March 03, 2025 Dr. Lisandro Byrnes MD Other Provider Active Start: March 02, 2025 End: March 03, 2025 Dr. Sebastian De Souza MD Other Provider Active Start : March 02, 2025 End: March 03, 2025 Dr. Brayden Luna MD Other Provider Active St art: March 02, 2025 End: March 03, 2025 Dr. Fina Dumont MD Other Provider Active Sta rt: March 02, 2025 End: March 03, 2025 Dr. Lisa Haley MD Other Provider Active Start: March 02, 2025 End: March 03, 2025 Dr. Luis A Banuelos MD Other Provider Active St art: March 02, 2025 End: March 03, 2025 Dr. Candido Pierce MD Other Provider Active Star t: March 02, 2025 End: March 03, 2025 Dr. Mitchell Culp MD Other Provider Active St art: March 02, 2025 End: March 03, 2025 Dr. Skylar Capellan MD Other Provider Active Start: March 02, 2025 End: March 03, 2025 Brandie Small MD Other Provider Active Start: March 02, 2025 End: March 03, 2025 Brandie Small MD Other Provider Active Start: March 02, 2025 Team Status: Active Member Role Status Dates Dr. Damien Leung MD Emergency Provider Active Start: March 02, 2025 No Primary Care Physician Primary Care Provider Active Start: March 02, 2025 Dr. Fausto Davidson DO Admit Provider Active Start: March 02, 2025 Dr. Fausto Davidson DO Referring Provider Active Start: March 02, 2025 Dr. Fausto Davidson DO Other Provider Active Start: March 02, 2025 Dr. Rosaura Cooper MD Other Provider Active Start: March 02, 2025 Dr. Kendra Motley MD Other Provider Active Start: March 02, 2025 Gunjan Espinosa MD Other Provider Active Start : March 02, 2025 Mike Benavidez MS Other Provider Active Start: M ay 2024 Dr. Adria Urena MD Other Provider Active Sta rt: March 02, 2025 Niko Reyna MD Other Provider Active Start: March 02, 2025 JEANNETTE HARP MD Other Provider Active Start: M ay 2024 Bianca Duenas MD Other Provider Active Start : March 02, 2025 Dr. Katrin Vogel MD Other Provider Active Start : March 02, 2025 Apolinar Reynolds MD Other Provider Active Start: March 02, 2025 Mary Poe MD Other Provider Active Start: March 02, 2025 Dr. Donny Taylor , Attending Provider Active Start: March 02, 2025 Dr. Donny Taylor DO Other Provider Active S tart: March 02, 2025 Lee Alcantara MD Other Provider Active Start: [facility] 2024 Barbie Rea MD Other Provider Active Start : March 02, 2025 Dr. Shahana Schulte DO Other Provider Active St art: March 02, 2025 Dr. Martin Dior MD Other Provider Active Sta rt: March 02, 2025 Dr. Sandra Pond MD Other Provider Active Start : March 02, 2025 Dr. Lisandro Byrnes MD Other Provider Active Start: March 02, 2025 Dr. Sebastian De Souza MD Other Provider Active Start : March 02, 2025 Dr. Brayden Luna MD Other Provider Active St art: March 02, 2025 Dr. Fina Dumont MD Other Provider Active Sta rt: March 02, 2025 Dr. Lisa Haley MD Other Provider Active Start: March 02, 2025 Dr. Luis A Banuelos MD Other Provider Active St art: March 02, 2025 Dr. Candido Pierce MD Other Provider Active Star t: March 02, 2025 Dr. Mitchell Culp MD Other Provider Active St art: March 02, 2025 Dr. Skylar Capellan MD Other Provider Active Start: March 02, 2025 Brandie Small MD Other Provider Active Start: March 02, 2025 Team Status: Active Member Role Status Dates Dr. Damien Leung MD Emergency Provider Active Start: March 03, 2025 No Primary Care Physician Primary Care Provider Active Start: March 03, 2025 Dr. Fausto Davidson , DO Admit Provider Active Start: March 03, 2025 Dr. Fausto Davidson DO Referring Provider Active Start: March 03, 2025 Dr. Fausto Davidson , Other Provider Active Start: March 03, 2025 Dr. Rosaura Cooper MD Other Provider Active Start: March 03, 2025 Dr. Kendra Motley MD Other Provider Active Start: March 03, 2025 Gunjan Espinosa MD Other Provider Active Start : March 03, 2025 Mike Benavidez MS Other Provider Active Start: ay 2024 Dr. Adria Urena MD Other Provider Active Sta rt: March 03, 2025 Niko Reyna MD Other Provider Active Start: March 03, 2025 JEANNETTE HARP MD Other Provider Active Start: ay 2024 Bianca Duenas MD Other Provider Active Start : March 03, 2025 Dr. Katrin Vogel MD Other Provider Active Start : March 03, 2025 Apolinar Reynolds MD Other Provider Active Start: March 03, 2025 Mary Poe MD Other Provider Active Start: March 03, 2025 Dr. Donny Taylor DO Attending Provider Active Start: March 03, 2025 Dr. Donny Taylor DO Other Provider Active S tart: March 03, 2025 Lee Alcantara MD Other Provider Active Start: Dc y 2024 Barbie Rea MD Other Provider Active Start : March 03, 2025 Dr. Shahana Schulte , Other Provider Active St art: March 03, 2025 Dr. Martin Dior MD Other Provider Active Sta rt: March 03, 2025 Dr. Sandra Pond MD Other Provider Active Start : March 03, 2025 Dr. Lisandro Byrnes MD Other Provider Active Start: March 03, 2025 Dr. Sebastian De Souza MD Other Provider Active Start : March 03, 2025 Dr. Brayden Luna MD Other Provider Active St art: March 03, 2025 Dr. Fina Dumont MD Other Provider Active Sta rt: March 03, 2025 Dr. Lisa Haley MD Other Provider Active Start: March 03, 2025 Dr. Luis A Banuelos MD Other Provider Active St art: March 03, 2025 Dr. Candido Pierce MD Other Provider Active Star t: March 03, 2025 Dr. Mitchell Culp MD Other Provider Active St art: March 03, 2025 Dr. Skylar Capellan MD Other Provider Active Start: March 03, 2025 Brandie Small MD Other Provider Active Start: March 03, 2025 Team Status: Active Member Role Status Dates Dr. Damien Leung MD Emergency Provider Active Start: February 26, 2025 No Primary Care Physician Primary Care Provider Active Start: February 26, 2025 Dr. Fausto Davidson DO Admit Provider Active Start: February 26, 2025 Dr. Fausto Davidson DO Attending Provider Active Start: February 26, 2025 Dr. Fausto Davidson DO Other Provider Active Start: February 26, 2025 Dr. Rosaura Cooper MD Other Provider Active Start: February 26, 2025 Dr. Kendra Motley MD Other Provider Active Start: February 26, 2025 Gunjan Espinosa MD Other Provider Active Start : February 26, 2025 Mike Benavidez MS Other Provider Active Start: M ay 2024 Dr. Adria Urena MD Other Provider Active Sta rt: February 26, 2025 Niko Reyna MD Other Provider Active Start: February 26, 2025 JEANNETTE HARP MD Other Provider Active Start: M ay 2024 Bianca Duenas MD Other Provider Active Start : February 26, 2025 Dr. Katrin Vogel MD Other Provider Active Start : February 26, 2025 Apolinar Reynolds MD Other Provider Active Start: February 26, 2025 Mary Poe MD Other Provider Active Start: February 26, 2025 Lee Alcantara MD Other Provider Active Start: Ma y 2024 Barbie Rea MD Other Provider Active Start : February 26, 2025 Dr. Shahana Schulte DO Other Provider Active St art: February 26, 2025 Dr. Martin Dior MD Other Provider Active Sta rt: February 26, 2025 Dr. Sandra Pond MD Other Provider Active Start : February 26, 2025 Dr. Lisandro Byrnes MD Other Provider Active Start: February 26, 2025 Dr. Sebastian De Souza MD Other Provider Active Start : February 26, 2025 Dr. Brayden Luna MD Other Provider Active St art: February 26, 2025 Dr. Fina Dumont MD Other Provider Active Sta rt: February 26, 2025 Dr. Lisa Haley MD Other Provider Active Start: February 26, 2025 Dr. Luis A Banuelos MD Other Provider Active St art: February 26, 2025 Dr. Candido Pierce MD Other Provider Active Star t: February 26, 2025 Dr. Mitchell Culp MD Other Provider Active St art: February 26, 2025 Dr. Skylar Capellan MD Other Provider Active Start: February 26, 2025 Brandie Small MD Other Provider Active Start: February 26, 2025 Team Status: Active Member Role Status Dates No Primary Care Physician Primary Care Provider Active Start: February 27, 2025 Dr. French Peters MD Attending Provider Active S tart: February 27, 2025 Dr. Fausto Davidson DO Referring Provider Active Start: February 27, 2025 Team Status: Active Member Role Status Dates Dr. Damien Leung MD Emergency Provider Active Start: February 27, 2025 No Primary Care Physician Primary Care Provider Active Start: February 27, 2025 Dr. Fausto Davidson DO Admit Provider Active Start: February 27, 2025 Dr. Fausto Davidson DO Other Provider Active Start: February 27, 2025 Dr. Rosaura Cooper MD Other Provider Active Start: February 27, 2025 Dr. Kendra Motley MD Other Provider Active Start: February 27, 2025 Gunajn Espinosa MD Other Provider Active Start : February 27, 2025 Mike Benavidez MS Other Provider Active Start: M ay 2024 Dr. Adria Urena MD Other Provider Active Sta rt: February 27, 2025 Niko Reyna MD Other Provider Active Start: February 27, 2025 JEANNETTE HARP MD Other Provider Active Start: M ay 2024 Bianca Duenas MD Other Provider Active Start : February 27, 2025 Dr. Katrin Vogel MD Other Provider Active Start : February 27, 2025 Apolinar Reynolds MD Other Provider Active Start: February 27, 2025 Mary Poe MD Other Provider Active Start: February 27, 2025 Lee Alcantara MD Other Provider Active Start: Ma y 2024 Barbie Rea MD Other Provider Active Start : February 27, 2025 Dr. Shahana Schulte DO Other Provider Active St art: February 27, 2025 Dr. Martin Dior MD Other Provider Active Sta rt: February 27, 2025 Dr. Sandra Pond MD Other Provider Active Start : February 27, 2025 Dr. Lisandro Byrnes MD Other Provider Active Start: February 27, 2025 Dr. Sebastian De Souza MD Other Provider Active Start : February 27, 2025 Dr. Brayden Luna MD Other Provider Active St art: February 27, 2025 Dr. Fina Dumont MD Other Provider Active Sta rt: February 27, 2025 Dr. Lisa Haley MD Other Provider Active Start: February 27, 2025 Dr. Luis A Banuelos MD Other Provider Active St art: February 27, 2025 Dr. Candido Pierce MD Other Provider Active Star t: February 27, 2025 Dr. Mitchell Culp MD Other Provider Active St art: February 27, 2025 Dr. Skylar Capellan MD Other Provider Active Start: February 27, 2025 Brandie Small MD Other Provider Active Start: February 27, 2025 Dr. Donny Taylor DO Attending Provider Active Start: February 27, 2025 Dr. Donny Taylor DO Other Provider Active S tart: February 27, 2025 Team Status: Active Member Role Status Dates Dr. Damien Leung MD Emergency Provider Active Start: February 28, 2025 No Primary Care Physician Primary Care Provider Active Start: February 28, 2025 Dr. Fausto Davidson DO Admit Provider Active Start: February 28, 2025 Dr. Fausto Davidson DO Other Provider Active Start: February 28, 2025 Dr. Rosaura Cooper MD Other Provider Active Start: February 28, 2025 Dr. Kendra Motley MD Other Provider Active Start: February 28, 2025 Gunjan Espinosa MD Other Provider Active Start : February 28, 2025 Mike Benavidez MS Other Provider Active Start: ay 2024 Dr. Adria Urena MD Other Provider Active Sta rt: February 28, 2025 Niko Reyna MD Other Provider Active Start: February 28, 2025 JEANNETTE HARP MD Other Provider Active Start: ay 2024 Bianca Duenas MD Other Provider Active Start : February 28, 2025 Dr. Katrin Vogel MD Other Provider Active Start : February 28, 2025 Apolinar Reynolds MD Other Provider Active Start: February 28, 2025 Mary Poe MD Other Provider Active Start: February 28, 2025 Lee Alcantara MD Other Provider Active Start: Dc y 2024 Barbie Rea MD Other Provider Active Start : February 28, 2025 Dr. Shahana Schulte DO Other Provider Active St art: February 28, 2025 Dr. Martin Dior MD Other Provider Active Sta rt: February 28, 2025 Dr. Sandra Pond MD Other Provider Active Start : February 28, 2025 Dr. Lisandro Byrnes MD Other Provider Active Start: February 28, 2025 Dr. Sebastian De Souza MD Other Provider Active Start : February 28, 2025 Dr. Brayden Luna MD Other Provider Active St art: February 28, 2025 Dr. Fina Dumont MD Other Provider Active Sta rt: February 28, 2025 Dr. Lisa Haley MD Other Provider Active Start: February 28, 2025 Dr. Luis A Banuelos MD Other Provider Active St art: February 28, 2025 Dr. Candido Pierce MD Other Provider Active Star t: February 28, 2025 Dr. Mitchell Culp MD Other Provider Active St art: February 28, 2025 Dr. Skylar Capellan MD Other Provider Active Start: February 28, 2025 Brandie Small MD Other Provider Active Start: February 28, 2025 Dr. Donny Taylor DO Attending Provider Active Start: February 28, 2025 Dr. Donny Taylor DO Other Provider Active S tart: February 28, 2025 Team Status: Inactive Member Role Status Dates Dr. Damien Leung MD Emergency Provider Active Start: March 02, 2025 End: March 03, 2025 No Primary Care Physician Primary Care Provider Active Start: March 02, 2025 End: March 03, 2025 Dr. Fausto Davidson DO Admit Provider Active Start: March 02, 2025 End: March 03, 2025 Dr. Fausto Davidson DO Referring Provider Active Start: March 02, 2025 End: March 03, 2025 Dr. Fausto Davidson DO Other Provider Active Start: March 02, 2025 End: March 03, 2025 Dr. Rosaura Cooper MD Other Provider Active Start: March 02, 2025 End: March 03, 2025 Dr. Kendra Motley MD Other Provider Active Start: March 02, 2025 End: March 03, 2025 Gunjan Espinosa MD Other Provider Active Start : March 02, 2025 End: March 03, 2025 Mike Benavidez MS Other Provider Active Start: ay 2024 End: March 03, 2025 Dr. Adria Urena MD Other Provider Active Sta rt: March 02, 2025 End: March 03, 2025 Niko Reyna MD Other Provider Active Start: March 02, 2025 End: March 03, 2025 JEANNETTE HARP MD Other Provider Active Start: M ay 2024 End: March 03, 2025 Bianca Duenas MD Other Provider Active Start : March 02, 2025 End: March 03, 2025 Dr. Katrin Vogel MD Other Provider Active Start : March 02, 2025 End: March 03, 2025 Apolinar Reynolds MD Other Provider Active Start: March 02, 2025 End: March 03, 2025 Mary Poe MD Other Provider Active Start: March 02, 2025 End: March 03, 2025 Dr. Donny Taylor DO Attending Provider Active Start: March 02, 2025 End: March 03, 2025 Lee Alcantara MD Other Provider Active Start: Raghu villalba 2024 End: March 03, 2025 Barbie Rea MD Other Provider Active Start : March 02, 2025 End: March 03, 2025 Dr. Shahana Schulte , Other Provider Active St art: March 02, 2025 End: March 03, 2025 Dr. Martin Dior MD Other Provider Active Sta rt: March 02, 2025 End: March 03, 2025 Dr. Sandra Pond MD Other Provider Active Start : March 02, 2025 End: March 03, 2025 Dr. Lisandro Byrnes MD Other Provider Active Start: March 02, 2025 End: March 03, 2025 Dr. Sebastian De Souza MD Other Provider Active Start : March 02, 2025 End: March 03, 2025 Dr. Brayden Luna MD Other Provider Active St art: March 02, 2025 End: March 03, 2025 Dr. Fina Dumont MD Other Provider Active Sta rt: March 02, 2025 End: March 03, 2025 Dr. Lisa Haley MD Other Provider Active Start: March 02, 2025 End: March 03, 2025 Dr. Luis A Banuelos MD Other Provider Active St art: March 02, 2025 End: March 03, 2025 Dr. Candido Pierce MD Other Provider Active Star t: March 02, 2025 End: March 03, 2025 Dr. Mitchell Culp MD Other Provider Active St art: March 02, 2025 End: March 03, 2025 Dr. Skylar Capellan MD Other Provider Active Start: March 02, 2025 End: March 03, 2025 Brandie Small MD Other Provider Active Start: March 02, 2025 End: March 03, 2025 Team Status: Active Member Role Status Dates Dr. Damien Leung MD Emergency Provider Active Start: March 02, 2025 No Primary Care Physician Primary Care Provider Active Start: March 02, 2025 Dr. Fausto Davidson DO Admit Provider Active Start: March 02, 2025 Dr. Fausto Davidson DO Other Provider Active Start: March 02, 2025 Dr. Rosaura Cooper MD Other Provider Active Start: March 02, 2025 Dr. Kendra Motley MD Other Provider Active Start: March 02, 2025 Gunjan Espinosa MD Other Provider Active Start : March 02, 2025 Mike Benavidez MS Other Provider Active Start: 2024 Dr. Adria Urena MD Other Provider Active Sta rt: March 02, 2025 Niko Reyna MD Other Provider Active Start: March 02, 2025 JEANNETTE HARP MD Other Provider Active Start: 2024 Bianca Deunas MD Other Provider Active Start : March 02, 2025 Dr. Katrin Vogel MD Other Provider Active Start : March 02, 2025 Apolinar Reynolds MD Other Provider Active Start: March 02, 2025 Mary Poe MD Other Provider Active Start: March 02, 2025 Dr. Donny Taylor , Attending Provider Active Start: March 02, 2025 Dr. Donny Taylor , Other Provider Active S tart: March 02, 2025 Lee Alcantara MD Other Provider Active Start: [facility] 2024 Barbie Rea MD Other Provider Active Start : March 02, 2025 Dr. Shahana Schulte , Other Provider Active St art: March 02, 2025 Dr. Martin Dior MD Other Provider Active Sta rt: March 02, 2025 Dr. Sandra Pond MD Other Provider Active Start : March 02, 2025 Dr. Lisandro Byrnes MD Other Provider Active Start: March 02, 2025 Dr. Sebastian De Souza MD Other Provider Active Start : March 02, 2025 Dr. Brayden Luna MD Other Provider Active St art: March 02, 2025 Dr. Fina Dumont MD Other Provider Active Sta rt: March 02, 2025 Dr. Lisa Haley MD Other Provider Active Start: March 02, 2025 Dr. Luis A Banuelos MD Other Provider Active St art: March 02, 2025 Dr. Candido Pierce MD Other Provider Active Star t: March 02, 2025 Dr. Mitchell Culp MD Other Provider Active St art: March 02, 2025 Dr. Skylar Capellan MD Other Provider Active Start: March 02, 2025 Brandie Small MD Other Provider Active Start: March 02, 2025 Team Status: Active Member Role Status Dates Dr. Damien Leung MD Emergency Provider Active Start: March 03, 2025 No Primary Care Physician Primary Care Provider Active Start: March 03, 2025 Dr. Fausto Davidson , DO Admit Provider Active Start: March 03, 2025 Dr. Fausto Davidson , DO Other Provider Active Start: March 03, 2025 Dr. Rosaura Cooper MD Other Provider Active Start: March 03, 2025 Dr. Kendra Motley MD Other Provider Active Start: March 03, 2025 Gunjan Espinosa MD Other Provider Active Start : March 03, 2025 Mike Benavidez MS Other Provider Active Start: 2024 Dr. Adria Urena MD Other Provider Active Sta rt: March 03, 2025 Niko Reyna MD Other Provider Active Start: March 03, 2025 JEANNETTE HARP MD Other Provider Active Start: ay 2024 Bianca Duenas MD Other Provider Active Start : March 03, 2025 Dr. Katrin Vogel MD Other Provider Active Start : March 03, 2025 Apolinar Reynolds MD Other Provider Active Start: March 03, 2025 Mary Poe MD Other Provider Active Start: March 03, 2025 Dr. Donny Taylor DO Attending Provider Active Start: March 03, 2025 Dr. Donny Taylor DO Other Provider Active S tart: March 03, 2025 Lee Alcantara MD Other Provider Active Start: Ma y 2024 Barbie Rea MD Other Provider Active Start : March 03, 2025 Dr. Shahana Schulte , Other Provider Active St art: March 03, 2025 Dr. Martin Dior MD Other Provider Active Sta rt: March 03, 2025 Dr. Sandra Pond MD Other Provider Active Start : March 03, 2025 Dr. Lisandro Byrnes MD Other Provider Active Start: March 03, 2025 Dr. Sebastian De Souza MD Other Provider Active Start : March 03, 2025 Dr. Brayden Luna MD Other Provider Active St art: March 03, 2025 Dr. Fina Dumont MD Other Provider Active Sta rt: March 03, 2025 Dr. Lisa Haley MD Other Provider Active Start: March 03, 2025 Dr. Luis A Banuelos MD Other Provider Active St art: March 03, 2025 Dr. Candido Pierce MD Other Provider Active Star t: March 03, 2025 Dr. Mitchell Culp MD Other Provider Active St art: March 03, 2025 Dr. Skylar Capellan MD Other Provider Active Start: March 03, 2025 Brandie Small MD Other Provider Active Start: March 03, 2025 Team Status: Inactive Member Role Status Dates No Primary Care Physician Primary Care Provider Active Start: March 19, 2025 End: March 19, 2025 Dr. Javan Phan DO Emergency Provider Active S tart: March 19, 2025 End: March 19, 2025 Goals (unrecognized section and content) Goals may be documented in a n alternate section (unrecognized sect ion and content) No Status Records Found INFORMATION SOURCE (unrecogn ized section and content) DATE CREATED AUTHOR 03/24/2025 [facility] FOR RECORDS PERTAINING TO PATIENTS WHO ARE OR HAVE BEEN ENROLLED IN A CHEMICAL DEPENDENCY/SUBSTANCEABUSE PROGRAM, SOME INFORMATION MAY BE OMITTED. This clinical summary was aggregated from multiple sources. Caution should be exercised in using it in the provision of clinical care. This summary normalizes information from multiple sources, and as a consequence, information in this document may materially change the coding, format and clinical context of patient data. In addition, data may be omitted in some cases. CLINICAL DECISIONS SHOULD BE BASED ON THE PRIMARY CLINICAL RECORDS. [facility] provides no warranty or guarantee of the accuracy or completeness of information in this document.
--- OUTSIDE RECORDS SUMMARY | 2025-04-10 03:36 | XMS RPT_ITS | CCD ---
Author Organization [facility] Care Team Providers Care Lawyer Criminal Name Role Phone Madhu SHELL, Dr. Quezada [...] Provider Romel SHELL, Dr. Covington Other Provider [phone] Niko Reyna MD Other Provider JEANNETTE HARP MD Other Provider Bianca Duenas MD Other Provider [phone] Katrin Vogel MD Other Provider Apolinar [...] Provider Cheryl SHELL, Dr. Owen Other Provider Tmi SHELL, Dr. Harden Other Provider Sudha SHELL, Dr. Lisa Maher Other Provider Vin SHELL, Dr. Gunn Other Provider [phone] Stan SHELL, Dr. Rey Other Provider [phone] Suni SHELL, Dr. Medrano Other Provider Timi SHELL, Dr. Cheng Other Provider Unavailable Staci SHELL, Yousecornelio Other Provider Unavailable Idris SHELL, Dr. Ruiz Attending Provider Dr. French Peters MD Attending Provider Dr. Donny Taylor DO Attending Provider [phone] Brandon SCHAEFFER, Dr. Hines Other Provider Dr. Fausto Davidson DO Referring Provider Unav ailable Dr. Javan Phan DO Emergency Provider Fausto Davidson Admitting Unavailable Fausto Davidson Referring [...] sources) Azithromycin Drug Allergy 5 NEEDS FOLLOW-UP [facility] (1 source) Azithromycin Drug Allergy 5 [facility] Repository Medications Current Medications Medication Drug Class(es) [...] D2) 1,250 mcg (50,000 unit) capsule Active 19313 U PO DAILY February 26, 2025 12:00am lacosamide 100 mg oral tablet (3 sources) Anti-epileptic Agent Start: 02-26-2025 take 1 tablet by mouth twice daily Lacosamide 100 mg tablet Active 100 mg PO TWICE A DAY February 26, 2025 12:00am memantine hydrochloride 10 mg oral tablet (4 sources) J-zqzctj-B-aspar bassett Receptor Antagonist Start: 03-19-2025 End: 03-19-2025 [...] Urine Cultureon 03-21-2025 URC Presumptive E. coli Linton Count >100,000 Presumptive E. coli: REACTION Ampicillin [...] TMP SMX Islt CARLA <=20 S Normal [facility] Comment on above: Performed By: #### L 501.4021 #### [facility] [address] [place], [address] 12 Lead EKGon 03-19-2025 12 Lead EKG [facility] Cardiovascular Services [address] [place] [address] 12 Lead EKG 03/19/25 0834 MR#: [id number] Acct: [id number] Name: BERTOALDO Cornelio Rep #: [id number] : 1950 74 From: Mitchel Mendieta MD [...] wave changes Borderline Confirmed by Mitchel Mendieta ([id number]), index editor DINORAH WHITE ([id number]) on 03/20/2025 10:59:35 AM Referred By: Confirmed By: Mitchel Mendieta 03/20/25 1059 Date Mitchel Mendieta MD CC: Dr. Javan Phan DO; No Primary Care Physician Signed Normal [facility] Absolute lymphocyte countOrd ered By: Javan Phan on 03-19-2025 Lymphocytes Auto (Unsp spec) [#/Vol] 1.72 10*3/uL 0.83-4.51 [facility] Absolute neutrophil countOrd ered By: Javan Phan on 03-19-2025 Neutrophils (Bld) [#/Vol] 7.4 10*3/uL 2.0-7.7 [facility] Anion gap in Serum or Plasma Ordered By: Javan Phan on 03-19-2025 Anion gap [Moles/Vol] 13 mmol/L 5-15 [facility] Automated lymphocyte count a s percentage of total leukocytesOrdered By: Javan Phan on 03-19-2025 Lymphocytes/100 WBC Auto (Unsp spec) 17.1 % Low 19-41 [facility] BUN/creatinine ratioOrdered By: Javan Phan on 03-19-2025 Urea nitrogen/Creatinine [Mass ratio] 13.5 mg/mg - [facility] Basic Metabolic Profile (BMP )on 03-19-2025 BUN/CRE 13.5 RATIO Normal - [facility] Comment on above: Performed By: #### L 501.4021 #### [facility] [place], [address] Calcium [Mass/Vol] 9.6 mg/dL Normal 7.6-11.0 [facility] Comment on above: Performed By: #### L 501.4021 #### [facility] [address] [place], [address] Chloride [Moles/Vol] 107 mmol/L Normal 98-108 [facility] Comment on above: Performed By: #### L 501.4021 #### [facility] [address] [place], [address] CO2 [Moles/Vol] 19.7 mmol/L Low 21.0-32.0 [facility] Comment on above: Performed By: #### L 501.4021 #### [facility] [address] [place], [address] Creatinine [Mass/Vol] 1.08 mg/dL Normal 0.70-1.20 [facility] Comment on above: Performed By: #### L 501.4021 #### [facility] [address] [place], [address] ECRCL 57.44 ml/min Normal 50-250 [facility] Comment on above: Performed By: #### L 501.4021 #### [facility] [address] [place], [address] GAP 13 Normal 5-15 [facility] Comment on above: Performed By: #### L 501.4021 #### [facility] [address] [place], [address] GFR/1.73 sq M.predicted among non-blacks MDRD (S/P/Bld) [Vol rate/Area] 72 mL/min/{1.73_m2} Normal >60 [facility] Comment on above: Result Comment: mL/m in/1.73m2 CKD-EPI Creatinine Equation (2020) Performed By: #### L 501.4021 #### [facility] [address] [place], [address] Glucose [Mass/Vol] 109 mg/dL High 70-99 [facility] Comment on above: Performed By: #### L 501.4021 #### [facility] [address] [place], [address] Potassium [Moles/Vol] 4.6 mmol/L Normal 3.3-5.1 [facility] Comment on above: Result Comment: Hemo lysis present, Results??could be affected. ?? Performed By: #### L 501.4021 #### [facility] [address] [place], [address] Sodium [Moles/Vol] 139 mmol/L Normal 133-145 [facility] Comment on above: Performed By: #### L 501.4021 #### [facility] [address] [place] [place], [address] Urea nitrogen [Mass/Vol] 15 mg/dL Normal 4-19 [facility] Comment on above: Performed By: #### L 501.4021 #### [facility] [address] [place], [address] Basophil percentageOrdered B y: Remus Ungcésar on 03-19-2025 Basophils/100 WBC (Bld) 1.5 % High 0-1 [facility] Bilirubin Test strip Ql (U)O rdered By: Remus Ungur on 03-19-2025 Bilirubin Ql (U) Negative Negative [facility] Brain/Head without Contrasto n 03-19-2025 Brain/Head without Contrast [facility] Imaging Services [address] [place] [address] Brain/Head without Contrast MR#: [id number] Acct: [id number] Name: ALDO SOTO Rep #: [id number] : 1950 M 74 From: Brayden Reyes MD PCP: Care Physician,No Primary Status: REG ER Study: Brain/Head without Contrast Date of Exam: 11/12 Exam# [id number] Ordering Dr: Javan Phan DO PROCEDURE: BRAIN/HEAD [...] atrophy and chronic microvascular ischemia. Reading Location: [place] [address] CC: Dr. Javan Phan DO; No Primary Care Physician Clerical Coordinator: Signed Normal [facility] CBC W/Diff, Automatedon Absolute Lymph 1.72 X10 3/uL Normal 0.83-4.51 [facility] Comment on above: Performed By: #### L 501.4021 #### [facility] [address] [place], [place], [address] Absolute Neut 7.4 X10 3/uL Normal 2.0-7.7 [facility] Comment on above: Performed By: #### L 501.4021 #### [facility] [address] [place], [address] Basophils/100 WBC (Bld) 1.5 % High 0-1 [facility] Comment on above: Performed By: #### L 501.4021 #### [facility] [address] [place], [address] Eosinophils/100 WBC (Bld) 1.6 % Normal 0-5 [facility] Comment on above: Performed By: #### L 501.4021 #### [facility] [address] [place], [address] Erythrocyte distribution width (RBC) [Ratio] 12.9 % Normal 11.6-14.6 [facility] Comment on above: Performed By: #### L 501.4021 #### [facility] [address] [place], [address] Hematocrit (Bld) [Volume fraction] 48.5 % Normal 40-54 [facility] Comment on above: Performed By: #### L 501.4021 #### [facility] [address] [place], [address] Hemoglobin (Bld) [Mass/Vol] 15.9 g/dL Normal 13.0-16.5 [facility] Comment on above: Performed By: #### L 501.4021 #### [facility] [address] [place], [address] IG% 0.500 Normal 0.0-0.9 [facility] Comment on above: Result Comment: IG% - Immature Granulocytes (promyelocytes, myelocytes and metamyelocytes) > 1% indicates that a LEFT SHIFT is Present. Performed By: #### L 501.4021 #### [facility] [address] [place], [address] Lymphocytes/100 WBC (Bld) 17.1 % Low 19-41 [facility] Comment on above: Performed By: #### L 501.4021 #### [facility] [address] [place], [address] MCH (RBC) [Entitic mass] 30.2 pg Normal 27.0-32.0 [facility] Comment on above: Performed By: #### L 501.4021 #### [facility] [address] [place], [address] MCHC (RBC) [Mass/Vol] 32.8 g/dL Normal 32-36 [facility] Comment on above: Performed By: #### L 501.4021 #### [facility] [address] [place], [address] MCV (RBC) [Entitic vol] 92.0 fL Normal 80-94 [facility] Comment on above: Performed By: #### L 501.4021 #### [facility] [address] [place], [address] Monocytes/100 WBC (Bld) 6.1 % Normal 0-10 [facility] Comment on above: Performed By: #### L 501.4021 #### [facility] [address] [place], [address] Neutrophils/100 WBC (Bld) 73.2 % High 47-70 [facility] Comment on above: Performed By: #### L 501.4021 #### [facility] [address] [place], [address] Nucleated RBC (Bld) [#/Vol] 0 10*3/uL Normal 0-5 [facility] Comment on above: Performed By: #### L 501.4021 #### [facility] [address] [place], [address] Platelet mean volume (Bld) [Entitic vol] 10.3 fL Normal 6.2-12.0 [facility] Comment on above: Performed By: #### L 501.4021 #### [facility] [address] [place], [address] Platelets (Bld) [#/Vol] 334 10*3/uL Normal 150-450 [facility] Comment on above: Performed By: #### L 501.4021 #### [facility] [address] [place], [address] RBC (Bld) [#/Vol] 5.27 10*6/uL Normal 4.6-6.2 [facility] Comment on above: Performed By: #### L 501.4021 #### [facility] [address] [place], [address] RDW SD 43.3 fl Normal 35.1-43.9 [facility] Comment on above: Performed By: #### L 501.4021 #### [facility] [address] [place], [address] WBC (Bld) [#/Vol] 10.1 10*3/uL Normal 4.4-11.0 [facility] Comment on above: Performed By: #### L 501.4021 #### [facility] [address] [place], [address] Carbon dioxide, total [Moles /volume] in Central venous bloodOrdered By: Javan Phan on 03-19-2025 CO2 [Moles/Vol] 19.7 mmol/L Low 21.0-32.0 [facility] Chloride assayOrdered By: Marguerite Phan on 03-19-2025 Chloride [Moles/Vol] 107 mmol/L 98-108 [facility] Emergency Department Summary on 03-19-2025 Emergency Department Summary [facility] Medical Records Department [address] [place] [address] Emergency Department Summary 03/19/25 MR#: [id number] Acct: [id number] Name: ALDO SOTO Rep #: [id number] : 1950 74 From: Javan Phan DO PCP: Care Physician,No Primary Status:DEP ER Location: ED HPI History of Present Illness Chief Complaint: Alt LOC Detail of Chief Complaint: Mental status change Informant: EMS Narrative Narrative: Patient brought to the emergency department via EMS from retirement. Patient with history of dementia. Apparently had [...] prior seizure history. Patient is comfort care. [facility] Medical History Hemorrhagic stroke Home Medications ???Medication [...] movement Auscultation: (more content not included)... Normal [facility] Eosinophil percentageOrdered By: Javan Phan on 03-19-2025 Eosinophils/100 WBC (Bld) 1.6 % 0-5 [facility] Erythrocyte distribution wid th ratioOrdered By: Javan Phan on 03-19-2025 Erythrocyte distribution width (RBC) [Ratio] 12.9 % 11.6-14.6 [facility] Erythrocyte distribution wid th standard deviationOrdered By: Javan Phan on 03-19-2025 Erythrocyte distribution width (RBC) [Ratio] 43.3 fl 35.1-43.9 [facility] Glomerular filtration rate ( GFR) estimation/1.73 sq m using serum, plasma, or whole bOrdered By: [facility] Ph[facility] on 03-19-2025 GFR/1.73 sq M.predicted among non-blacks MDRD (S/P/Bld) [Vol rate/Area] 72 mL/min/{1.73_m2} >60 [facility] Comment on above: mL/min/1.73m2 CKD-EP I Creatinine Equation (2020) Hematocrit Auto (Bld) [Volum e fraction]Ordered By: Javan Phan on 03-19-2025 Hematocrit (Bld) [Volume fraction] 48.5 % 40-54 [facility] Hemoglobin measurementOrdere d By: Javan Phan on 03-19-2025 Hemoglobin (Bld) [Mass/Vol] 15.9 g/dL 13.0-16.5 [facility] Immature granulocytes/100 WB C Auto (Bld)Ordered By: Javan Phan on 03-19-2025 Immature granulocytes/100 WBC (Bld) 0.500 % 0.0-0.9 [facility] Comment on above: IG% - Immature Granu locytes (promyelocytes, myelocytes and metamyelocytes) > 1% indicates that a LEFT SHIFT is Present. Ketones Test strip Ql (U)Ord ered By: Javan Phan on 03-19-2025 Ketones Ql (U) Negative Negative [facility] L499.0042on 03-19-2025 Trop T High Sen Normal <=22 [facility] Comment on above: Result Comment: PER ER NURSE TO CANCEL Performed By: #### L 499.0042 #### [facility] [address] [place], [address] L499.0043on 03-19-2025 Trop T High Sen Normal <=22 [facility] Comment on above: Result Comment: PER ER NURSE TO CANCEL TESTS Performed By: #### L 499.0043 #### [facility] [address] [place], [address] L501.4021on 03-19-2025 Trop T High Sen 9 ng/L Normal <=22 [facility] Comment on above: Performed By: #### L 501.4021 #### [facility] [address] [place], [address] MCV (mean corpuscular volume ) determinationOrdered By: Javan Phan on 03-19-2025 MCV (RBC) [Entitic vol] 92.0 fL 80-94 [facility] Mean corpuscular hemoglobin (MCH) determinationOrdered By: Javan Phan on 03-19-2025 MCH (RBC) [Entitic mass] 30.2 pg 27.0-32.0 [facility] Mean corpuscular hemoglobin concentration (MCHC) determinationOrdered By: Javan Phan on 03-19-2025 MCHC (RBC) [Mass/Vol] 32.8 g/dL 32-36 [facility] Mean platelet volume determi nationOrdered By: Javan Phan on 03-19-2025 Platelet mean volume (Bld) [Entitic vol] 10.3 fL 6.2-12.0 [facility] Microscopic analysis of urin e for red blood cells (RBC)Ordered By: Javan Phan on 03-19-2025 Microscopic analysis of urine for red blood cells (RBC) 0 SEEN /hpf 0-5 [facility] Monocyte percentageOrdered B y: Javan Phan on 03-19-2025 Monocytes/100 WBC (Bld) 6.1 % 0-10 [facility] Mucus LM Ql (Urine sed)Order ed By: Javan Phan on 03-19-2025 Mucus Ql (Urine sed) 0 SEEN /hpf [facility] Neutrophil percentageOrdered By: Javan Phan on 03-19-2025 Neutrophils/100 WBC (Bld) 73.2 % High 47-70 [facility] Nitrite Test strip Ql (U)Ord ered By: Javan Phan on 03-19-2025 Nitrite Ql (U) Positive High Negative [facility] Nucleated red blood cell per centageOrdered By: Javan Phan on 03-19-2025 Nucleated RBC/100 WBC (Bld) [Ratio] 0 % 0-5 [facility] Platelet countOrdered By: Marguerite Phan on 03-19-2025 Platelets (Bld) [#/Vol] 334 10*3/uL 150-450 [facility] Potassium measurement (mass/ volume)Ordered By: Javan Phan on 03-19-2025 Potassium (Unsp spec) [Mass/Vol] 4.6 mmol/L 3.3-5.1 [facility] Comment on above: Hemolysis present, R esults could be affected. Protein Test strip Ql (U)Ord ered By: Javan Phan on 03-19-2025 Protein Ql (U) TNP [facility] Comment on above: Test not performed Protein, Urine (Random)on Protein (U) [Mass/Vol] 23.7 mg/dL High 0.0-12.0 [facility] Comment on above: Performed By: #### L 501.4021 #### [facility] [address] [place], [place] [address], [address] RBC Auto (Bld) [#/Vol]Ordere d By: Javan Phan on 03-19-2025 RBC (Bld) [#/Vol] 5.27 10*6/uL 4.6-6.2 [facility] Serum creatinine measurement (mass/volume)Ordered By: Javan Phan on 03-19-2025 Creatinine [Mass/Vol] 1.08 mg/dL 0.70-1.20 [facility] Serum glucose measurement (m ass/volume)Ordered By: Javan Phan on 03-19-2025 Glucose [Mass/Vol] 109 mg/dL High 70-99 [facility] Serum or plasma calcium dinesh urement (mass/volume)Ordered By: Javan Phan on 03-19-2025 Calcium [Mass/Vol] 9.6 mg/dL 7.6-11.0 [facility] Serum or plasma urea nitroge n measurement (mass/volume)Ordered By: Javan Phan on 03-19-2025 Urea nitrogen [Mass/Vol] 15 mg/dL 4-19 [facility] Sodium levelOrdered By: Kareen Phan on 03-19-2025 Sodium [Moles/Vol] 139 mmol/L 133-145 [facility] Squamous epithelial cells de tection in urine sediment by light microscopyOrdered By: Javan Phan on 03-19-2025 Epithelial cells.squamous LM Ql (Urine sed) 0 SEEN /hpf 0-5 [facility] Troponin T.cardiac [Mass/vol ume] in Serum or Plasma by High sensitivity methodOrdered By: Javan Phan on 03-19-2025 Troponin T.cardiac High sensitivity method [Mass/Vol] 9 ng/L <22 [facility] Urinalysis, Completeon 03-19 BACTERIA 1+ /hpf Normal None Seen [facility] Comment on above: Order Comment: ALAN CTOR TO SPECIFY Performed By: #### L 500.4050, L100.0100, L503.6005 #### [facility] [address] [place], [address] WBC 25-50 SEEN Normal 0-5 [facility] Comment on above: Order Comment: ALAN CTOR TO SPECIFY Performed By: #### L 500.4050, L100.0100, L503.6005 #### [facility] [address] [place], [address] EPI,SQUAMOUS 0 SEEN Normal 0-5 [facility] Comment on above: Order Comment: ALAN CTOR TO SPECIFY Performed By: #### L 500.4050, L100.0100, L503.6005 #### [facility] [address] [place], [address] Mucus Ql (Urine sed) [address] [facility] Comment on above: Order Comment: ALAN CTOR TO SPECIFY Performed By: #### L 500.4050, L100.0100, L503.6005 #### [facility] [address] [place], [address] RBC 0 SEEN Normal 0-5 [facility] Comment on above: Order Comment: COLLE CTOR TO SPECIFY Performed By: #### L 500.4050, L100.0100, L503.6005 #### [facility] [address] [place], [address] Urine clarityOrdered By: Jessica Phan on 03-19-2025 Clarity (U) Cloudy Clear [facility] Urine color determinationOrd ered By: Javan Phan on 03-19-2025 Color (U) Yellow Yellow [facility] Urine glucose detectionOrder ed By: Javan Phan on 03-19-2025 Glucose Ql (U) Normal mg/dl Normal [facility] Urine leukocyte esterase det ection by dipstickOrdered By: Javan Phan on 03-19-2025 Leukocyte esterase Test strip Ql (U) 500 /ul High Negative [facility] Urine pHOrdered By: Javan coles on 03-19-2025 pH (U) 6.5 [pH] 5.0 - 8.0 [facility] Urine protein measurement (m ass/volume)Ordered By: Javan Phan on 03-19-2025 Protein (U) [Mass/Vol] 23.7 mg/dL High 0.0-12.0 [facility] Urine sediment bacteria coun t by microscopy (number/high power field)Ordered By: Javan Phan on 03-19-2025 Bacteria LM.HPF (Urine sed) [#/Area] 1 /[HPF] None Seen [facility] Urine specific gravity measu rementOrdered By: Javan Phan on 03-19-2025 Specific gravity (U) [Rel density] 1.015 1.002-1.030 [facility] Urine urobilinogen measureme ntOrdered By: Javan Phan on 03-19-2025 Urobilinogen Ql (U) Normal mg/dl Normal [facility] White blood cell (WBC) count Ordered By: Javan Phan on 03-19-2025 WBC (Bld) [#/Vol] 10.1 10*3/uL 4.4-11.0 [facility] White blood cell countOrdere d By: Javan Phan on 03-19-2025 White blood cell count 25-50 SEEN /hpf 0-5 [facility] Duplex ultrasound of carotid artery reportOrdered By: French Peters on 02-28-2025 Study report [facility] Cardi[facility] Services [address] [place] [address] Carotid Duplex Ultrasound 02/27/25 1431 MR#: [id number] Acct: [id number] Name: ALDO SOTO Rep #:[id number] : 1950 74 From: French Ernandez Attending Dr: Dr. Donny Taylor, Status: ADM RAQUEL Ordering Dr: Fausto Davidson DO Date: 02/26/25 Location: [facility] Sex: M C Admitted: 02/26/25 Reason For [...] the left vertebral artery. Procedure Carotid Duplex 30167. This is a Carotid Duplex examination using [...] Date Dictated: 02/27/25 1431 Date Transcribed: 02/28/25726 Clerical Coordinator: Signed [facility] Work Phone: Alcohol, Blood (Medical)-Ser umon 02-27-2025 SERUM ETOH < 10.1 Normal <=10.0 [facility] Comment on above: Result Comment: This test is for medical purposes only. The legal definition of intoxication varies according to local law. Performed By: #### L 500.4050, L100.0100, L503.6005 #### [facility] [address] [place], [place], [address] Brain without Contraston Brain without Contrast [facility] Imaging Services [address] [place] [address] Brain without Contrast MR#: [id number] Acct: [id number] Name: ALDO SOTO Rep #: [id number] : 1950 M 74 From: Lalo Sánchez MD PCP: Care Physician,No Primary Status: ADM RAQUEL Study: Brain without Contrast Date of Exam: 02/27/25 Exam# [id number] Ordering Dr: Fausto Davidson DO EXAM: BRAIN [...] Fausto Davidson, DO; No Primary Care Physician Clerical Coordinator: Signed Normal [facility] Calculated very low density lipoprotein (VLDL) cholesterol measurementOrdered By: Fausto Perla on 02-27-2025 Calculated very low density lipoprotein (VLDL) cholesterol measurement 17 mg/dL 5-40 [facility] Echocardiogram study reportO rdered By: Joseph Steinberg on 02-27-2025 Study report [facility] [address] [place] [address] Echo Complete W/ Contrast 02/27/25 1057 MR#: [id number] Acct: [id number] Name: ALDO SOTO Rep #:[id number] : 1950 74 From: Joseph rEnandez Attending Dr: Dr. Donny Taylor DO Status: [...] ~ Date Dictated: 02/27/251056 Date Transcribed: 02/27/251746 Clerical Coordinator: Signed [facility] Work Phone: Electrocardiogram reportOrde red By: Mitchel Mendieta on 02-27-2025 EKG study [facility] Cardiovascular Services [address] [place] [address] 12 Lead EKG 02/26/25 190 MR#: [id number] Acct: [id number] Name: ALDO SOTO Rep #:[id number] : 1950 74 From: Mitchel mancuso MD Attending Dr: Dr. Donny Taylor DO Status: ADM RAQUEL Ordering Dr: Damien Leung MD Date: 02/26/25 Location: [facility] Sex: M C Admitted: 02/26/25 Test Reason : ALT LOC Blood Pressure : */* mmHG Vent. Rate : 87 BPM Atrial Rate : 87 BPM P-R Int : 152 ms QRS Dur : 72 ms QT Int : 364 ms P-R-T Axes : 65 2 49 degrees QTcB Int : 438 ms Normal sinus rhythm Normal ECG Confirmed by Mitchel Mendieta ([id number]), index editor DINORAH WHITE ([id number]) on 59:25:01 AM Referred By: Fausto Davidson Confirmed By: Mitchel Mendieta 02/27/25 0925 Date _ Mitchel Mendieta MD CC: Dr. Damien Leung MD; Dr. Fausto Davidson, DO; Dr. Donny Taylor, DO; No Primary Care Physician ~ Signed [facility] Other Folates,Serum (Folic Acid)on 02-27-2025 FOLATES,SERUM 10.50 ng/mL Normal 4.60-34.80 [facility] Comment on above: Performed By: #### L 506.0200 #### [facility] Laboratory [address] [place], [place], [address] LDL calc ser/plasOrdered By: Fausto Perla on 02-27-2025 Cholesterol in LDL [Mass/Vol] 119 mg/dL [facility] Comment on above: Lulupusvcy=978-069 m g/dL & Higher Slwf=606 mg/dL or greater Lipid Profileon 02-27-2025 CHOL:HDL 3.80 Normal [facility] Comment on above: Performed By: #### L 500.4100 #### [facility] [address] [place], [place], [address] Cholesterol [Mass/Vol] 185 mg/dL Normal <=200 [facility] Comment on above: Result Comment: Chol esterol level, Desirable <200 mg/dL Borderline high cholesterol 200-239 mg/dL High cholesterol >=240 mg/dL Recommendations of the NCEP Adult Treatment Panel for the following risk-cutoff thresholds for the [place] population. Performed By: #### L 500.4100 #### [facility] [address] [place], [place], [address] Cholesterol in HDL [Mass/Vol] 49 mg/dL Normal [facility] Comment on above: Result Comment: Deanna onal Cholesterol Education Program (NCEP) guidelines: <40 mg/dL: Low HDL-cholesterol (major risk factor for CHD) >= 60 mg/dL: High HDL-cholesterol (negative risk factor for CHD) HDL-cholesterol is affected by a number of factors, e.g. smoking, exercise, hormones, sex and age. Performed By: #### L 500.4100 #### [facility] [address] [place], [address] Cholesterol in LDL [Mass/Vol] 119 mg/dL Normal [facility] Comment on above: Result Comment: Bord yzfgdm=499-100 mg/dL Higher Tacd=629 mg/dL or greater Performed By: #### L 500.4100 #### [facility] [address] [place], [address] Cholesterol in VLDL [Mass/Vol] 17 mg/dL Normal 5-40 [facility] Comment on above: Performed By: #### L 500.4100 #### [facility] [address] [place], [address] Triglyceride [Mass/Vol] 87 mg/dL Normal [facility] Comment on above: Result Comment: The drugs N-Acetylcysteine and Metamizole may falsely depress this assay. Normal range: <150 mg/dL Borderline High: 150-199 mg/dL High: 200-499 mg/dL Very High: >500 mg/dL Performed By: #### L 500.4100 #### [facility] [address] [place], [address] MR/CON.PCM.NEon 02-27-2025 MR/CON.PCM.NE [facility] Medical Records Department [address] [place] [address] Consultation - Neurology 02/27/25 0823 MR#: [id number] Acct: [id number] Name: ALDO SOTO Rep #: [id number] : 1950 74 From: Kendra Motley MD PCP: Care Physician,No Primary Status:ADM RAQUEL Location: [place] [address] Assessment and Plan: Neuro Assessment/Plan ALDO SOTO [...] and OA; s/p THR who presents to [facility] ER with his family complaining of altered [...] had a (more content not included)... Normal [facility] Magnetic resonance imaging r eportOrdered By: Lalo Sánchez on 02-27-2025 Study report [facility] Imaging Services [address] [place] [address] Brain without Contrast MR#: [id number] Acct: [id number] Name: ALDO SOTO Rep #: [id number] : 1950 M 74 From: Yeny Sánchez MD PCP: Care Physician,No Primary Status: ADM RAQUEL Study:Brain without Contrast Date of Exam: 02/27/25 Exam# [id number] Ordering Dr: Fausto Salinas DO EXAM: BRAIN [...] Davidson DO; No Primary Care Physician ~ Clerical Coordinator: Signed [facility] Screening total cholesterol/ high density lipoprotein (HDL) cholesterol ratioOrdered By: Fausto Perla on 02-27-2025 Cholesterol.total/Choles terol in HDL [Mass ratio] 3.80 {ratio} [facility] Serum or plasma cholesterol in HDL measurement (mass/volume)Ordered By: Fausto Perla on 02-27-2025 Cholesterol in HDL [Mass/Vol] 49 mg/dL >40 [facility] Comment on above: National Cholesterol Education Program (NCEP) guidelines:<40 mg/dL: Low HDL-cholesterol (major risk factor for CHD)>= 60 mg/dL: High HDL-cholesterol (negative risk factor for CHD)HDL-cholesterol is affected by a number of factors, e.g. smoking, exercise, hormones, sex and age. Serum or plasma cholesterol measurement (mass/volume)Ordered By: Fausto Perla on 02-27-2025 Cholesterol [Mass/Vol] 185 mg/dL <201 [facility] Comment on above: Cholesterol level, D esirable <200 mg/dLBorderline high cholesterol 200-239 mg/dLHigh cholesterol >=240 mg/dLRecommendations of the NCEP Adult Treatment Panel for the following risk-cutoff thresholds for the [place] population. Thyroid Stim Hormone (TSH)on 02-27-2025 TSH 1.070 uIU/mL Normal 0.300-4.200 [facility] Comment on above: Performed By: #### L 500.4050, L100.0100, L503.6005 #### [facility] [address] [place], [address] Triglycerides measurementOrd ered By: Fausto Perla on 02-27-2025 Triglyceride [Mass/Vol] 87 mg/dL <199 [facility] Comment on above: The drugs N-Acetylcy steine and Metamizole may falsely depress this assay. Normal range: <150 mg/dLBorderline High: 150-199 mg/dLHigh: 200-499 mg/dLVery High: >500 mg/dL Urine Drug Screen (VISTA)on 02-27-2025 AMPHETAMINES Negative Normal <1000 ng/mL [facility] Comment on above: Order Comment: UNK Performed By: #### L 500.4050, L100.0100, L503.6005 #### [facility] [address] [place], [address] BARBITIURATES Negative Normal < 200 ng/mL [facility] Comment on above: Order Comment: UNK Performed By: #### L 500.4050, L100.0100, L503.6005 #### [facility] [address] [place], [address] BENZODIAZIPINE Negative Normal < 200 ng/mL [facility] Comment on above: Order Comment: UNK Performed By: #### L 500.4050, L100.0100, L503.6005 #### [facility] [address] [place], [address] BUP Ur Drug Scr Negative Normal < 200 ng/mL [facility] Comment on above: Order Comment: UNK Performed By: #### L 500.4050, L100.0100, L503.6005 #### [facility] [address] [place], [address] COCAINE Negative Normal < 300 ng/mL [facility] Comment on above: Order Comment: UNK Performed By: #### L 500.4050, L100.0100, L503.6005 #### [facility] [address] [place], [address] Fentanyl Negative Normal [facility] Comment on above: Order Comment: UNK Performed By: #### L 500.4050, L100.0100, L503.6005 #### [facility] [address] [place], [address] METHADONE Negative Normal < 300 ng/mL [facility] Comment on above: Order Comment: UNK Performed By: #### L 500.4050, L100.0100, L503.6005 #### [facility] [address] [place], [address] OPIATES Negative Normal < 300 ng/mL [facility] Comment on above: Order Comment: UNK Performed By: #### L 500.4050, L100.0100, L503.6005 #### [facility] [address] [place], [address] OXYCODONE Negative Normal < 100 ng/mL [facility] Comment on above: Order Comment: UNK Performed By: #### L 500.4050, L100.0100, L503.6005 #### [facility] [address] [place], [address] PCP Negative Normal < 25 ng/mL [facility] Comment on above: Order Comment: UNK Performed By: #### L 500.4050, L100.0100, L503.6005 #### [facility] [address] [place], [address] THC Negative Normal < 50 ng/mL [facility] Comment on above: Order Comment: UNK Performed By: #### L 500.4050, L100.0100, L503.6005 #### [facility] [address] [place], [address] Vitamin B12on 02-27-2025 Cobalamin (Vitamin B12) [Mass/Vol] 461 pg/mL Normal 180-914 [facility] Comment on above: Performed By: #### L 500.4050, L100.0100, L503.6005 #### [facility] [address] [place], [address] 12 Lead EKGon 02-26-2025 12 Lead EKG [facility] Cardiovascular Services [address] [place] [address] 12 Lead EKG 02/26/25 1905 MR#: [id number] Acct: [id number] Name: ALDO SOTO Rep #: [id number] : 1950 74 From: Mitchel Mendieta MD Attending Dr: Dr. Donny Taylor, DO Status: A DM RAQUEL Ordering Dr: Damien Leung MD Date: 02/26/25 Location: [facility] Sex: M C Admitted: 02/26/25 Test Reason : ALT LOC Blood Pressure : */* mmHG Vent. Rate : 87 BPM Atrial Rate : 87 BPM P-R Int : 152 ms QRS Dur : 72 ms QT Int : 364 ms P-R-T Axes : 65 2 49 degrees QTcB Int : 438 ms Normal sinus rhythm Normal ECG Confirmed by Mitchel Mendieta ([id number]), index editor DINORAH WHITE ([id number]) on 02/27/2025 9:25:01 AM Referred By: Fausto Davidson Confirmed By: Mitchel Mendieta 02/27/25924 Date Mitchel Mendieta MD CC: Dr. Damien Leung MD; Dr. Fausto Davidson DO; Dr. Donny Taylor DO; No Primary Care Physician Signed Normal [facility] Absolute lymphocyte countOrd ered By: Damien Leung on 02-26-2025 Lymphocytes Auto (Unsp spec) [#/Vol] 1.49 10*3/uL 0.83-4.51 [facility] Absolute neutrophil countOrd ered By: Damien Leung on 02-26-2025 Neutrophils (Bld) [#/Vol] 7.7 10*3/uL 2.0-7.7 [facility] Amphetamine detection with 1 000 ng/mL as cutoffOrdered By: Fausto Perla on 02-26-2025 Amphetamines Screen method >1000 ng/mL Ql (U) Negative < 200 ng/mL [facility] Anion gap in Serum or Plasma Ordered By: Damien Leung on 02-26-2025 Anion gap [Moles/Vol] 13 mmol/L 03-02 [facility] Automated lymphocyte count a s percentage of total leukocytesOrdered By: Damien Leung on 02-26-2025 Lymphocytes/100 WBC Auto (Unsp spec) 14.7 % Low [facility] BUN/creatinine ratioOrdered By: Damien Leung on 02-26-2025 Urea nitrogen/Creatinine [Mass ratio] 21.2 mg/mg High - [facility] Basophil percentageOrdered B y: Damien Leung on 02-26-2025 Basophils/100 WBC (Bld) 1.2 % High 0-1 [facility] Bilirubin Test strip Ql (U)O rdered By: Damien Leung on 02-26-2025 Bilirubin Ql (U) 1 mg/dL High Negative [facility] Comment on above: COLOR OF URINE MAY A FFECT DIPSTICK RESULTS. Bilirubin, totalOrdered By: Damien Leung on 02-26-2025 Bilirubin [Mass/Vol] 0.51 mg/dL 0.00-1.30 [facility] Brain/Head without Contrasto n 02-26-2025 Brain/Head without Contrast [facility] Imaging Services [address] [place] [address] Brain/Head without Contrast MR#: [id number] Acct: [id number] Name: ALDO SOTO Rep #: [id number] : 1950 M 74 From: Lonnie bloom MD PCP: Care Physician,No Primary Status: REG ER Study: Brain/Head without Contrast Date of Exam: 02/16 11/12 Exam# [id number] Ordering Dr: Damien Leung MD PROCEDURE: BRAIN/HEAD [...] Damien Leung MD; No Primary Care Physician Clerical Coordinator: Signed Normal [facility] CBC W/Diff, Automatedon 02-16 Absolute Lymph 1.49 X10 3/uL Normal 0.83-4.51 [facility] Comment on above: Performed By: #### L 500.4050, L100.0100, L503.6005 #### [facility] [address] [place], [address] Absolute Neut 7.7 X10 3/uL Normal 2.0-7.7 [facility] Comment on above: Performed By: #### L 500.4050, L100.0100, L503.6005 #### [facility] [address] [place], [address] Basophils/100 WBC (Bld) 1.2 % High 0-1 [facility] Comment on above: Performed By: #### L 500.4050, L100.0100, L503.6005 #### [facility] [address] [place], [address] Eosinophils/100 WBC (Bld) 0.9 % Normal 0-5 [facility] Comment on above: Performed By: #### L 500.4050, L100.0100, L503.6005 #### [facility] [address] [place], [address] Erythrocyte distribution width (RBC) [Ratio] 12.7 % Normal 11.6-14.6 [facility] Comment on above: Performed By: #### L 500.4050, L100.0100, L503.6005 #### [facility] [address] [place], [address] Hematocrit (Bld) [Volume fraction] 51.1 % Normal 40-54 [facility] Comment on above: Performed By: #### L 500.4050, L100.0100, L503.6005 #### [facility] [address] [place], [address] Hemoglobin (Bld) [Mass/Vol] 17.0 g/dL High 13.0-16.5 [facility] Comment on above: Performed By: #### L 500.4050, L100.0100, L503.6005 #### [facility] [address] [place], [address] IG% 0.300 Normal 0.0-0.9 [facility] Comment on above: Result Comment: IG% - Immature Granulocytes (promyelocytes, myelocytes and metamyelocytes) > 1% indicates that a LEFT SHIFT is Present. Performed By: #### L 500.4050, L100.0100, L503.6005 #### [facility] [address] [place], [address] Lymphocytes/100 WBC (Bld) 14.7 % Low 19-41 [facility] Comment on above: Performed By: #### L 500.4050, L100.0100, L503.6005 #### [facility] [address] [place], [address] MCH (RBC) [Entitic mass] 29.8 pg Normal 27.0-32.0 [facility] Comment on above: Performed By: #### L 500.4050, L100.0100, L503.6005 #### [facility] [address] [place], [address] MCHC (RBC) [Mass/Vol] 33.3 g/dL Normal 32-36 [facility] Comment on above: Performed By: #### L 500.4050, L100.0100, L503.6005 #### [facility] [address] [place], [address] MCV (RBC) [Entitic vol] 89.5 fL Normal 80-94 [facility] Comment on above: Performed By: #### L 500.4050, L100.0100, L503.6005 #### [facility] [address] [place], [address] Monocytes/100 WBC (Bld) 6.9 % Normal 0-10 [facility] Comment on above: Performed By: #### L 500.4050, L100.0100, L503.6005 #### [facility] [address] [place], [address] Neutrophils/100 WBC (Bld) 76.0 % High 47-70 [facility] Comment on above: Performed By: #### L 500.4050, L100.0100, L503.6005 #### [facility] [address] [place], [address] Nucleated RBC (Bld) [#/Vol] 0 10*3/uL Normal 0-5 [facility] Comment on above: Performed By: #### L 500.4050, L100.0100, L503.6005 #### [facility] [address] [place], [address] Platelet mean volume (Bld) [Entitic vol] 10.1 fL Normal 6.2-12.0 [facility] Comment on above: Performed By: #### L 500.4050, L100.0100, L503.6005 #### [facility] [address] [place], [address] Platelets (Bld) [#/Vol] 334 10*3/uL Normal 150-450 [facility] Comment on above: Performed By: #### L 500.4050, L100.0100, L503.6005 #### [facility] [address] [place], [address] RBC (Bld) [#/Vol] 5.71 10*6/uL Normal 4.6-6.2 [facility] Comment on above: Performed By: #### L 500.4050, L100.0100, L503.6005 #### [facility] [address] [place], [address] RDW SD 41.7 fl Normal 35.1-43.9 [facility] Comment on above: Performed By: #### L 500.4050, L100.0100, L503.6005 #### [facility] [address] [place], [address] WBC (Bld) [#/Vol] 10.1 10*3/uL Normal 4.4-11.0 [facility] Comment on above: Performed By: #### L 500.4050, L100.0100, L503.6005 #### [facility] [address] [place], [address] Carbon dioxide, total [Moles /volume] in Central venous bloodOrdered By: Damien Leung on 02-26-2025 CO2 [Moles/Vol] 21.8 mmol/L 21.0-32.0 [facility] Carotid Duplex Ultrasoundon 02-26-2025 Carotid Duplex Ultrasound [facility] Cardiovascular Services [address] [place] [address] Carotid Duplex Ultrasound 02/27/25 1431 MR#: [id number] Acct: [id number] Name: ALDO SOTO Rep #: [id number] : 1950 74 From: French Peters MD Attending Dr: Dr. Donny Taylor, Status: A DM RAQUEL Ordering Dr: Fausto Davidson DO Date: 02/26/25 Location: [facility] Sex: M C Admitted: 02/26/25 Reason For [...] the left vertebral artery. Procedure Carotid Duplex 83074. This is a Carotid Duplex examination using [...] Date Dictated: 02/27/25 1431 Date Transcribed: 02/28/25726 Clerical Coordinator: Signed Normal [facility] Chest PA and Lateralon 02-26 Chest PA and Lateral [facility] Imaging Services [address] [place] [address] Chest PA and Lateral MR#: [id number] Acct: [id number] Name: ALDO SOTO Rep #: [id number] : 1950 M 74 From: Lonnie bloom MD PCP: Care Physician,No Primary Status: [facility] ER Study: Chest PA and Lateral Date of Exam: 02/26/25 Exam# [id number] Ordering Dr: Damien Leung MD PROCEDURE: CHEST [...] IMPRESSION: NO ACUTE FINDINGS. [facility] CC: Dr. Damien Leung MD; No Primary Care Physician Clerical Coordinator: Signed Normal [facility] Chloride assayOrdered By: Sally Leung on 02-26-2025 Chloride [Moles/Vol] 109 mmol/L High 98-108 [facility] Comprehensive Metabolic Prof ilon 02-26-2025 Albumin [Mass/Vol] 4.3 g/dL Normal 3.4-4.8 [facility] Comment on above: Performed By: #### L 500.4050, L100.0100, L503.6005 #### [facility] [address] [place], [address] Albumin/Globulin [Mass ratio] 1.3 {ratio} Normal 0.9-2.4 [facility] Comment on above: Performed By: #### L 500.4050, L100.0100, L503.6005 #### [facility] [address] [place], [address] ALK PHOS 77 U/L Normal 40-129 [facility] Comment on above: Performed By: #### L 500.4050, L100.0100, L503.6005 #### [facility] [address] [place], [address] ALT [Catalytic activity/Vol] 8 U/L Normal <=46 [facility] Comment on above: Performed By: #### L 500.4050, L100.0100, L503.6005 #### [facility] [address] [place], [address] AST [Catalytic activity/Vol] 12 U/L Normal <=37 [facility] Comment on above: Performed By: #### L 500.4050, L100.0100, L503.6005 #### [facility] [address] [place], [address] Bilirubin [Mass/Vol] 0.51 mg/dL Normal 0.00-1.30 [facility] Comment on above: Performed By: #### L 500.4050, L100.0100, L503.6005 #### [facility] [address] [place], [address] BUN/CRE 21.2 RATIO High 10-20 [facility] Comment on above: Performed By: #### L 500.4050, L100.0100, L503.6005 #### [facility] [address] [place], [address] Calcium [Mass/Vol] 9.8 mg/dL Normal 7.6-11.0 [facility] Comment on above: Performed By: #### L 500.4050, L100.0100, L503.6005 #### [facility] [address] [place], [address] Chloride [Moles/Vol] 109 mmol/L High 98-108 [facility] Comment on above: Performed By: #### L 500.4050, L100.0100, L503.6005 #### [facility] [address] [place], [address] CO2 [Moles/Vol] 21.8 mmol/L Normal 21.0-32.0 [facility] Comment on above: Performed By: #### L 500.4050, L100.0100, L503.6005 #### [facility] [address] [place], [address] Creatinine [Mass/Vol] 0.79 mg/dL Normal 0.70-1.20 [facility] Comment on above: Performed By: #### L 500.4050, L100.0100, L503.6005 #### [facility] [address] [place], [address] ECRCL 79.80 ml/min Normal 50-250 [facility] Comment on above: Performed By: #### L 500.4050, L100.0100, L503.6005 #### [facility] [address] [place], [address] GAP 13 Normal 5-15 [facility] Comment on above: Performed By: #### L 500.4050, L100.0100, L503.6005 #### [facility] [address] [place], [address] GFR/1.73 sq M.predicted among non-blacks MDRD (S/P/Bld) [Vol rate/Area] 94 mL/min/{1.73_m2} Normal >60 [facility] Comment on above: Result Comment: mL/m in/1.73m2 CKD-EPI Creatinine Equation (2020) Performed By: #### L 500.4050, L100.0100, L503.6005 #### [facility] [address] [place], [address] Globulin (S) [Mass/Vol] 3.4 g/dL Normal 2.2-4.2 [facility] Comment on above: Performed By: #### L 500.4050, L100.0100, L503.6005 #### [facility] [address] [place], [address] Glucose [Mass/Vol] 90 mg/dL Normal 70-99 [facility] Comment on above: Performed By: #### L 500.4050, L100.0100, L503.6005 #### [facility] [address] [place], [address] Potassium [Moles/Vol] 3.7 mmol/L Normal 3.3-5.1 [facility] Comment on above: Performed By: #### L 500.4050, L100.0100, L503.6005 #### [facility] [address] [place], [address] Sodium [Moles/Vol] 144 mmol/L Normal 133-145 [facility] Comment on above: Performed By: #### L 500.4050, L100.0100, L503.6005 #### [facility] [address] [place], [address] T PROT 7.8 g/dL Normal 5.9-8.4 [facility] Comment on above: Performed By: #### L 500.4050, L100.0100, L503.6005 #### [facility] [address] [place], [address] Urea nitrogen [Mass/Vol] 17 mg/dL Normal 4-19 [facility] Comment on above: Performed By: #### L 500.4050, L100.0100, L503.6005 #### [facility] [address] [place], [address] Echo Complete W/ Contraston 02-26-2025 Echo Complete W/ Contrast [facility] Cardiovascular Services [address] [place] [address] Echo Complete W/ Contrast 02/27/25 1057 MR#: [id number] Acct: [id number] Name: ALDO SOTO Rep #: [id number] : 1950 74 From: Joseph Steinberg MD Attending Dr: Dr. Donny Taylor, Status: A DM RAQUEL Ordering Dr: Fausto Davidson DO Date: 02/26/25 Location: [facility] Sex: M C Admitted: 02/26/25 Reason For [...] sec Doppler Measurements Calculations MV E max dewayne: 54.2 cm/sec [...] Date Dictated: 02/27/25 105 Date Transcribed: 02/27/251746 Clerical Coordinator: Signed Normal [facility] Emergency Department Summary on 02-26-2025 Emergency Department Summary [facility] Medical Records Department [address] [place] [address] Emergency Department Summary 02/26/25 MR#: [id number] Acct: [id number] Name: ALDO SOTO Rep #: [id number] : 1950 74 From: Damien Leung MD [...] last couple days she has been Moises. [facility] Medical History (Updated 02/26/25 @ 21:31 by [...] edema, pu (more content not included)... Normal [facility] Eosinophil percentageOrdered By: Damien Leung on 02-26-2025 Eosinophils/100 WBC (Bld) 0.9 % 0-5 [facility] Erythrocyte distribution wid th ratioOrdered By: Damien Leung on 02-26-2025 Erythrocyte distribution width (RBC) [Ratio] 12.7 % 11.6-14.6 [facility] Erythrocyte distribution wid th standard deviationOrdered By: Damien Leung on 02-26-2025 Erythrocyte distribution width (RBC) [Ratio] 41.7 fl 35.1-43.9 [facility] Folate [Moles/volume] in Ser um or PlasmaOrdered By: Fausto Perla on 02-26-2025 Folate [Moles/Vol] 10.50 ng/mL 4.60-34.80 [facility] Glomerular filtration rate ( GFR) estimation/1.73 sq m using serum, plasma, or whole bOrdered By: Damien Leung on 02-26-2025 GFR/1.73 sq M.predicted among non-blacks MDRD (S/P/Bld) [Vol rate/Area] 94 mL/min/{1.73_m2} >60 [facility] Comment on above: mL/min/1.73m2 CKD-EP I Creatinine Equation (2020) [facility] H&P Exam - Hospitalist [facility] Medical Records Department [address] [place] [address] H P Exam - Hospitalist 02/26/252126 MR#: [id number] Acct: [id number] Name: ALDO SOTO Rep #: [id number] : 1950 74 From: Fausto Davidson DO PCP: Care Physician,No Primary Status:ADM RAQUEL Location: [place] [address] HPI - General General Date of Admission: [...] and OA; s/p THR who presents to [facility] ER with his family complaining of altered [...] expected to be less than 2 midnights. [facility] Medical History Hemorrhagic stroke Home Medications ???Medication [...] and danis (more content not included)... Normal [facility] Hematocrit Auto (Bld) [Volum e fraction]Ordered By: Damien Leung on 02-26-2025 Hematocrit (Bld) [Volume fraction] 51.1 % 40-54 [facility] Hemoglobin A1con 02-26-2025 HbA1c (Bld) [Mass fraction] 5.5 % Normal <=5.6 [facility] Comment on above: Result Comment: Norm al < 5.7 % Prediabetic 5.7 - 6.4 % Diabetic >or= 6.5 % Please note range changes. Performed By: #### L 500.4050, L100.0100, L503.6005 #### [facility] [address] [place], [address] Hemoglobin A1c percentageOrd ered By: Fausto Perla on 02-26-2025 HbA1c (Bld) [Mass fraction] 5.5 % <5.7 [facility] Comment on above: Normal < 5.7 % Predi abetic 5.7 - 6.4 % Diabetic >or= 6.5 % Please note range changes. Hemoglobin measurementOrdere d By: Damien Leung on 02-26-2025 Hemoglobin (Bld) [Mass/Vol] 17.0 g/dL High 13.0-16.5 [facility] Immature granulocytes/100 WB C Auto (Bld)Ordered By: Damien Leung on 02-26-2025 Immature granulocytes/100 WBC (Bld) 0.300 % 0.0-0.9 [facility] Comment on above: IG% - Immature Granu locytes (promyelocytes, myelocytes and metamyelocytes) > 1% indicates that a LEFT SHIFT is Present. Ketones Test strip Ql (U)Ord ered By: Damien Leung on 02-26-2025 Ketones Ql (U) Negative Negative [facility] L499.0042on 02-26-2025 Trop T High Sen 7 ng/L Normal <=22 [facility] Comment on above: Performed By: #### L 501.4021 #### [facility] [address] [place], [address] L499.0043on 02-26-2025 Trop T High Sen 10 ng/L Normal <=22 [facility] Comment on above: Performed By: #### L 499.0043 #### [facility] [address] [place], [address] L501.4021on 02-26-2025 Trop T High Sen 9 ng/L Normal <=22 [facility] Comment on above: Performed By: #### L 501.4021 #### [facility] [address] [place], [place], [id number] Laboratory - Chemistry and C hemistry - challengeOrdered By: Damien Leung on 02-26-2025 AST [Catalytic activity/Vol] 12 U/L <38 [facility] Lactic Acidon 02-26-2025 Lactate [Moles/Vol] 1.7 mmol/L Normal 0.0-2.0 [facility] Comment on above: Order Comment: Y Performed By: #### L 500.4050, L100.0100, L503.6005 #### [facility] [address] [place], [place], [address] Lactic acid measurementOrder ed By: Damien Leung on 02-26-2025 Lactate [Moles/Vol] 1.7 mmol/L 0.0-2.0 [facility] MCV (mean corpuscular volume ) determinationOrdered By: Damien Leung on 02-26-2025 MCV (RBC) [Entitic vol] 89.5 fL 80-94 [facility] Mean corpuscular hemoglobin (MCH) determinationOrdered By: Damien Leung on 02-26-2025 MCH (RBC) [Entitic mass] 29.8 pg 27.0-32.0 [facility] Mean corpuscular hemoglobin concentration (MCHC) determinationOrdered By: Damien Leung on 02-26-2025 MCHC (RBC) [Mass/Vol] 33.3 g/dL 32-36 [facility] Mean platelet volume determi nationOrdered By: Damien Leung on 02-26-2025 Platelet mean volume (Bld) [Entitic vol] 10.1 fL 6.2-12.0 [facility] Microscopic analysis of urin e for red blood cells (RBC)Ordered By: Damien Leung on 02-26-2025 Microscopic analysis of urine for red blood cells (RBC) 0-5 SEEN /hpf 0-5 [facility] Monocyte percentageOrdered B y: Damien Leung on 02-26-2025 Monocytes/100 WBC (Bld) 6.9 % 0-10 [facility] Mucus LM Ql (Urine sed)Order ed By: Damien Leung on 02-26-2025 Mucus Ql (Urine sed) 0 SEEN /hpf [facility] Neutrophil percentageOrdered By: Damien Leung on 02-26-2025 Neutrophils/100 WBC (Bld) 76.0 % High 47-70 [facility] Nitrite Test strip Ql (U)Ord ered By: Damien Leung on 02-26-2025 Nitrite Ql (U) Negative Negative [facility] No Panel InformationOrdered By: Fausto Perla on 02-26-2025 Urine Buprenorphine Qualitative Negative < 200 ng/mL [facility] Urine Oxycodone Screen Negative < 100 ng/mL [facility] Nucleated red blood cell per centageOrdered By: Damien Leung on 02-26-2025 Nucleated RBC/100 WBC (Bld) [Ratio] 0 % 0-5 [facility] Platelet countOrdered By: Sally Leung on 02-26-2025 Platelets (Bld) [#/Vol] 334 10*3/uL 150-450 [facility] Potassium measurement (mass/ volume)Ordered By: Daimen Leung on 02-26-2025 Potassium (Unsp spec) [Mass/Vol] 3.7 mmol/L 3.3-5.1 [facility] Protein Test strip Ql (U)Ord ered By: Damien Leung on 02-26-2025 Protein Ql (U) 30 mg/dl High Negative [facility] Quantitative urine opiates m easurementOrdered By: Fausto Perla on 02-26-2025 Opiates Ql (U) Negative < 300 ng/mL [facility] RBC Auto (Bld) [#/Vol]Ordere d By: Damien Leung on 02-26-2025 RBC (Bld) [#/Vol] 5.71 10*6/uL 4.6-6.2 [facility] Screening urine fentanyl milan surementOrdered By: Fausto Perla on 02-26-2025 fentaNYL Screen Ql (U) Negative [facility] Serum creatinine measurement (mass/volume)Ordered By: Damien Leung on 02-26-2025 Creatinine [Mass/Vol] 0.79 mg/dL 0.70-1.20 [facility] Serum globulin measurementOr dered By: Damien Leung on 02-26-2025 Globulin (S) [Mass/Vol] 3.4 g/dL 2.2-4.2 [facility] Serum glucose measurement (m ass/volume)Ordered By: Damien Leung on 02-26-2025 Glucose [Mass/Vol] 90 mg/dL 70-99 [facility] Serum or plasma alanine jones otransferase (ALT) measurementOrdered By: Damien Leung on 02-26-2025 ALT [Catalytic activity/Vol] 8 U/L <47 [facility] Serum or plasma albumin dinesh urement (mass/volume)Ordered By: Damien Leung on 02-26-2025 Albumin [Mass/Vol] 4.3 g/dL 3.4-4.8 [facility] Serum or plasma albumin/glob ulin mass ratioOrdered By: Damien Leung on 02-26-2025 Albumin/Globulin [Mass ratio] 1.3 {ratio} 0.9-2.4 [facility] Serum or plasma alkaline ludwig sphatase measurementOrdered By: Damien Leung on 02-26-2025 ALP [Catalytic activity/Vol] 77 U/L 40-129 [facility] Serum or plasma calcium dinesh urement (mass/volume)Ordered By: Damien Leung on 02-26-2025 Calcium [Mass/Vol] 9.8 mg/dL 7.6-11.0 [facility] Serum or plasma ethanol dinesh urement (mass/volume)Ordered By: Fausto Perla on 02-26-2025 Ethanol [Mass/Vol] mg/dL <10.1 [facility] Comment on above: This test is for med ical purposes only. The legal definition of intoxication varies according to local law. Serum or plasma urea nitroge n measurement (mass/volume)Ordered By: Damien Leung on 02-26-2025 Urea nitrogen [Mass/Vol] 17 mg/dL 4-19 [facility] Sodium levelOrdered By: Koffi Leung on 02-26-2025 Sodium [Moles/Vol] 144 mmol/L 133-145 [facility] Squamous epithelial cells de tection in urine sediment by light microscopyOrdered By: Damien Leung on 02-26-2025 Epithelial cells.squamous LM Ql (Urine sed) 0 SEEN /hpf 0-5 [facility] TSH DL <= 0.005 mIU/L QnOrde red By: Fausto Perla on 02-26-2025 TSH Qn 1.070 uIU/mL 0.300-4.200 [facility] Total proteinOrdered By: Mayda Leung on 02-26-2025 Protein [Mass/Vol] 7.8 g/dL 5.9-8.4 [facility] Troponin T.cardiac [Mass/vol ume] in Serum or Plasma by High sensitivity methodOrdered By: Damien Leung on 02-26-2025 Troponin T.cardiac High sensitivity method [Mass/Vol] 10 ng/L <22 [facility] Troponin T.cardiac High sensitivity method [Mass/Vol] 7 ng/L <22 [facility] Troponin T.cardiac High sensitivity method [Mass/Vol] 9 ng/L <22 [facility] Urinalysis, Completeon 02-26 RBC 0-5 SEEN Normal 0-5 [facility] Comment on above: Order Comment: JESSICA TER SPECIMEN Performed By: #### L 400.0001 #### [facility] [address] [place], [address] WBC 0-5 SEEN Normal 0-5 [facility] Comment on above: Order Comment: JESSICA TER SPECIMEN Performed By: #### L 400.0001 #### [facility] [address] [place], [address] BACTERIA 0 SEEN Normal None Seen [facility] Comment on above: Order Comment: JESSICA TER SPECIMEN Performed By: #### L 400.0001 #### [facility] [address] [place], [address] EPI,SQUAMOUS 0 SEEN Normal 0-5 [facility] Comment on above: Order Comment: JESSICA TER SPECIMEN Performed By: #### L 400.0001 #### [facility] [address] [place], [address] Mucus Ql (Urine sed) [address] [facility] Comment on above: Order Comment: JESSICA TER SPECIMEN Performed By: #### L 400.0001 #### [facility] [address] [place], [address] Urine benzodiazepine levelOr dered By: Fausto Perla on 02-26-2025 Benzodiazepines Ql (U) Negative < 200 ng/mL [facility] Urine clarityOrdered By: Mayda Leung on 02-26-2025 Clarity (U) Clear Clear [facility] Urine cocaine levelOrdered B y: Fausto Perla on 02-26-2025 Cocaine Ql (U) Negative < 300 ng/mL [facility] Urine color determinationOrd ered By: Damien Leung on 02-26-2025 Color (U) Yellow Yellow [facility] Urine [id number] abinol (THC) measurementOrdered By: Fausto Perla on 02-26-2025 Cannabinoids Screen Ql (U) Negative < 50 ng/mL [facility] Urine glucose detectionOrder ed By: Damien Leung on 02-26-2025 Glucose Ql (U) Normal mg/dl Normal [facility] Urine leukocyte esterase det ection by dipstickOrdered By: Damien Leung on 02-26-2025 Leukocyte esterase Test strip Ql (U) 25 /ul High Negative [facility] Urine pHOrdered By: Damien Leung on 02-26-2025 pH (U) 5.0 [pH] 5.0 - 8.0 [facility] Urine phencyclidine (PCP) de tectionOrdered By: Fausto Perla on 02-26-2025 Phencyclidine Ql (U) Negative < 25 ng/mL [facility] Urine sediment bacteria coun t by microscopy (number/high power field)Ordered By: Damien Leung on 02-26-2025 Bacteria LM.HPF (Urine sed) [#/Area] 0 /[HPF] None Seen [facility] Urine specific gravity measu rementOrdered By: Damien Leung on 02-26-2025 Specific gravity (U) [Rel density] 1.025 1.002-1.030 [facility] Urine urobilinogen measureme ntOrdered By: Damien Leung on 02-26-2025 Urobilinogen Ql (U) 1 mg/dl High Normal [facility] Vitamin B12 ser/plasOrdered By: Fausto Perla on 02-26-2025 Cobalamin (Vitamin B12) [Mass/Vol] 461 pg/mL 180-914 [facility] White blood cell (WBC) count Ordered By: Damien Leung on 02-26-2025 WBC (Bld) [#/Vol] 10.1 10*3/uL 4.4-11.0 [facility] White blood cell countOrdere d By: Damien Leung on 02-26-2025 White blood cell count 0-5 SEEN /hpf 0-5 [facility] Vital Signs Date Time Vital Sign Value Performing Clinician Osito mccarthy 03-19-2025 15:31-0400 Diastolic blood pressure 70 mm[Hg] Dr. Damien Leung MD Work Phone: [facility] 03-19-2025 15:31-0400 Heart rate 55 /min Dr. Damien Leung MD Work Phone: 4(962)374-291969 [place] [address] 03-19-2025 15:31-0400 Respiratory rate 18 /min Dr. Damien Leung MD Work Phone: 1(518)692-996469 [place] [address] 03-19-2025 15:31-0400 SaO2% (BldA) [Mass fraction] 99 % Dr. Damien Leung MD Work Phone: 4(209)732-135069 [place] [address] 03-19-2025 15:31-0400 Systolic blood pressure 112 mm[Hg] Dr. Damien Leung MD Work Phone: 6(473)073-017469 [place] [address] 03-19-2025 12:05-0400 Body temperature 97.5 [degF] Dr. Damien Leung MD Work Phone: 7(526)910-253869 [place] [address] 03-19-2025 08:20-0400 Body height 175.[address] Damien Leung MD Work Phone: 0(397)482-416969 [place] [address] 03-19-2025 08:20-0400 Body mass index (BMI) [Ratio] 21.7 kg/m2 Dr. Damien Leung MD Work Phone: 7(127)168-064869 [place] [address] 03-19-2025 08:20-0400 Body weight 66.[address] Damien Leung MD Work Phone: 9(747)567-201569 [place] [address] 03-03-2025 14:30-0400 Body temperature 97 [degF] Dr. Damien Leung MD Work Phone: 9(917)982-041769 [place] [address] 03-03-2025 14:30-0400 Diastolic blood pressure 88 mm[Hg] Dr. Damien Leung MD Work Phone: 7(875)390-497569 [place] [address] 03-03-2025 14:30-0400 Heart rate 68 /min Dr. Damien Leung MD Work Phone: 5(081)537-399069 [place] [address] 03-03-2025 14:30-0400 Respiratory rate 16 /min Dr. Damien Leung MD Work Phone: 9(954)642-889469 [place] [address] 03-03-2025 14:30-0400 SaO2% (BldA) [Mass fraction] 97 % Dr. Damien Leung MD Work Phone: 2(877)693-087469 [place] [address] 03-03-2025 14:30-0400 Systolic blood pressure 135 mm[Hg] Dr. Damein Leung MD Work Phone: 4(921)385-271569 [place] [address] 03-03-2025 04:46-0400 Body mass index (BMI) [Ratio] 21.2 kg/m2 Dr. Damien Leung MD Work Phone: 4(600)275-436769 [place] [address] 03-02-2025 14:12-0400 Body height 175.[address] Damien Leung MD Work Phone: 6(741)320-147050 [place] [address] 03-02-2025 14:12-0400 Body weight 65.[address] Damien eLung MD Work Phone: 3(416)646-926850 [place] [address] 02-26-2025 21:34-0400 Body temperature 98 [degF] Dr. Damien Leung MD Work Phone: 7(265)989-169650 [place] [address] 02-26-2025 21:34-0400 Diastolic blood pressure 104 mm[Hg] Dr. Damien Leung MD Work Phone: 8(468)614-881950 [place] [address] 02-26-2025 21:34-0400 Heart rate 81 /min Dr. Damien Leung MD Work Phone: 8(773)588-017269 [place] [address] 02-26-2025 21:34-0400 Respiratory rate 13 /min Dr. Damien Leung MD Work Phone: 2(688)095-514850 [place] [address] 02-26-2025 21:34-0400 SaO2% (BldA) [Mass fraction] 95 % Dr. Damien Leung MD Work Phone: 3(799)528-248769 [place] [address] 02-26-2025 21:34-0400 Systolic blood pressure 151 mm[Hg] Dr. Damien Leung MD Work Phone: 9(429)025-020369 [place] [address] 02-26-2025 18:24-0400 Body height 175.[address] Damien Leung MD Work Phone: 0(319)365-757669 [place] [address] 02-26-2025 18:24-0400 Body mass index (BMI) [Ratio] 22.3 kg/m2 Dr. Damien Leung MD Work Phone: [facility] 02-26-2025 18:24-0400 Body weight 68.[address] Damien Leung MD Work Phone: [facility] Encounters Encounter Date Encounter Type Care Provider Facility Start: 03-19-2025 End: 03-19-2025 Emergency department patient visit Dr. Damien Leung MD Work Phone: -Emergency Department Work Phone: Start: 03-03-2025 Non-patient / Non-visit Dr. Donny Ponce [facility] Work Phone: Start: 03-02-2025 Non-patient / Non-visit Dr. Donny Ponce [facility] Work Phone: Start: 03-02-2025 ambulatory Fausto Asencio ty:[facility] Start: 03-02-2025 End: 03-03-2025 Evaluation and management of inpatient Dr. Donny [facility] Work Phone: Start: 02-28-2025 Non-patient / Non-visit Dr. Donny Ponce [facility] Work Phone: Start: 02-27-2025 Non-patient / Non-visit Dr. Donny Ponce [facility] Work Phone: Start: 02-27-2025 ambulatory Fausto Asencio ty:[facility] Start: 02-27-2025 Non-patient / Non-visit Dr. French calero MD -[facility] Start: 02-27-2025 ambulatory No Primary Car e Physician Facility:[facility] Start: 02-27-2025 Non-patient / Non-visit Dr. Tyson SHELL -[facility] Start: 02-26-2025 ambulatory Fausto Asencio ty:[facility] Start: 02-26-2025 Non-patient / Non-visit Dr. Kashif Davidson [facility] Work Phone: Start: 02-26-2025 Evaluation and management of inpatient Dr. Fausto Davidson DO -Progressive Care Unit Work Phone: Start: 02-26-[address] Koffi Leung MD Work Phone: [facility] Work Phone: Procedures Date Procedure Procedure Detail [...] Date Care Activity Detail Author Start: 03-19-2025 [facility] Start: 03-19-2025 Bacteria identified in Urine by Culture Urine Culture [facility] Start: 03-19-2025 [facility] Start: 03-19-2025 [facility] Start: 03-03-2025 Patient discharge [facility] Start: 03-02-2025 Admission procedure [facility] Start: 02-28-2025 Care planning and problem solving actions [facility] Start: 02-28-2025 [facility] Start: 02-26-2025 Application of intermittent pneumatic compression device [facility] Start: 02-26-2025 Following clinical pathway protocol [facility] Start: 02-26-2025 Aspiration precautions [facility] Start: 02-26-2025 Cardiac monitoring [facility] Start: 02-26-2025 Catheterization of vein [facility] Start: 02-26-2025 Consultation [facility] Start: 02-26-2025 Elevation of head of bed [facility] Start: 02-26-2025 Exercises [facility] Start: 02-26-2025 Notification of physician [facility] Start: 02-26-2025 Patient referral to dietitian [facility] Start: 02-26-2025 Referral to occupational therapist [facility] Start: 02-26-2025 Referral to service [facility] Start: 02-26-2025 Speech therapy assessment [facility] Start: 02-26-2025 Telemedicine consultation with patient [facility] Start: 02-26-2025 End: 02-26-2025 [facility] Start: 02-26-2025 Vital signs measurements [facility] Start: 02-26-2025 MRI of brain without contrast Brain without Contrast [facility] Start: 02-26-2025 Admission procedure [facility] Start: 02-26-2025 Hospital admission, emergency, from emergency room, medical nature [facility] Start: 02-26-2025 [facility] Folate [Moles/volume ] in Serum or Plasma [facility] Patient Education ED Seizure, Re current (Adult) ED Bladder Infection, Male (Adult) [facility] Work Phone: Patient referral [facility] Work Phone: Troponin T.cardiac [Mass/volume] in Serum or Plasma by High sensitivity method [facility] Urine culture [facility] Payers Date Payer Category Payer Private Health Insurance 101 [id number] 2025 Self-pay Unknown [id number] 2.16.8 [id number] Unknown [id number] 2.16.8 [id number] Unknown [id number] 2.16.8 [id number] Unknown [id number] 2.16.8 [id number] Unknown [id number] 2.16.8 [id number] Unknown [id number] 2.16.8 [id number] Unknown [id number] 2.16.8 [id number] Unknown [id number] 2.16.8 [id number] Unknown [id number] 2.16.8 [id number] Unknown [id number] 2.16.8 [id number] Social History Date Type Detail Facility Start: 02-26-2025 End: 03-19-2025 Tobacco smoking status NHIS Ex-smoker (finding) [facility] Start: 1950 Sex Assigned At Male [facility] Start: 03-01-2025 Tobacco smoking stat us [facility] Unknown if ever smoked [facility] Goals Date Patient Goal Desired Activity /State Functional Status Date Assessment Result Facility 03-03-2025 Functional status Patient Activity Bedres t [facility] Work Phone: 03-03-2025 Functional status Activity Ability Bedres t [facility] Work Phone: Mental Status Date Assessment Result Facility 03-19-2025 Cognitive function Appropriate [facility] Work Phone: 03-03-2025 Cognitive function Touch/Shaking [facility] Work Phone: 02-26-2025 Cognitive function Voice/Name [facility] Work Phone: Clinical Notes 02-26-2025 to 03-19-2025 Note Date & Type Note Facility 03-19-2025 Radiology Diagnostic study note [facility] Imaging Services [address] [place], [place] [address] Brain/Head without Contrast MR#: [id number] Acct: [id number] Name: ALDO SOTO Rep #: [id number] : 1950 M 74 From: Benjamin Reyes MD PCP: Care Physician,No Primary Status: REG ER Study:Brain/Head without Contrast Date of Exa m: 03/19/25 Exam# [id number] Ordering Dr: Marguerite Phan DO PROCEDURE: BRAIN/HEAD [...] atrophy and chronic microvascular ischemia. Reading Location: [id number] CC: Dr. Javan Phan DO; No Primary Care Physician ~ Clerical Coordinator: Signed [facility] 03-19-2025 Hospital Discharge instructions Additional Instructions Follow-up with primary care physician in 3 to 5 days. [facility] Work Phone: 03-03-2025 Consult note [facility] 03-03-2025 Discharge summary Note Date/Time March 03, 2025 3:01pm [facility] Medical Records Department [address] [place] [address] Transfer to [facility] MR#: [id number] Acct: [id number] Name: ALDO SOTO Rep #:[id number] 6 : 1950 74 From: Donny Taylor DO PCP: Care Physician,No Primary Status :ADM IN Certification of patient admission REQUIRED AT TIME OF ADMISSION. I CERTIFY THAT POST-HOSPITAL ECF SERVICES ARE REQUIRED TO BE GIVEN ON AN IN-PATIENT BASIS BECAUSE OF THE ABOVE NAMED PATIENT'S NEED FOR PRISON CARE ON A CONTINUING BASIS FOR THE [...] before D/C Order can be placed): NonSkilled [facility]/Inter[facility] Care 03/03/25 1501 <Electronically signed by Donny [...] Mary Poe DO; Brandie Small MD ~ [facility] Work Phone: 1(587) 806-535605-16-2025 [facility] Medical Records Department [address] [place] [address] Discharge Summary 03/03/25 1502 MR#: [id number] Acct: [id number] Name: ALDO SOTO Rep #: [id number] : 1950 74 From: Donny Taylor DO PCP: Care Physician,No Primary Status:DIS IN Location: [place] [address] Providers Date of Admission: 03/02/25 Date of [...] was seen in the emergency room at [facility] due to a change in mental status [...] patient appeared confused. Patient was admitted to [place] [address] and seen in consultation by teleneurology, his [...] kempt and w (more content not included)... [facility]05-16-2025 Discharge summary [facility] Medical Records Department [address] [place] [address] Transfer to [facility] MR#: [id number] Acct: [id number] Name: ALDO SOTO Rep #:[id number] 6 : 1950 74 From: Donny Taylor DO PCP: Care Physician,No Primary Status :ADM IN Certification of patient admission REQUIRED AT TIME OF ADMISSION. I CERTIFY THAT POST-HOSPITAL ECF SERVICES ARE REQUIRED TO BE GIVEN ON AN IN-PATIENT BASIS BECAUSE OF THE ABOVE NAMED PATIENT'S NEED FOR PRISON CARE ON A CONTINUING BASIS FOR THE CONDITION(S) FOR WHICH HE/SHE WAS RECEIVING IN-PATIENT HOSPITAL SERVICES PRIOR TO HIS/HER TRANSFER TO [facility]. 03/03/25 1501 Diet Diet Order/Speech Therapy: 02/27/25 [...] before D/C Order can be placed): NonSkilled VA/Intermed Care 03/03/25 1501 Cosigner Signature (if applicable): [...] Mary Poe DO; Brandie Small MD ~ [facility]05-15-2025 Progress note Author Donny Taylor [facility] Note Date/Time March 02, 2025 6:27p m [facility] Medical Records Department [address] [place] [address] Progress Note - Hospitalist 03/02/25 1825 MR#: [id number] Acct: [id number] Name: ALDO SOTO Rep #:[id number] : 1950 74 From: Donny Taylor DO PCP: Care Physician,No Primary Status :ADM IN Location: [place] [address]1 Reason for Visit Reason for Visit: Diagnoses [...] 25 minutes Charges/Coding Visit Charges Inpatient E&M: 29683 Subs Hosp L1 NIHSS NIHSS Nursing Documentation NIHSS Nursing Documentation: NIHSS: Ischemic Stroke/TIA Start: 02/26/25 22:22 Text: For PCU Patients: NIH and Neuro Check every 4 Status: Complete hours, PRN and with change in RN caregiver. Freq: [id number] Protocol: Activity Type Activity Date Activity User E-sign Co-sign Detail Recorded Client Recorded Date Recorded By Document 02/27/25 12:48 GABRIELA [id number] 02/27/25 12:54 GABRIELA 02/27/25 12:48 NIH Stroke [...] Confused [Total] -Coma Scale Total 14 03/02/25 8977 <Electronically signed by Donny Taylor DO> Cosigner Signature (if applicable): CC: ~ Signed [facility] Work Phone: 1(399) 623-966205-15-2025 Progress note Author Donny [facility] Note Date/Time March 02, 2025 6:25p m [facility] Medical Records Department [address] [place] [address] Progress Note - Hospitalist 03/01/25 1901 MR#: [id number] Acct: [id number] Name: ALDO SOTO Rep #:[id number] 3 : 1950 74 From: Donny Taylor DO PCP: Care Physician,No Primary Status :ADM IN Location: [place] [address]1 Reason for Visit Reason for Visit: Diagnoses [...] 35 minutes Charges/Coding Visit Charges Inpatient E&M: 18592 Subs Hosp L2 NIHSS NIHSS Nursing Documentation NIHSS Nursing Documentation: NIHSS: Ischemic Stroke/TIA Start: 02/26/25 22:22 Text: For PCU Patients: NIH and Neuro Check every 4 Status: Complete hours, PRN and with change in RN caregiver. Freq: [id number] Protocol: Activity Type Activity Date Activity User E-sign Co-sign Detail Recorded Client Recorded Date Recorded By Document 02/27/25 12:48 GABRIELA [id number] 02/27/25 12:54 GABRIELA 02/27/25 12:48 NIH Stroke [...] Cosigner Signature (if applicable): CC: ~ Signed [facility] Work Phone: 1(895) 416-634105-15-2025 Progress note [facility] Medical Records Department [address] [place] [address] Progress Note - Hospitalist 03/02/251824 MR#: [id number] Acct: [id number] Name: ALDO SOTO Rep #:[id number] 4 : 1950 74 From: Donny Taylor DO PCP: Care Physician,No Primary Status :ADM IN Location: [place] [address] Reason for Visit Reason for Visit: Diagnoses [...] 25 minutes Charges/Coding Visit Charges Inpatient E&M: 72190 Subs Hosp L1 NIHSS NIHSS Nursing Documentation NIHSS Nursing Documentation: NIHSS: Ischemic Stroke/TIA Start: 02/26/25 22:22 Text: For PCU Patients: NIH and Neuro Check every 4 Status: Complete hours, PRN and with change in RN caregiver. Freq: [id number] Protocol: Activity Type Activity Date Activity User E-sign Co-sign Detail Recorded Client Recorded Date Recorded By Document 02/27/25 12:48 GABRIELA [id number] 02/27/25 12:54 GABRIELA 02/27/25 12:48 NIH Stroke [...] Cosigner Signature (if applicable): CC: ~ Signed [facility]05-15-2025 Progress note [facility] Medical Records Department [address] [place] [address] Progress Note - Hospitalist 03/01/25 190 MR#: [id number] Acct: [id number] Name: ALDO SOTO Rep #:[id number] 3 : 1950 74 From: Donny Taylor DO PCP: Care Physician,No Primary Status :ADM IN Location: [place] [address] Reason for Visit Reason for Visit: Diagnoses [...] 35 minutes Charges/Coding Visit Charges Inpatient E&M: 42246 Subs Hosp L2 NIHSS NIHSS Nursing Documentation NIHSS Nursing Documentation: NIHSS: Ischemic Stroke/TIA Start: 02/26/25 22:22 Text: For PCU Patients: NIH and Neuro Check every 4 Status: Complete hours, PRN and with change in RN caregiver. Freq: [id number] Protocol: Activity Type Activity Date Activity User E-sign Co-sign Detail Recorded Client Recorded Date Recorded By Document 02/27/25 12:48 GABRIELA [id number] 02/27/25 12:54 GABRIELA 02/27/25 12:48 NIH Stroke [...] Cosigner Signature (if applicable): CC: ~ Signed [facility]05-15-2025 Evaluation note* Diagnosis Onset Date Resolution Status [...] February 3:02pm Chronic dementia chronic February 3:02pm [facility] Work Phone: 1(882) 343-287505-15-2025 Evaluation note* Diagnosis Onset Date Resolution Status [...] residual deficit inactive March 02, 2025 3:02pm [facility] Work Phone: 1(441) 703-187805-14-2025 Progress note Author Candido Pierce [facility] Note Date/Time March 01, 2025 1:43p m [facility] Medical Records Department [address] [place] [address] Progress Note - Neurology 03/01/25 1311 MR#: [id number] Acct: [id number] Name: ALDO SOTO Rep #:[id number] 8 : 1950 74 From: Candido Pierce MD PCP: Care Physician,No Primary Status :ADM RAQUEL Location: [place] [address] Assessment and Plan: Neuro Assessment/Plan 74 M [...] Details: Inpatient routine EEG report performed at [facility] Study start time: 1053 am on 03/01/25 [...] and with change in RN caregiver. Freq: [id number] Protocol: Activity Type Activity Date Activity User E-sign Co-sign Detail Recorded Client Recorded Date Recorded By Document 02/27/25 12:48 GABRIELA [id number] 02/27/25 12:54 GABRIELA 02/27/25 12:48 NIH Stroke [...] Cosigner Signature (if applicable): CC: ~ Signed [facility] Work Phone: 1(254) 230-763405-14-2025 Progress note [facility] Medical Records Department [address] [place] [address] Progress Note - Neurology 03/01/25 1311 MR#: [id number] Acct: [id number] Name: ALDO SOTO Rep #:[id number] 8 : 1950 74 From: Candido Pierce MD PCP: Care Physician,No Primary Status :ADM RAQUEL Location: [facility] [place] Assessment and Plan: Neuro Assessment/Plan 74 M [...] Details: Inpatient routine EEG report performed at [facility] Study start time: 1053 am on 03/01/25 [...] and with change in RN caregiver. Freq: [id number] Protocol: Activity Type Activity Date Activity User E-sign Co-sign Detail Recorded Client Recorded Date Recorded By Document 02/27/25 12:48 GABRIELA [id number] 02/27/25 12:54 GABRIELA 02/27/25 12:48 NIH Stroke [...] Cosigner Signature (if applicable): CC: ~ Signed [facility]05-13-2025 Progress note Author Donny Taylor [facility] Note Date/Time February 28, 2025 5:35p m [facility] Medical Records Department [address] [place] [address] Progress Note - Hospitalist 02/28/25 1732 MR#: [id number] Acct: [id number] Name: ALDO SOTO Rep #:[id number] : 1950 74 From: Donny Taylor DO PCP: Care Physician,No Primary Status :ADM RAQUEL Location: [place] [address] Reason for Visit Reason for Visit: Diagnoses [...] Physician: Fausto Davidson Performed By: Wojciech Trujillo [facility] Rhythm Strip Rhythm Strip: Sinus Rhythm [...] rehab services, patient will be transferred to [facility] 3-he does not require cardiac telemetry. [...] 35 minutes Charges/Coding Visit Charges Inpatient E&M: 56834 Subs Hosp L2 NIHSS NIHSS Nursing Documentation NIHSS Nursing Documentation: NIHSS: Ischemic Stroke/TIA Start: 02/26/25 22:22 Text: For PCU Patients: NIH and Neuro Check every 4 Status: Complete hours, PRN and with change in RN caregiver. Freq: V7VRBGQ Protocol: Activity Type Activity Date Activity User E-sign Co-sign Detail Recorded Client Recorded Date Recorded By Document 02/27/25 12:48 GABRIELA [id number] 02/27/25 12:54 GABRIELA 02/27/25 12:48 NIH Stroke [...] Cosigner Signature (if applicable): CC: ~ Signed [facility] Work Phone: 1(959) 483-767605-13-2025 Progress note [facility] Medical Records Department [address] [place] [address] Progress Note - Hospitalist 02/28/25 173 MR#: [id number] Acct: [id number] Name: ALDO SOTO Rep #:[id number] : 1950 74 From: Donny Taylor DO PCP: Care Physician,No Primary Status :ADM RAQUEL Location: [place] [address] Reason for Visit Reason for Visit: Diagnoses [...] rehab services, patient will be transferred to [facility] 3-he does not require cardiac telemetry. [...] 35 minutes Charges/Coding Visit Charges Inpatient E&M: 63195 Subs Hosp L2 NIHSS NIHSS Nursing Documentation NIHSS Nursing Documentation: NIHSS: Ischemic Stroke/TIA Start: 02/26/25 22:22 Text: For PCU Patients: NIH and Neuro Check every 4 Status: Complete hours, PRN and with change in RN caregiver. Freq: [id number] Protocol: Activity Type Activity Date Activity User E-sign Co-sign Detail Recorded Client Recorded Date Recorded By Document 02/27/25 12:48 GABRIELA [id number] 02/27/25 12:54 GABRIELA 02/27/25 12:48 NIH Stroke [...] Confused [Total] -Coma Scale Total 14 02/28/25 2068 Cosigner Signature (if applicable): CC: ~ Signed [facility]05-13-2025 Consult note Author Kendra Motley [facility] Note Date/Time February 28, 2025 12:53 am [facility] Medical Records Department [address] [place] [address] Consultation - Neurology 02/27/25 0823 MR#: [id number] Acct: [id number] Name: ALDO SOTO Rep #:[id number] 7 : 1950 74 From: Kendra Motley MD PCP: Care Physician,No Primary Status :ADM RAQUEL Location: [place] [address] Assessment and Plan: Neuro Assessment/Plan ALDO SOTO [...] dailyand OA; s/p THR who presents to [facility] ER with his family complaining of altered [...] touch bilaterally -? Coordination: No dysmetria on mjwnym-ywwh-zorlfp on the RUE. -? Gait- deferred [facility] Medical History Hemorrhagic stroke Home Medications ?Medication [...] (Auto) 76.0 H, Lymph % (Auto) 14.7 L,[place] % (Auto) 6.9, Eos % (Auto) 0.9, [...] Clarity Clear, Urine pH 5.0, Ur Specific [place] 1.025, Urine Protein 30 H, Urine Glucose [...] distribution infarct and involutional changes. Reading Location: [facility] Chest X-Ray 02/26/25 19:20 IMPRESSION: NO ACUTE FINDINGS. Reading Location: [facility] Active Medications Active Medications Active Medications: Current [...] and with change in RN caregiver. Freq: [id number] Protocol: Activity Type Activity Date Activity User E-sign Co-sign Detail Recorded Client Recorded Date Recorded By Document 02/27/25 05:00 MAILE [id number] 02/27/25 05:09 PRISCILLA 02/27/25 05:00 NIH Stroke [...] Davidson, DO; No Primary Care Physician~ Signed [facility] Work Phone: 1([phone]) 740-713405-13-2025 Consult note [facility] Medical Records Department [address] [place] [address] Consultation - Neurology 02/27/25 0823 MR#: [id number] Acct: [id number] Name: ALDO SOTO Rep #:[id number] 7 : 1950 74 From: Kendra Motley MD PCP: Care Physician,No Primary Status :ADM RAQUEL Location: [place] [address] Assessment and Plan: Neuro Assessment/Plan ALDO SOTO [...] dailyand OA; s/p THR who presents to [facility] ER with his family complaining of altered [...] touch bilaterally -? Coordination: No dysmetria on xwrhlz-kawn-nqbxfb on the RUE. -? Gait- deferred [facility] Medical History Hemorrhagic stroke Home Medications ?Medication [...] (Auto) 76.0 H, Lymph % (Auto) 14.7 L,[place] % (Auto) 6.9, Eos % (Auto) 0.9, [...] Clarity Clear, Urine pH 5.0, Ur Specific [place] 1.025, Urine Protein 30 H, Urine Glucose [...] distribution infarct and involutional changes. Reading Location: [facility] Chest X-Ray 02/26/25 19:20 IMPRESSION: NO ACUTE FINDINGS. [facility] Active Medications Active Medications Active Medications: Current [...] and with change in RN caregiver. Freq: [id number] Protocol: Activity Type Activity Date Activity User E-sign Co-sign Detail Recorded Client Recorded Date Recorded By Document 02/27/25 05:00 PRISCILLA [id number] 02/27/25 05:09 PRISCILLA 02/27/25 05:00 NIH Stroke [...] Davidson, DO; No Primary Care Physician~ Signed [facility]05-12-2025 Progress note Author Donny Taylor [facility] Note Date/Time February 27, 2025 6:31p m [facility] Medical Records Department [address] [place] [address] Progress Note - Hospitalist 02/27/25 1824 MR#: [id number] Acct: [id number] Name: ALDO SOTO Rep #:[id number] : 1950 74 From: Donny Taylor DO PCP: Care Physician,No Primary Status :ADM RAQUEL Location: [place] [address] Reason for Visit Reason for Visit: Diagnoses [...] (Auto) 76.0 H, Lymph % (Auto) 14.7 L,[place] % (Auto) 6.9, Eos % (Auto) 0.9, [...] Clarity Clear, Urine pH 5.0, Ur Specific [place] 1.025, Urine Protein 30 H, Urine Glucose [...] distribution infarct and involutional changes. Reading Location: [facility] Chest X-Ray 02/26/25 19:20 IMPRESSION: NO ACUTE FINDINGS. Reading Location: [facility] Echocardiogram 02/26/25 22:01 Interpretation Summary Normal LV [...] the left mastoid air cells. Reading Location: [facility] Rhythm Strip Rhythm Strip: Sinus Rhythm [...] 35 minutes Charges/Coding Visit Charges Inpatient E&M: 51660 Subs Hosp L2 NIHSS NIHSS Nursing Documentation NIHSS Nursing Documentation: NIHSS: Ischemic Stroke/TIA Start: 02/26/25 22:22 Text: For PCU Patients: NIH and Neuro Check every 4 Status: Complete hours, PRN and with change in RN caregiver. Freq: [id number] Protocol: Activity Type Activity Date Activity User E-sign Co-sign Detail Recorded Client Recorded Date Recorded By Document 02/27/25 12:48 GABREILA [id number] 02/27/25 12:54 GABRIELA 02/27/25 12:48 NIH Stroke [...] Cosigner Signature (if applicable): CC: ~ Signed [facility] Work Phone: 1(818) 121-279205-12-2025 Progress note [facility] Medical Records Department [address] [place] [address] Progress Note - Hospitalist 02/27/25 1820 MR#: [id number] Acct: [id number] Name: ALDO SOTO Rep #:[id number] : 1950 74 From: Donny Taylor DO PCP: Care Physician,No Primary Status :ADM RAQUEL Location: [place] [address] Reason for Visit Reason for Visit: Diagnoses [...] (Auto) 76.0 H, Lymph % (Auto) 14.7 L,[place] % (Auto) 6.9, Eos % (Auto) 0.9, [...] Clarity Clear, Urine pH 5.0, Ur Specific [place] 1.025, Urine Protein 30 H, Urine Glucose [...] distribution infarct and involutional changes. Reading Location: [facility] Chest X-Ray 02/26/25 19:20 IMPRESSION: NO ACUTE FINDINGS. Reading Location: [facility] Echocardiogram 02/26/25 22:01 Interpretation Summary Normal LV size. Left ventricular systolic function is normal. The left ventricular ejection fraction is 65 %. Stage 1 diastolic dysfunction. Contrast injection was performed. Ordering Physician: Fausto Davidson Referring Physician: Fausto Davidson Performed By: Wojciech Trujillo [facility] Brain MRI 02/27/25 09:00 IMPRESSION: There is [...] the left mastoid air cells. Reading Location: [facility] Rhythm Strip Rhythm Strip: Sinus Rhythm [...] 35 minutes Charges/Coding Visit Charges Inpatient E&M: 44753 Subs Hosp L2 NIHSS NIHSS Nursing Documentation NIHSS Nursing Documentation: NIHSS: Ischemic Stroke/TIA Start: 02/26/25 22:22 Text: For PCU Patients: NIH and Neuro Check every 4 Status: Complete hours, PRN and with change in RN caregiver. Freq: [id number] Protocol: Activity Type Activity Date Activity User E-sign Co-sign Detail Recorded Client Recorded Date Recorded By Document 02/27/25 12:48 GABRIELA [id number] 02/27/25 12:54 GABRIELA 02/27/25 12:48 NIH Stroke [...] Cosigner Signature (if applicable): CC: ~ Signed [facility]05-12-2025 History and physical note Author Fausto Perla [facility] Note Date/Time February 27, 2025 6:11a m [facility] Medical Records Department [address] [place] [address] H&P Exam - Hospitalist 02/26/252126 MR#: [id number] Acct: [id number] Name: ALDO SOTO Rep #:[id number] : 1950 74 From: Fausto Webster DO PCP: Care Physician,No Primary Status :ADM RAQUEL Location: [place] [address] HPI - General General Date of Admission: 02/26/25 Date of Service: 02/26/25 Chief Complaint: AMS and Fall. HPI Narrative ALDO BRUECOLS, is a 74 M with a past [...] dailyand OA; s/p THR who presents to [facility] ER with his family complaining of altered [...] expected to be less than 2 midnights. [facility] Medical History Hemorrhagic stroke Home Medications ?Medication [...] (Auto) 76.0 H, Lymph % (Auto) 14.7 L,[place] % (Auto) 6.9, Eos % (Auto) 0.9, [...] Clarity Clear, Urine pH 5.0, Ur Specific [place] 1.025, Urine Protein 30 H, Urine Glucose [...] distribution infarct and involutional changes. Reading Location: [facility] Chest X-Ray 02/26/25 19:20 IMPRESSION: NO ACUTE FINDINGS. Reading Location: [facility] Assessment & Plan Assessment/Plan (1) Confusion: (2) [...] pain or fever. We will minimize new RIVER TESTER-active medications in an effort to allow sensorium [...] needed as outlined in #1. [facility] with [facility] family complaining of altered mental status and fall. 12. DVT prophylaxis - SCD's only. Total time: Approximately (but not less than) 70 minutes. Charges/Coding Visit Charges OBSV E&M: 13866 Observ/hosp same date L2 02/27/25 0611 <Electronically signed by Fausto Davidson DO> Cosigner Signature (if applicable): CC: Dr. Fausto Davidson, ; No Primary Care Physician~ Signed [facility] Work Phone: 1(375) 600-893405-12-2025 History and physical note [facility] Medical Records Department [address] [place] [address] H&P Exam - Hospitalist 02/26/252126 MR#: [id number] Acct: [id number] Name: ALDO SOTO Rep #:[id number] : 1950 74 From: Fausto Webster DO PCP: Care Physician,No Primary Status :ADM RAQUEL Location: [place] [address] HPI - General General Date of Admission: [...] dailyand OA; s/p THR who presents to [facility] ER with his family complaining of altered [...] expected to be less than 2 midnights. [facility] Medical History Hemorrhagic stroke Home Medications ?Medication [...] (Auto) 76.0 H, Lymph % (Auto) 14.7 L,[place] % (Auto) 6.9, Eos % (Auto) 0.9, [...] Clarity Clear, Urine pH 5.0, Ur Specific [place] 1.025, Urine Protein 30 H, Urine Glucose [...] distribution infarct and involutional changes. Reading Location: [facility] Chest X-Ray 02/26/25 19:20 IMPRESSION: NO ACUTE FINDINGS. Reading Location: [facility] Assessment & Plan Assessment/Plan (1) Confusion: (2) [...] pain or fever. We will minimize new RIVER TESTER-active medications in aneffort to allow sensorium to [...] needed as outlined in #1. Who [facility] with [facility] family complaining of altered mental status and fall. 12. DVT prophylaxis - SCD's only. Total time: Approximately (but not less than) 70 minutes. Charges/Coding Visit Charges OBSV E&M: 76987 Observ/hosp same date L2 02/27/25 0611 Cosigner Signature (if applicable): CC: Dr. Fausto Davidson, DO; No Primary Care Physician~ Signed [facility]05-11-2025 Discharge summary Author Damien Leung [facility] Note Date/Time February 26, 2025 9:31p m [facility] Medical Records Department [address] [place] [address] Emergency Department Summary 02/26/25 MR#: [id number] Acct: [id number] Name: ALDO SOTO Rep #:[id number] 6 : 1950 74 From: Damien Leung [...] last couple days she has been Mo[place]. [facility] Medical History (Updated 02/26/25 @ 21:31 by [...] 76.0 H Lymph % (Auto) 14.7 L [place] % (Auto) 6.9 Eos % (Auto) 0.9 [...] Clarity Clear Urine pH 5.0 Ur Specific [place] 1.025 Urine Protein 30 H Urine Glucose [...] (Auto) Neut % (Auto) Lymph % (Auto) [place] % (Auto) Eos % (Auto) Baso % [...] Color Urine Clarity Urine pH Ur Specific [place] Urine Protein Urine Glucose (UA) Urine Ketones Urine Occult Blood Urine Nitrite Urine Bilirubin Urine Urobilinogen Ur Leukocyte Esterase Urine RBC Urine WBC Ur Squamous Epith Cells Urine Bacteria Urine Mucus Radiography Diagnostic Testing: Clinical Impression(s) from Imaging Studies Brain CT 02/26/25 18:43 IMPRESSION: No acute intracranial abnormality. 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 Reading Location: [facility] Chest X-Ray 02/26/25 19:20 IMPRESSION: NO ACUTE FINDINGS. Reading Location: [facility] No CT angiography indicated since symptoms have been present for greater than 24hours, if RIVER TESTER mediated. Rhythm Strip Rhythm Strip: Sinus Rhythm [...] Primary [Primary Care Provider] - Print Language: Guatemalan Disposition Disposition: [facility] [facility] What to do if you have Problems For any increased pain, shortness of breath, bleeding, nausea or vomiting, chestpain, or any unexpected problems, contact your Primary Care Provider. Call [facility] ([phone]) or report to the closest Emergency Room. Call 911 if necessary. 02/26/252130 <Electronically signed by Damien Leung MD> Cosigner Signature (if applicable): CC: No Primary Care Physician ~ Signed [facility] Work Phone: [phone]) 953-444705-11-2025 Discharge summary [facility] Medical Records Department [address] [place] [address] Emergency Department Summary 02/26/25 MR#: [id number] Acct: [id number] Name: ALDO SOTO Rep #:[id number] : 1950 74 From: Damien Leung [...] last couple days she has been [place]ises. [facility] Medical History (Updated 02/26/25 @ 21:31 by [...] 76.0 H Lymph % (Auto) 14.7 L [place] % (Auto) 6.9 Eos % (Auto) 0.9 [...] Clarity Clear Urine pH 5.0 Ur Specific [place] 1.025 Urine Protein 30 H Urine Glucose [...] (Auto) Neut % (Auto) Lymph % (Auto) [place] % (Auto) Eos % (Auto) Baso % [...] Color Urine Clarity Urine pH Ur Specific [place] Urine Protein Urine Glucose (UA) Urine Ketones Urine Occult Blood Urine Nitrite Urine Bilirubin Urine Urobilinogen Ur Leukocyte Esterase Urine RBC Urine WBC Ur Squamous Epith Cells Urine Bacteria Urine Mucus Radiography Diagnostic Testing: Clinical Impression(s) from Imaging Studies Brain CT 02/26/25 18:43 IMPRESSION: No acute intracranial abnormality. 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 Reading Location: [facility] Chest X-Ray 02/26/25 19:20 IMPRESSION: NO ACUTE FINDINGS. Reading Location: [facility] No CT angiography indicated since symptoms have been present for greater than 24hours, if RIVER TESTER mediated. Rhythm Strip Rhythm Strip: Sinus Rhythm [...] Primary [Primary Care Provider] - Print Language: Guatemalan Disposition Disposition: Acute Care Hospital [facility] What to do if you have Problems For any increased pain, shortness of breath, bleeding, nausea or vomiting, chestpain, or any unexpected problems, contact your Primary Care Provider. Call [facility] ([phone]) or report tothe closest Emergency Room. Call 911 if necessary. 02/26/252130 Cosigner Signature (if applicable): CC: No Primary Care Physician ~ Signed [facility]05-11-2025 Radiology Diagnostic study note [facility] Imaging Services [address] [place] [id number] Brain/Head without Contrast MR#: [id number] Acct: [id number] Name: ALDO SOTO Rep #: [id number] : 1950 M 74 From: Ally Sargent MD PCP: Care Physician,No Primary Status: REG ER Study:Brain/Head without Contrast Date of Exa m: 02/26/25 Exam# [id number] Ordering Dr: Evan Leung MD PROCEDURE: BRAIN/HEAD [...] Leung MD; No Primary Care Physician ~ Clerical Coordinator: Signed [facility]05-11-2025 Radiology Diagnostic study note [facility] Imaging Services [address] [place] [address] Chest PA and Lateral MR#: [id number] Acct: [id number] Name: ALDO SOTO Rep #: [id number] 2 : 1950 M 74 From: Ally Sargent MD PCP: Care Physician,No Primary Status: REG ER Study:Chest PA and Lateral Date of Exam: 02/26/25 Exam# [id number] Ordering Dr: Evan Leung MD PROCEDURE: CHEST [...] Leung MD; No Primary Care Physician ~ Clerical Coordinator: Signed [facility]05-11-2025 Discharge summary Author Damien Leung [facility] Note Date/Time February 26, 2025 9:31p m [facility] Medical Records Department [address] [place] [address] Emergency Department Summary 02/26/25 MR#: [id number] Acct: [id number] Name: ALDO SOTO Rep #:[id number] : 1950 74 From: Damien Leung [...] last couple days she has been Moises. [facility] Medical History (Updated 02/26/25 @ 21:[address] Damien Lenug MD) Hemorrhagic stroke Home Medications ?Medication ?Instructions [...] 76.0 H Lymph % (Auto) 14.7 L [place] % (Auto) 6.9 Eos % (Auto) 0.9 [...] Clarity Clear Urine pH 5.0 Ur Specific [place] 1.025 Urine Protein 30 H Urine Glucose [...] (Auto) Neut % (Auto) Lymph % (Auto) [place] % (Auto) Eos % (Auto) Baso % [...] Color Urine Clarity Urine pH Ur Specific [place] Urine Protein Urine Glucose (UA) Urine Ketones [...] 19:20 IMPRESSION: NO ACUTE FINDINGS. Reading Location: [facility] No CT angiography indicated since symptoms have been present for greater than 24hours, if RIVER TESTER mediated. Rhythm Strip Rhythm Strip: Sinus Rhythm [...] Primary [Primary Care Provider] - Print Language: Guatemalan Disposition Disposition: Acute Care Hospital [facility] What to do if you have Problems For any increased pain, shortness of breath, bleeding, nausea or vomiting, chestpain, or any unexpected problems, contact your Primary Care Provider. Call [facility] ([phone]) or report to the closest Emergency Room. Call 911 if necessary. 02/26/252130 <Electronically signed by Damien Leung MD> Cosigner Signature (if applicable): CC: No Primary Care Physician ~ Signed [facility] Work Phone: Consult note Author Titi Gambino [facility] Note Date/Time March 03, 2025 5:18p m [facility] Medical Records Department [address] [place] [address] Counseling Note - Pharmacy 03/03/25 0189 MR#: [id number] Acct: [id number] Name: ALDO SOTO Rep #:[id number] : 1950 74 From: Titi Gambino PCP: Care Physician,No Primary Status :ADM IN Y Location: [facility]3 [id number] Pharmacy ID Med Reconciliation Pharmacy Service has performed discharge [...] mg PO BID #1 TAB 03/03/25 03/03/25 3769 <Electronically signed by Titi toure> Date _ Titi Gambino Cosigner Signature (if applicable): Date CC: ~ Signed [facility] Work Phone: Evaluation note* Diagnosis Onset Date Resolution Status Admit Date Confusion acute February 26, 2025 9:51pm Generalized weakness acute February 26, 2025 9:51pm History of hemorrhagic cerebrovascular accident (CVA) with residual deficit acute February 26, 2025 9:51pm Seizure disorder as sequela of cerebrovascular accident acute February 9:51pm Chronic dementia chronic February 9:51pm [facility] Work Phone: Reason for referral (narrative)No reason for referral information [facility] Work Phone: Chief Complaint and Reason for [...] Do you have a Healthcare Power of Felt Puller? No February 26, 2025 6:57pm Advance Directive Response Recorded Date/ Time Do you have a Healthcare Power of Felt Puller? No February 26, 2025 10:29pm Advance Directive Response Recorded Date/ Time Do you have a Healthcare Power of Felt Puller? No February 26, 2025 10:29pm Do you have a Healthcare Power of Felt Puller? No March 19, 2025 8:21am Summary Purpose [...] Lee Alcantara MD Other Provider Active Start: [place] 2024 Barbie Rea MD Other Provider [...] Lee Alcantara MD Other Provider Active Start: [facility] 2024 Barbie Rea MD Other Provider Active [...] Lee Alcantara MD Other Provider Active Start: [place] 2024 Barbie Rea MD Other Provider [...] Lee Alcantara MD Other Provider Active Start: [place] 2024 Barbie Rea MD Other Provider [...] 2025 End: March 03, 2025 Dr. Mitchell uClp MD Other Provider Active St art: March [...] MD Other Provider Active Start: 2024 Bianca Duenas MD Other Provider Active [...] Lee Alcantara MD Other Provider Active Start: [facility] 2024 Barbie Rea MD Other Provider Active [...] section and content) DATE CREATED AUTHOR 03/24/2025 [facility] FOR RECORDS PERTAINING TO PATIENTS WHO [...] BE BASED ON THE PRIMARY CLINICAL RECORDS. [employer] [facility]. provides no warranty or guarantee of the accuracy or completeness of information in this document.
[2025-04-10 08:49] LABS: Hematocrit 39.3 % (40-54); Hemoglobin 12.9 g/dL (13.0-16.5); Mean Corp Hgb Conc 32.8 g/dL (32-36); Mean Corpuscular Hgb 30.7 pg (27.0-32.0); Mean Corpuscular Volume 93.6 fL (80-94); Mean Platelet Vol. 10.3 fl (6.2-12.0); Platelet Count 277 K/mm3 (150-450); RBC Distribution Width CV 14.1 % (11.6-14.6); RBC Distribution Width SD 47.3 fl (35.1-43.9); White Blood Count 7.1 K/mm3 (4.4-11.0)
[2025-04-10 09:16] LABS: Anion Gap 10 (5-15); BUN 11 mg/dL (4-19); BUN/Creat Ratio 13.8 RATIO (10-20); Calcium,Total 8.8 mg/dL (7.6-11.0); Carbon Dioxide 24.1 mmol/L (21.0-32.0); Chloride 109 mmol/L (98-108); Cholesterol 121 mg/dL (<=200); Creatinine, Serum 0.78 mg/dL (0.70-1.20); EST Glomerular Filtration Rate 94 (>60); Glucose 86 mg/dL (70-99); High Density Lipoprotein 55 mg/dL; Low Density Lipoprotein Calc. 52 mg/dL; Potassium 4.3 mmol/L (3.3-5.1); Sodium Level 142 mmol/L (133-145); Triglycerides 70 mg/dL; Very Low Density Lipoprotein 14 mg/dL (5-40)
[2025-04-10 09:17] LABS: Vitamin D,25 Hydroxy 40.4 ng/mL (30-100)
== END ==
LOC: OLS.WCC 04:00
PROVIDERS: Referring Provider Family Medicine; Visit Provider Family Medicine
DX: I10 Essential (primary) hypertension (principal); E78.5 Hyperlipidemia, unspecified; F03.90 Unspecified dementia, unspecified severity, without behavioral disturbance, psychotic disturbance, mood disturbance, and anxiety; Z79.899 Other long term (current) drug therapy
CPT/HCPCS: 36415; 80048; 80061; 82306; 85027